=== PATIENT | male | born 1955 | race Caucasian/White ===

== ENCOUNTER → 2024-08-05 | Outpatient (CLI) | payer BC, SELFPAY ==
[2024-08-05 12:47] LABS: Absolute Lymphocyte Count 1.67 X10^3/uL (0.83-4.51); Absolute Neutrophil Count 3.7 X10^3/uL (2.0-7.7); Basophil# 0.04 X10^3/uL; Basophil% 0.7 % (0-1); Eosinophil# 0.14 X10^3/uL; Eosinophils% 2.3 % (0-5); Hematocrit 46.2 % (40-54); Hemoglobin 15.8 g/dL (13.0-16.5); Lymphocyte # 1.67 X10^3/ul (0.83-4.51); Lymphocyte % 27.3 % (19-41); Mean Corp Hgb Conc 34.2 g/dL (32-36); Mean Corpuscular Hgb 33.3 pg (27.0-32.0); Mean Corpuscular Volume 97.5 fL (80-94); Monocyte# 0.57 X10^3/uL; Monocyte% 9.3 % (0-10); NRBC Flagged by Analyzer 0 % (0-5); Neutrophil # 3.67 X10^3/uL (2.7-7.7); Neutrophil % 60.1 % (47-70); Platelet Count 231 K/mm3 (150-450); RBC Distribution Width CV 11.8 % (11.6-14.6); RBC Distribution Width SD 42.2 fl (35.1-43.9); Red Blood Count 4.74 M/mm3 (4.6-6.2); White Blood Count 6.1 K/mm3 (4.4-11.0)
[2024-08-05 23:31] LABS: Cholesterol 273 mg/dL (<=200); High Density Lipoprotein 78 mg/dL; Low Density Lipoprotein Calc. 174 mg/dL; Triglycerides 107 mg/dL; Very Low Density Lipoprotein 21 mg/dL (5-40); cholesterol:hdl ratio screen 3.51
[2024-08-05 23:41] LABS: ALB/GLOB Ratio 1.5 RATIO (0.9-2.4); AST(SGOT) 20 U/L (<=37); Alanine Aminotransfer ALT/SGPT 23 U/L (<=46); Alkaline Phosphatase 58 U/L (40-129); Anion Gap 10 (5-15); BUN 15 mg/dL (4-19); BUN/Creat Ratio 16.8 RATIO (10-20); Calcium,Total 9.1 mg/dL (7.6-11.0); Carbon Dioxide 24.3 mmol/L (21.0-32.0); Chloride 102 mmol/L (98-108); Creatinine, Serum 0.92 mg/dL (0.70-1.20); EST Glomerular Filtration Rate 90 (>60); Globulin 2.8 g/dL (2.2-4.2); Glucose 166 mg/dL (70-99); Potassium 4.4 mmol/L (3.3-5.1); Protein, Total 6.8 g/dL (5.9-8.4); Sodium Level 136 mmol/L (133-145); Total Bilirubin 0.48 mg/dL (0.00-1.30)
== END | disposition home or self-care (01) ==
LOC: BIMLAB 08:04
PROVIDERS: PCP Internal Medicine; Referring Provider Internal Medicine; Visit Provider Internal Medicine
DX: E11.9 Type 2 diabetes mellitus without complications (principal)
CPT/HCPCS: 36415; 80053; 80061; 85025

== ENCOUNTER → 2024-09-27 | Outpatient (CLI) | payer BC, SELFPAY ==
--- NOTE | 2024-09-27 08:26 | ECHOD_ITS ---
Reason For Study Reason For Study: A. fib Procedure This was a 2D Doppler, Color Flow transthoracic echocardiogram. Exam performed in department. Left Ventricle Normal LV size. Left ventricular systolic function is normal. The left ventricular ejection fraction is 65 %. Stage 1 diastolic dysfunction. Right Ventricle Normal RV size. Normal systolic function. Atria Normal left atrium. Normal right atrium. Mitral Valve Normal mitral valve. Mild (1+) eccentric mitral valve insufficiency. Tricuspid Valve Normal tricuspid valve. Mild tricuspid valve insufficiency. Pulmonary artery systolic pressure is 40 mmHg. Aortic Valve Trisinus/trileaflet aortic valve. Pulmonic Valve Normal pulmonic valve. Great Vessels Normal aortic root. The pulmonary artery is normal size. Inferior vena cava collapse with respiration. Pericardium/Pleural No pericardial effusion. MMode/2D Measurements & Calculations LVIDd: 5.0 cm IVSd: 1.0 cm Ao root diam: 3.2 cm LVIDs: 2.9 cm LVPWd: 1.0 cm RVDd: 3.6 cm FS: 42.4 % LAV(MOD-bp): 50.5 ml LVAd ap4: 30.1 cm2 LVAd ap2: 31.9 cm2 LAV(MOD-bp) Indexed: 20.7 ml/m2 LVLd ap4: 8.3 cm LVLd ap2: 8.8 cm LAV(MOD-sp2): 46.2 ml EDV(MOD-sp4): 90.4 ml EDV(MOD-sp2): 97.7 ml LAV(MOD-sp4): 49.9 ml EDV(sp4-el): 92.0 ml EDV(sp2-el): 98.2 ml LVAs ap4: 15.1 cm2 LVAs ap2: 15.6 cm2 LVLs ap4: 6.9 cm LVLs ap2: 6.8 cm ESV(MOD-sp4): 28.7 ml ESV(MOD-sp2): 30.9 ml ESV(sp4-el): 28.1 ml ESV(sp2-el): 30.2 ml EF(MOD-sp4): 68.2 % EF(MOD-sp2): 68.3 % EF(sp4-el): 69.4 % SV(MOD-sp4): 61.7 ml SV(MOD-sp2): 66.7 ml SV(sp4-el): 63.9 ml SI(MOD-sp4): 25.3 ml/m2 SI(MOD-sp2): 27.3 ml/m2 LA A4 area: 17.8 cm2 LA dimension(2D): 3.9 cm RA A4 area: 16.0 cm2 TAPSE: 2.5 cm Time Measurements MV dec time: 0.19 sec Doppler Measurements & Calculations MV E max ezequiel: 91.7 cm/sec Lat Peak E' Ezequiel: 12.1 cm/sec Med Peak E' Ezequiel: 8.1 cm/sec MV A max ezequiel: 93.7 cm/sec E/E' lat: 7.5 E/E' med: 11.3 MV E/A: 0.98 Ao V2 max: 152.6 cm/sec LV V1 max: 120.8 cm/sec MV dec slope: 492.9 cm/sec2 Ao max P.3 mmHg LV V1 max P.8 mmHg Ao V2 mean: 103.1 cm/sec LV V1 mean P.5 mmHg Ao mean P.8 mmHg LV V1 mean: 87.4 cm/sec Ao V2 VTI: 30.6 cm LV V1 VTI: 26.4 cm AV (velocity ratio): 0.86 PA V2 max: 102.4 cm/sec TR max ezequiel: 299.1 cm/sec TR max P.8 mmHg ECHO/Echo Complete Interpretation Summary Normal LV size. Left ventricular systolic function is normal. The left ventricular ejection fraction is 65 %. Stage 1 diastolic dysfunction. Pulmonary artery systolic pressure is 40 mmHg. Ordering Physician: Barry Cui Referring Physician: Amy Sutton Performed By: Soraida Puga RDCS
== END | disposition home or self-care (01) ==
PROVIDERS: PCP Internal Medicine; Referring Provider Internal Medicine Cardiovascular Disease; Visit Provider Internal Medicine Cardiovascular Disease
DX: I48.91 Unspecified atrial fibrillation (principal)
CPT/HCPCS: 93306

== ENCOUNTER 2024-11-25 06:43 | Day surgery (SDC) | payer BC, SELFPAY ==
--- NOTE | 2024-11-20 10:10 | RAD_ITS ---
EXAM: XR Chest, 2 Views CLINICAL INDICATION: PRE-PROCEDURAL, ABNORMAL CALCIUM SCORE, HEART CATH TECHNIQUE: Frontal and lateral views of the chest. COMPARISON: No relevant prior studies available. FINDINGS: LUNGS AND PLEURAL SPACES: Unremarkable. No consolidation. No pneumothorax. HEART: Unremarkable. No cardiomegaly. MEDIASTINUM: Unremarkable. Normal mediastinal contour. BONES/JOINTS: Unremarkable. No acute fracture. RAD/Chest PA and Lateral IMPRESSION: No acute cardiopulmonary process. Reading Location: [facility]
[2024-11-20 10:46] LABS: Hematocrit 48.2 % (40-54); Hemoglobin 16.3 g/dL (13.0-16.5); Immature Granulocytes Count 0.050 X10^3/uL (0.0-0.0); Mean Corp Hgb Conc 33.8 g/dL (32-36); Mean Corpuscular Volume 96.2 fL (80-94); Mean Platelet Vol. 10.7 fl (6.2-12.0); NRBC Flagged by Analyzer 0 % (0-5); Platelet Count 224 K/mm3 (150-450); RBC Distribution Width CV 12.8 % (11.6-14.6); RBC Distribution Width SD 44.7 fl (35.1-43.9); Red Blood Count 5.01 M/mm3 (4.6-6.2); White Blood Count 8.9 K/mm3 (4.4-11.0)
[2024-11-20 11:20] LABS: Prothrombin Time (Protime)PT. 13.5 SECONDS (11.7-14.9)
[2024-11-20 11:21] LABS: Partial Thromboplast Time 29.2 Seconds (24.1-36.2)
[2024-11-20 11:42] LABS: Anion Gap 12 (5-15); BUN 32 mg/dL (4-19); BUN/Creat Ratio 24.8 RATIO (10-20); Calcium,Total 9.4 mg/dL (7.6-11.0); Carbon Dioxide 26.2 mmol/L (21.0-32.0); Chloride 103 mmol/L (98-108); Glucose 82 mg/dL (70-99); Potassium 4.6 mmol/L (3.3-5.1)
[2024-11-22 09:54] VITALS: BMI 31.2
--- OUTSIDE RECORDS SUMMARY | 2024-11-25 06:50 | XMS RPT_ITS | CCD ---
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 Role Phone Unavailable Primary Care Provider Unavailabl e MARGARET, YARITZA Referring Unavailable LAVERN GARZON Attending Unavailable Pavel WEN, Gracie Unavailable Ofe WEN, Tennille Davies Primary Care Prov ider Gracie Zhao MD Unavailable Ofe WEN, Tennille Davies Primary Care Prov ider OFE, TENNILLE STEPHEN Referring Unav ailable OFE, TENNILLE STEPHEN Primary Care Unav ailable CHARMAINE HARTLEY Referring Unavailable OFE, TENNILLE STEPHEN Primary Care Unav ailable OFE, TENNILLE STEPHEN Primary Care Unav ailable LACI RICHARDSON Referring Unavailabl e OFE, TENNILLE STEPHEN Primary Care Unav ailable ANGEL BURNETTE Attending Unavailable VASILEANGEL Attending Unavailable OFE, TENNILLE STEPHEN Primary Care Unav ailable GRACIE ZHAO Attending Unavailable OFE, TENNILLE STEPHEN Primary Care Unav ailable MELVIN HOOPER Attending Unavailable OFE, TENNILLE STEPHEN Primary Care Unav ailable OFE, TENNILLE STEPHEN Primary Care Unav ailable YARITZA ROBLES Referring Unavailable YARITZA JOYCE Attending Unavailable OFE, TENNILLE STEPHEN Primary Care Unav ailable SELF Referring Unavailable OFE, TENNILLE STEPHEN Primary Care Unav ailable GRACIE ZHAO Attending Unavailable OFE, TENNILLE STEPHEN Primary Care Unav ailable YARITZA ROBLES Attending Unavailable Herman WEN, Dr. Reyes Attending Provider Kimper MD, Dr. Amy Primary Care Provider [phone] Herman WEN, Dr. Reyes Referring Provider Herman WEN, Dr. Reyes Attending Provider Basilia WEN, Dr. Reddy Attending Provider [phone] Basilia WEN, Dr. Reddy Referring Provider [phone] Conner WASHER MACHINE-C, Suzan Attending Provider [phone] Srikanth Hernandez Attending Provider [phone] Basilia, Barry Referring Unavailable Kimper, Amy Primary Care Unavailable Basilia, [place] Attending Unavailable Basilia, [place] Referring Unavailable Basilia, Barry Attending Unavailable Kimper, Amy Primary Care Unavailable Basilia, Barry Attending Unavailable Ehrman, Amy Primary Care Unavailable Basilia, Barry Referring Unavailable Herman, Amy Primary Care Unavailable Conner WASHER MACHINE, Suzan Attending Unavailable Hermna, Amy Attending Unavailable Kimper, Amy Referring Unavailable Basilia, Barry Attending Unavailable Herman, Amy Primary Care Unavailable Kimper, Amy Referring Unavailable Herman, Amy Primary Care Unavailable Herman, Amy Attending Unavailable Basilia, [place] Attending Unavailable Herman, Amy Primary Care Unavailable Basilia, [place] Referring Unavailable Herman, Amy Primary Care Unavailable Basilia, [place] Attending Unavailable Herman, Amy Referring Unavailable Kimper, Amy Primary Care Unavailable Srikanth Chappell Attending Unavailable Allergies Allergy Classification Reported Allergen(s) Allergy Type Date of Onset Reaction(s) Facility (20 sources) atorvastatin; Translations: [ATORVASTATIN] Drug Allergy 3 Myalgia [facility] Work Phone: (20 sources) Seasonal allergy; Translations: [SEASONAL ALLERGIES] Allergy to substance 3 Itching [facility] Work Phone: (20 sources) Losartan; Translations: [LOSARTAN] Drug Allergy 4 Myalgia [facility] (20 sources) metFORMIN; Translations: [METFORMIN] Drug Allergy 4 Diarrhea [facility] (3 sources) cat dander; Translations: [cat dander] Allergy to substance 5 Itching [facility] (2 sources) Iidxtzf-Cvu-Ujl Reductase Inhibitor Allergy to substance 5 Myalgias [facility] (3 sources) Environmental Allergies: Uncoded; Translations: [Environmental Allergies: Uncoded] Allergy to substance 5 Itching [facility] (1 source) Losartan Drug Allergy 5 [facility] Repository (1 source) metFORMIN Drug Allergy 5 [facility] (1 source) Clbksdz-Vxy-Ugq Reductase Inhibitor Drug allergy (disorder) 5 [facility] Repository Medications Current Medications Medication Drug Class(es) Dates Sig (Normalized) Sig (Original) Blood-Glucose Sensor (Freestyle Bertin 3 Plus Sensor) device (6 sources) Start: 07-18-2024 Blood-Glucose Sensor (Freestyle Bertin 3 Plus Sensor) device Active 0 .Route 6 July 18, 2024 5:10pm As directed Start: 07-18-2024 Blood-Glucose Sensor (Freestyle Bertin 3 Plus Sensor) device Active 0 .Route 6 July 18, 2024 5:10pm As directed Start: 07-10-2024 End: 07-18-2024 Blood-Glucose Sensor (Freest yle Bertin 3 Plus Sensor) device Discontinued 0 .Route 1 0 July 10, 2024 12:19pm July 18, 2024 5:11pm As directed Start: 07-10-2024 End: 07-18-2024 Blood-Glucose Sensor (Freest yle Bertin 3 Plus Sensor) device Discontinued 0 .Route 1 July 10, 2024 12:19pm July 18, 2024 5:11pm As directed Start: 07-10-2024 End: 07-10-2024 Blood-Glucose Sensor (Freest yle Bertin 3 Plus Sensor) device Discontinued 0 .Route July 10, 2024 1:00am July 10, 2024 12:51pm As directed Blood-Glucose Sensor (FREESTYLE BERTIN 3 SENSOR PLUS) jose g (18 sources) Start: 01-19-2024 Blood-Glucose Sensor (FREESTYLE BERTIN 3 SENSOR PLUS) jose g Indications: Diabetes mellitus type 1, controlled, without complications (HCC) 1 Each once daily. 2 Each 5 01/19/2024 Active Blood-Glucose Sensor (FREESTYLE BERTIN 3 SENSOR) jose g (8 sources) Start: 07-19-2023 Blood-Glucose Sensor (FREESTYLE BERTIN 3 SENSOR) jose g Indications: Diabetes mellitus type 1, controlled, without complications (HCC) Use to check sugars 3-4 times per day 2 Each 11 07/19/2023 Active Comment on above: Use to check sugars 3-4 times per day dapagliflozin 10 mg oral tablet (20 sources) Sodium-Glucose Cotransporter 2 Inhibitor Start: 12-01-2023 End: 11-05-2024 take 1 tablet by mouth once daily in the morning Dapagliflozin Propanediol (Farxiga) 10 mg tablet Active 10 mg PO EVERY MORNING 90 November 05, 2024 12:40pm Start: 07-08-2023 End: 11-21-2023 take 1 tablet by mouth once daily in the morning FARXIGA 10 mg tablet Indications: Diabetes mellitus type 1, controlled, without complications (HCC) take 1 tablet by mouth every morning 30 tablet 0 11/21/2023 Active Start: 01-07-2023 End: 06-20-2023 take 1 tablet by mouth once daily in the morning FARXIGA 10 mg tablet Take 10 mg by mouth every morning. 0 01/07/2023 06/20/2023 Discontinued Comment on above: Take 10 mg by mouth every morning. Take 1 tablet by joelle th every morning. ezetimibe 10 mg oral tablet (3 sources) Dietary Cholesterol Absorption Inhibitor Start: 08-08-19 End: 10-01-19 take 1 tablet by mouth once daily Ezetimibe (Zetia) 10 mg tablet Active 10 mg PO daily 30 September 30, 2024 1:17pm hydroCHLOROthiazide 12.5 mg / lisinopril 20 mg oral tablet (20 sources) Thiazide Diuretic, Angiotensin Converting Enzyme Inhibitor Start: 07-10-19 End: 09-24-19 Lisinopril-Hydroc hlorothiazide 20-12.5 mg tablet Active 1 {tbl} PO daily 90 September 23, 2024 8:50am Start: 01-09-2023 End: 04-09-2024 take 1 tablet by mouth once lisinopril-hydroCHLOROthiazide (ZESTORET IC) 20-12.5 mg per tablet Indications: Hypertension, essential Take 1 tablet by mouth every afternoon. 30 tablet 5 04/09/2024 Active Comment on above: Take 1 tablet by joelle th every afternoon. 3 ml insulin glargine 300 unt/ml pen injector (20 sources) Insulin Analog Start: 11-11-2024 Insulin Glargine U-300 Conc (Toujeo Max U-300 Solostar) 300 unit/mL (3 mL) insulin pen Active 50 U SC AT BEDTIME 6 November 11, 2024 10:12am Start: 08-24-2024 End: 09-30-2024 Insulin Glargine U-300 Conc (Toujeo Max U-300 Solostar) 300 unit/mL (3 mL) insulin pen Discontinued 50 U SC AT BEDTIME 6 August 24, 2024 11:05pm September 30, 2024 1:17pm Start: 05-03-2024 TOUJEO SOLOSTA R U-300 INSULIN 300 unit/mL (1.5 mL) Indications: Diabetes mellitus type 1, controlled, without complications (HCC) Inject 60 Units subcutaneously daily at bedtime. 15 mL 1 05/03/2024 Active Start: 02-15-2024 End: 05-03-2024 TOUJEO SOLOSTAR U-300 INSULI N 300 unit/mL (1.5 mL) Indications: Diabetes mellitus type 1, controlled, without complications (HCC) Inject 56 Units subcutaneously daily at bedtime. 15 mL 1 02/15/2024 05/03/2024 Discontinued (Adjust Sig - Block E-Cancel) Start: 07-19-2023 End: 02-15-2024 TOUJEO SOLOSTAR U-300 INSULI N 300 unit/mL (1.5 mL) Indications: Diabetes mellitus type 1, controlled, without complications (HCC) Inject 60 Units subcutaneously daily at bedtime. 15 mL 1 01/24/2024 02/15/2024 Discontinued (Adjust Sig - Block E-Cancel) Start: 01-23-2023 End: 07-19-2023 TOUJEO SOLOSTAR U-300 INSULI N 300 unit/mL (1.5 mL) Comment on above: Inject 60 Units subc utaneously daily at bedtime. 3 ml insulin lispro 100 unt/ml pen injector (20 sources) Insulin Analog Start: 07-10-2024 End: 10-22-2024 Insulin Lispro 100 unit/mL insulin pen Active 20 U SC THREE TIMES A DAY 15 October 22, 2024 2:16pm Start: 02-14-2024 End: 05-09-2024 insulin lispro (HUMALOG KWIK PEN) 100 unit/mL Indications: Diabetes mellitus type 1, controlled, without complications (HCC) Inject 20 Units subcutaneously three times a day before meals. 15 mL 2 05/09/2024 Active Start: 07-21-2023 End: 02-14-2024 inject 20 [IU] by subcutaneous injection three times daily before mealtime insulin lispro (HUMALOG KWIKPEN INSULIN) 100 unit/mL Indications: Diabetes mellitus type 1, controlled, without complications (HCC) Inject 20 Units subcutaneously three times a day before meals. Plus an additional 2 units for each 50 mg/dL >200; maximum amount per injection: 30 units; maximum per day: 90 units 12 mL 4 07/21/2023 02/14/2024 Discontinued Start: 06-20-2023 End: 07-21-2023 insulin lispro (HUMALOG KWIK PEN INSULIN) 100 unit/mL Indications: Diabetes mellitus type 1, controlled, without complications (HCC) Inject 20 Units subcutaneously three times a day before meals. 12 mL 4 07/19/2023 07/21/2023 Discontinued Comment on above: Inject 20 Units subc utaneously three times a day before meals. Inject 20 Units subc utaneously three times a day before meals. Plus an additional 2 units for each 50 mg/dL >200; maximum amount per injection: 30 units; maximum per day: 90 units lidocaine 0.05 mg/mg medicated patch (5 sources) Antiarrhythmic, Amide Local Anesthetic Start: 05-03-20 apply 1 dose transdermal route once daily lidocaine (LIDODERM) 5 % Indications: Acute midline low back pain without sciatica Apply 1 Patch as directed once daily. REMOVE AFTER 12 HOURS. 30 Patch 2 05/03/2024 Active Completed/Discontinued Medications Medication Drug Class(es) Dates Sig (Normalized) Sig (Original) apixaban 5 mg oral tablet (20 sources) Factor Xa Inhibitor Start: 07-19-2023 End: 07-10-2024 take 1 tablet by mouth twice daily Apixaban (Eliquis) 5 mg tablet Discontinued 5 mg PO TWICE A DAY July 10, 2024 1:00am July 10, 2024 12:51pm Start: 01-09-2023 End: 07-19-2023 take 1 tablet by mouth every twelve hours ELIQUIS 5 mg tab(s) Take 1 tablet by mouth every 12 (twelve) hours. 0 01/09/2023 07/19/2023 Discontinued Comment on above: Take 1 tablet by joelle th every 12 (twelve) hours. Take 1 tablet by joelle th two times a day. colchicine 0.6 mg oral tablet (2 sources) Start: 07-18-2024 End: 08-28-2024 take 1 tablet by mouth twice daily Colchicine 0.6 mg tablet Discontinued 0.6 mg PO TWICE A DAY July 18, 2024 1:00am August 28, 2024 10:43am FREESTYLE BERTIN 2 SENSOR kit (20 sources) Start: 06-20-2023 End: 02-16-2024 FREESTYLE BERTIN 2 SENSOR kit Indications: Diabetes mellitus type 1, controlled, without complications (HCC) apply 1 SENSOR to back OF UPPER ARM REMOVE AND REPLACE every 14 days 4 Each 2 06/20/2023 02/16/2024 Discontinued Start: 06-20-2023 FREESTYLE LIBR E 2 SENSOR kit Indications: Diabetes mellitus type 1, controlled, without complications (HCC) apply 1 SENSOR to back OF UPPER ARM REMOVE AND REPLACE every 14 days 4 Each 2 06/20/2023 Active Start: 12-26-2022 End: 06-20-2023 FREESTYLE BERTIN 2 SENSOR kit apply 1 SENSOR to back OF UPPER ARM REMOVE AND REPLACE every 14 days 0 12/26/2022 06/20/2023 Discontinued Start: 12-26-2022 FREESTYLE LIBR E 2 SENSOR kit apply 1 SENSOR to back OF UPPER ARM REMOVE AND REPLACE every 14 days 0 12/26/2022 Active Comment on above: apply 1 SENSOR to ba ck OF UPPER ARM REMOVE AND REPLACE every 14 days 3 ml insulin aspart, human 100 unt/ml pen injector (6 sources) Insulin Analog Start: 01-23-2023 End: 06-20-2023 NOVOLOG FLEXPEN U-100 INSULIN 100 unit/mL (3 mL) Start: 12-16-2021 End: 06-20-2023 insulin aspart, niacinamide, (FIASP FLEXTOUCH U-100 INSULIN) 100 unit/mL (3 mL) pen Inject subcutaneously. 0 12/16/2021 06/20/2023 Discontinued (Duplicate Entry) Comment on above: Inject subcutaneousl y. Insulin Glargine U-300 Conc (Toujeo Max U-300 Solostar) 300 unit/mL (3 mL) insulin pen (7 sources) Start: 09-30-2024 End: 11-11-2024 Insulin Glargine U-300 Conc (Toujeo Max U-300 Solostar) 300 unit/mL (3 mL) insulin pen Discontinued 50 U SC AT BEDTIME 6 0 September 30, 2024 1:17pm November 11, 2024 10:12am Start: 07-10-2024 End: 08-24-2024 Insulin Glargine U-300 Conc (Toujeo Max U-300 Solostar) 300 unit/mL (3 mL) insulin pen Discontinued 50 U SC AT BEDTIME 6 0 July 10, 2024 12:18pm August 24, 2024 11:05pm Start: 07-10-2024 Insulin Glargi ne U-300 Conc (Toujeo Max U-300 Solostar) 300 unit/mL (3 mL) insulin pen Active 50 U SC AT BEDTIME 6 July 10, 2024 12:18pm Start: 07-10-2024 End: 07-10-2024 Insulin Glargine U-300 Conc (Toujeo Max U-300 Solostar) 300 unit/mL (3 mL) insulin pen Discontinued 50 U SC AT BEDTIME July 10, 2024 12:15pm July 10, 2024 12:51pm Start: 07-10-2024 End: 07-10-2024 Insulin Glargine U-300 Conc (Toujeo Max U-300 Solostar) 300 unit/mL (3 mL) insulin pen Discontinued 60 U SC AT BEDTIME July 10, 2024 1:00am July 10, 2024 12:17pm 24 hr metoprolol succinate 25 mg extended release oral tablet (20 sources) beta-Adrenergic Lolly Start: 07-10-2024 End: 08-05-2024 take 1 tablet by mouth twice daily Metoprolol Succinate 25 mg tablet extended release 24 hr Discontinued 25 mg PO TWICE A DAY 180 0 July 10, 2024 12:19pm August 05, 2024 12:24pm Start: 07-19-2023 End: 09-02-2024 take 1 tablet by mouth twice daily Metoprolol Tartrate 25 mg tablet Active 25 mg PO TWICE A DAY 180 1 August 05, 2024 12:00am Start: 01-09-2023 End: 07-19-2023 take 1 tablet by mouth every twelve hours metoprolol tartrate, short acting, (LOPRESSOR) 25 mg tablet Take 1 tablet by mouth every 12 (twelve) hours. 0 01/09/2023 07/19/2023 Discontinued Comment on above: Take 1 tablet by joelle th every 12 (twelve) hours. Take 1 tablet by joelle th two times a day. ofloxacin 3 mg/ml ophthalmic solution (1 source) Quinolone Antimicrobial Start: 10-08-19 End: 01-27-20 take 1 drop(s) into the eye(s) four times daily ofloxacin (OCUFLOX) 0.3 % ophthalmic solution instill 1 drop INTO SURGICAL EYE four times a day 0 10/07/2022 01/26/2023 Discontinued (Course of therapy completed) Comment on above: instill 1 drop INTO SURGICAL EYE four times a day polyethylene glycol 3350 [id number] mg / potassium chloride 2970 mg / sodium bicarbonate 6740 mg / sodium chloride 5860 mg / sodium sulfate 31881 mg powder for oral solution (5 sources) Osmotic Laxative Start: 02-07-20 End: 07-19-19 peg 3350-Electrolytes (GOLYTELY) 236-22.74-6.74 -5.86 gram suspension Refer to printed patient instructions that will be mailed to you. 4000 mL 0 02/06/2023 07/19/2023 Discontinued Comment on above: Refer to printed pat ient instructions that will be mailed to you. prednisoLONE acetate 10 mg/ml ophthalmic suspension (1 source) Corticosteroid Start: 11-18-19 End: 01-27-20 prednisoLONE acetate (PRED FORTE) 1 % ophthalmic suspension instill 1 drop INTO SURGICAL EYE four times a day 0 11/17/2022 01/26/2023 Discontinued (Course of therapy completed) Comment on above: instill 1 drop INTO SURGICAL EYE four times a day Problems Active Problems Problem Classification Problem Date Documented Date Episodic/Chronic Abdominal pain (1 source) Flank pain; Translations: [Unspecified abdominal pain] 04-25-2024 Episodic Cardiac dysrhythmias (20 sources) Chronic atrial fibrillation; Translations: [Chronic atrial fibrillation, unspecified] Onset: 05-22-2020 01-26-2023 Chronic Chronic kidney disease (20 sources) Chronic kidney disease stage 2; Translations: [Chronic kidney disease, stage 2 (mild)] Onset: 02-06-2019 07-19-2023 Chronic Diabetes mellitus with complications (20 sources) Retinopathy due to diabetes mellitus; Translations: [Type 2 diabetes mellitus with unspecified diabetic retinopathy without macular edema] Onset: 08-22-2016 07-19-2023 Chronic Diabetes mellitus without complication (20 sources) Type 1 diabetes mellitus without complication; Translations: [Type 1 diabetes mellitus without complications] Onset: 05-23-2023 01-26-2023 Chronic Disorders of lipid metabolism (20 sources) Pure hypercholesterolemia ; Translations: [Pure hypercholesterolemia , unspecified] Onset: 10-26-2012 06-21-2023 Chronic Essential hypertension (20 sources) Essential hypertension; Translations: [Essential (primary) hypertension] Onset: 05-22-2020 06-21-2023 Chronic Hemorrhoids (2 sources) Hemorrhoids; Translations: [Unspecified hemorrhoids] Onset: 05-29-2023 02-06-2023 Episodic Other circulatory disease (2 sources) H/O: atrial fibrillation; Translations: [Personal history of other diseases of the circulatory system] Episodic Other connective tissue disease (1 source) Foot pain; Translations: [Pain in right foot] 07-10-2024 Episodic Other screening for suspected conditions (not mental disorders or infectious disease) (1 source) Abnormal findings on diagnostic imaging of other specified body structures; Translations: [Abnormal findings on diagnostic imaging of other specified body structures] Onset: 11-22-2024 Chronic Other screening for suspected conditions (not mental disorders or infectious disease) (10 sources) Patient encounter status; Translations: [Encounter for screening for malignant neoplasm of colon] Onset: 05-29-2023 01-26-2023 Episodic Other skin disorders (1 source) Skin tag; Translations: [Other hypertrophic disorders of the skin] 01-26-2023 Episodic Residual codes; unclassified (20 sources) Obstructive sleep apnea of adult; Translations: [Obstructive sleep apnea (adult) (pediatric)] Onset: 08-13-2021 07-19-2023 Chronic Residual codes; unclassified (2 sources) Sleep apnea; Translations: [Sleep apnea, unspecified] 07-10-2024 Chronic Residual codes; unclassified (1 source) Obstructive sleep apnea syndrome; Translations: [Obstructive sleep apnea (adult) (pediatric)] 07-10-2024 Chronic Residual codes; unclassified (1 source) Obstructive sleep apnea (adult) (pediatric); Translations: [Obstructive sleep apnea (adult) (pediatric)] Onset: 07-29-2024 Chronic Residual codes; unclassified (1 source) FH: Autoimmune disease; Translations: [Family history of malignant neoplasm of digestive organs] 07-21-2023 Episodic Spondylosis; intervertebral disc disorders; other back problems (1 source) Acute low back pain; Translations: [Acute midline low back pain without sciatica] 05-03-2024 Episodic Unclassified (1 source) Acute midline low back pain without sciatica; Translations: [Acute midline low back pain without sciatica] Onset: 05-03-2024 Unclassified (1 source) Chronic atrial fibrillation, unspecified; Translations: [Chronic atrial fibrillation (HCC)] Onset: 07-19-2023 Unclassified (1 source) Z86.79 - Personal history of other diseases of the circulatory system Unclassified (1 source) E11.9 - Type 2 diabetes mellitus without complications Past or Other Problems Problem Classification Problem Date Documented Da te Episodic/Chronic Administrative/social admission (3 sources) Other specified counseling; Translations: [First encounter by subject] Onset: 07-19-2023 07-10-2024 Episodic Immunizations and screening for infectious disease (5 sources) Needs influenza immunization; Translations: [Encounter for immunization] Onset: 05-23-2023 02-15-2024 Episodic Other circulatory disease (1 source) Personal history of other diseases of the circulatory system; Translations: [Personal history of other diseases of the circulatory system] Onset: 07-29-2024 Episodic Other connective tissue disease (1 source) Pain in right foot; Translations: [Pain in right foot] Onset: 07-29-2024 Episodic Residual codes; unclassified (20 sources) Family history of cancer of colon; Translations: [Family history of malignant neoplasm of digestive organs] Onset: 05-29-2023 02-06-2023 Episodic Residual codes; unclassified (4 sources) Family history of malignant neoplasm of digestive organs; Translations: [Family hx of colon cancer] Onset: 05-29-2023 Episodic Residual codes; unclassified (2 sources) Other specified health status; Translations: [Other drug allergy] Onset: 07-19-2023 07-19-2023 Episodic Results Test Name Value Interpretation Reference Range Facility Basic Metabolic Profile (BMP )on 11-20-2024 BUN/CRE 24.8 RATIO High 10-20 [facility] Comment on above: Performed By: #### L 300.3900, L100.0100, L300.4310, L500.2500 ####[facility] [address] [place], [address] Calcium [Mass/Vol] 9.4 mg/dL Normal 7.6-11.0 [facility] Comment on above: Performed By: #### L 300.3900, L100.0100, L300.4310, L500.2500 ####[facility] [address] [place], [address] Chloride [Moles/Vol] 103 mmol/L Normal 98-108 [facility] Comment on above: Performed By: #### L 300.3900, L100.0100, L300.4310, L500.2500 ####[facility] [address] [place], [address] CO2 [Moles/Vol] 26.2 mmol/L Normal 21.0-32.0 [facility] Comment on above: Performed By: #### L 300.3900, L100.0100, L300.4310, L500.2500 ####[facility] [address] [place], [address] Creatinine [Mass/Vol] 1.27 mg/dL High 0.70-1.20 [facility] Comment on above: Performed By: #### L 300.3900, L100.0100, L300.4310, L500.2500 ####[facility] [address] [place], [address] GAP 12 Normal 5-15 [facility] Comment on above: Performed By: #### L 300.3900, L100.0100, L300.4310, L500.2500 ####[facility] [address] [place], [address] GFR/1.73 sq M.predicted among non-blacks MDRD (S/P/Bld) [Vol rate/Area] 61 mL/min/{1.73_m2} Normal >60 [facility] Comment on above: Result Comment: mL/m in/1.73m2 CKD-EPI Creatinine Equation (2020) Performed By: #### L 300.3900, L100.0100, L300.4310, L500.2500 ####[facility] [address] [place], [address] Glucose [Mass/Vol] 82 mg/dL Normal 70-99 [facility] Comment on above: Performed By: #### L 300.3900, L100.0100, L300.4310, L500.2500 ####[facility] [address] [place], [address] Potassium [Moles/Vol] 4.6 mmol/L Normal 3.3-5.1 [facility] Comment on above: Performed By: #### L 300.3900, L100.0100, L300.4310, L500.2500 ####[facility] [address] [place], [address] Sodium [Moles/Vol] 141 mmol/L Normal 133-145 [facility] Comment on above: Performed By: #### L 300.3900, L100.0100, L300.4310, L500.2500 ####[facility] [address] [place], [address] Urea nitrogen [Mass/Vol] 32 mg/dL High 4-19 [facility] Comment on above: Performed By: #### L 300.3900, L100.0100, L300.4310, L500.2500 ####[facility] [address] [place], [address] CBC W/Diff, Automatedon 07-0 9-202 Absolute Lymph 2.10 X10 3/uL Normal 0.83-4.51 [facility] Comment on above: Performed By: #### L 300.3900, L100.0100, L300.4310, L500.2500 #### [facility] [address] [place], [address] Absolute Neut 5.7 X10 3/uL Normal 2.0-7.7 [facility] Comment on above: Performed By: #### L 300.3900, L100.0100, L300.4310, L500.2500 #### [facility] [address] [place], [address] Basophils/100 WBC (Bld) 0.6 % Normal 0-1 [facility] Comment on above: Performed By: #### L 300.3900, L100.0100, L300.4310, L500.2500 #### [facility] [address] [place], [address] Eosinophils/100 WBC (Bld) 2.7 % Normal 0-5 [facility] Comment on above: Performed By: #### L 300.3900, L100.0100, L300.4310, L500.2500 #### [facility] [address] [place], [address] Erythrocyte distribution width (RBC) [Ratio] 12.8 % Normal 11.6-14.6 [facility] Comment on above: Performed By: #### L 300.3900, L100.0100, L300.4310, L500.2500 #### [facility] [address] [place], [address] Hematocrit (Bld) [Volume fraction] 48.2 % Normal 40-54 [facility] Comment on above: Performed By: #### L 300.3900, L100.0100, L300.4310, L500.2500 #### [facility] [address] [place], [address] Hemoglobin (Bld) [Mass/Vol] 16.3 g/dL Normal 13.0-16.5 [facility] Comment on above: Performed By: #### L 300.3900, L100.0100, L300.4310, L500.2500 #### [facility] [address] [place], [address] IG% 0.600 Normal 0.0-0.9 [facility] Comment on above: Result Comment: IG% - Immature Granulocytes (promyelocytes, myelocytes and metamyelocytes) > 1% indicates that a LEFT SHIFT is Present. Performed By: #### L 300.3900, L100.0100, L300.4310, L500.2500 #### [facility] [address] [place], [address] Lymphocytes/100 WBC (Bld) 23.6 % Normal 19-41 [facility] Comment on above: Performed By: #### L 300.3900, L100.0100, L300.4310, L500.2500 #### [facility] [address] [place], [address] MCH (RBC) [Entitic mass] 32.5 pg High 27.0-32.0 [facility] Comment on above: Performed By: #### L 300.3900, L100.0100, L300.4310, L500.2500 #### [facility] [address] [place], [address] MCHC (RBC) [Mass/Vol] 33.8 g/dL Normal 32-36 [facility] Comment on above: Performed By: #### L 300.3900, L100.0100, L300.4310, L500.2500 #### [facility] [address] [place], [address] MCV (RBC) [Entitic vol] 96.2 fL High 80-94 [facility] Comment on above: Performed By: #### L 300.3900, L100.0100, L300.4310, L500.2500 #### [facility] [address] [place], [address] Monocytes/100 WBC (Bld) 8.5 % Normal 0-10 [facility] Comment on above: Performed By: #### L 300.3900, L100.0100, L300.4310, L500.2500 #### [facility] [address] [place], [address] Neutrophils/100 WBC (Bld) 64.0 % Normal 47-70 [facility] Comment on above: Performed By: #### L 300.3900, L100.0100, L300.4310, L500.2500 #### [facility] [address] [place], [address] Nucleated RBC (Bld) [#/Vol] 0 10*3/uL Normal 0-5 [facility] Comment on above: Performed By: #### L 300.3900, L100.0100, L300.4310, L500.2500 #### [facility] [address] [place], [address] Platelet mean volume (Bld) [Entitic vol] 10.7 fL Normal 6.2-12.0 [facility] Comment on above: Performed By: #### L 300.3900, L100.0100, L300.4310, L500.2500 #### [facility] [address] [place], [address] Platelets (Bld) [#/Vol] 224 10*3/uL Normal 150-450 [facility] Comment on above: Performed By: #### L 300.3900, L100.0100, L300.4310, L500.2500 #### [facility] [address] [place], [address] RBC (Bld) [#/Vol] 5.01 10*6/uL Normal 4.6-6.2 [facility] Comment on above: Performed By: #### L 300.3900, L100.0100, L300.4310, L500.2500 #### [facility] [address] [place], [address] RDW SD 44.7 fl High 35.1-43.9 [facility] Comment on above: Performed By: #### L 300.3900, L100.0100, L300.4310, L500.2500 #### [facility] [address] [place], [address] WBC (Bld) [#/Vol] 8.9 10*3/uL Normal 4.4-11.0 [facility] Comment on above: Performed By: #### L 300.3900, L100.0100, L300.4310, L500.2500 #### [facility] [address] [place], [address] Cardiology Visit Reporton Cardiology Visit Report [facility] [address] [place] [address] OFFICE VISIT Date of Service: 11/20/24 MR#: [id number] Acct: [id number] Name: BABATUNDE STEWART Rep #: [id number] : 1955 Provider: ERIC Cramer Age/Sex: 69/M [place] [facility] [place] Status: Signed HPI HPI History of Present Illness Details: Babatunde Stewart is a 69-year-old male who presents to office today for preprocedural evaluation. Patient established with our office 08/28/2024. He has a history of hypertension, hyperlipidemia, diabetes mellitus, history of atrial fibrillation in which he underwent cardioversion as well as A-fib ablation in December 2021 in [place]. At that time, an echocardiogram was ordered along with cardiac calcium scoring. He has been intolerant to statin therapy in the past and was noted to have elevated cholesterol levels. His echocardiogram was completed 09/27/2024 and this demonstrated left ventricular systolic function normal with an ejection fraction of 65%, stage I diastolic dysfunction, pulmonary artery systolic pressure at 40 mmHg and mild mitral valve and tricuspid valve insufficiency. His calcium scoring completed 10/04/2024 resulted in a total score of 1450, more specifically 577 in the LAD, 200 in the left circumflex, SIC 73 in the RCA. It has been decided to pursue cardiac catheterization given these results and his comorbidities. Upon presentation today, patient reports occasional bilateral lower extremity edema. This is worse when sitting for a long time. This resolves with elevation. He denies any additional concerns. Further ROS below. He is scheduled for his heart catheterization 11/25/2024 at 8 AM. Instructions were reviewed with patient. Preprocedural imaging and lab work will were ordered today. Intake Vital Signs 08/28/24 10:31 11/20/24 08:38 Height 6 ft 3 in 6 ft 3 in Weight: 250 lb BMI 31.2 BP 109/65 Blood Pressure Location Lt brachial Position Sitting Respiration 18 Pulse 70 Pulse Source Monitor Intake Visit Reasons: H P PER WL NOTE(SD) Steam Table Attendant Required: No Accompanied by: Self Is patient in pain?: No Allergies cat dander Allergy (Intermediate, Verified 11/20/24 08:39) Itching losartan Allergy (Intermediate, Verified 11/20/24 08:39) PT UNSURE OF REACTION metformin Allergy (Intermediate, Verified 11/20/24 08:39) PT UNSURE OF REACTION Larjhju-TUT-AvQ Reductase Inhibitor Allergy (Intermediate, Verified 11/20/24 08:39) Myalgias Environmental Allergies: Uncoded (hay fever) Allergy (Mild, Verified 11/20/24 08:39) Itching Medications ???Medication ???Instructions ???Recorded ???Confirmed ???Type apixaban 5 mg tablet (Eliquis) 5 mg PO BID #180 tabs 07/10/2402/06 Rx pen needle, diabetic 31 gauge x 07/10/24 11/20/24 History 5/16 (Droplet Pen Needle) blood-glucose sensor (FreeStyle #6 ea 07/18/24 11/20/24 Rx Bertin 3 Plus Sensor device) metoprolol tartrate 25 mg tablet 25 mg PO BID #180 tabs 08/05/24 Rx lisinopril 20 1 tab PO QDAY #90 tabs 09/23/24 Rx mg-hydrochlorothiazid e 12.5 mg tablet ezetimibe 10 mg tablet (Zetia) 10 mg PO QDAY #30 tabs 09/30/24 Rx insulin lispro 100 unit/mL 20 unit (0.2 mL) subcut TID #15 mL 10/22/24 11/20/24 Rx subcutaneous pen dapagliflozin propanediol 10 mg 10 mg PO QAM #90 tabs 11/05/2402/06 Rx tablet (Farxiga) insulin glargine U-300 conc 300 50 unit (0.1667 mL) subcut QHS #6 11/11/24 11/20/24 Rx unit/mL (3 mL) subcutaneous pen mL (Toujeo Max U-300 SoloStar) Have you fallen in the past year?: No PFSH Medical History Sleep apnea Hyperlipidemia A-fib Diabetes mellitus Hypertension Surgical History H/O wrist surgery History of surgery on lower extremity S/P ablation of atrial fibrillation (12/17/21) Family History Mother Arthritis Breast cancer Diabetes Hypertension Hyperlipidemia Osteoporosis Grandmother Arthritis Sister Colon cancer, Onset Age: 49 Father Diabetes Myocardial infarction Heart disease Hypertension Hyperlipidemia Grandfather Diabetes type 1 Myocardial infarction Heart disease Grandfather Myocardial infarction Heart disease CVA (cerebral vascular accident) Social History household members: spouse housing: house current occupational status: employed 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 Normal [facility] Chest PA and Lateralon 11-20 Chest PA and Lateral [facility] Imaging Services [address] [place], [place] [address] Chest PA and Lateral MR#: [id number] Acct: [id number] Name: BABATUNDE STEWART Rep #: [id number] : 1955 M 69 From: Mateo Canseco MD PCP: Dr. Amy Sutton MD Status: PRE SDC Study: Chest PA and Lateral Date of Exam: 11/20/24 Exam# [id number] Ordering Dr: Srikanth Chappell EXAM: XR Chest, 2 Views CLINICAL INDICATION: PRE-PROCEDURAL, ABNORMAL CALCIUM SCORE, HEART CATH TECHNIQUE: Frontal and lateral views of the chest. COMPARISON: No relevant prior studies available. FINDINGS: LUNGS AND PLEURAL SPACES: Unremarkable. No consolidation. No pneumothorax. HEART: Unremarkable. No cardiomegaly. MEDIASTINUM: Unremarkable. Normal mediastinal contour. BONES/JOINTS: Unremarkable. No acute fracture. RAD/Chest PA and Lateral IMPRESSION: No acute cardiopulmonary process. Reading [facility] CC: Dr. Amy Sutton MD; ERIC Cramer Hitch Technician: Signed Normal [facility] Partial Thromboplast Timeon 11-20-2024 aPTT Coag (Bld) [Time] 29.2 s Normal 24.1-36.2 [facility] Comment on above: Performed By: #### L 300.3900, L100.0100, L300.4310, L500.2500 ####[facility] [id number] [place], [address] Prothrombin Time w/INRon INR Coag (PPP) [Relative time] 1.0 {INR} Normal [facility] Comment on above: Performed By: #### L 300.3900, L100.0100, L300.4310, L500.2500 #### [facility] [address] [place], [address] PT Coag (PPP) [Time] 13.5 s Normal 11.7-14.9 [facility] Comment on above: Performed By: #### L 300.3900, L100.0100, L300.4310, L500.2500 #### [facility] [address] [place], [address] Coronary Angiography CTon Coronary Angiography CT [facility] Imaging Services [address] [place] [address] 10/05/24 1108 MR#: [id number] Acct: [id number] Name: BABATUNDE STEWART Rep #: [id number] : 1955 69 From: Barry Cui MD PCP: Dr. Amy Sutton MD Status:REG REF Y Location: CT Calcium Scoring Date of Study:: 10/04/24 Indications Indications: Hyperlidemia Coronary Calcium Scoring: High-resolution Computed Tomographic imaging of the chest was performed on [10/04/24 ], with particular attention paid to the coronary arteries. Images from the examination were analyzed for the presence and extent of coronary artery calcification , using coronary calcium quantification software. The patient tolerated the procedure well and there were no complications. The results of the coronary calcification analysis are provided below. Findings Coronary Artery Left Main (LM): 0 Left Anterior Descending (LAD): 577 Left Circumflex (LCX): 200 Right Coronary Artery (RCA): 673 Total Agatston Score: 1,450 Percentile Ranking: Greater than 90th percentile Calcium Scoring Interpretation: Different methods to categorize the overall amount of coronary plaque. Overall amount CAC SIS Visual of coronary plaque P1 Mild -100 <2 1-2 vessels with mild amount of plaque P2 Moderate 101-300 3-4 1-2 vessels with moderate amount, 3 vessels with mild amount of plaque P3 Severe 301-999 5-7 3 vessels with moderate amount, 1 vessel with severe amount of plaque P4 Extensive >1000 >8 2-3 vessels with severe amount of plaque Conclusion: Extensive three-vessel atherosclerotic plaquing. 10/05/24 1109 Date Barry Cui MD Cosigner Signature (if applicable): Date CC: Dr. Amy Sutton MD; Dr. Barry Cui MD Signed Normal [facility] Limited Chest CT Cardiac Onl yon 10-04-[address] Cardiac Only [facility] Imaging Services [address] [place] [id number] Cardiac Only MR#: [id number] Acct: [id number] Name: BABATUNDE STEWART Rep #: [id number] : 1955 M 69 From: Raffy henry MD PCP: Dr. Amy Sutton MD Status: REG REF Study: Limited Chest CT Cardiac Only Date of Exam: Exam# [id number] Ordering Dr: Barry Cui MD PROCEDURE: LIMITED CHEST CT CARDIAC ONLY REASON FOR EXAM: HYPERLIPIDEMIA TECHNIQUE: Supine chest CT without contrast, high resolution CT (HRCT) protocol. Coronal and Sagittal reconstruction series were provided. One or more dose reduction techniques were used (e.g., Automated exposure control, adjustment of the mA and/or kV according to patient size, use of iterative reconstruction technique). Dose report: CTDI L volume: 12.19 mGy. DLP: 219.42 COMPARISON: None FINDINGS: Hardware: None Lymph nodes: Small benign-appearing mediastinal lymph nodes. Heart and Vasculature: Normal heart size. No pericardial effusion. Coronary Artery Calcifications: Present Lungs and Airways: The lungs are normally expanded and clear. No septal thickening nodules or abnormal pulmonary opacities. Pleura: Unremarkable Upper Abdomen: Unremarkable Bones: Degenerative changes of the thoracic spine. CT/Limited Chest CT Cardiac Only IMPRESSION: Coronary artery calcification (CAC) is is present Reading Location: [place] [address] CC: Dr. Amy Sutton MD; Dr. Barry Cui MD Hitch Technician: Signed Normal [facility] Echo Completeon 09-27-2024 Echo Complete [facility] [address] [place] [address] Echo Complete 09/27/24 0834 MR#: [id number] Acct: [id number] Name: BABATUNDE STEWART Rep #: [id number] : 1955 69 From: Barry Cui MD Attending Dr: Dr. Barry Cui MD Status: REG [facility] Ordering Dr: Barry Cui MD Date: 09/27/24 Location: [facility] Sex: M C Admitted: Reason For Study Reason For Study: A. fib Procedure This was a 2D Doppler, Color Flow transthoracic echocardiogram. Exam performed in department. Left Ventricle Normal LV size. Left ventricular systolic function is normal. The left ventricular ejection fraction is 65 %. Stage 1 diastolic dysfunction. Right Ventricle Normal RV size. Normal systolic function. Atria Normal left atrium. Normal right atrium. Mitral Valve Normal mitral valve. Mild (1+) eccentric mitral valve insufficiency. Tricuspid Valve Normal tricuspid valve. Mild tricuspid valve insufficiency. Pulmonary artery systolic pressure is 40 mmHg. Aortic Valve Trisinus/trileaflet aortic valve. Pulmonic Valve Normal pulmonic valve. Great Vessels Normal aortic root. The pulmonary artery is normal size. Inferior vena cava collapse with respiration. Pericardium/Pleural No pericardial effusion. MMode/2D Measurements Calculations LVIDd: 5.0 cm IVSd: 1.0 cm Ao root diam: 3.2 cm LVIDs: 2.9 cm LVPWd: 1.0 cm RVDd: 3.6 cm FS: 42.4 % LAV(MOD-bp): 50.5 ml LVAd ap4: 30.1 cm2 LVAd ap2: 31.9 cm2 LAV(MOD-bp) Indexed: 20.7 ml/m2 LVLd ap4: 8.3 cm LVLd ap2: 8.8 cm LAV(MOD-sp2): 46.2 ml EDV(MOD-sp4): 90.4 ml EDV(MOD-sp2): 97.7 ml LAV(MOD-sp4): 49.9 ml EDV(sp4-el): 92.0 ml EDV(sp2-el): 98.2 ml LVAs ap4: 15.1 cm2 LVAs ap2: 15.6 cm2 LVLs ap4: 6.9 cm LVLs ap2: 6.8 cm ESV(MOD-sp4): 28.7 ml ESV(MOD-sp2): 30.9 ml ESV(sp4-el): 28.1 ml ESV(sp2-el): 30.2 ml EF(MOD-sp4): 68.2 % EF(MOD-sp2): 68.3 % EF(sp4-el): 69.4 % SV(MOD-sp4): 61.7 ml SV(MOD-sp2): 66.7 ml SV(sp4-el): 63.9 ml SI(MOD-sp4): 25.3 ml/m2 SI(MOD-sp2): 27.3 ml/m2 LA A4 area: 17.8 cm2 LA dimension(2D): 3.9 cm RA A4 area: 16.0 cm2 TAPSE: 2.5 cm Time Measurements MV dec time: 0.19 sec Doppler Measurements Calculations MV E max hayley: 91.7 cm/sec Lat Peak E' Hayley: 12.1 cm/sec Med Peak E' Hayley: 8.1 cm/sec MV A max hayley: 93.7 cm/sec E/E' lat: 7.5 E/E' med: 11.3 MV E/A: 0.98 Ao V2 max: 152.6 cm/sec LV V1 max: 120.8 cm/sec MV dec slope: 492.9 cm/sec2 Ao max P.3 mmHg LV V1 max P.8 mmHg Ao V2 mean: 103.1 cm/sec LV V1 mean P.5 mmHg Ao mean P.8 mmHg LV V1 mean: 87.4 cm/sec Ao V2 VTI: 30.6 cm LV V1 VTI: 26.4 cm AV (velocity ratio): 0.86 PA V2 max: 102.4 cm/sec TR max hayley: 299.1 cm/sec TR max P.8 mmHg ECHO/Echo Complete Interpretation Summary Normal LV size. Left ventricular systolic function is normal. The left ventricular ejection fraction is 65 %. Stage 1 diastolic dysfunction. Pulmonary artery systolic pressure is 40 mmHg. Ordering Physician: Barry Cui Referring Physician: Amy Sutton Performed By: Soraida Puga RDCS 09/27/24 1305 Date Barry Cui MD CC: Dr. Amy Sutton MD; Dr. Barry Cui MD Date Dictated: 09/27/24 0834 Date Transcribed: 09/27/24 1305 Hitch Technician: Signed Normal [facility] 12 Lead [place] [facility] [place] 12 Lead EKG performed by [facility] [address] [place] [address] 12 Lead EKG performed by [facility] [place] 08/28/24 1031 MR#: [id number] Acct: [id number] Name: BABATUNDE STEWART Rep #: [id number] : 1955 69 From: Barry Cui MD Attending Dr: Dr. Barry Cui MD Status: DEP A MB Ordering Dr: Barry Cui MD Date: 08/28/24 Location: [facility] [place] Sex: M C Admitted: BMS/12 Lead EKG performed [place] [facility] [place] ECG Report Interpretation -----Sinus Rhythm -Old anterior infarct. -Anterolateral ST-elevation -repolarization variant. ABNORMAL Electronically signed on 08/29/2024 at 07:36 by Barry Cui [employer] Version [id number] 08/29/24 0742 Date Barry Cui MD CC: Dr. Amy Sutton MD Date Dictated: 08/28/24 1031 Date Transcribed: 08/28/24 1031 Hitch Technician: CO Signed Normal [facility] Cardiology Visit Reporton Cardiology Visit Report [facility] [place] [address] OFFICE VISIT Date of Service: 08/28/24 MR#: [id number] Acct: [id number] Name: BABATUNDE STEWART Rep #: [id number] : 1955 Provider: Dr. Barry Cui MD Age/Sex: 69/M Location: [facility] [place] Status: Signed HPI HPI History of Present Illness Details: Pleasant 69-year-old gentleman with a history of hypertension, hyperlipidemia, diabetes mellitus, history of atrial fibrillation for which he underwent cardioversion as well as A-fib ablation in December 2021 in [facility] in [facility] system. Since then he tells me that he has done well has been maintaining sinus rhythm and not had any dizziness or diaphoresis near syncope or syncope. He has been compliant with all his medications he denied any chest pain paroxysmal nocturnal dyspnea pedal edema palpitations he does have a Fitbit and is able to monitor his pulse quite regularly. His last echocardiogram was 3 years ago. He has not tolerated statins very well and his last lipid profile demonstrated total cholesterol 288 HDL of 102 and LDL of 159. His physical exam today is unremarkable his electrocardiogram does confirm that he is in sinus rhythm with a rate of 63 bpm and poor R wave progression. Intake Vital Signs 07/10/24 10:47 08/28/24 10:31 Height 6 ft 3 in 6 ft 3 in Weight: 255 lb 6 oz 257 lb BMI 31.9 32.1 BP 122/60 H 128/67 H Blood Pressure Location Lt brachial Lt brachial Position Sitting Sitting Respiration 12 16 Pulse 66 66 Pulse Source Monitor Monitor Pulse Oximetry (%) 95 Oxygen Delivery Method room air Intake Visit Reasons: [facility] ([place] Steam Table Attendant Required: No Accompanied by: Self Is patient in pain?: No Allergies cat dander Allergy (Intermediate, Verified 08/28/24 10:43) Itching losartan Allergy (Intermediate, Verified 08/28/24 10:43) PT UNSURE OF REACTION metformin Allergy (Intermediate, Verified 08/28/24 10:43) PT UNSURE OF REACTION Ohbexpq-SRK-CrU Reductase Inhibitor Allergy (Intermediate, Verified 08/28/24 10:43) Myalgias Environmental Allergies: Uncoded (hay fever) Allergy (Mild, Verified 08/28/24 10:43) Itching Medications ???Medication ???Instructions ???Recorded ???Confirmed ???Type apixaban 5 mg tablet (Eliquis) 5 mg PO BID #180 tabs 07/10/24 Rx dapagliflozin propanediol 10 mg 10 mg PO QAM #90 tabs 07/10/24 Rx tablet (Farxiga) insulin lispro 100 unit/mL 20 unit (0.2 mL) subcut TID #15 mL 07/10/24 08/28/24 Rx subcutaneous pen lisinopril 20 1 tab PO QDAY #90 tabs 07/10/24 Rx mg-hydrochlorothiazid e 12.5 mg tablet pen needle, diabetic 31 gauge x 07/10/24 07/10/24 History 09/27 (Droplet Pen Needle) blood-glucose sensor (FreeStyle #6 ea 07/18/24 Rx Bertin 3 Plus Sensor device) metoprolol tartrate 25 mg tablet 25 mg PO BID #180 tabs 08/05/24 Rx ezetimibe 10 mg tablet (Zetia) 10 mg PO QDAY #30 tabs 08/07/24 Rx insulin glargine U-300 conc 300 50 unit (0.1667 mL) subcut QHS #6 08/24/24 08/28/24 Rx unit/mL (3 mL) subcutaneous pen mL (Toujeo Max U-300 SoloStar) Have you fallen in the past year?: No PFSH Medical History Sleep apnea Hyperlipidemia A-fib Diabetes mellitus Hypertension Surgical History H/O wrist surgery History of surgery on lower extremity S/P ablation of atrial fibrillation (12/17/21) Family History Mother Arthritis Breast cancer Diabetes Hypertension Hyperlipidemia Osteoporosis Grandmother Arthritis Sister Colon cancer, Onset Age: 49 Father Diabetes Myocardial infarction Heart disease Hypertension Hyperlipidemia Grandfather Diabetes type 1 Myocardial infarction Heart disease Grandfather Myocardial infarction Heart disease CVA (cerebral vascular accident) Social History household members: spouse housing: house current occupational status: employed 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 current occupational exposures/hazards: No pets and animals: No history of recent travel: No Smoking Status: Former smoker quit date: 05/15/94 pack-years: 15 how long ago did patient quit smokin years second hand exposure: No alcohol intake: current alcohol intake frequency: a few times a week details: was drinking 4-6 beer per day, cut back substance use type: does not use caffeine: Yes eating out: 4 or more times/week during the past year weight has: remained stable what type of physical activity do you participate in: walking, running, bicycling and additional frequency: daily seatbelt use: (more content not included)... Normal [facility] Absolute lymphocyte countOrd ered By: Amy Sutton on 08-05-2024 Lymphocytes Auto (Unsp spec) [#/Vol] 1.67 10*3/uL 0.83-4.51 [facility] Absolute neutrophil countOrd ered By: Amy Sutton on 08-05-2024 Neutrophils (Bld) [#/Vol] 3.7 10*3/uL 2.0-7.7 [facility] Anion gap in Serum or Plasma Ordered By: Amy Sutton on 08-05-2024 Anion gap [Moles/Vol] 10 mmol/L 5-15 [facility] Automated lymphocyte count a s percentage of total leukocytesOrdered By: Amy Sutton on 08-05-2024 Lymphocytes/100 WBC Auto (Unsp spec) 27.3 % 19- [facility] BUN/creatinine ratioOrdered By: Amy Sutton on 08-05-2024 Urea nitrogen/Creatinine [Mass ratio] 16.8 mg/mg 10-20 [facility] Basophil percentageOrdered B y: Amy Sutton on 08-05-2024 Basophils/100 WBC (Bld) 0.7 % 0-1 [facility] Bilirubin, totalOrdered By: Amy Sutton on 08-05-2024 Bilirubin [Mass/Vol] 0.48 mg/dL 0.00-1.30 [facility] CBC W/Diff, Automatedon 07-14 Absolute Lymph 1.67 X10 3/uL Normal 0.83-4.51 [facility] Comment on above: Performed By: #### L 500.4050, L500.4100, L100.0100 #### [facility] [address] [place], [address] Absolute Neut 3.7 X10 3/uL Normal 2.0-7.7 [facility] Comment on above: Performed By: #### L 500.4050, L500.4100, L100.0100 #### [facility] [address] [place], [address] Basophils/100 WBC (Bld) 0.7 % Normal 0-1 [facility] Comment on above: Performed By: #### L 500.4050, L500.4100, L100.0100 #### [facility] [address] [place], [address] Eosinophils/100 WBC (Bld) 2.3 % Normal 0-5 [facility] Comment on above: Performed By: #### L 500.4050, L500.4100, L100.0100 #### [facility] [address] [place], [address] Erythrocyte distribution width (RBC) [Ratio] 11.8 % Normal 11.6-14.6 [facility] Comment on above: Performed By: #### L 500.4050, L500.4100, L100.0100 #### [facility] [address] [place], [address] Hematocrit (Bld) [Volume fraction] 46.2 % Normal 40-54 [facility] Comment on above: Performed By: #### L 500.4050, L500.4100, L100.0100 #### [facility] [address] [place], [address] Hemoglobin (Bld) [Mass/Vol] 15.8 g/dL Normal 13.0-16.5 [facility] Comment on above: Performed By: #### L 500.4050, L500.4100, L100.0100 #### [facility] [address] [place], [address] IG% 0.300 Normal 0.0-0.9 [facility] Comment on above: Result Comment: IG% - Immature Granulocytes (promyelocytes, myelocytes and metamyelocytes) > 1% indicates that a LEFT SHIFT is Present. Performed By: #### L 500.4050, L500.4100, L100.0100 #### [facility] [address] [place], [address] Lymphocytes/100 WBC (Bld) 27.3 % Normal 19-41 [facility] Comment on above: Performed By: #### L 500.4050, L500.4100, L100.0100 #### [facility] [address] [place], [address] MCH (RBC) [Entitic mass] 33.3 pg High 27.0-32.0 [facility] Comment on above: Performed By: #### L 500.4050, L500.4100, L100.0100 #### [facility] [address] [place], [address] MCHC (RBC) [Mass/Vol] 34.2 g/dL Normal 32-36 [facility] Comment on above: Performed By: #### L 500.4050, L500.4100, L100.0100 #### [facility] [address] [place], [address] MCV (RBC) [Entitic vol] 97.5 fL High 80-94 [facility] Comment on above: Performed By: #### L 500.4050, L500.4100, L100.0100 #### [facility] [address] [place], [address] Monocytes/100 WBC (Bld) 9.3 % Normal 0-10 [facility] Comment on above: Performed By: #### L 500.4050, L500.4100, L100.0100 #### [facility] [address] [place], [address] Neutrophils/100 WBC (Bld) 60.1 % Normal 47-70 [facility] Comment on above: Performed By: #### L 500.4050, L500.4100, L100.0100 #### [facility] [address] [place], [address] Nucleated RBC (Bld) [#/Vol] 0 10*3/uL Normal 0-5 [facility] Comment on above: Performed By: #### L 500.4050, L500.4100, L100.0100 #### [facility] [address] [place], [address] Platelet mean volume (Bld) [Entitic vol] 11.0 fL Normal 6.2-12.0 [facility] Comment on above: Performed By: #### L 500.4050, L500.4100, L100.0100 #### [facility] [address] [place], [address] Platelets (Bld) [#/Vol] 231 10*3/uL Normal 150-450 [facility] Comment on above: Performed By: #### L 500.4050, L500.4100, L100.0100 #### [facility] [address] [place], [address] RBC (Bld) [#/Vol] 4.74 10*6/uL Normal 4.6-6.2 [facility] Comment on above: Performed By: #### L 500.4050, L500.4100, L100.0100 #### [facility] [address] [place], [address] RDW SD 42.2 fl Normal 35.1-43.9 [facility] Comment on above: Performed By: #### L 500.4050, L500.4100, L100.0100 #### [facility] [address] [place], [address] WBC (Bld) [#/Vol] 6.1 10*3/uL Normal 4.4-11.0 [facility] Comment on above: Performed By: #### L 500.4050, L500.4100, L100.0100 #### [facility] [address] [place], [address] Calculated very low density lipoprotein (VLDL) cholesterol measurementOrdered By: Amy Sutton on 08-05-2024 Calculated very low density lipoprotein (VLDL) cholesterol measurement 21 mg/dL 5-40 [facility] VLDL Cholesterol 21 mg/dL 5-40 [facility] Carbon dioxide, total [Moles /volume] in Central venous bloodOrdered By: Amy Sutton on 08-05-2024 CO2 [Moles/Vol] 24.3 mmol/L 21.0-32.0 [facility] Chloride assayOrdered By: Bhupendra Sutton on 08-05-2024 Chloride [Moles/Vol] 102 mmol/L 98-108 [facility] Comprehensive Metabolic Prof ilon 08-05-2024 Albumin [Mass/Vol] 4.0 g/dL Normal 3.4-4.8 [facility] Comment on above: Performed By: #### L 500.4050, L500.4100, L100.0100 #### [facility] [address] [place], [address] Albumin/Globulin [Mass ratio] 1.5 {ratio} Normal 0.9-2.4 [facility] Comment on above: Performed By: #### L 500.4050, L500.4100, L100.0100 #### [facility] [address] [place], [address] ALK PHOS 58 U/L Normal 40-129 [facility] Comment on above: Performed By: #### L 500.4050, L500.4100, L100.0100 #### [facility] [address] [place], [address] ALT [Catalytic activity/Vol] 23 U/L Normal <=46 [facility] Comment on above: Performed By: #### L 500.4050, L500.4100, L100.0100 #### [facility] [address] [place], [address] AST [Catalytic activity/Vol] 20 U/L Normal <=37 [facility] Comment on above: Performed By: #### L 500.4050, L500.4100, L100.0100 #### [facility] [address] [place], [address] Bilirubin [Mass/Vol] 0.48 mg/dL Normal 0.00-1.30 [facility] Comment on above: Performed By: #### L 500.4050, L500.4100, L100.0100 #### [facility] [address] [place], [address] BUN/CRE 16.8 RATIO Normal 10-20 [facility] Comment on above: Performed By: #### L 500.4050, L500.4100, L100.0100 #### [facility] [address] [place], [address] Calcium [Mass/Vol] 9.1 mg/dL Normal 7.6-11.0 [facility] Comment on above: Performed By: #### L 500.4050, L500.4100, L100.0100 #### [facility] [address] [place], [address] Chloride [Moles/Vol] 102 mmol/L Normal 98-108 [facility] Comment on above: Performed By: #### L 500.4050, L500.4100, L100.0100 #### [facility] [address] [place], [address] CO2 [Moles/Vol] 24.3 mmol/L Normal 21.0-32.0 [facility] Comment on above: Performed By: #### L 500.4050, L500.4100, L100.0100 #### [facility] [address] [place], [address] Creatinine [Mass/Vol] 0.92 mg/dL Normal 0.70-1.20 [facility] Comment on above: Performed By: #### L 500.4050, L500.4100, L100.0100 #### [facility] [address] [place], [address] GAP 10 Normal 5-15 [facility] Comment on above: Performed By: #### L 500.4050, L500.4100, L100.0100 #### [facility] [address] [place], [address] GFR/1.73 sq M.predicted among non-blacks MDRD (S/P/Bld) [Vol rate/Area] 90 mL/min/{1.73_m2} Normal >60 [facility] Comment on above: Result Comment: mL/m in/1.73m2 CKD-EPI Creatinine Equation (2020) Performed By: #### L 500.4050, L500.4100, L100.0100 #### [facility] [address] [place], [address] Globulin (S) [Mass/Vol] 2.8 g/dL Normal 2.2-4.2 [facility] Comment on above: Performed By: #### L 500.4050, L500.4100, L100.0100 #### [facility] [address] [place], [address] Glucose [Mass/Vol] 166 mg/dL High 70-99 [facility] Comment on above: Performed By: #### L 500.4050, L500.4100, L100.0100 #### [facility] [address] [place], [address] Potassium [Moles/Vol] 4.4 mmol/L Normal 3.3-5.1 [facility] Comment on above: Performed By: #### L 500.4050, L500.4100, L100.0100 #### [facility] [address] [place], [address] Sodium [Moles/Vol] 136 mmol/L Normal 133-145 [facility] Comment on above: Performed By: #### L 500.4050, L500.4100, L100.0100 #### [facility] [address] [place], [address] T PROT 6.8 g/dL Normal 5.9-8.4 [facility] Comment on above: Performed By: #### L 500.4050, L500.4100, L100.0100 #### [facility] [address] [place], [address] Urea nitrogen [Mass/Vol] 15 mg/dL Normal 4-19 [facility] Comment on above: Performed By: #### L 500.4050, L500.4100, L100.0100 #### [facility] [address] [place], [address] Eosinophil percentageOrdered By: Amy Sutton on 08-05-2024 Eosinophils/100 WBC (Bld) 2.3 % 0-5 [facility] Erythrocyte distribution wid th ratioOrdered By: Amy Sutton on 08-05-2024 Erythrocyte distribution width (RBC) [Ratio] 11.8 % 11.6-14.6 [facility] Erythrocyte distribution wid th standard deviationOrdered By: Amy Sutton on 08-05-2024 Erythrocyte distribution width (RBC) [Entitic vol] 42.2 fL 35.1-43.9 [facility] Erythrocyte distribution width (RBC) [Ratio] 42.2 fl 35.1-43.9 [facility] GFR/1.73 sq M.predicted jc g non-blacks MDRD (S/P/Bld) [Vol rate/Area]Ordered By: Amy Sutton on 08-05-2024 Estimated GFR (MDRD) Non-Af Amer 90 >60 [facility] Comment on above: mL/min/1.73m2 CKD-EP I Creatinine Equation (2020) Glomerular filtration rate ( GFR) estimation/1.73 sq m using serum, plasma, or whole bOrdered By: Amy Sutton on 08-05-2024 GFR/1.73 sq M.predicted among non-blacks MDRD (S/P/Bld) [Vol rate/Area] 90 mL/min/{1.73_m2} >60 [facility] Comment on above: mL/min/1.73m2 CKD-EP I Creatinine Equation (2020) Hematocrit Auto (Bld) [Volum e fraction]Ordered By: Amy Sutton on 08-05-2024 Hematocrit (Bld) [Volume fraction] 46.2 % 40-54 [facility] Hemoglobin measurementOrdere d By: Amy Sutton on 08-05-2024 Hemoglobin (Bld) [Mass/Vol] 15.8 g/dL 13.0-16.5 [facility] Immature granulocytes/100 WB C Auto (Bld)Ordered By: Amy Sutton on 08-05-2024 Immature granulocytes/100 WBC (Bld) 0.300 % 0.0-0.9 [facility] Comment on above: IG% - Immature Granu locytes (promyelocytes, myelocytes and metamyelocytes) > 1% indicates that a LEFT SHIFT is Present. LDL calc ser/plasOrdered By: Amy Sutton on 08-05-2024 Cholesterol in LDL [Mass/Vol] 174 mg/dL [facility] Comment on above: Prrbgknfaj=988-002 m g/dL & Higher Ubqk=620 mg/dL or greater LDL Cholesterol, Calculated 174 mg/dL [facility] Comment on above: Fpmyxxbenp=323-876 m g/dL & Higher Xgvj=042 mg/dL or greater Laboratory - Chemistry and C hemistry - challengeOrdered By: Amy Sutton on 08-05-2024 AST [Catalytic activity/Vol] 20 U/L <38 [facility] Lipid Profileon 08-05-2024 CHOL:HDL 3.51 Normal [facility] Comment on above: Performed By: #### L 500.4050, L500.4100, L100.0100 #### [facility] [address] [place], [address] Cholesterol [Mass/Vol] 273 mg/dL High <=200 [facility] Comment on above: Result Comment: Chol esterol level, Desirable <200 mg/dL Borderline high cholesterol 200-239 mg/dL High cholesterol >=240 mg/dL Recommendations of the NCEP Adult Treatment Panel for the following risk-cutoff thresholds for the [place] population. Performed By: #### L 500.4050, L500.4100, L100.0100 #### [facility] [address] [place], [address] Cholesterol in HDL [Mass/Vol] 78 mg/dL Normal [facility] Comment on above: Result Comment: Molly onal Cholesterol Education Program (NCEP) guidelines: <40 mg/dL: Low HDL-cholesterol (major risk factor for CHD) >= 60 mg/dL: High HDL-cholesterol (negative risk factor for CHD) HDL-cholesterol is affected by a number of factors, e.g. smoking, exercise, hormones, sex and age. Performed By: #### L 500.4050, L500.4100, L100.0100 #### [facility] [address] [place], [address] Cholesterol in LDL [Mass/Vol] 174 mg/dL Normal [facility] Comment on above: Result Comment: Bord xnkzbb=461-313 mg/dL Higher Zlzh=143 mg/dL or greater Performed By: #### L 500.4050, L500.4100, L100.0100 #### [facility] [address] [place], [address] Cholesterol in VLDL [Mass/Vol] 21 mg/dL Normal 5-40 [facility] Comment on above: Performed By: #### L 500.4050, L500.4100, L100.0100 #### [facility] [address] [place], [address] Triglyceride [Mass/Vol] 107 mg/dL Normal [facility] Comment on above: Result Comment: The drugs N-Acetylcysteine and Metamizole may falsely depress this assay. Normal range: <150 mg/dL Borderline High: 150-199 mg/dL High: 200-499 mg/dL Very High: >500 mg/dL Performed By: #### L 500.4050, L500.4100, L100.0100 #### [facility] [address] [place], [address] Lymphocytes Auto (Unsp spec) [#/Vol]Ordered By: Amy Sutton on 08-05-2024 Lymphocytes (Bld) [#/Vol] 1.67 10*3/uL 0.83-4.51 [facility] Lymphocytes/100 WBC Auto (Un sp spec)Ordered By: Amyrigo Sutton on 08-05-2024 Lymphocytes/100 WBC (Bld) 27.3 % 19-41 [facility] MCV (mean corpuscular volume ) determinationOrdered By: Amyrigo Sutton on 08-05-2024 MCV (RBC) [Entitic vol] 97.5 fL High 80-94 [facility] Mean corpuscular hemoglobin (MCH) determinationOrdered By: Amy Sutton on 08-05-2024 MCH (RBC) [Entitic mass] 33.3 pg High 27.0-32.0 [facility] Mean corpuscular hemoglobin concentration (MCHC) determinationOrdered By: Amyrigo Sutton on 08-05-2024 MCHC (RBC) [Mass/Vol] 34.2 g/dL 32-36 [facility] Mean platelet volume determi nationOrdered By: Amyrigo Sutton on 08-05-2024 Platelet mean volume (Bld) [Entitic vol] 11.0 fL 6.2-12.0 [facility] Monocyte percentageOrdered B y: Amy Sutton on 08-05-2024 Monocytes/100 WBC (Bld) 9.3 % 0-10 [facility] Neutrophil percentageOrdered By: Amy Herman on 08-05-2024 Neutrophils/100 WBC (Bld) 60.1 % 47-70 [facility] Nucleated red blood cell per centageOrdered By: Amy Kimper on 08-05-2024 Nucleated RBC/100 WBC (Bld) [Ratio] 0 % 0-5 [facility] Platelet countOrdered By: Al ycsergio Sutton on 08-05-2024 Platelets (Bld) [#/Vol] 231 10*3/uL 150-450 [facility] Potassium (Unsp spec) [Mass/ Vol]Ordered By: Amy Sutton on 08-05-2024 Potassium [Moles/Vol] 4.4 mmol/L 3.3-5.1 [facility] Potassium measurement (mass/ volume)Ordered By: Amy Sutton on 08-05-2024 Potassium (Unsp spec) [Mass/Vol] 4.4 mmol/L 3.3-5.1 [facility] RBC Auto (Bld) [#/Vol]Ordere d By: Amy Sutton on 08-05-2024 RBC (Bld) [#/Vol] 4.74 10*6/uL 4.6-6.2 [facility] Screening total cholesterol/ high density lipoprotein (HDL) cholesterol ratioOrdered By: Amy Sutton on 08-05-2024 Cholesterol.total/Choles terol in HDL [Mass ratio] 3.51 {ratio} [facility] Serum creatinine measurement (mass/volume)Ordered By: Amy Sutton on 08-05-2024 Creatinine [Mass/Vol] 0.92 mg/dL 0.70-1.20 [facility] Serum globulin measurementOr dered By: Amy Sutton on 08-05-2024 Globulin (S) [Mass/Vol] 2.8 g/dL 2.2-4.2 [facility] Serum glucose measurement (m ass/volume)Ordered By: Amy Sutton on 08-05-2024 Glucose [Mass/Vol] 166 mg/dL High 70-99 [facility] Serum or plasma alanine rausch otransferase (ALT) measurementOrdered By: Amy Sutton on 08-05-2024 ALT [Catalytic activity/Vol] 23 U/L <47 [facility] Serum or plasma albumin chicho urement (mass/volume)Ordered By: Amy Sutton on 08-05-2024 Albumin [Mass/Vol] 4.0 g/dL 3.4-4.8 [facility] Serum or plasma albumin/glob ulin mass ratioOrdered By: Amy Sutton on 08-05-2024 Albumin/Globulin [Mass ratio] 1.5 {ratio} 0.9-2.4 [facility] Serum or plasma alkaline martin sphatase measurementOrdered By: Amy Sutton on 08-05-2024 ALP [Catalytic activity/Vol] 58 U/L 40-129 [facility] Serum or plasma calcium chicho urement (mass/volume)Ordered By: Amy Sutton on 08-05-2024 Calcium [Mass/Vol] 9.1 mg/dL 7.6-11.0 [facility] Serum or plasma cholesterol in HDL measurement (mass/volume)Ordered By: Amy Sutton on 08-05-2024 Cholesterol in HDL [Mass/Vol] 78 mg/dL >40 [facility] Comment on above: National Cholesterol Education Program (NCEP) guidelines:<40 mg/dL: Low HDL-cholesterol (major risk factor for CHD)>= 60 mg/dL: High HDL-cholesterol (negative risk factor for CHD)HDL-cholesterol is affected by a number of factors, e.g. smoking, exercise, hormones, sex and age. Serum or plasma cholesterol measurement (mass/volume)Ordered By: Amy Sutton on 08-05-2024 Cholesterol [Mass/Vol] 273 mg/dL High <201 [facility] Comment on above: Cholesterol level, D esirable <200 mg/dLBorderline high cholesterol 200-239 mg/dLHigh cholesterol >=240 mg/dLRecommendations of the NCEP Adult Treatment Panel for the following risk-cutoff thresholds for the [place] population. Serum or plasma urea nitroge n measurement (mass/volume)Ordered By: Amy Sutton on 08-05-2024 Urea nitrogen [Mass/Vol] 15 mg/dL 4-19 [facility] Sodium levelOrdered By: Vannesa Sutton on 08-05-2024 Sodium [Moles/Vol] 136 mmol/L 133-145 [facility] Total proteinOrdered By: Jose Sutton on 08-05-2024 Protein [Mass/Vol] 6.8 g/dL 5.9-8.4 [facility] Triglycerides measurementOrd ered By: Amy Sutton on 08-05-2024 Triglyceride [Mass/Vol] 107 mg/dL <199 [facility] Comment on above: The drugs N-Acetylcy steine and Metamizole may falsely depress this assay. Normal range: <150 mg/dLBorderline High: 150-199 mg/dLHigh: 200-499 mg/dLVery High: >500 mg/dL White blood cell (WBC) count Ordered By: Amy Sutton on 08-05-2024 WBC (Bld) [#/Vol] 6.1 10*3/uL 4.4-11.0 [facility] Internal Medicine Office Vis iton 07-10-2024 Internal Medicine Office Visit [facility] [address] [place] [address] [place] [address] OFFICE VISIT Date of Service: 07/10/24 MR#: [id number] Acct: [id number] Name: BABATUNDE STEWART Rep #: [id number] : 1955 Provider: Dr. 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 Table Attendant Required: No Accompanied by: Self Is patient in pain?: No Allergies cat dander Allergy (Intermediate, Verified 07/10/24 10:44) Itching Environmental Allergies: Uncoded (hay fever) Allergy (Mild, Verified 07/10/24 10:44) Itching Medications ???Medication ???Instructions ???Recorded ???Confirmed ???Type apixaban 5 mg tablet (Eliquis) 5 mg PO BID #180 tabs 07/10/24 Rx blood-glucose sensor (FreeStyle #1 ea 07/10/24 07/10/24 Rx Bertin 3 Plus Sensor device) dapagliflozin propanediol 10 mg 10 mg PO QAM #90 tabs 07/10/24 Rx tablet (Farxiga) insulin glargine U-300 conc 300 50 unit (0.1667 mL) subcut QHS #6 07/10/24 07/10/24 Rx unit/mL (3 mL) subcutaneous pen mL (Toujeo Max U-300 SoloStar) insulin lispro 100 unit/mL 20 unit (0.2 mL) subcut TID #15 mL 07/10/24 07/10/24 Rx subcutaneous pen lisinopril 20 1 tab PO QDAY #90 tabs 07/10/24 Rx mg-hydrochlorothiazid e 12.5 mg tablet metoprolol succinate 25 mg 25 mg PO BID #180 tabs 07/10/24 Rx tablet,extended release 24 hr pen needle, diabetic 31 gauge x 07/10/24 07/10/24 History 09/27 (Droplet Pen Needle) Have you fallen in the past year?: No [facility] Medical History Sleep apnea Hyperlipidemia A-fib Diabetes mellitus Hypertension Surgical History (Updated 07/10/24 @ 11:[address] Amy Sutton MD) H/O wrist surgery History of surgery on lower extremity S/P ablation of atrial fibrillation Family History (Updated 07/10/24 @ 11:[address] Amy Sutton MD) Mother Arthritis Breast cancer Diabetes Hypertension Hyperlipidemia Osteoporosis Grandmother Arthritis Sister Colon cancer, Onset Age: 49 Father Diabetes Myocardial infarction Heart disease Hypertension Hyperlipidemia Grandfather Diabetes type 1 Myocardial infarction Heart disease Grandfather Myocardial infarction Heart disease CVA (cerebral vascular accident) Social History (Updated 07/10/24 @ 11:[address] 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 current occupational exposures/hazards: No pets and animals: No history of recent travel: No Smoking Status: Former smoker quit date: 05/15/94 pack-years: 15 how long ago did patient quit smokin years second hand exposure: No alcohol intake: current alcohol intake frequency: a few times a week details: was drinking 4-6 beer per day, cut back substance use type: does not use caffeine: Yes eating out: 4 or more times/week during the past year weight has: remained stable what type of physical activity do you participate in: walking, running, bicycling and additional frequency: daily seatbelt use: always do you feel safe at home: Yes HPI HPI Chief Complaint: ESTABLISHING Details: BABATUNDE STEWART, is a 68 M who presents to the office today to establish care. He was seeing the [facility] residency program and last saw them about 3 months ago. He is due for some routine blood work and is up to date on his screening. He is due for a tetanus and COVID booster, which he will get at the pharmacy. He doesn't smoke and doesn't need any refills. He reports he is eating healthy and staying active. The patient was diagnosed with diabetes almost 30 years ago. He does check his sugars at home and reports they are pretty well controlled. He uses a bertin. Today it is 81. His 7 day average is 153. He is taking his medication as prescribed without problems. He was having some low readings for which his toujeo was cut back. He states when he was getting lows, he would get sweaty. He would take glucose tablets or have peanut butter/jelly which helped. He does try to monitor his carbohydrate and sugar intake. She is not up to date on her diabetic eye exam and doesn't see podiatry, but reports his foot exam was completed recently. The patient was diagnosed with sleep apnea about 3 years ago. He wears his CPAP every night and benefits from its use. He does need new supplies. His supplier is located in [place] and he needs a new s (more content not included)... Normal [facility] - Hematology and Cell countsOrdered By: Amy Sutton on 07-10-2024 HbA1c (Bld) [Mass fraction] 7.1 % High 4.2-6.3 [facility] CNOVon 05-03-2024 CNOV Office Visit ([facility]) BABATUNDE STEWART ([id number]) 1955 M Date Time Provider Department 05/03/24 1:40 PM ANGEL BURNETTE [facility] During your visit today, we recorded the following information about you: Temperature Pulse Respiration Blood pressure 98.1 degrees 81/minute 18/minute 128/53 Weight Height 116.6 kg 1.905 m Angel Burnette, 05/03/2024 3:51 PM Signed [facility] Family [facility] 1 [facility] / [address] [place], [place] [address] Visit Date: May 02, 2024 Name: Babatunde Stewart Date of : 1955 MRN/E #: [id number] Chief Complaint: Patient presents with: Diabetes Right Flank Pain: UA negative at [facility] Subjective Babatunde Stewart is a 68 year old male here with the following complaint(s): Flank pain -06/24 today -was exercising and felt a cringe on his right side -started about the april -UA at Urgent Care was negative -Monday morning also woke up with right sided neck pain -Tylenol helps with the neck pain and flank pain Type I DM -recent travel has made diet and exercise worse -wears CGM -denies any symptoms of highs and lows -does have some lows in the 50s, mostly during the day, unpredictable -140s to 150s prior to meals but 170s-low 200s after breakfast and dinner -more carbs and fried foods while traveling -traveling for work -has one more trip in May -coffee, water, occasionally beer -A1c is 7.6 slightly up from 7.2 Review of Systems Constitutional: Negative for chills and fever. Gastrointestinal: Negative for constipation. Genitourinary: Positive for flank pain. Negative for difficulty urinating, dysuria and hematuria. ALLERGIES Allergen Reactions Atorvastatin Myalgia Hay Fever [Seasonal* Itching Losartan Myalgia Metformin Diarrhea Current Outpatient Medications Medication Sig lisinopril-hydroCHLOR Othiazide (ZESTORETIC) 20-12.5 mg per tablet Take 1 tablet by mouth every afternoon. insulin lispro (HUMALOG KWIKPEN) 100 unit/mL Inject 20 Units subcutaneously three times a day before meals. dapagliflozin propanediol (FARXIGA) 10 mg tablet take 1 tablet by mouth once daily in the morning ELIQUIS 5 mg tab(s) take 1 tablet by mouth two times a day. metoprolol tartrate, short acting, (LOPRESSOR) 25 mg tablet take 1 tablet by mouth two times a day. Blood-Glucose Sensor (FREESTYLE BERTIN 3 SENSOR PLUS) jose g 1 Each once daily. DROPLET PEN NEEDLE 31 gauge x 5/16 Use to inject insulin up to 5 times per day lidocaine (LIDODERM) 5 % Apply 1 Patch as directed once daily. REMOVE AFTER 12 HOURS. TOUGARETHOrlando SOLOSTAR U-300 INSULIN 300 unit/mL (1.5 mL) Inject 60 Units subcutaneously daily at bedtime. No current facility-administered medications for this visit. I have confirmed and edited as necessary the chief complaint, medications, past medical, family and social histories. Objective 05/03/24 1339 BP: 128/53 Pulse: 81 Resp: 18 Temp: 36.7 ?C (98.1 ?F) TempSrc: Temporal SpO2: 95% Weight: 257 lb (116.6 kg) Height: 6' 3 (1.905 m) Body mass index is 32.12 kg/m?. Physical Exam Constitutional: General: He is not in acute distress. Appearance: Normal appearance. He is not ill-appearing, toxic-appearing or diaphoretic. HENT: Nose: Nose normal. No congestion or rhinorrhea. Eyes: General: No scleral icterus. Right eye: No discharge. Left eye: No discharge. Conjunctiva/sclera: Conjunctivae normal. Cardiovascular: Rate and Rhythm: Normal rate and regular rhythm. Heart sounds: Normal heart sounds. No murmur heard. No friction rub. No gallop. Pulmonary: Effort: Pulmonary effort is normal. No respiratory distress. Breath sounds: Normal breath sounds. No stridor. No wheezing or rales. Abdominal: General: Abdomen is flat. There is no distension. Palpations: Abdomen is soft. There is no mass. Tenderness: There is no abdominal tenderness. There is no right CVA tenderness, left CVA tenderness or guarding. Musculoskeletal: General: Tenderness (tenderness to palpation over the right side of the latissimus dorsi and the right trap, also has hypertonicity of both of these areas) present. Skin: Coloration: Skin is not jaundiced. Findings: No erythema. Neurological: Mental Status: He is alert and oriented to person, place, and time. Results for orders placed or performed in visit on 05/03/24 HEMOGLOBIN A1C (POC) Result Value Ref Range Hemoglobin A1C (POCT) 7.6 (A) 4.3 - 5.6 % The ASCVD Risk score (Breezy WILKINSON, et al., 2019) failed to calculate for the following reasons: The valid HDL cholesterol range is 20 to 100 mg/dL PHQ-9 01/26/2023 07/19/2023 PHQ-9 Scores Little interest or pleasure in doing things: Not at all Not at all Feeling down, depressed, or hopeless: Not at all Not at all Trouble f (more content not included)... Normal [facility] HEMOGLOBIN A1C (POC)on 05-03 HbA1c (Bld) [Mass fraction] 7.6 % Abnormal 4.3 - 5.6 % [facility] Comment on above: Location:[facility], [address] [place] [address], [facility] Point of care (POC) Hemoglobin A1c (HGBA1C) testing is intended to assess glucose control and provide a management tool for patients known to have diabetes and their healthcare providers. Target HGBA1C levels may depend on specific clinical circumstances. POC HGBA1C is not intended for use as a diagnostic or screening test; laboratory-based testing should be used for diagnostic purposes. The following information is supplemental and may not be applicable to specific diabetes management situations: The POC device sand caster apprentice provides a normal range of 4.2% to 6.5% for the HGBA1C POC test. However, the [place] [employer] guidelines indicate that patients with HGBA1C in the range of 5.7% to 6.4% are at increased risk for development of diabetes and that intervention by lifestyle modification may be beneficial. A HGBA1C level greater than or equal to 6.5% is considered diagnostic of diabetes, pending confirmatory testing. Use of HGBA1C testing to evaluate glucose control may not be appropriate for patients with hemoglobin variants or other conditions (e.g. anemia) that alter red blood cell lifespan. Interpretation and review of laboratory results Abnormal [facility] CNOVon 04-25-2024 CNOV Office Visit ([facility] ) BABATUNDE STEWART ([id number]) 1955 M Date Time Provider Department 04/25/24 8:30 AM MARGARTIA CALDERON [facility] During your visit today, we recorded the following information about you: Temperature Pulse Respiration Blood pressure 97.4 degrees 71/minute 22/minute 136/76 Weight 116 kg Margarita Calderon APRN.MACHINE LEARNING INTERN 04/25/2024 9:21 AM Signed This note was created using Playfire. Subjective Babatunde Stewart is a 68 year old male. HPI Pt complains of right flank and hip pain for the last week. Pain is now radiating into his right leg. Review of Systems Constitutional: Negative for fever. Gastrointestinal: Negative for blood in stool, nausea and vomiting. Genitourinary: Positive for flank pain. Negative for hematuria. Objective BP 136/76 Pulse 71 Temp 36.3 ?C (97.4 ?F) Resp 22 Wt 116 kg (255 lb 11.7 oz) SpO2 96% BMI 31.96 kg/m? Physical Exam Vitals and nursing note reviewed. Constitutional: General: He is not in acute distress. Appearance: Normal appearance. He is not ill-appearing. HENT: Head: Normocephalic. Mouth/Throat: Mouth: Mucous membranes are moist. Eyes: Conjunctiva/sclera: Conjunctivae normal. Cardiovascular: Rate and Rhythm: Normal rate and regular rhythm. Pulmonary: Effort: Pulmonary effort is normal. Breath sounds: Normal breath sounds. Abdominal: Palpations: Abdomen is soft. Tenderness: There is no abdominal tenderness. Musculoskeletal: General: Normal range of motion. Cervical back: Normal range of motion. Comments: Mild mid right lower back tenderness with no central back tenderness or lumbar vertebral tenderness. Skin: General: Skin is warm and dry. Neurological: General: No focal deficit present. Mental Status: He is alert. Psychiatric: Mood and Affect: Mood normal. Behavior: Behavior normal. Assessment and Plan ASSESSMENT/PLAN: 1. Flank pain - ICD9: 789.09, ICD10: R10.9 -Urinalysis showed greater than 1000 but otherwise was negative for blood, nitrates, leukocytes. Discussed with him that a kidney stone was less likely with no trace of blood in the urine. Patient is a known diabetic and uses Farxiga and insulin. He noted that his blood sugar this morning was actually 54 for which he took 2 glucose tablets. -Symptoms seem most consistent with some sort of back strain and resultant right sided sciatica. Discussed steroids and muscle relaxers however due to his diabetes and other issues patient is unable to take either of these medications. Discussed possible ER follow-up if symptoms are not improving as there still is a small possibility of renal calculi causing the patient's issues. At this point, patient prefers to continue to monitor symptoms and follow-up with PCP. He will do home stretching exercises for symptomatic relief. - UA DIP, URINE (POC) Margarita Calderon APRN.MACHINE LEARNING INTERN Allergies As of Date: 04/25/2024 Noted Allergy Reaction ATORVASTATIN 01/26/2023 17 - Myalgia HAY FEVER (SEASONAL ALLERGIES) 01/26/2023 9 - Itching LOSARTAN 06/20/2023 17 - Myalgia METFORMIN 06/20/2023 6 - Diarrhea Date Reviewed: 04/25/2024 Reviewed by: Steffanie Huston LPN - Fully Assessed Reason for Visit: Pain [78] Cmt: R side flank pain some hip discomfort x 2 weeks Primary Visit Diagnosis:Flank pain [R10.9] Order(s):UA DIP, URINE (POC) [5725537] Order #: [id number]. #:[id number] Prescriptions as of 04/25/2024 - lisinopril-hydroCHLOR Othiazide (ZESTORETIC) 20-12.5 mg per tablet Take 1 tablet by mouth every afternoon. - insulin lispro (HUMALOG KWIKPEN) 100 unit/mL Inject 20 Units subcutaneously three times a day before meals. - dapagliflozin propanediol (FARXIGA) 10 mg tablet take 1 tablet by mouth once daily in the morning - TOUVANDANA SOLOSTAR U-300 INSULIN 300 unit/mL (1.5 mL) Inject 56 Units subcutaneously daily at bedtime. - ELIQUIS 5 mg tab(s) take 1 tablet by mouth two times a day. - metoprolol tartrate, short acting, (LOPRESSOR) 25 mg tablet take 1 tablet by mouth two times a day. - Blood-Glucose Sensor (FREESTYLE BERTIN 3 SENSOR PLUS) jose g 1 Each once daily. - DROPLET PEN NEEDLE 31 gauge x /16 Use to inject insulin up to 5 times per day Problem List As Of Date 04/25/2024 Noted Resolved Family hx of colon cancer [Z80.0] 05/29/2023 Hypercholesterolemia [E78.00] 10/26/2012 Diagnosed: 07/19/2023 Obstructive sleep apnea of adult [G47.33] 08/13/2021 Diagnosed: 07/19/2023 Atrial fibrillation (HCC) [I48.91] 05/22/2020 Diagnosed: 07/19/2023 Benign hypertension [I10] 05/22/2020 Diagnosed: 07/19/2023 Diabetic retinopathy (HCC) [E11.319] 08/22/2016 Diagnosed: 07/19/2023 Stage 2 chronic kidney disease [N18.2] 02/06/2019 Diagnosed: 07/19/2023 Encounter Status:Closed by MARGARIAT CALDERON on 04/25/24 [facility] BABATUNDE STEWART ([id number]) 1955 M Date Time Provider Department 04/25/24 GRACIE ZHAO [facility] During your visit today, we recorded the following information about you: Chantell Nolan 04/25/2024 8:41 AM Signed Patient is scheduled on 05/03/[address] Burnette. Chantell Nolan Allergies As of Date: 04/25/2024 Noted Allergy Reaction ATORVASTATIN 01/26/2023 17 - Myalgia HAY FEVER (SEASONAL ALLERGIES) 01/26/2023 9 - Itching LOSARTAN 06/20/2023 17 - Myalgia METFORMIN 06/20/2023 6 - Diarrhea Date Reviewed: 04/25/2024 Reviewed by: Steffanie Huston LPN - Fully Assessed Prescriptions as of 04/25/2024 - lisinopril-hydroCHLOR Othiazide (ZESTORETIC) 20-12.5 mg per tablet Take 1 tablet by mouth every afternoon. - insulin lispro (HUMALOG KWIKPEN) 100 unit/mL Inject 20 Units subcutaneously three times a day before meals. - dapagliflozin propanediol (FARXIGA) 10 mg tablet take 1 tablet by mouth once daily in the morning - TOUJEO SOLOSTAR U-300 INSULIN 300 unit/mL (1.5 mL) Inject 56 Units subcutaneously daily at bedtime. - ELIQUIS 5 mg tab(s) take 1 tablet by mouth two times a day. - metoprolol tartrate, short acting, (LOPRESSOR) 25 mg tablet take 1 tablet by mouth two times a day. - Blood-Glucose Sensor (FREESTYLE BERTIN 3 SENSOR PLUS) jose g 1 Each once daily. - DROPLET PEN NEEDLE 31 gauge x 5/16 Use to inject insulin up to 5 times per day Problem List As Of Date 04/25/2024 Noted Resolved Family hx of colon cancer [Z80.0] 05/29/2023 Hypercholesterolemia [E78.00] 10/26/2012 Diagnosed: 07/19/2023 Obstructive sleep apnea of adult [G47.33] 08/13/2021 Diagnosed: 07/19/2023 Atrial fibrillation (HCC) [I48.91] 05/22/2020 Diagnosed: 07/19/2023 Benign hypertension [I10] 05/22/2020 Diagnosed: 07/19/2023 Diabetic retinopathy (HCC) [E11.319] 08/22/2016 Diagnosed: 07/19/2023 Stage 2 chronic kidney disease [N18.2] 02/06/2019 Diagnosed: 07/19/2023 Encounter Status:Closed by CHANTELL NOLAN on 04/25/24 Normal [facility] UA DIP, URINE (POC)on 2023 BILIRUBIN UA (POCT) Negative Negative [facility] CLARITY UA (POCT) Cloudy [facility] COLOR UA (POCT) Dark yellow [facility] GLUCOSE UA (POCT) >=1000 Abnormal Negative mg/dL [facility] Hemoglobin Ql (U) Negative Negative [facility] Interpretation and review of laboratory results Abnormal [facility] KETONE UA (POCT) Negative Negative mg/dL [facility] LEUKOCYTES UA (POCT) Negative [facility] ([facility]) Negative Negative [facility] PH UA (POCT) 5.0 4.5 - 8.0 [facility] Protein Ql (U) Trace Abnormal Negative mg/dL [facility] SPECIFIC GRAVITY UA (POCT) 1.025 1.005 - 1.030 [facility] UROBILINOGEN UA (POCT) 0.2 Tiffanie l E.U./dL [facility] Location:[facility], [address] [place] [address], [place], [place], [id number] [place] [address] POINT OF CARE [facility] 04-24-2024 CNPN Telephone ([facility]) BABATUNDE STEWART ([id number]) 1955 M Date Time Provider Department 04/24/24 ANGEL BURNETTE [facility] During your visit today, we recorded the following information about you: Chantell Nolan 04/24/2024 2:25 PM Signed Patient re-scheduled with Dr. Burnette on 05/03/24. Chantell Nolan Allergies As of Date: 04/24/2024 Noted Allergy Reaction ATORVASTATIN 01/26/2023 17 - Myalgia HAY FEVER (SEASONAL ALLERGIES) 01/26/2023 9 - Itching LOSARTAN 06/20/2023 17 - Myalgia METFORMIN 06/20/2023 6 - Diarrhea Date Reviewed: 02/15/2024 Reviewed by: Sarah Amaya LPN - Fully Assessed Prescriptions as of 04/24/2024 - lisinopril-hydroCHLOR Othiazide (ZESTORETIC) 20-12.5 mg per tablet Take 1 tablet by mouth every afternoon. - insulin lispro (HUMALOG KWIKPEN) 100 unit/mL Inject 20 Units subcutaneously three times a day before meals. - dapagliflozin propanediol (FARXIGA) 10 mg tablet take 1 tablet by mouth once daily in the morning - TOUJEO SOLOSTAR U-300 INSULIN 300 unit/mL (1.5 mL) Inject 56 Units subcutaneously daily at bedtime. - ELIQUIS 5 mg tab(s) take 1 tablet by mouth two times a day. - metoprolol tartrate, short acting, (LOPRESSOR) 25 mg tablet take 1 tablet by mouth two times a day. - Blood-Glucose Sensor (FREESTYLE BERTIN 3 SENSOR PLUS) jose g 1 Each once daily. - DROPLET PEN NEEDLE 31 gauge x 5/16 Use to inject insulin up to 5 times per day Problem List As Of Date 04/24/2024 Noted Resolved Family hx of colon cancer [Z80.0] 05/29/2023 Hypercholesterolemia [E78.00] 10/26/2012 Diagnosed: 07/19/2023 Obstructive sleep apnea of adult [G47.33] 08/13/2021 Diagnosed: 07/19/2023 Atrial fibrillation (HCC) [I48.91] 05/22/2020 Diagnosed: 07/19/2023 Benign hypertension [I10] 05/22/2020 Diagnosed: 07/19/2023 Diabetic retinopathy (HCC) [E11.319] 08/22/2016 Diagnosed: 07/19/2023 Stage 2 chronic kidney disease [N18.2] 02/06/2019 Diagnosed: 07/19/2023 Encounter Status:Closed by CHANTELL NOLAN on 04/24/24 [facility] CNPN Telephone ([facility]) BABATUNDE STEWART ([id number]) 1955 M Date Time Provider Department 04/24/24 GRACIE ZHAO [facility] During your visit today, we recorded the following information about you: Chantell Nolan 04/24/2024 2:32 PM Signed Patient has an appt scheduled with Dr. Burnette on 05/03/24. Chantell Nolan Allergies As of Date: 04/24/2024 Noted Allergy Reaction ATORVASTATIN 01/26/2023 17 - Myalgia HAY FEVER (SEASONAL ALLERGIES) 01/26/2023 9 - Itching LOSARTAN 06/20/2023 17 - Myalgia METFORMIN 06/20/2023 6 - Diarrhea Date Reviewed: 02/15/2024 Reviewed by: Sarah Amaya LPN - Fully Assessed Prescriptions as of 04/24/2024 - lisinopril-hydroCHLOR Othiazide (ZESTORETIC) 20-12.5 mg per tablet Take 1 tablet by mouth every afternoon. - insulin lispro (HUMALOG KWIKPEN) 100 unit/mL Inject 20 Units subcutaneously three times a day before meals. - dapagliflozin propanediol (FARXIGA) 10 mg tablet take 1 tablet by mouth once daily in the morning - TOUJEO SOLOSTAR U-300 INSULIN 300 unit/mL (1.5 mL) Inject 56 Units subcutaneously daily at bedtime. - ELIQUIS 5 mg tab(s) take 1 tablet by mouth two times a day. - metoprolol tartrate, short acting, (LOPRESSOR) 25 mg tablet take 1 tablet by mouth two times a day. - Blood-Glucose Sensor (FREESTYLE BERTIN 3 SENSOR PLUS) jose g 1 Each once daily. - DROPLET PEN NEEDLE 31 gauge x 5/16 Use to inject insulin up to 5 times per day Problem List As Of Date 04/24/2024 Noted Resolved Family hx of colon cancer [Z80.0] 05/29/2023 Hypercholesterolemia [E78.00] 10/26/2012 Diagnosed: 07/19/2023 Obstructive sleep apnea of adult [G47.33] 08/13/2021 Diagnosed: 07/19/2023 Atrial fibrillation (HCC) [I48.91] 05/22/2020 Diagnosed: 07/19/2023 Benign hypertension [I10] 05/22/2020 Diagnosed: 07/19/2023 Diabetic retinopathy (HCC) [E11.319] 08/22/2016 Diagnosed: 07/19/2023 Stage 2 chronic kidney disease [N18.2] 02/06/2019 Diagnosed: 07/19/2023 Encounter Status:Closed by CHANTELL NOLAN on 04/24/24 [facility] Robyn 02-19-2024 ANNIEN Telephone ([facility]) BABATUNDE STEWART ([id number]) 1955 M Date Time Provider Department 02/19/24 GRACIE ZHAO [facility] During your visit today, we recorded the following information about you: Allergies As of Date: 02/19/2024 Noted Allergy Reaction ATORVASTATIN 01/26/2023 17 - Myalgia HAY FEVER (SEASONAL ALLERGIES) 01/26/2023 9 - Itching LOSARTAN 06/20/2023 17 - Myalgia METFORMIN 06/20/2023 6 - Diarrhea Date Reviewed: 02/15/2024 Reviewed by: Sarah Amaya LPN - Fully Assessed Prescriptions as of 03/11/2024 - dapagliflozin propanediol (FARXIGA) 10 mg tablet take 1 tablet by mouth once daily in the morning - TOUJEO SOLOSTAR U-300 INSULIN 300 unit/mL (1.5 mL) Inject 56 Units subcutaneously daily at bedtime. - insulin lispro (HUMALOG KWIKPEN) 100 unit/mL Inject 20 Units subcutaneously three times a day before meals. - ELIQUIS 5 mg tab(s) take 1 tablet by mouth two times a day. - metoprolol tartrate, short acting, (LOPRESSOR) 25 mg tablet take 1 tablet by mouth two times a day. - Blood-Glucose Sensor (FREESTYLE BERTIN 3 SENSOR PLUS) jose g 1 Each once daily. - lisinopril-hydroCHLOR Othiazide (ZESTORETIC) 20-12.5 mg per tablet TAKE 1 TABLET BY MOUTH EVERY AFTERNOON - DROPLET PEN NEEDLE 31 gauge x 5/16 Use to inject insulin up to 5 times per day Problem List As Of Date 02/19/2024 Noted Resolved Family hx of colon cancer [Z80.0] 05/29/2023 Hypercholesterolemia [E78.00] 10/26/2012 Diagnosed: 07/19/2023 Obstructive sleep apnea of adult [G47.33] 08/13/2021 Diagnosed: 07/19/2023 Atrial fibrillation (HCC) [I48.91] 05/22/2020 Diagnosed: 07/19/2023 Benign hypertension [I10] 05/22/2020 Diagnosed: 07/19/2023 Diabetic retinopathy (HCC) [E11.319] 08/22/2016 Diagnosed: 07/19/2023 Stage 2 chronic kidney disease [N18.2] 02/06/2019 Diagnosed: 07/19/2023 Encounter Status:Closed by AMBER BOWMAN on 03/11/24 Normal [facility] CNOVon 02-15-2024 CNOV Office Visit ([facility]) BABATUNDE STEWART ([id number]) 1955 M Date Time Provider Department 02/15/24 8:40 AM GRACIE ZHAO [facility] During your visit today, we recorded the following information about you: Temperature Pulse Respiration Blood pressure 97 degrees 66/minute 16/minute 126/55 Weight Height 113.8 kg 1.905 m Sarah Amaya LPN 02/15/2024 8:17 AM Signed Influenza Vaccine given as ordered. 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 ISABELLE Zendejas Jacob, MD 02/16/2024 10:50 AM Signed [facility] 1 [facility] / [address] [place] [address] Visit Date: February 15, 2024 Name: Babatunde Stewart Date of : 1955 MRN/E #: [id number] Chief Complaint: No chief complaint on file. 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 Not interested in insulin pump Does not want to appliance and having to have it attached all the time Evenings have had higher sugar - walk every day - walking 6 miles, walking less now - [place] 30-45 minutes, 3x per week - work is going to be more intense going Diet - no fast food - no sweets - lean proteins, vegetables, cooks for him - 4 beers per day, no change - interest in cutting - would like to cut down to 2 - would be able to cut down to 2 beers per day - no withdrawal previously DIABETES FOLLOW UP Type of Diabetes: Type I Medical Issues / Complications: hypertension and hyperlipidemia Patient is testing home BG 3-4 times per day: Yes Home readings in the 30 day average 180-200 range. High in evenings Patient's last HgbA1C: Hemoglobin A1C (%) Date Value 05/23/2023 8.0 Hemoglobin A1C (POCT) (%) Date Value 12/04/2023 7.2 ) Symptoms of Hyperglycemia : None Symptoms of Hypoglycemia: Sweating, edgy Inadequate control of diabetes despite documented complaint with multiple medication adjustments: No Insulin Therapy: Yes Diabetes Medications: Orals AND Insulin How often is the patient administering insulin: 4 times per year Patient is able to adjust Insulin with a sliding scale: Yes using sliding scale? Yes Medications - Farxiga 10mg - Toujeo 60U at bedtime - humalog 20U TID - Sliding scale: Humalog >150 will do additional 2U, >200 4U HM - interested in AAA screening ALLERGIES Allergen Reactions Atorvastatin Myalgia Hay Fever [Seasonal* Itching Losartan Myalgia Metformin Diarrhea Current Outpatient Medications Medication Sig insulin lispro (HUMALOG KWIKPEN) 100 unit/mL Inject 20 Units subcutaneously three times a day before meals. ELIQUIS 5 mg tab(s) take 1 tablet by mouth two times a day. metoprolol tartrate, short acting, (LOPRESSOR) 25 mg tablet take 1 tablet by mouth two times a day. FARXIGA 10 mg tablet take 1 tablet by mouth once daily in the morning TOUVANDANA SOLOSTAR U-300 INSULIN 300 unit/mL (1.5 mL) Inject 60 Units subcutaneously daily at bedtime. Blood-Glucose Sensor (FREESTYLE BERTIN 3 SENSOR PLUS) jose g 1 Each once daily. lisinopril-hydroCHLOR Othiazide (ZESTORETIC) 20-12.5 mg per tablet TAKE 1 TABLET BY MOUTH EVERY AFTERNOON DROPLET PEN NEEDLE 31 gauge x 5/16 Use to inject insulin up to 5 times per day No current facility-administered medications for this visit. I have confirmed and edited as necessary the chief complaint, medications, past medical, family and social histories. Objective 02/15/24 0811 BP: 126/55 Pulse: 66 Resp: 16 Temp: 36.1 ?C (97 ?F) TempSrc: Temporal SpO2: 97% Weight: 250 lb 12.8 oz (113.8 kg) Height: 6' 3 (1.905 m) Body mass index is 31.35 kg/m?. Physical Exam Vitals and nursing note reviewed. Constitutional: Appearance: Normal appearance. HENT: Nose: Nose normal. Eyes: Conjunctiva/sclera: Conjunctivae normal. Cardiovascular: Rate and Rhythm: Normal rate and regular rhythm. Pulses: Normal pulses. Heart sounds: Normal heart sounds. Pulmonary: Effort: Pulmonary effort is normal. Breath sounds: Normal breath sounds. Skin: General: Skin is warm and dry. Neurological: Mental Status: He is alert. Mental status is at baseline. Psychiatric: Mood and Affect: Mood normal. Behavior: Behavior normal. Results for orders placed or performed in visit on 12/04/23 HEMOGLOBIN A1C (POC) (more content not included)... Normal [facility] 01-17-2024 [facility] Telephone ([facility]) BABATUNDE STEWART ([id number]) 1955 M Date Time Provider Department 01/17/24 GRACIE ZHAO [facility] During your visit today, we recorded the following information about you: Wanda Resendiz LPN 01/17/2024 10:26 AM Signed Patient called stated Free Style 3 is unavailable at pharmacy. Pharmacy told patient to have provider order Free Style Bertin 3 Plus. Please advise. ISABELLE Evans Jacob, MD 01/19/2024 1:42 PM Signed Addended by: GRACIE ZHAO on: 01/19/2024 01:42 PM Modules accepted: Orders Gracie Zhao MD 01/19/2024 1:48 PM Signed Addended by: GRACIE ZHAO on: 01/19/2024 01:48 PM Modules accepted: Orders Allergies As of Date: 01/17/2024 Noted Allergy Reaction ATORVASTATIN 01/26/2023 17 - Myalgia HAY FEVER (SEASONAL ALLERGIES) 01/26/2023 9 - Itching LOSARTAN 06/20/2023 17 - Myalgia METFORMIN 06/20/2023 6 - Diarrhea Date Reviewed: 07/19/2023 Reviewed by: Arianna Xiao LPN - Fully Assessed Reason for Visit: Orders [681] Primary Visit Diagnosis:Diabetes mellitus type 1, controlled, without complications (HCC) [E10.9] Order(s):Blood-Glucos e Sensor (FREESTYLE BERTIN 3 SENSOR PLUS) devi1 Each once daily.Disp: 2 EachRfl: 5 Prescriptions as of 01/19/2024 - Blood-Glucose Sensor (FREESTYLE BERTIN 3 SENSOR PLUS) jose g 1 Each once daily. - FARXIGA 10 mg tablet Take 1 tablet by mouth every morning. - lisinopril-hydroCHLOR Othiazide (ZESTORETIC) 20-12.5 mg per tablet TAKE 1 TABLET BY MOUTH EVERY AFTERNOON - insulin lispro (HUMALOG KWIKPEN INSULIN) 100 unit/mL Inject 20 Units subcutaneously three times a day before meals. Plus an additional 2 units for each 50 mg/dL >200; maximum amount per injection: 30 units; maximum per day: 90 units - DROPLET PEN NEEDLE 31 gauge x 16 Use to inject insulin up to 5 times per day - ELIQUIS 5 mg tab(s) Take 1 tablet by mouth two times a day. - metoprolol tartrate, short acting, (LOPRESSOR) 25 mg tablet Take 1 tablet by mouth two times a day. - TOJAKE SOLOSTAR U-300 INSULIN 300 unit/mL (1.5 mL) Inject 60 Units subcutaneously daily at bedtime. - FREESTYLE BERTIN 2 SENSOR kit apply 1 SENSOR to back OF UPPER ARM REMOVE AND REPLACE every 14 days Problem List As Of Date 01/17/2024 Noted Resolved Family hx of colon cancer [Z80.0] 05/29/2023 Hypercholesterolemia [E78.00] 10/26/2012 Diagnosed: 07/19/2023 Obstructive sleep apnea of adult [G47.33] 08/13/2021 Diagnosed: 07/19/2023 Atrial fibrillation (HCC) [I48.91] 05/22/2020 Diagnosed: 07/19/2023 Benign hypertension [I10] 05/22/2020 Diagnosed: 07/19/2023 Diabetic retinopathy (HCC) [E11.319] 08/22/2016 Diagnosed: 07/19/2023 Stage 2 chronic kidney disease [N18.2] 02/06/2019 Diagnosed: 07/19/2023 Prescriptions ordered this encounter Disp Refills Start End FREESTYLE BRETIN 3 SENSOR PLUS DEVICE 2 Ea* 5 01/19/2024 Route: Misc Si Each once daily. Medications Discontinued During This Encounter Prescriptions - Blood-Glucose Sensor (FREESTYLE BERTIN 3 SENSOR) jose g (Discontinued) Use to check sugars 3-4 times per day Encounter Status:Closed by WANDA [facility]END[facility] BABATUNDE STEWART ([id number]) 1955 M Date Time Provider Department 12/04/23 3:00 PM MELVIN HOOPER [facility] During your visit today, we recorded the following information about you: Temperature Blood pressure Weight Height 97.1 degrees 124/78 113.4 kg 1.905 m Melvin Hooper DO 12/04/2023 5:43 PM Signed Melvin Hooper DO [facility] [address] [place] [address] [facility] / [address] [place], [place] [address] Visit Date: December 04, 2023 Name: Babatunde Stewart Date of : 1955 MRN/E #: [id number] Chief Complaint: Diabetes Subjective Babatunde Stewart is a 68 year old male here with the following complaint(s): DIABETES - Type of Diabetes: Type I - Medical Issues / Complications: hypertension and hyperlipidemia - Ha1c goal: <7.0 - Patient's diabetes has been well-controlled on the following medication regiment: Oral agent(s) - Farxiga Injectables - Insulin lispro (Humalog) and Toujeo . - Patient is prescribed to check their glucose continuous with sugars in the fasting 191, 14 day average 193, and 30 day average 189 range. - Patient's last HgbA1C: Hemoglobin A1C (%) Date Value 05/23/2023 8.0 ) - Symptoms of Hyperglycemia : None - Symptoms of Hypoglycemia: Sweating and Shaking expreined this about 2-3 times with the past two wks, mid day - Insulin Therapy: Yes - Diabetes Medications: Orals AND Insulin - How often is the patient administering insulin: QID - Patient is able to adjust Insulin with a sliding scale: Yes - Patient is compliant with current regiment. - Doses of medications missed: - Nutrition Do you follow any diet? YES Has your weight changed in the last 3 months? YES Current plan: doing well, has been watching carbs as best he can - Exercise Current plan: has been working on his new house, when not working on this he walks or bikes The history is provided by the patient. ALLERGIES Allergen Reactions Atorvastatin Myalgia Hay Fever [Seasonal* Itching Losartan Myalgia Metformin Diarrhea Current Outpatient Medications Medication Sig FARXIGA 10 mg tablet Take 1 tablet by mouth every morning. lisinopril-hydroCHLOR Othiazide (ZESTORETIC) 20-12.5 mg per tablet TAKE 1 TABLET BY MOUTH EVERY AFTERNOON insulin lispro (HUMALOG KWIKPEN INSULIN) 100 unit/mL Inject 20 Units subcutaneously three times a day before meals. Plus an additional 2 units for each 50 mg/dL >200; maximum amount per injection: 30 units; maximum per day: 90 units Blood-Glucose Sensor (FREESTYLE BERTIN 3 SENSOR) jose g Use to check sugars 3-4 times per day DROPLET PEN NEEDLE 31 gauge x 5/16 Use to inject insulin up to 5 times per day ELIQUIS 5 mg tab(s) Take 1 tablet by mouth two times a day. metoprolol tartrate, short acting, (LOPRESSOR) 25 mg tablet Take 1 tablet by mouth two times a day. TOUJEO SOLOSTAR U-300 INSULIN 300 unit/mL (1.5 mL) Inject 60 Units subcutaneously daily at bedtime. FREESTYLE BERTIN 2 SENSOR kit apply 1 SENSOR to back OF UPPER ARM REMOVE AND REPLACE every 14 days (Patient not taking: Reported on 12/04/2023) No current facility-administered medications for this visit. I have confirmed and edited as necessary the chief complaint, medications, past medical, family and social histories. Objective 12/04/23 1434 BP: 142/70 BP Site: Left Arm Temp: 36.2 ?C (97.1 ?F) Weight: 250 lb (113.4 kg) Height: 6' 3 (1.905 m) Body mass index is 31.25 kg/m?. Physical Exam Vitals and nursing note reviewed. Constitutional: General: He is not in acute distress. Appearance: Normal appearance. He is not ill-appearing or toxic-appearing. HENT: Head: Normocephalic. Nose: Nose normal. Mouth/Throat: Mouth: Mucous membranes are moist. Eyes: Extraocular Movements: Extraocular movements intact. Pupils: Pupils are equal, round, and reactive to light. Cardiovascular: Rate and Rhythm: Normal rate and regular rhythm. Pulses: Normal pulses. Heart sounds: Normal heart sounds. No murmur heard. Pulmonary: Effort: Pulmonary effort is normal. No respiratory distress. Breath sounds: Normal breath sounds. No wheezing, rhonchi or rales. Abdominal: General: Abdomen is flat. There is no distension. Palpations: Abdomen is soft. There is no mass. Tenderness: There is no abdominal tenderness. Musculoskeletal: General: No swelling. Right lower leg: No edema. Left lower leg: No edema. Skin: General: Skin is warm. Capillary Refill: Capillary refill takes less than 2 seconds. Neurological: General: No focal deficit present. Mental Status: He is alert and oriented to person, place, and time. Psychiatric: Mood and Affect: Mood normal. Behavior: Behavior normal. Results for orders placed or performed in visit on 12/04/23 HEMOGLOBIN A1C (POC) Result Valu (more content not included)... Normal [facility] HEMOGLOBIN A1C (POC)on 12-03 HbA1c (Bld) [Mass fraction] 7.2 % Abnormal 4.3 - 5.6 % [facility] Comment on above: Location:[facility], [address] [place] [address], [address] Point of care (POC) Hemoglobin A1c (HGBA1C) testing is intended to assess glucose control and provide a management tool for patients known to have diabetes and their healthcare providers. Target HGBA1C levels may depend on specific clinical circumstances. POC HGBA1C is not intended for use as a diagnostic or screening test; laboratory-based testing should be used for diagnostic purposes. The following information is supplemental and may not be applicable to specific diabetes management situations: The POC device sand caster apprentice provides a normal range of 4.2% to 6.5% for the HGBA1C POC test. However, the [place] [employer] guidelines indicate that patients with HGBA1C in the range of 5.7% to 6.4% are at increased risk for development of diabetes and that intervention by lifestyle modification may be beneficial. A HGBA1C level greater than or equal to 6.5% is considered diagnostic of diabetes, pending confirmatory testing. Use of HGBA1C testing to evaluate glucose control may not be appropriate for patients with hemoglobin variants or other conditions (e.g. anemia) that alter red blood cell lifespan. Interpretation and review of laboratory results Abnormal [facility] CNPNon 11-30-2023 CNPN Refill ([facility]) BABATUNDE STEWART ([id number]) 1955 Date Time Provider Department 11/30/23 GRACIE ZHAO [facility] During your visit today, we recorded the following information about you: Zoraida Escamilla 11/30/2023 12:40 PM Signed The patient/caregiver contacted the office, requesting refills of FARXIGA 10 mg tablet . Patient prefers prescriptions to be e prescribed to e- [id number] - [place] [address] [address] [facility] - [phone] Last Office Visit Date: 07/19/2023 Last Distance Health Visit: Visit date not found Future Appointment: 12/04/2023 Angel Beltran LPN 11/30/2023 1:23 PM Signed Patient called requesting the following refill Refill(s) Requested: Requested Prescriptions Pending Prescriptions Disp Refills FARXIGA 10 mg tablet 30 tablet 0 Sig: Take 1 tablet by mouth every morning. ALLERGIES Allergen Reactions Atorvastatin Myalgia Hay Fever [Seasonal* Itching Losartan Myalgia Metformin Diarrhea (home) [phone] (cell) Last Office Visit Date: 07/19/2023 Last Distance Health Visit: Visit date not found Future Appointment: 12/04/2023 The patients preferred pharmacy has been captured for this encounter? yes Request is for script(s) to be escript to pharmacy. ISABELLE Dawkins Emily, LPN 11/30/2023 1:24 PM Signed Addended by: ANGEL SNOW on: 11/30/2023 01:24 PM Modules accepted: Orders Allergies As of Date: 11/30/2023 Noted Allergy Reaction ATORVASTATIN 01/26/2023 17 - Myalgia HAY FEVER (SEASONAL ALLERGIES) 01/26/2023 9 - Itching LOSARTAN 06/20/2023 17 - Myalgia METFORMIN 06/20/2023 6 - Diarrhea Date Reviewed: 07/19/2023 Reviewed by: Arianna Xiao LPN - Fully Assessed Reason for Visit: Refill Request [94] Cmt: Farxiga Visit Diagnosis:Diabetes mellitus type 1, controlled, without complications (HCC) [E10.9] Prescriptions as of 11/30/2023 - FARXIGA 10 mg tablet take 1 tablet by mouth every morning - lisinopril-hydroCHLOR Othiazide (ZESTORETIC) 20-12.5 mg per tablet TAKE 1 TABLET BY MOUTH EVERY AFTERNOON - insulin lispro (HUMALOG KWIKPEN INSULIN) 100 unit/mL Inject 20 Units subcutaneously three times a day before meals. Plus an additional 2 units for each 50 mg/dL >200; maximum amount per injection: 30 units; maximum per day: 90 units - Blood-Glucose Sensor (FREESTYLE BERTIN 3 SENSOR) jose g Use to check sugars 3-4 times per day - DROPLET PEN NEEDLE 31 gauge x 5/16 Use to inject insulin up to 5 times per day - ELIQUIS 5 mg tab(s) Take 1 tablet by mouth two times a day. - metoprolol tartrate, short acting, (LOPRESSOR) 25 mg tablet Take 1 tablet by mouth two times a day. - TOUJEO SOLOSTAR U-300 INSULIN 300 unit/mL (1.5 mL) Inject 60 Units subcutaneously daily at bedtime. - FREESTYLE BERTIN 2 SENSOR kit apply 1 SENSOR to back OF UPPER ARM REMOVE AND REPLACE every 14 days Problem List As Of Date 11/30/2023 Noted Resolved Family hx of colon cancer [Z80.0] 05/29/2023 Hypercholesterolemia [E78.00] 10/26/2012 Obstructive sleep apnea of adult [G47.33] 08/13/2021 Atrial fibrillation (HCC) [I48.91] 05/22/2020 Benign hypertension [I10] 05/22/2020 Diabetic retinopathy (HCC) [E11.319] 08/22/2016 Stage 2 chronic kidney disease [N18.2] 02/06/2019 Encounter Status:Closed by ZORAIDA ESCAMILLA on 11/30/23 [facility] Robyn 08-02-2023 [facility] Telephone ([facility]) BABATUNDE STEWART ([id number]) 1955 M Date Time Provider Department 08/02/23 YARITZA JOYCE During your visit today, we recorded the following information about you: Yaritza Joyce LGC 08/02/2023 8:48 AM Signed Results left on patient voicemail. Babatunde Stewart's Multi-Cancer panel through [employer] was negative for a pathogenic variant. Please see [employer] message for further discussion. BEVERLY Pena Licensed, Certified Genetic Counselor Allergies As of Date: 08/02/2023 Noted Allergy Reaction ATORVASTATIN 01/26/2023 17 - Myalgia HAY FEVER (SEASONAL ALLERGIES) 01/26/2023 9 - Itching LOSARTAN 06/20/2023 17 - Myalgia METFORMIN 06/20/2023 6 - Diarrhea Date Reviewed: 07/19/2023 Reviewed by: Arianna Xiao LPN - Fully Assessed Reason for Visit: Results [95] Cmt: Genetic testing negative Prescriptions as of 08/02/2023 - insulin lispro (HUMALOG KWIKPEN INSULIN) 100 unit/mL Inject 20 Units subcutaneously three times a day before meals. Plus an additional 2 units for each 50 mg/dL >200; maximum amount per injection: 30 units; maximum per day: 90 units - Blood-Glucose Sensor (FREESTYLE BERTIN 3 SENSOR) jose g Use to check sugars 3-4 times per day - DROPLET PEN NEEDLE 31 gauge x 5/16 Use to inject insulin up to 5 times per day - ELIQUIS 5 mg tab(s) Take 1 tablet by mouth two times a day. - FARXIGA 10 mg tablet Take 1 tablet by mouth every morning. - lisinopril-hydroCHLOR Othiazide (ZESTORETIC) 20-12.5 mg per tablet Take 1 tablet by mouth every afternoon. - metoprolol tartrate, short acting, (LOPRESSOR) 25 mg tablet Take 1 tablet by mouth two times a day. - TOUJEO SOLOSTAR U-300 INSULIN 300 unit/mL (1.5 mL) Inject 60 Units subcutaneously daily at bedtime. - FREESTYLE BERTIN 2 SENSOR kit apply 1 SENSOR to back OF UPPER ARM REMOVE AND REPLACE every 14 days Problem List As Of Date 08/02/2023 Noted Resolved Family hx of colon cancer [Z80.0] 05/29/2023 Hypercholesterolemia [E78.00] 10/26/2012 Obstructive sleep apnea of adult [G47.33] 08/13/2021 Atrial fibrillation (HCC) [I48.91] 05/22/2020 Benign hypertension [I10] 05/22/2020 Diabetic retinopathy (HCC) [E11.319] 08/22/2016 Stage 2 chronic kidney disease [N18.2] 02/06/2019 Encounter Status:Closed by YARITZA JOYCE on 08/02/23 [facility] MISC SEND OUT TST 1on 2023 REFERRAL LAB 1 [facility] Normal [facility] Comment on above: Order Comment: Speci men Type: BLOOD SPECIMEN Ordering Facility: [facility] Address: [address] [place] [address] Performed By: #### M ISC1 #### NON-INTERFACED REF LABS CLIA SEE SCANNED RESULTS TEST 1 Multi-Cancer Panel Normal [facility] Comment on above: Order Comment: Speci men Type: BLOOD SPECIMEN Ordering Facility: [facility] Address: [address] [place] [address] Performed By: #### M ISC1 #### NON-INTERFACED REF LABS CLIA SEE SCANNED RESULTS TEST RESULTS 1 View results in Scanned Documents link when available. Normal [facility] Comment on above: Order Comment: Speci men Type: BLOOD SPECIMEN Ordering Facility: [facility] Address: [address] [place] [address] Performed By: #### M ISC1 #### NON-INTERFACED REF LABS CLIA SEE SCANNED RESULTS ALBUMIN/CREAT RATIO RND URon 2023 Albumin DL <= 20 mg/L (U) [Mass/Vol] 27.3 mg/L Normal [facility] Comment on above: Order Comment: Speci men Type: URINE SPECIMEN Ordering Facility: [facility] Address: [address] [place] [address] Performed By: #### U ACR #### [facility] CLIA [id number] [address] [place] [address] [place] [address] [place] Albumin/Creatinine (U) [Mass ratio] 33 mg/g High <30 [facility] Comment on above: Order Comment: Speci men Type: URINE SPECIMEN Ordering Facility: [facility] Address: [address] [place] [address] Result Comment: Adul t Male and Female Nephrotic Criteria: <30 mg/g is considered normal to mildly increased 30-300 mg/g is considered moderately increased >300 mg/g is considered severely increased KDIGO. (2013). KDIGO 2012 Clinical Practice Guideline for the Evaluation and Management of Chronic Kidney Disease. Official Journal of the International Society of Nephrology, 3(1), 1-150. Performed By: #### U ACR #### [facility] CLIA [id number] [address] [place] [address] [place] Creatinine (U) [Mass/Vol] 83.0 mg/dL Normal 20.0-300.0 [facility] Comment on above: Order Comment: Speci men Type: URINE SPECIMEN Ordering Facility: [facility] Address: [address] [place] [address] Performed By: #### U ACR #### [facility] CLIA [id number] [address] [place] [address] [place] CNOVon 07-19-2023 CNOV Office Visit ([facility]) MINDY STEWARTY ([id number]) 1955 M Date Time Provider Department 07/19/23 9:00 AM [facility] During your visit today, we recorded the following information about you: Temperature Blood pressure Weight Height 97 degrees 161/72 114.3 kg 1.905 m Beka Banda RPh 2023 10:09 AM Signed REASON FOR CONSULT: diabetes Referring Provider: Dr. Zhao Date of Consult: 06/20/2023 Babatunde Stewart is a 67 year old male who is presenting for initial visit: This initial consult was conducted in person with the patient where the consult agreement was explained. The patient may decline or cancel the agreement at any time. After consideration, the patient consented to the pharmacy consult agreement and agreed to allow medications be collaboratively managed by a pharmacist.. HPI: Diabetes Uses CGM - phone as reader, findings below 30 days - Time in range, 69% 181-240 18% >240 11% < 70% 2% Denies s/s of hyperglycemia Lowest - 45, this AM Was symptomatic Normally if goes low, catches earlier - 60 to 70s due to CGM alarm Unclear why alarm did not go off earlier this morning States likely cause was excessive exercise and small dinner last night Treatment of low - glucose tablets; PBJ sandwich Keeps glucose tablets by bed Regimen confirmed as below Humalog 20 units per meal If >160, will take 22 units daily Also uses a sliding scale at times with fiasp; different to determine frequency of use If getting running high, will take 7-9 units Will not always eat 2-3 times per week Denies cost concerns Denies missed doses While discussed with provider at last appt, did initially stop farxiga but felt worse/SMBG worsened Self-restarted Aware of risks, such as DKA; still wants to continue Current Diabetes Medications Toujeo - 60 units Humalog - as above Farxiga - 10 mg daily On ASHELY/ARB: Yes On Statin: No - prior intolerance On aspirin: No Metformin - prior intolerance Eye exam ~6 months External location Endorses multiple trials of statin therapies All caused myopathy Will consider ezetimibe - does not want to start now Has peloton; exercises almost daily when on traveling ~Jan received COVID booster through [employer] ~5 years ago, does not remember location Feet:Shoes and socks removed, normal distal pulses, and vibratory perception normal Monitors BP at home Tracks on magi, reviewed SBP fluctuate; Home BP readings - 106-145 Multiple episodes in 110s More frequently 110-low 130s; minimal 140s Highest 145 DBP 60-80s Denies s/s of hypretension Past medical, family and social history reviewed and updated. REVIEW OF SYSTEMS Review of Systems Constitutional: Negative for chills, fever and weight loss. ALLERGIES Allergen Reactions Atorvastatin Myalgia Hay Fever [Seasonal* Itching Losartan Myalgia Metformin Diarrhea VITALS: BP 154/74 Temp 36.1 ?C (97 ?F) Ht 6' 3 (1.905 m) Wt 252 lb (114.3 kg) BMI 31.50 kg/m? EXAM: Last 3 Encounter BP Readings: Date: BP: 07/19/2023 154/74 06/20/2023 118/66 05/29/2023 92/54 Wt: 246 lb (111.6 kg) BMI: 30.75 kg/(m2) LABS: Reviewed Lab Results Component Value Date HBA1C 8.0 05/23/2023 CMP: Glucose 152 05/23/2023 BUN 21 05/23/2023 Creatinine 0.84 05/23/2023 Sodium 138 05/23/2023 Potassium 4.4 05/23/2023 Albumin 4.2 05/23/2023 Calcium, Total 9.3 05/23/2023 AST 31 05/23/2023 ALT 35 05/23/2023 Lab Results Component Value Date CHOL 288 05/23/2023 LDL 159 05/23/2023 HDL 102 05/23/2023 TG 134 05/23/2023 No results found for: UALBCR Serum creatinine: 0.84 mg/dL 05/23/23 0719 Estimated creatinine clearance: 116.4 mL/min ASSESSMENT/PLAN 1. Diabetes mellitus type 1, controlled, without complications (HCC) - ICD9: 250.01, ICD10: E10.9 (primary diagnosis) - Uncontrolled - though A1c inconsistent with TIR. TIR near goal >70% - Continue current medications - encouraged ongoing activity, small carb portions - [employer] Imaging HoldingsSTYLE BERTIN 3 SENSOR DEVICE - DROPLET PEN NEEDLE 31 GAUGE X 5/16 - FARXIGA 10 MG TABLET - INSULIN LISPRO (U-100) 100 UNIT/ML SUBCUTANEOUS PEN - DAV SOLOSTAR U-300 INSULIN 300 UNIT/ML (1.5 ML) SUBCUTANEOUS PEN - ALBUMIN/CREAT RATIO RND UR - PNEUMOCOCCAL VACCINE, 20 VALENT (PREVNAR 20) - encouraged fast acting insulin only with meals/food - reviewed treatment of hypoglycemia 2. Hypertension, essential - ICD9: 401.9, ICD10: I10 - Uncontrolled - inconsistent with home readings, just had coffee - Continue current medications - Recommend home blood pressure monitoring, to bring results to next visit - Recommend regular aerobic exercise - LISINOPRIL 20 MG-HYDROCHLOROTHIAZID E 12.5 MG TABLET 3. Encounter for medication counseling - ICD9: V65.49, ICD10: Z71.89 Extensive conversation for concerns with SGLT2i use and potential DKA - not indicat (more content not included)... Normal [facility] Robyn 06-27-2023 [facility] Telephone ([facility]) BABATUNDE STEWART ([id number]) 1955 M Date Time Provider Department 06/27/23 GRACIE ZHAO [facility] During your visit today, we recorded the following information about you: Amber Bowman LPN 06/27/2023 3:15 PM Signed Fax from [employer] received that the Bertin needs a PA. Phone call to the patient to see if this is a pharmacy benefit or a DME benefit. Where has he been getting this in the past? Arianna Xiao LPN 07/21/2023 4:07 PM Signed CGM approved. Arianna Xiao LPN Allergies As of Date: 06/27/2023 Noted Allergy Reaction ATORVASTATIN 01/26/2023 17 - Myalgia HAY FEVER (SEASONAL ALLERGIES) 01/26/2023 9 - Itching LOSARTAN 06/20/2023 17 - Myalgia METFORMIN 06/20/2023 6 - Diarrhea Date Reviewed: 06/20/2023 Reviewed by: Girish Murcia LPN - Fully Assessed Reason for Visit: Medication Problem [65] Prescriptions as of 07/21/2023 - insulin lispro (HUMALOG KWIKPEN INSULIN) 100 unit/mL Inject 20 Units subcutaneously three times a day before meals. Plus an additional 2 units for each 50 mg/dL >200; maximum amount per injection: 30 units; maximum per day: 90 units - Blood-Glucose Sensor (FREESTYLE BERTIN 3 SENSOR) jose g Use to check sugars 3-4 times per day - DROPLET PEN NEEDLE 31 gauge x 5/16 Use to inject insulin up to 5 times per day - ELIQUIS 5 mg tab(s) Take 1 tablet by mouth two times a day. - FARXIGA 10 mg tablet Take 1 tablet by mouth every morning. - lisinopril-hydroCHLOR Othiazide (ZESTORETIC) 20-12.5 mg per tablet Take 1 tablet by mouth every afternoon. - metoprolol tartrate, short acting, (LOPRESSOR) 25 mg tablet Take 1 tablet by mouth two times a day. - TOUJEO SOLOSTAR U-300 INSULIN 300 unit/mL (1.5 mL) Inject 60 Units subcutaneously daily at bedtime. - FREESTYLE BERTIN 2 SENSOR kit apply 1 SENSOR to back OF UPPER ARM REMOVE AND REPLACE every 14 days Problem List As Of Date 06/27/2023 Noted Resolved Family hx of colon cancer [Z80.0] 05/29/2023 Encounter Status:Closed by ARIANNA XIAO on 07/21/23 [facility] CNOVon 06-20-2023 CN Office Visit (AGCFM) BABATUNDE STEWART ([id number]) 1955 M Date Time Provider Department 06/20/23 9:00 AM GRACIE ZHAO [facility] During your visit today, we recorded the following information about you: Temperature Pulse Respiration Blood pressure 97 degrees 66/minute 18/minute 118/66 Weight Height 111.6 kg 1.905 m Gracie Zhao MD 06/21/2023 9:06 AM Signed [facility] 1 [facility] / [address] [place] [address] Visit Date: June 19, 2023 Name: Babatunde Stewart Date of : 1955 MRN/E #: [id number] Chief Complaint: No chief complaint on file. 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 work - diagnosed in 1991 - did not get on insulin until 5 years ago - was previously on metformin for years, diagnosed as type 2 - found antibodies at study at [facility] - A1C 8 on 05/23/23 - has been traveling frequently over last 3 months - on Toujeo units - 50 units / day - on novolog units --> insurance changes to humolog - 60 units / day - needs refill - was seeing Endocrine but switching to us - Happy with us, regimine was initially from endo - too long booking times - does have very fast acting insulin when BS above 200 more or less - average 150-160s - on freestyle bertin 2 wants to see about freestyle bertin 3 - travel work related - should not be on Farxiga, higher rates of DKA - still taking - doing 10k steps and 30 minutes on bike and weights - has made some diet changes - has been drinking beer for football games and now over - will have 2-4 per day Hyperlipidemia - LDL 159 - myalgias with Atorvastatin - has tried 3-4 previously all with myalgias HTN - Home cuff BP measuring low 130s/low 70s - lightheadedness with bending over - issues with pressures w/o HCTZ Payor: YOHANNES / Plan: BLUE CARD PPO OOS / Product Type: PPO / Review of Systems ALLERGIES Allergen Reactions Atorvastatin Myalgia Hay Fever [Seasonal* Itching Losartan Myalgia Metformin Diarrhea Current Outpatient Medications Medication Sig peg 3350-Electrolytes (GOLYTELY) 236-22.74-6.74 -5.86 gram suspension Refer to printed patient instructions that will be mailed to you. ELIQUIS 5 mg tab(s) Take 1 tablet by mouth every 12 (twelve) hours. TOUJEO SOLOSTAR U-300 INSULIN 300 unit/mL (1.5 mL) lisinopril-hydroCHLOR Othiazide (ZESTORETIC) 20-12.5 mg per tablet Take 1 tablet by mouth every afternoon. metoprolol tartrate, short acting, (LOPRESSOR) 25 mg tablet Take 1 tablet by mouth every 12 (twelve) hours. DROPLET PEN NEEDLE 31 gauge x 5/16 USE DIRECTED with INSULIN PENS 5 TIMES A DAY insulin lispro (HUMALOG KWIKPEN INSULIN) 100 unit/mL Inject 20 Units subcutaneously three times a day before meals. FREESTYLE BERTIN 2 SENSOR kit apply 1 SENSOR to back OF UPPER ARM REMOVE AND REPLACE every 14 days No current facility-administered medications for this visit. I have confirmed and edited as necessary the chief complaint, medications, past medical, family and social histories. Objective 06/20/23 0904 BP: 118/66 Pulse: 66 Resp: 18 Temp: 36.1 ?C (97 ?F) TempSrc: Temporal SpO2: 96% Weight: 246 lb (111.6 kg) Height: 6' 3 (1.905 m) Body mass index is 30.75 kg/m?. Physical Exam Vitals and nursing note reviewed. Constitutional: Appearance: Normal appearance. HENT: Nose: Nose normal. Eyes: Conjunctiva/sclera: Conjunctivae normal. Cardiovascular: Rate and Rhythm: Normal rate and regular rhythm. Pulses: Normal pulses. Heart sounds: Normal heart sounds. Pulmonary: Effort: Pulmonary effort is normal. Breath sounds: Normal breath sounds. Musculoskeletal: Right lower leg: No edema. Left lower leg: No edema. Skin: General: Skin is warm and dry. Neurological: Mental Status: He is alert. Mental status is at baseline. Psychiatric: Mood and Affect: Mood normal. Behavior: Behavior normal. Results for orders placed or performed during the hospital encounter of 05/29/23 GLUCOSE, BLOOD (POC) Result Value Ref Range Glucose, Point of Care 133 (A) 74 - 99 mg/dL SURGICAL PATHOLOGY Result Value Ref Range Case Report Surgical Pathology Report Case: [id number] Authorizing Provider: Ana Villalpando MD Collected: 05/29/2023 10:30 AM Ordering Location: [facility] Received: 05/29/2023 11:19 AM Pathologist: Gracie Obregon MD Specimen: RECTAL POLYP FINAL DIAGNOSIS A. Rectum, polyp, polypectomy: -Fragments of tubular adenoma. Gross Description A. RECTAL POLYP Received in formalin are two pieces of garvey, soft tissue aggregating to 0.4 x 0.2 x 0.1 cm. Totally submitted in one cassette. JTS May 29, 2023 3:21 PM Gross examinat (more content not included)... Normal [facility] Robyn 06-15-2023 [facility] Telephone (AGGASTACC ) SAVANNAHBABATUNDE ([id number]) 1955 M Date Time Provider Department 06/15/23 YARITZA ROBLES During your visit today, we recorded the following information about you: Sarah Bennett 06/15/2023 2:33 PM Signed [facility] Your form has been successfully submitted and your request is being processed. Confirmation number: [id number] Allergies As of Date: 06/15/2023 Noted Allergy Reaction ATORVASTATIN 01/26/2023 17 - Myalgia HAY FEVER (SEASONAL ALLERGIES) 01/26/2023 9 - Itching Date Reviewed: 05/29/2023 Reviewed by: Yaritza Diaz, RN - Fully Assessed Reason for Visit: Appointment [186] Prescriptions as of 06/15/2023 - peg 3350-Electrolytes (GOLYTELY) 236-22.74-6.74 -5.86 gram suspension Refer to printed patient instructions that will be mailed to you. - ELIQUIS 5 mg tab(s) Take 1 tablet by mouth every 12 (twelve) hours. - FARXIGA 10 mg tablet Take 10 mg by mouth every morning. - FREESTYLE BERTIN 2 SENSOR kit apply 1 SENSOR to back OF UPPER ARM REMOVE AND REPLACE every 14 days - NOVOLOG FLEXPEN U-100 INSULIN 100 unit/mL (3 mL) - TOUJEO SOLOSTAR U-300 INSULIN 300 unit/mL (1.5 mL) - lisinopril-hydroCHLOR Othiazide (ZESTORETIC) 20-12.5 mg per tablet Take 1 tablet by mouth every afternoon. - metoprolol tartrate, short acting, (LOPRESSOR) 25 mg tablet Take 1 tablet by mouth every 12 (twelve) hours. - DROPLET PEN NEEDLE 31 gauge x 5/16 USE DIRECTED with INSULIN PENS 5 TIMES A DAY Problem List As Of Date 06/15/2023 Noted Resolved Family hx of colon cancer [Z80.0] 05/29/2023 Encounter Status:Closed by SARAH BENNETT on 06/15/23 [facility] ANES POSTPROC EVALon 024 ANES POSTPROC EVAL HNO ID: [id number] Author: JESUS AQUINO MD Service: Anesthesiology Author Type: Anesthesiologist Type: Anesthesia Postprocedure Evaluation Filed: 05/29/2023 12:10 Note Text: POST ANESTHESIA EVALUATION NOTE : 1955 Procedure Summary Date: 05/29/23 Room / Location: [facility] Endoscopy Anesthesia Start: 1009 Anesthesia Stop: 1041 Procedure: COLONOSCOPY SCREENING Diagnosis: Encounter for screening colonoscopy Family hx of colon cancer Hemorrhoids, unspecified hemorrhoid type (High risk colon cancer surveillance: Personal history of colonic polyps) Scheduled Providers: Ana Villalpando MD; Jesus Aquino MD; Lavern Garzon APRN.AIRCRAFT AVIONICS TECHNICIAN Responsible Provider: Jesus Aquino MD Anesthesia Type: MAC ASA Status: 2 Anesthesia Type: MAC Last Vitals Vitals Value Taken Time BP 120/61 05/29/23 1100 Temp 36.7 ?C (98.1 ?F) 05/29/23 1039 HR SpO2 63 05/29/23 1039 Resp 11 05/29/23 1107 SpO2 95 % 05/29/23 1107 Vitals shown include unfiled device data. Post Anesthesia Patient Status Patient Evaluation: PACU. PACU/ICU Patient Condition: stable. Anticipated Disposition: phase 2 then home. Neurological Status: aware and responsive. Pulmonary Status: breathing comfortably on room air Airway Control: returned to baseline unsupported. Cardiovascular Status: stable. Pain Management: clinically adequate - multimodal analgesia pain management approach Postoperative Hydration: acceptable. Intraoperative Events: no significant anesthesia events Recommendation: continue current plan of care. Anesthesia Observations No Documentation SIGNATURE: Jesus Aquino MD PATIENT NAME: Babatunde Stewart DATE: May 29, 2023 TIME: 12:10 PM CSN: [id number] Normal [facility] ANES PRE-OPon 05-29-2023 ANES PRE-OP HNO ID: [id number] Author: JESUS AQUINO MD Service: Anesthesiology Author Type: Anesthesiologist Type: Anesthesia Preprocedure Evaluation Filed: 05/29/2023 08:04 Note Text: ANESTHESIOLOGY DAY OF SURGERY NOTE : 1955 Procedure Information Date/Time: 05/29/23 1100 Scheduled providers: Ana Villalpando MD; Jesus Aquino MD; Lavern Garzon APRN.AIRCRAFT AVIONICS TECHNICIAN Procedure: COLONOSCOPY SCREENING Location: [facility] Estimated body mass index is 31.12 kg/m? as calculated from the following: Height as of 01/26/23: 190.5 cm (6' 3). Weight as of 01/26/23: 112.9 kg (249 lb). Most recent hematocrit and potassium results: Hematocrit 48.4 05/23/2023 Potassium 4.4 05/23/2023 Relevant Problems No relevant active problems I - PHYSICAL EVALUATION AIRWAY Patient intubated: No. Tracheostomy tube not present Mallampati: II. TM distance: >3 FB. Neck ROM: full ROM without neurological symptoms. Mouth opening: adequate. DENTAL Dental findings: poor dentition. Additional exam findings: no II - ANESTHESIA PLAN ASA Score: 2 Anesthetic Plan: MAC NPO Status: adequate Beta Lolly Monitoring Plan Monitoring plan: standard ASA. Post Procedure Analgesic Plan Postoperative analgesic plan: parenteral or oral opioids and multimodal analgesia. Patient / Surrogate agrees to blood products: blood products not planned Significant changes in the patient condition since the History and Physical, not otherwise documented in primary service progress note: no. No vitals data found for the desired time range. Outpatient Medications as of 05/29/2023 Medication Sig - peg 3350-Electrolytes (GOLYTELY) 236-22.74-6.74 -5.86 gram suspension Refer to printed patient instructions that will be mailed to you. - ELIQUIS 5 mg tab(s) Take 1 tablet by mouth every 12 (twelve) hours. - FARXIGA 10 mg tablet Take 10 mg by mouth every morning. - FREESTYLE BERTIN 2 SENSOR kit apply 1 SENSOR to back OF UPPER ARM REMOVE AND REPLACE every 14 days - NOVOLOG FLEXPEN U-100 INSULIN 100 unit/mL (3 mL) - TOUJEO SOLOSTAR U-300 INSULIN 300 unit/mL (1.5 mL) - lisinopril-hydroCHLOR Othiazide (ZESTORETIC) 20-12.5 mg per tablet Take 1 tablet by mouth every afternoon. - metoprolol tartrate, short acting, (LOPRESSOR) 25 mg tablet Take 1 tablet by mouth every 12 (twelve) hours. - DROPLET PEN NEEDLE 31 gauge x 5/16 USE DIRECTED with INSULIN PENS 5 TIMES A DAY No current facility-administered medications on file as of 05/29/2023. I have interviewed and examined the patient. I have reviewed the medical record and/or the pre-anesthesia evaluation, pertinent labs, and test results. This contains updated information obtained within 48 hours of Surgery/Procedure. SIGNATURE: Jesus Aquino MD PATIENT NAME: Babatunde Stewart DATE: May 29, 2023 TIME: 8:04 AM CSN: [id number] [facility] 05-29-2023 [facility] Telephone (AGGASTACC ) BABATUNDE STEWART ([id number]) 1955 M Date Time Provider Department 05/29/23 YARITZA ROBLES AGGASTACC During your visit today, we recorded the following information about you: Yaritza Robles PA-C 05/29/2023 11:56 AM Signed Needs appointment to review colonoscopy results. Allergies As of Date: 05/29/2023 Noted Allergy Reaction ATORVASTATIN 01/26/2023 17 - Myalgia HAY FEVER (SEASONAL ALLERGIES) 01/26/2023 9 - Itching Date Reviewed: 05/29/2023 Reviewed by: Yaritza Diaz, MICKY - Fully Assessed Reason for Visit: Results [95] Appointment [186] Prescriptions as of 05/29/2023 - peg 3350-Electrolytes (GOLYTELY) 236-22.74-6.74 -5.86 gram suspension Refer to printed patient instructions that will be mailed to you. - ELIQUIS 5 mg tab(s) Take 1 tablet by mouth every 12 (twelve) hours. - FARXIGA 10 mg tablet Take 10 mg by mouth every morning. - FREESTYLE BERTIN 2 SENSOR kit apply 1 SENSOR to back OF UPPER ARM REMOVE AND REPLACE every 14 days - NOVOLOG FLEXPEN U-100 INSULIN 100 unit/mL (3 mL) - TOUJEO SOLOSTAR U-300 INSULIN 300 unit/mL (1.5 mL) - lisinopril-hydroCHLOR Othiazide (ZESTORETIC) 20-12.5 mg per tablet Take 1 tablet by mouth every afternoon. - metoprolol tartrate, short acting, (LOPRESSOR) 25 mg tablet Take 1 tablet by mouth every 12 (twelve) hours. - DROPLET PEN NEEDLE 31 gauge x 5/16 USE DIRECTED with INSULIN PENS 5 TIMES A DAY Problem List As Of Date 05/29/2023 Noted Resolved Family hx of colon cancer [Z80.0] 05/29/2023 Encounter Status:Closed by YARITZA ROBLES on 05/29/23 Normal [facility] Colonoscopyon 05-29-2023 Colonoscopy [facility] G[facility] Endoscopy Patient Name: Babatunde Stewart Procedure Date: 05/29/2023 10:01 AM Date of : 1955 Admit Type: Outpatient Age: 67 Room: [facility] Gender: Male Note Status: Finalized Attending MD: Ana Villalpando MD, [id number] Procedure: Colonoscopy Indications: High risk colon cancer surveillance: Personal history of colonic polyps, Family history of colon cancer in a first-degree relative before age 60 years Providers: Ana Villalpando MD Patient Profile: Refer to note in patient chart for documentation of history and physical. Last Colonoscopy: 5 years ago. Referring Physician: Yaritza Robles (Referring MD) Medicines: See the Anesthesia note for documentation of the administered medications Complications: No immediate complications. Requesting Provider: Procedure: Pre-Anesthesia Assessment: - Monitored anesthesia care under the supervision of a AIRCRAFT AVIONICS TECHNICIAN was determined to be medically necessary for this procedure based on review of the patient's medical history, medications, and prior anesthesia history. After I obtained informed consent, the scope was passed under direct vision. Throughout the procedure, the patient's blood pressure, pulse, and oxygen saturations were monitored continuously. The Colonoscope was introduced through the anus and advanced to the cecum, identified by the appendiceal orifice, IC valve and transillumination. The colonoscopy was performed without difficulty. The patient tolerated the procedure well. The quality of the bowel preparation was adequate to identify polyps greater than 5 mm in size. The appendiceal orifice and the rectum were photographed. Scope Withdrawal Time: 0 hours 10 minutes 27 seconds Moderate Sedation: MAC anesthesia was administered by the anesthesia team. Total Procedure Duration: 0 hours 14 minutes 51 seconds Findings: The perianal and digital rectal examinations were normal. Non-bleeding internal hemorrhoids were found. A 2 to 3 mm polyp was found in the rectum. The polyp was sessile. The polyp was removed with a cold biopsy forceps. Resection and retrieval were complete. Verification of patient identification for the specimen was done by the nurse. Estimated blood loss was minimal. Impression: - Non-bleeding internal hemorrhoids. - One 2 to 3 mm polyp in the rectum, removed with a cold biopsy forceps. Resected and retrieved. Recommendation: - Repeat colonoscopy in 5 years for surveillance. - Return to primary care physician PRN. - Patient has a contact number available for emergencies. The signs and symptoms of potential delayed complications were discussed with the patient. Return to normal activities tomorrow. Written discharge instructions were provided to the patient. - Continue present medications. - Resume previous diet. Procedure Code(s): --- Professional --- 47323, Colonoscopy, flexible; with biopsy, single or multiple Diagnosis Code(s): --- Professional --- Z80.0, Family history of malignant neoplasm of digestive organs D12.8, Benign neoplasm of rectum K64.8, Other hemorrhoids Z86.010, Personal history of colonic polyps Z12.11, Encounter for screening for malignant neoplasm of colon CPT copyright 2020 [employer]. All rights reserved. The codes documented in this report are preliminary and upon grey roll man review may be revised to meet current compliance requirements. Attending Participation: I personally performed the entire procedure. Scope In: 10:16:37 AM Scope Out: 10:31:28 AM MD Ana Cain MD 05/29/2023 10:35:31 AM This report has been signed electronically by Ana Villalpando MD Number of Addenda: 0 Note Initiated On: 05/29/2023 10:01 AM Estimated Blood Loss: Estimated blood loss was minimal. Normal [facility] HISTORY PHYSICALon HISTORY PHYSICAL HNO ID: [id number] Author: ANA VILLALPANDO MD Service: General Surgery Author Type: Physician Type: H&P Filed: 05/29/2023 10:13 Note Text: HISTORY AND PHYSICAL Babatunde Stewart 1955 REFERRING PHYSICIAN: Yaritza Robles PA-C CHIEF COMPLAINT: No chief complaint on file. HPI: The patient is a 67 year old male presents for screening for colon cancer via colonoscopy The patient denies blood in stools, denies abdominal pain, and denies changes in bowel habits. The patient states that her sister had colon cancer in her 40s. The patient has had previous colonoscopy about 5 years ago. He had colonscopy several years ago which showed polyps PAST MEDICAL HISTORY Diagnosis Date A-fib (HCC) HTN (hypertension) Sleep apnea Type 1 diabetes mellitus (HCC) PAST SURGICAL HISTORY Procedure Laterality Date ANKLE SURGERY HX Right PT ED HEART [facility] VASCULAR REMV CATARACT EXTRACAP,INSERT LENS WRIST SURGERY HX Current Outpatient Medications Medication Sig peg 3350-Electrolytes (GOLYTELY) 236-22.74-6.74 -5.86 gram suspension Refer to printed patient instructions that will be mailed to you. ELIQUIS 5 mg tab(s) Take 1 tablet by mouth every 12 (twelve) hours. FARXIGA 10 mg tablet Take 10 mg by mouth every morning. [employer] BERTIN 2 SENSOR kit apply 1 SENSOR to back OF UPPER ARM REMOVE AND REPLACE every 14 days NOVOLOG FLEXPEN U-100 INSULIN 100 unit/mL (3 mL) TOUJEO SOLOSTAR U-300 INSULIN 300 unit/mL (1.5 mL) lisinopril-hydroCHLOR Othiazide (ZESTORETIC) 20-12.5 mg per tablet Take 1 tablet by mouth every afternoon. metoprolol tartrate, short acting, (LOPRESSOR) 25 mg tablet Take 1 tablet by mouth every 12 (twelve) hours. DROPLET PEN NEEDLE 31 gauge x 5/16 USE DIRECTED with INSULIN PENS 5 TIMES A DAY No current facility-administered medications for this encounter. ALLERGIES: Atorvastatin and Hay Fever [Seasonal Allergies] PERSONAL HISTORY: Social History Tobacco Use Smoking status: Former Packs/day: 1.00 Years: 15.00 Additional pack years: 0.00 Total pack years: 15.00 Types: Cigarettes Smokeless tobacco: Never Tobacco comments: Quit 27 years ago Vaping Use Vaping Use: Never used Substance Use Topics Alcohol use: Yes Alcohol/week: 28.0 standard drinks of alcohol Types: 28 Cans of beer per week Drug use: Never FAMILY HISTORY: No family history on file. REVIEW OF SYSTEMS: Denies fevers Denies chest pain Denies shortness of breath Physical examination: Vital signs in chart, reviewed and noted by me General - WD/WN in no apparent distress, alert and oriented Head - Normocephalic. EOM intact with sclera clear. Mouth with mucus membranes moist. Neck - supple with no jugular venous distention noted. Trachea is midline. Lungs - normal breath sounds, normal respiratory motion, no adventitial sounds noted. Heart - normal heart sounds. Regular rate. Abdomen - soft and benign. Extremities - no pitting edema noted. Skin - Normal skin integrity. Neurological - non focal Psych - calm and appropriate Impression: surveillance colonoscopy for history of colon polyps, family history of colon cancer in sister Discussion/Plan/Recom mendations: I have discussed the above with the patient. I have offered colonoscopy , possible biopsies I have explained the procedure to the patient. I have counseled the patient as to the risks of the procedure, including but not limited to: infection, bleeding, injury to any intrabdominal organs such as liver/spleen, perforation of the GI tract, inability to complete the procedure, complications of anesthesia, etc. - the patient understands. The patient wishes to proceed. I have answered all questions to the patient?s satisfaction and the patient has no further questions. . Ana Villalpando MD Normal [facility] SURGICAL PATHOLOGYon CASE REPORT Normal [facility] Comment on above: Order Comment: Speci roman Type: TISSUE SPECIMEN Ordering Facility: [facility] Address: [address] [place] [address] Result Comment: Surg [facility] Pathology Report Case: [id number] Authorizing Provider: Ana Villalpando MD Collected: 05/29/2023 10:30 AM Ordering Location: [facility] Received: 05/29/2023 11:19 AM Pathologist: Gracie Obregon MD Specimen: RECTAL POLYP Performed By: #### S #### [facility] CLIA [id number] [address] [facility] [id number] [place] [address] [place] FINAL DIAGNOSIS Normal [facility] Comment on above: Order Comment: Speci men Type: TISSUE SPECIMEN Ordering Facility: [facility] Address: [address] [place] [address] Result Comment: A. R ectum, polyp, polypectomy: -Fragments of tubular adenoma. Performed By: #### S #### [facility] CLIA [id number] [address] [place] [address] [place] FINAL PERFORMING LAB Normal [facility] Comment on above: Order Comment: Speci men Type: TISSUE SPECIMEN Ordering Facility: [facility] Address: [address] [place] [address] Result Comment: Diag nostic interpretation performed at [facility], [address] [place] [address] CLIA# [id number] [employer] Screen Printer: Dante Trevino M.D. Performed By: #### S #### [facility] CLIA [id number] [address] [place] [address] [place] GROSS DESCRIPTION A. RECTAL POLYP Normal [facility] Comment on above: Order Comment: Speci men Type: TISSUE SPECIMEN Ordering Facility: [facility] Address: [address] [place] [address] Result Comment: Rece ived in formalin are two pieces of garvey, soft tissue aggregating to 0.4 x 0.2 x 0.1 cm. Totally submitted in one cassette. JTS May 29, 2023 3:21 PM Gross examination performed at [facility], [address] [place] [address] Performed By: #### S #### [facility] CLIA [id number] [address] [place] [address] [place] CBC panel Auto (Bld)on 05-23 Erythrocyte distribution width (RBC) [Ratio] 12.2 % Normal 11.5-15.0 [facility] Comment on above: Order Comment: Speci men Type: BLOOD SPECIMEN Ordering Facility: [facility] Address: [address] [place] [address] Performed By: #### 5 8410-2 #### [facility] CLIA [id number] [address] [place] [address] [place] Hematocrit (Bld) [Volume fraction] 48.4 % Normal 39.0-51.0 [facility] Comment on above: Order Comment: Speci men Type: BLOOD SPECIMEN Ordering Facility: [facility] Address: [address] [place] [address] Performed By: #### 5 8410-2 #### [facility] CLIA [id number] [facility] [place] [address] [place] Hemoglobin (Bld) [Mass/Vol] 16.3 g/dL Normal 13.0-17.0 [facility] Comment on above: Order Comment: Speci men Type: BLOOD SPECIMEN Ordering Facility: [facility] Address: [address] [place] [address] Performed By: #### 5 8410-2 #### [facility] CLIA [id number] [address] [place] [address] [place] MCH (RBC) [Entitic mass] 34.8 pg High 26.0-34.0 [facility] Comment on above: Order Comment: Speci men Type: BLOOD SPECIMEN Ordering Facility: [facility] Address: [address] [place] [address] Performed By: #### 5 8410-2 #### [facility] CLIA [id number] [address] [place] [address] [place] MCHC (RBC) [Mass/Vol] 33.7 g/dL Normal 30.5-36.0 [facility] Comment on above: Order Comment: Speci men Type: BLOOD SPECIMEN Ordering Facility: [facility] Address: [address] [place] [address] Performed By: #### 5 8410-2 #### [facility] CLIA [id number] [address] [place] [address] [place] MCV (RBC) [Entitic vol] 103.2 fL High 80.0-100.0 [facility] Comment on above: Order Comment: Speci men Type: BLOOD SPECIMEN Ordering Facility: [facility] Address: [address] [place] [address] Performed By: #### 5 8410-2 #### [facility] CLIA [id number] [address] [place] [address] [place] Nucleated RBC (Bld) [#/Vol] 10*3/uL Normal <0.01 [facility] Comment on above: Order Comment: Speci men Type: BLOOD SPECIMEN Ordering Facility: [facility] Address: [address] [place] [address] Performed By: #### 5 8410-2 #### [facility] CLIA [id number] [address] [place] [address] [place] Platelet mean volume (Bld) [Entitic vol] 10.9 fL Normal 9.0-12.7 [facility] Comment on above: Order Comment: Speci men Type: BLOOD SPECIMEN Ordering Facility: [facility] Address: [address] [place] [address] Performed By: #### 5 8410-2 #### [facility] CLIA [id number] [address] [place] [address] [place] Platelets (Bld) [#/Vol] 227 10*3/uL Normal 150-400 [facility] Comment on above: Order Comment: Speci men Type: BLOOD SPECIMEN Ordering Facility: [facility] Address: [address] [place] [address] Performed By: #### 5 8410-2 #### [facility] CLIA [id number] [address] [place] [address] [place] RBC (Bld) [#/Vol] 4.69 10*6/uL Normal 4.20-6.00 [facility] Comment on above: Order Comment: Speci men Type: BLOOD SPECIMEN Ordering Facility: [facility] Address: [address] [place] [address] Performed By: #### 5 8410-2 #### [facility] CLIA [id number] [address] [place] [address] [place] WBC (Bld) [#/Vol] 6.11 10*3/uL Normal 3.70-11.00 [facility] Comment on above: Order Comment: Speci men Type: BLOOD SPECIMEN Ordering Facility: [facility] Address: [address] [place] [address] Performed By: #### 5 8410-2 #### [facility] CLIA [id number] [address] [place] [address] [place] Comprehensive metabolic 2000 panelon 05-23-2023 Albumin [Mass/Vol] 4.2 g/dL Normal 3.9-4.9 [facility] Comment on above: Order Comment: Speci men Type: BLOOD SPECIMEN Ordering Facility: [facility] Address: [address] [place] [address] Performed By: #### 2 4331-1, #### [facility] CLIA [id number] [address] [place] [address] [place] ALP [Catalytic activity/Vol] 68 U/L Normal 38-113 [facility] Comment on above: Order Comment: Speci men Type: BLOOD SPECIMEN Ordering Facility: [facility] Address: [address] [place] [address] Performed By: #### 2 4331-1, #### [facility] CLIA [id number] [address] [place] [address] [place] ALT [Catalytic activity/Vol] 35 U/L Normal 10-54 [facility] Comment on above: Order Comment: Speci men Type: BLOOD SPECIMEN Ordering Facility: [facility] Address: [address] [place] [address] Performed By: #### 2 4331-1, 79744-0 #### [facility] CLIA [id number] [address] [place] [address] [place] Anion gap [Moles/Vol] 12 mmol/L Normal 9-18 [facility] Comment on above: Order Comment: Speci men Type: BLOOD SPECIMEN Ordering Facility: [facility] Address: [address] [place] [address] Performed By: #### 2 4331-1, 54919-8 #### [facility] CLIA [id number] [address] [place] [address] [place] AST [Catalytic activity/Vol] 31 U/L Normal 14-40 [facility] Comment on above: Order Comment: Speci men Type: BLOOD SPECIMEN Ordering Facility: [facility] Address: [address] [place] [address] Performed By: #### 2 4331-1, #### [facility] CLIA [id number] [address] [place] [address] [place] Bilirubin [Mass/Vol] 0.5 mg/dL Normal 0.2-1.3 [facility] Comment on above: Order Comment: Speci men Type: BLOOD SPECIMEN Ordering Facility: [facility] Address: [address] [place] [address] Performed By: #### 2 4331-1, #### [facility] CLIA [id number] [address] [place] [address] [place] Calcium [Mass/Vol] 9.3 mg/dL Normal 8.5-10.2 [facility] Comment on above: Order Comment: Speci men Type: BLOOD SPECIMEN Ordering Facility: [facility] Address: [address] [place] [address] Performed By: #### 2 4331-1, 64520-2 #### [facility] CLIA [id number] [address] [place] [id number] [place] Chloride [Moles/Vol] 98 mmol/L Normal 97-105 [facility] Comment on above: Order Comment: Speci men Type: BLOOD SPECIMEN Ordering Facility: [facility] Address: [address] [place] [address] Performed By: #### 2 4331-1, 41902-5 #### [facility] CLIA [id number] [address] [place] [address] [place] CO2 [Moles/Vol] 28 mmol/L Normal 22-30 [facility] Comment on above: Order Comment: Speci men Type: BLOOD SPECIMEN Ordering Facility: [facility] Address: [address] [place] [address] Performed By: #### 2 4331-1, 36311-6 #### [facility] CLIA [id number] [address] [place] [address] [place] Creatinine [Mass/Vol] 0.84 mg/dL Normal 0.73-1.22 [facility] Comment on above: Order Comment: Speci men Type: BLOOD SPECIMEN Ordering Facility: [facility] Address: [address] [place] [address] Performed By: #### 2 4331-1, 27031-7 #### [facility] CLIA [id number] [address] [place] [address] [place] Creatinine and Glomerular filtration rate.predicted panel (S/P/Bld) 96 mL/min/1.73m??? Normal >=60 [facility] Comment on above: Order Comment: Speci men Type: BLOOD SPECIMEN Ordering Facility: [facility] Address: [address] [place] [address] Result Comment: Lea mated Glomerular Filtration Rate (eGFR) is calculated using the 2020 CKD-EPI creatinine equation. This equation utilizes serum creatinine, sex, and age as parameters. The creatinine assay has traceable calibration to isotope dilution-mass spectrometry. Refer to KDIGO guidelines for clinical interpretation. In patients with unstable renal function, e.g. those with acute kidney injury, the eGFR may not accurately reflect actual GFR. Performed By: #### 2 4331-1, 24807-9 #### [facility] CLIA [id number] [address] [place] [address] [place] Glucose [Mass/Vol] 152 mg/dL High 74-99 [facility] Comment on above: Order Comment: Speci men Type: BLOOD SPECIMEN Ordering Facility: [facility] Address: [address] [place] [address] Result Comment: The [place] Diabetes Association (ADA) provides guidance for cutoff values for fasting glucose and random glucose. The ADA defines fasting as no caloric intake for at least 8 hours. Fasting plasma glucose results between 100 to 125 mg/dL indicate increased risk for diabetes (prediabetes). Fasting plasma glucose results greater than or equal to 126 mg/dL meet the criteria for diagnosis of diabetes. In the absence of unequivocal hyperglycemia, results should be confirmed by repeat testing. In a patient with classic symptoms of hyperglycemia or hyperglycemic crisis, random plasma glucose results greater than or equal to 200 mg/dL meet the criteria for diagnosis of diabetes. Reference: Standards of Medical Care in Diabetes 2016, [place] Diabetes Association. Diabetes Care. 2016.39(Suppl 1). Performed By: #### 2 4331-1, 01926-6 #### [facility] CLIA [id number] [address] [place] [address] [place] Potassium [Moles/Vol] 4.4 mmol/L Normal 3.7-5.1 [facility] Comment on above: Order Comment: Speci men Type: BLOOD SPECIMEN Ordering Facility: [facility] Address: [address] [place] [address] Performed By: #### 2 4331-1, 90872-7 #### [facility] CLIA [id number] [address] [place] [address] [place] Protein [Mass/Vol] 6.7 g/dL Normal 6.3-8.0 [facility] Comment on above: Order Comment: Speci men Type: BLOOD SPECIMEN Ordering Facility: [facility] Address: [address] [place] [address] Performed By: #### 2 4331-1, #### [facility] CLIA [id number] [facility] [place] [address] [place] Sodium [Moles/Vol] 138 mmol/L Normal 136-144 [facility] Comment on above: Order Comment: Speci men Type: BLOOD SPECIMEN Ordering Facility: [facility] Address: [address] [place] [address] Performed By: #### 2 4331-1, 89485-0 #### [facility] CLIA [id number] [address] [place] [address] [place] Urea nitrogen [Mass/Vol] 21 mg/dL Normal 9-24 [facility] Comment on above: Order Comment: Edgar men Type: BLOOD SPECIMEN Ordering Facility: [facility] Address: [address] [place] [address] Performed By: #### 2 4331-1, 14849-5 #### [facility] CLIA [id number] [address] [place] [address] [place] HCV Ab Ser Qlon 05-23-2023 HCV Ab Ql (S) Negative Normal Negative [facility] Comment on above: Order Comment: Edgar men Type: BLOOD SPECIMEN Ordering Facility: [facility] Address: [address] [place] [address] Result Comment: The result suggests no evidence of active infection with Hepatitis C virus. Should recent infection be suspected, repeat testing may be considered 4-6 weeks after this draw. Performed By: #### 1 6128-1 #### [facility] CLIA [id number] [address] [place] [address] [place] HbA1c (Bld)on 05-23-2023 Average glucose Estimated from glycated hemoglobin (Bld) [Mass/Vol] 183 mg/dL Normal [facility] Comment on above: Order Comment: Edgar men Type: BLOOD SPECIMEN Ordering Facility: [facility] Address: [address] [place] [address] Result Comment: eAG: (Estimated average glucose) is a calculated value from HgbA1c and is access services representative of the average blood glucose level in the last 2-3 month period. Performed By: #### 5 5454-3 #### [facility] CLIA [id number] [facility] [place] [address] [place] HbA1c (Bld) [Mass fraction] 8.0 % High 4.3-5.6 [facility] Comment on above: Order Comment: Edgar owens Type: BLOOD SPECIMEN Ordering Facility: [facility] Address: [address] [place] [address] Result Comment: [place] Diabetes Association guidelines indicate that patients with HgbA1c in the range 5.7-6.4% are at increased risk for development of diabetes, and intervention by lifestyle modification may be beneficial. HgbA1c greater or equal to 6.5% is considered diagnostic of diabetes. Performed By: #### 5 5454-3 #### [facility] CLIA [id number] [address] [place] [address] [place] Lipid 1996 panelon 4 Cholesterol [Mass/Vol] 288 mg/dL High <200 [facility] Comment on above: Order Comment: Edgar owens Type: BLOOD SPECIMEN Ordering Facility: [facility] Address: [address] [place] [address] Result Comment: <200 mg/dL, Desirable 200-239 mg/dL, Borderline high >239 mg/dL, High Performed By: #### 2 4331-1, 42280-6 #### [facility] CLIA [id number] [address] [place] [address] [place] Cholesterol in HDL [Mass/Vol] 102 mg/dL Normal >39 [facility] Comment on above: Order Comment: Edgar owens Type: BLOOD SPECIMEN Ordering Facility: [facility] Address: [address] [place] [address] Result Comment: 40-5 9 mg/dL, Acceptable >59 mg/dL, High: Negative risk factor for coronary heart disease <40 mg/dL, Low: Positive risk factor for coronary heart disease Performed By: #### 2 4331-1, 40938-0 #### [facility] CLIA [id number] [address] [place] [address] [place] Cholesterol in LDL [Mass/Vol] 159 mg/dL High <100 [facility] Comment on above: Order Comment: Speci men Type: BLOOD SPECIMEN Ordering Facility: [facility] Address: [address] [place] [address] Result Comment: <100 mg/dL, Optimal 100-129 mg/dL, Near optimal/above optimal 130-159 mg/dL, Borderline high 160-189 mg/dL, High >189 mg/dL, Very high Secondary prevention optimal LDL Cholesterol levels are recommended to be < 70 mg/dL Performed By: #### 2 4331-1, 90013-0 #### [facility] CLIA [id number] [address] [place] [address] [place] Cholesterol in LDL/Cholesterol in HDL [Mass ratio] 1.56 {ratio} Normal <2.54 [facility] Comment on above: Order Comment: Speci men Type: BLOOD SPECIMEN Ordering Facility: [facility] Address: [address] [place] [address] Result Comment: Saleem lomas: 1. National Cholesterol Education Program ATP III Guideline At-A-Glance Quick Desk Reference: National Heart, Lung, and Blood [place]. National Institutes of Health. 2001: NIH Publication No. 01-3305. 2. An International Atherosclerosis Society position paper: global recommendations for the management of dyslipidemia: executive summary, Atherosclerosis. 2014: 232(2):410-413. Performed By: #### 2 4331-1, 84291-0 #### [facility] CLIA [id number] [address] [place] [address] [place] Cholesterol in VLDL [Mass/Vol] 27 mg/dL Normal <30 [facility] Comment on above: Order Comment: Laviniai men Type: BLOOD SPECIMEN Ordering Facility: [facility] Address: [address] [place] [address] Performed By: #### 2 4331-1, 09063-9 #### [facility] CLIA [id number] [address] [place] [address] [place] Cholesterol non HDL [Mass/Vol] 186 mg/dL High <130 [facility] Comment on above: Order Comment: Laviniai men Type: BLOOD SPECIMEN Ordering Facility: [facility] Address: [address] [place] [address] Result Comment: <130 mg/dL, Optimal 130-159 mg/dL, Near optimal/above optimal 160-189 mg/dL, Borderline high 190-219 mg/dL, High >219 mg/dL, Very high Secondary prevention optimal non HDL Cholesterol levels are recommended to be <100 mg/dL Performed By: #### 2 4331-1, 15981-1 #### [facility] CLIA [id number] [address] [place] [address] [place] Cholesterol.total/Choles terol in HDL [Mass ratio] 2.82 {ratio} Normal <5.10 [facility] Comment on above: Order Comment: Laviniai men Type: BLOOD SPECIMEN Ordering Facility: [facility] Address: [address] [place] [address] Performed By: #### 2 4331-1, 90739-9 #### [facility] CLIA [id number] [address] [place] [address] [place] FASTING TIME 12 hrs Normal [facility] Comment on above: Order Comment: Speci men Type: BLOOD SPECIMEN Ordering Facility: [facility] Address: [address] [place] [address] Performed By: #### 2 4331-1, 47280-4 #### [facility] CLIA [id number] [address] [place] [address] [place] Triglyceride [Mass/Vol] 134 mg/dL Normal <150 [facility] Comment on above: Order Comment: Speci men Type: BLOOD SPECIMEN Ordering Facility: [facility] Address: [address] [place] [address] Result Comment: <150 mg/dL, Normal 150-199 mg/dL, Borderline high 200-499 mg/dL, High >499 mg/dL, Very high Performed By: #### 2 4331-1, 39513-8 #### [facility] CLIA [id number] [address] [place] [address] [place] Vital Signs Date Time Vital Sign Value Performing Clinician Facility 11-20-2024 08:38-0400 Body height 190.[address] Amy Sutton MD Work Phone: [facility] 11-20-2024 08:38-0400 Body mass index (BMI) [Ratio] 31.2 kg/m2 Dr. Amy Sutton MD Work Phone: [facility] 11-20-2024 08:38-0400 Body weight 113.[address] Amy Sutton MD Work Phone: [facility] 11-20-2024 08:38-0400 Diastolic blood pressure 65 mm[Hg] Dr. Amy Sutton MD Work Phone: [facility] 11-20-2024 08:38-0400 Heart rate 70 /min Dr. Amy Sutton MD Work Phone: [facility] 11-20-2024 08:38-0400 Respiratory rate 18 /min Dr. Amy Sutton MD Work Phone: [facility] 11-20-2024 08:38-0400 Systolic blood pressure 109 mm[Hg] Dr. Amy Sutton MD Work Phone: [facility] 08-28-2024 10:31-0400 Body mass index (BMI) [Ratio] 32.1 kg/m2 Dr. Amy Sutton MD Work Phone: [facility] 08-28-2024 10:31-0400 Body weight 116.[address] Amy Sutton MD Work Phone: [facility] 08-28-2024 10:31-0400 Diastolic blood pressure 67 mm[Hg] Dr. Amy Sutton MD Work Phone: [facility] 08-28-2024 10:31-0400 Heart rate 66 /min Dr. Amy Sutton MD Work Phone: [facility] 08-28-2024 10:31-0400 Respiratory rate 16 /min Dr. Amy Sutton MD Work Phone: [facility] 08-28-2024 10:31-0400 Systolic blood pressure 128 mm[Hg] Dr. Amy Sutton MD Work Phone: [facility] 07-10-2024 10:47-0500 Body height 190.[address] Amy Sutton MD Work Phone: [facility] 07-10-2024 10:47-0500 Body mass index (BMI) [Ratio] 31.9 kg/m2 Dr. Amy Sutton MD Work Phone: [facility] 07-10-2024 10:47-0500 Body weight 115.[address] Amy Sutton MD Work Phone: [facility] 07-10-2024 10:47-0500 Diastolic blood pressure 60 mm[Hg] Dr. Amy Sutton MD Work Phone: [facility] 07-10-2024 10:47-0500 Heart rate 66 /min Dr. Amy Sutton MD Work Phone: [facility] 07-10-2024 10:47-0500 Respiratory rate 12 /min Dr. Amy Sutton MD Work Phone: [facility] 07-10-2024 10:47-0500 SaO2% (BldA) [Mass fraction] 95 % Dr. Amy Sutton MD Work Phone: [facility] 07-10-2024 10:47-0500 Systolic blood pressure 122 mm[Hg] Dr. Amy Sutton MD Work Phone: [facility] 05-03-2024 13:39-0500 Body height 190.5 cm Angel Vasile DO Work Phone: [facility] 05-03-2024 13:39-0500 Body mass index (BMI) [Ratio] 32.12 kg/m2 Angel Vasile DO Work Phone: [facility] 05-03-2024 13:39-0500 Body temperature 98.1 [degF] Angel Vasile DO Work Phone: [facility] 05-03-2024 13:39-0500 Body weight 116.57 kg Angel Vasile DO Work Phone: [facility] 05-03-2024 13:39-0500 Diastolic blood pressure 53 mm[Hg] Angel Vasile DO Work Phone: [facility] 05-03-2024 13:39-0500 Heart rate 81 /min Angel Vasile DO Work Phone: [facility] 05-03-2024 13:39-0500 Respiratory rate 18 /min Angel Vasile DO Work Phone: [facility] 05-03-2024 13:39-0500 SaO2% (BldA) [Mass fraction] 95 % Angel Vasile DO Work Phone: [facility] 05-03-2024 13:39-0500 Systolic blood pressure 128 mm[Hg] Angel Vasile DO Work Phone: [facility] 04-25-2024 08:37-0500 Body mass index (BMI) [Ratio] 31.96 kg/m2 Margarita Moomaw COMMISSARY MANAGER.MACHINE LEARNING INTERN Work Phone: [facility] 04-25-2024 08:37-0500 Body temperature 97.39 [degF] Margarita Moomaw COMMISSARY MANAGER.MACHINE LEARNING INTERN Work Phone: [facility] 04-25-2024 08:37-0500 Body weight 116 kg Margarita Moomaw COMMISSARY MANAGER.MACHINE LEARNING INTERN Work Phone: [facility] 04-25-2024 08:37-0500 Diastolic blood pressure 76 mm[Hg] Margarita Moomaw COMMISSARY MANAGER.MACHINE LEARNING INTERN Work Phone: [facility] 04-25-2024 08:37-0500 Heart rate 71 /min Margarita Moomaw COMMISSARY MANAGER.MACHINE LEARNING INTERN Work Phone: [facility] 04-25-2024 08:37-0500 Respiratory rate 22 /min Margarita Moomaw COMMISSARY MANAGER.MACHINE LEARNING INTERN Work Phone: [facility] 04-25-2024 08:37-0500 SaO2% (BldA) [Mass fraction] 96 % Margarita Moomaw COMMISSARY MANAGER.MACHINE LEARNING INTERN Work Phone: [facility] 04-25-2024 08:37-0500 Systolic blood pressure 136 mm[Hg] Margarita Moomaw COMMISSARY MANAGER.MACHINE LEARNING INTERN Work Phone: [facility] 02-15-2024 08:11-0400 Body height 190.5 cm Gracie Zhao MD Work Phone: [facility] 02-15-2024 08:11-0400 Body mass index (BMI) [Ratio] 31.35 kg/m2 Gracie Zhao MD Work Phone: [facility] 02-15-2024 08:11-0400 Body temperature 97 [degF] Gracie Zhao MD Work Phone: [facility] 02-15-2024 08:11-0400 Body weight 113.76 kg Gracie Zhao MD Work Phone: [facility] 02-15-2024 08:11-0400 Diastolic blood pressure 55 mm[Hg] Gracie Zhao MD Work Phone: [facility] 02-15-2024 08:11-0400 Heart rate 66 /min Gracie Zhao MD Work Phone: [facility] 02-15-2024 08:11-0400 Respiratory rate 16 /min Gracie Zhao MD Work Phone: [facility] 02-15-2024 08:11-0400 SaO2% (BldA) [Mass fraction] 97 % Gracie Zhao MD Work Phone: [facility] 02-15-2024 08:11-0400 Systolic blood pressure 126 mm[Hg] Gracie Zhao MD Work Phone: [facility] 12-04-2023 15:33-0400 Diastolic blood pressure 78 mm[Hg] Salam Sandie DO Work Phone: [facility] 12-04-2023 15:33-0400 Systolic blood pressure 124 mm[Hg] Salam Sandie DO Work Phone: [facility] 12-04-2023 14:34-0400 Body height 190.5 cm Salam Sandie DO Work Phone: [facility] 12-04-2023 14:34-0400 Body mass index (BMI) [Ratio] 31.25 kg/m2 Salam Sandie DO Work Phone: [facility] 12-04-2023 14:34-0400 Body temperature 97.11 [degF] Salam Sandie DO Work Phone: [facility] 12-04-2023 14:34-0400 Body weight 113.4 kg Salam Sandie DO Work Phone: [facility] 07-19-2023 09:42-0500 Diastolic blood pressure 72 mm[Hg] [facility] 07-19-2023 09:42-0500 Systolic blood pressure 161 mm[Hg] [facility] 07-19-2023 08:47-0500 Body height 190.5 cm [facility] 07-19-2023 08:47-0500 Body temperature 97 [degF] [facility] 07-19-2023 08:47-0500 Body weight 114.31 kg [facility] 06-20-2023 09:04-0500 Body height 190.5 cm Gracie Zhao MD Work Phone: [facility] 06-20-2023 09:04-0500 Body temperature 97 [degF] Gracie Zhao MD Work Phone: [facility] 06-20-2023 09:04-0500 Body weight 111.58 kg Gracie Zhao MD Work Phone: [facility] 06-20-2023 09:04-0500 Diastolic blood pressure 66 mm[Hg] Gracie Zhao MD Work Phone: [facility] 06-20-2023 09:04-0500 Heart rate 66 /min Gracie Zhao MD Work Phone: [facility] 06-20-2023 09:04-0500 Respiratory rate 18 /min Gracie Zhao MD Work Phone: [facility] 06-20-2023 09:04-0500 SaO2% (BldA) [Mass fraction] 96 % Gracie Zhao MD Work Phone: [facility] 06-20-2023 09:04-0500 Systolic blood pressure 118 mm[Hg] Gracie Zhao MD Work Phone: [facility] 01-26-2023 10:24-0400 Body height 190.5 cm Angel Vasile DO Work Phone: [facility] 01-26-2023 10:24-0400 Body temperature 96.01 [degF] Angel Vasile DO Work Phone: [facility] 01-26-2023 10:24-0400 Body weight 112.95 kg Angel Vasile DO Work Phone: [facility] 01-26-2023 10:24-0400 Diastolic blood pressure 68 mm[Hg] Angel Vasile DO Work Phone: [facility] 01-26-2023 10:24-0400 Heart rate 84 /min Angel Vasile DO Work Phone: [facility] 01-26-2023 10:24-0400 Respiratory rate 12 /min Angel Vasile DO Work Phone: [facility] 01-26-2023 10:24-0400 SaO2% (BldA) [Mass fraction] 96 % Angel Vasile DO Work Phone: [facility] 01-26-2023 10:24-0400 Systolic blood pressure 133 mm[Hg] Angel Vasile DO Work Phone: [facility] Encounters Encounter Date Encounter Type Care Provider Facility Start: 11-25-2024 ambulatory Barry Basilia Facility:[facility] Start: 11-20-2024 End: 11-20-2024 Patient encounter procedure Srikanth REYES -[facility] Work Phone: Start: 11-20-2024 End: 11-20-[address] Amy Sutton MD Work Phone: -[facility] Start: 10-04-2024 Non-patient / Non-visit Dr. Tomas WEN -[facility] Work Phone: Start: 10-04-[address] Barry Cui MD -[facility] Work Phone: Start: 10-04-2024 ambulatory Barry Cui Facility:[facility] Start: 09-27-2024 Non-patient / Non-visit Suzan vargas NP-C -[facility] Work Phone: Start: 09-27-2024 ambulatory Amy Sutton Facility :[facility] Start: 09-27-2024 ambulatory Amyrigo Willardlay Facility :[facility] Start: 09-27-2024 Non-patient / Non-visit Dr. Tomas WEN -[facility] Start: 09-27-2024 End: 09-27-[address] Barry Cui MD [facility] Work Phone: Start: 09-27-2024 End: 09-27-2024 ambulatory Barry Cui Facility:[facility] Start: 08-31-2024 End: 09-02-2024 Refill Gracie Zhao MD Work Phone: [facility] Comment on above: Refill Request Start: 08-28-2024 End: 08-28-[address] Barry Cui MD -[facility] Work Phone: Start: 08-28-2024 End: 08-28-2024 ambulatory Amy Kimper Facility:[facility] Start: 08-05-2024 End: 08-05-[address] Amy Sutton MD Work Phone: [facility] Work Phone: Start: 08-05-2024 End: 08-05-[address] Amy Sutton MD -Laboratory, [place] Start: 08-05-2024 End: 08-05-2024 ambulatory Amy Sutton Facility:[facility] Start: 08-02-2024 End: 08-06-2024 Refill Gracie Zhao MD Work Phone: [facility] Comment on above: Refill Request Start: 07-26-2024 End: 07-28-2024 Refill Laci Richardson DO Work Phone: [facility] Comment on above: Refill Request Start: 07-10-2024 End: 07-10-[address] Amy Sutton MD -[facility] Work Phone: Start: 07-10-2024 End: 07-10-2024 ambulatory Amy Sutton [place] Start: 05-08-2024 End: 05-09-2024 Refill Gracie Zhao MD Work Phone: [facility] Comment on above: Refill Request Start: 05-03-2024 End: 05-03-2024 Patient encounter procedure Angel Vasile DO Work Phone: [facility] Comment on above: Acute midline low ba ck pain without sciatica (Primary Dx); Diabetes mellitus type 1, controlled, without complications (HCC) Start: 05-03-2024 End: 05-03-2024 ambulatory TENNILLE THAKUR Facility:[facility] Start: 04-25-2024 End: 04-25-2024 Telephone encounter Gracie Zhao MD Work Phone: [facility] Start: 04-25-2024 End: 04-25-2024 ambulatory TENNILLE RODRIGUEZIDAN Facility:[facility] Start: 04-25-2024 End: 04-25-2024 Patient encounter procedure Margarita Calderon APRN.MACHINE LEARNING INTERN Work Phone: [facility] Comment on above: Flank pain (Primary Dx) Start: 04-24-2024 End: 04-24-2024 Telephone encounter Angel Burnette DO Work Phone: [facility] Start: 04-09-2024 End: 04-09-2024 Refill Laci Richardson DO Work Phone: [facility] Comment on above: Refill Request Start: 03-15-2024 ambulatory ANGEL BURNETTE Facility:[facility] Start: 03-09-2024 End: 03-11-2024 Refill Gracie Zhao MD Work Phone: [facility] Comment on above: Refill Request Start: 02-19-2024 End: 03-11-2024 Telephone encounter Gracie Zhao MD Work Phone: [facility] Start: 02-16-2024 End: 02-16-2024 Refill Gracie Zhao MD Work Phone: [facility] Comment on above: Refill Request Start: 02-15-2024 End: 02-15-2024 Patient encounter procedure Gracie Zhao MD Work Phone: [facility] Comment on above: Diabetes mellitus ty pe 1, controlled, without complications (HCC) (Primary Dx); Need for influenza vaccination; Screening for abdominal aortic aneurysm Start: 02-15-2024 End: 02-15-2024 ambulatory GRACIE ZHAO Facility:[facility] Start: 02-14-2024 End: 02-14-2024 Refill Laci Richardson DO Work Phone: [facility] Comment on above: Refill Request Start: 02-05-2024 End: 02-05-2024 Refill Laci Richardson DO Work Phone: [facility] Comment on above: Refill Request Start: 01-25-2024 End: 01-26-2024 Refill Gracie Zhao MD Work Phone: [facility] Comment on above: Refill Request Start: 01-24-2024 End: 01-24-2024 Refill Laci Richardson DO Work Phone: [facility] Comment on above: Refill Request Start: 01-17-2024 End: 01-17-2024 Telephone encounter Gracie Zhao MD Work Phone: [facility] Comment on above: Orders Start: 12-04-2023 End: 12-04-2023 Patient encounter procedure Salam Sandie DO Work Phone: [facility] Comment on above: Diabetic retinopathy associated with type 1 diabetes mellitus, macular edema presence unspecified, unspecified laterality, unspecified retinopathy severity (HCC) (Primary Dx); Benign hypertension; Stage 2 chronic kidney disease; Chronic atrial fibrillation (HCC) Start: 12-04-2023 End: 12-04-[address] Start: 11-30-2023 Refill Gracie Zhao MD Work Phone: [facility] Comment on above: Refill Request (Farx iga ) Start: 11-18-2023 Refill Gracie Zhao MD Work Phone: [facility] Comment on above: Refill Request Start: 10-19-2023 Refill Laci Richardson DO Work Phone: [facility] Comment on above: Refill Request Start: 08-02-2023 Telephone encounter Yaritza og [facility] Work Phone: [facility] Comment on above: Results (Genetic juju ting negative ) Start: 07-22-2023 End: 07-22-2023 ambulatory CHARMAINE HARTLEY Facility:[facility] Start: 07-21-2023 End: 07-21-2023 Telemedicine consultation with patient Yaritza Joyce [facility] Work Phone: [facility] Start: 07-21-2023 End: 07-21-2023 ambulatory Yaritza Joyce [facility] Work Phone: [facility] Comment on above: Family history of Ly nch syndrome (Primary Dx); Family history of colon cancer Start: 2023 End: 2023 ambulatory TENNILLE THAKUR Facility:[facility] Start: 07-19-2023 End: 07-19-2023 Patient encounter procedure [facility] Comment on above: Diabetes mellitus ty pe 1, controlled, without complications (HCC) (Primary Dx); Hypertension, essential; Encounter for medication counseling; Preventative health care; Statin intolerance; Atrial fibrillation, unspecified type (HCC); Pure hypercholesterolemia Start: 07-19-2023 End: 07-19-2023 Patient encounter status [facility] Work Phone: Start: 07-19-2023 End: 07-19-2023 ambulatory TENNILLE THAKUR Facility:[facility] Start: 07-19-2023 Encounter for genera l adult medical examination without abnormal findings TENNILLE THAKUR [facility] Start: 07-07-2023 Get Medical Advice Nargis Thakur MD Work Phone: [facility] Comment on above: Refill prescriptions Start: 06-27-2023 Telephone encounter Gracie thomas MD Work Phone: [facility] Comment on above: Medication Problem Start: 06-20-2023 End: 06-20-2023 Patient encounter procedure Gracie Zhao MD Work Phone: [facility] Comment on above: Diabetes mellitus ty pe 1, controlled, without complications (HCC) (Primary Dx); Pure hypercholesterolemia; Hypertension, essential Start: 06-20-2023 End: 06-20-2023 ambulatory TENNILLE THAKUR Facility:[facility] Start: 06-15-2023 Telephone encounter Yaritza Kassy roe PA-C Work Phone: [facility] Comment on above: Appointment Start: 06-14-2023 End: 06-14-2023 ambulatory TENNILLE STEPHEN THAKUR Facility:[facility] Start: 05-29-2023 ambulatory YARITZA MARGARET Bhat ty:[facility] Start: 05-23-2023 End: 05-23-2023 ambulatory TENNILLE STEPHEN THAKUR Facility:[facility] Start: 02-06-2023 End: 02-06-2023 ambulatory Yaritza Margaret GOSS Work Phone: [facility] Comment on above: Encounter for screen ing colonoscopy (Primary Dx); Family hx of colon cancer; Hemorrhoids, unspecified hemorrhoid type Start: 02-06-2023 End: 02-06-2023 Telemedicine consultation with patient Yaritza Margaret GOSS Work Phone: [facility] Start: 01-31-2023 Telephone encounter [facility] Provider [facility] Comment on above: Patient Update Start: 01-26-2023 End: 01-26-2023 Patient encounter procedure Angel Burnette DO Work Phone: [facility] Comment on above: Skin tag (Primary Dx ); Diabetes mellitus type 1, controlled, without complications (HCC); Chronic atrial fibrillation (HCC); Screening for colon cancer Procedures Date Procedure Procedure Detail Performing Clinician Start: 10-04-2024 CT angiography of co ronary arteries Dr. Amy Sutton MD Work Phone: Start: 08-28-2024 Evaluation of diagno stic study results Dr. Amy Sutton MD Work Phone: Start: 05-03-2024 Hemoglobin A1c/Hemoglobin.total in Blood Angel Burnette DO Work Phone: Start: 04-25-2024 Urnls dip stick/tabl et rgnt auto w/o microscopy William Orr COMMISSARY MANAGER.MACHINE LEARNING INTERN Work Phone: Start: 12-04-2023 Hemoglobin A1c/Hemoglobin.total in Blood Melvin Hooper DO Work Phone: Start: 05-29-2023 Colonoscopy Yaritza roe PA-C Work Phone: Start: 05-23-2023 Lipid 1996 panel - S ian or Plasma Yaritza Robles PA-C Work Phone: Plan of Treatment Date Care Activity Detail Author Start: 05-29-2028 Screening for malign ant neoplasm of colon [facility] Start: 05-23-2028 Lipid panel Lipid Screening [facility] Start: 05-23-2026 Diabetes Screening Diabetes Screenin g [facility] Start: 05-03-2025 Annual PCP Team O And M Supervisor deshawn Disease Visit Annual PCP Team Chronic Disease Visit [facility] Start: 05-03-2025 BP Controlled (<130/80) BP Controlle d (<130/80) [facility] Start: 02-14-2025 Annual PCP Team O And M Supervisor deshawn Disease Visit Annual PCP Team Chronic Disease Visit [facility] Start: 02-14-2025 BP Controlled (<130/80) BP Controlle d (<130/80) [facility] Start: 12-03-2024 Annual PCP Team O And M Supervisor deshawn Disease Visit Annual PCP Team Chronic Disease Visit [facility] Start: 12-03-2024 BP Controlled (<130/80) BP Controlle d (<130/80) [facility] Start: 11-20-2024 Evaluation of diagno stic study results [facility] Start: 11-01-2024 Hemoglobin A1c measurement HbA1C [facility] Start: 07-29-2024 End: 07-29-2024 Patient encounter procedure 07/29/2024 1:40 PM EDT Office Visit [address] [address] Tete Lopez MD [address] [place] [address] Return in about 2 months (around 07/04/2024) for follow up diabetes [facility] Comment on above: Return in about 2 mo nths (around 07/04/2024) for follow up diabetes Start: 07-19-2024 Hepatitis B screening Urine Albumin:Creatinine Ratio [facility] Start: 07-18-2024 Diabetic foot examination Diabetic Foot Exam [facility] Start: 07-10-2024 Patient referral [facility] Work Phone: Start: 06-20-2024 Annual PCP Team O And M Supervisor deshawn Disease Visit Annual PCP Team Chronic Disease Visit [facility] Start: 06-05-2024 Hemoglobin A1c measurement HbA1C [facility] Start: 05-23-2024 Creatinine measurement Serum Creatin ine [facility] Start: 05-23-2024 Hepatitis B surface antibody level LDL Cholesterol [facility] Start: 05-15-2024 Advance Directive Discussion Advance Directive Discussion [facility] Start: 05-15-2024 Glaucoma screening Dilated Retinal E xam [facility] Start: 05-03-2024 End: 05-03-2024 Patient encounter procedure 05/03/2024 1:40 PM EST Office Visit [facility] [address] [place], [place] [id number] Angel Burnette DO [address] [place], [place] [id number] Diabetes followup [facility] Comment on above: Diabetes followup Start: 03-15-2024 End: 03-15-2024 Follow-up encounter 03/15/2024 1:20 PM EDT [facility] [address] [place], [place] [id number] Angel Burnette DO [address] [place], [place] [id number] 4 week follow up for DM2 [facility] Comment on above: 4 week follow up for DM2 Start: 02-15-2024 End: 02-15-2024 Patient encounter procedure 02/15/2024 8:40 AM EDT Office Visit [facility] 1 [place], [place] [id number] Gracie Zhao MD [address] [id number] Follow up [facility] Comment on above: Follow up Start: 01-29-2024 End: 01-29-2024 Patient encounter procedure 01/29/2024 3:00 PM EDT Office Visit [address] [id number] Gracie Zhao MD [address] [id number] follow up [facility] Comment on above: follow up Start: 01-14-2024 Covid-19 Vaccine ( season) Covid-19 Vaccine ( season) [facility] Start: 01-14-2024 Covid-19 Vaccine () Covid-19 Vaccine () [facility] Start: 01-14-2024 Influenza vaccination Influenza Vacc ine (#1) [facility] Start: 12-04-2023 End: 12-04-2023 Patient encounter procedure 12/04/2023 3:00 PM EDT Office Visit [address] [phone] Melvin Hooper DO 1 [place], [place] [id number] Follow up - medication refill [facility] Comment on above: Follow up - medicati on refill Start: 10-14-2023 Glaucoma screening Dilated Retinal E xam [facility] Comment on above: Postponed from 07/19 (Postponed To Appropriate Date) Start: 08-22-2023 Hemoglobin A1c measurement HbA1C [facility] Start: 07-21-2023 End: 10-20-2023 MISC SEND OUT TST 1 MISC SEND OUT TST 1 Lab Routine Family history of Smith syndrome Family history of colon cancer Expected: 07/21/2023, Expires: 10/20/2023 [facility] Work Phone: Comment on above: Expected: 07/21/2023 , Expires: 10/20/2023 Start: 07-19-2023 End: 10-18-2023 ALBUMIN/CREAT RATIO RND UR ALBUMIN/CREAT RATIO RND UR Lab Routine Diabetes mellitus type 1, controlled, without complications (HCC) Expected: 07/19/2023, Expires: 10/18/2023 [facility] Work Phone: Comment on above: Expected: 07/19/2023 , Expires: 10/18/2023 Start: 07-12-2023 Covid-19 Vaccine () Covid-19 Vaccine () [facility] Start: 05-15-2023 Advance Directive Discussion Advance Directive Discussion [facility] Start: 05-15-2023 Behavioral Health Screening Behavioral Health Screening [facility] Start: 05-15-2023 Depression Assessment Depression Ass essment [facility] Start: 03-10-2023 Covid-19 Vaccine () Covid-19 Vaccine () [facility] Start: 02-25-2023 End: 04-27-2023 Hemoglobin A1c in Blood HGB A1C Lab Routine Diabetes mellitus type 1, controlled, without complications (HCC) Expected: 02/25/2023, Expires: 04/27/2023 [facility] Work Phone: Comment on above: Expected: 02/25/2023 , Expires: 04/27/2023 Start: 02-25-2023 End: 04-27-2023 Lipid 1996 panel - Serum or Plasma LIPID PANEL BASIC Lab Routine Diabetes mellitus type 1, controlled, without complications (HCC) Expected: 02/25/2023, Expires: 04/27/2023 [facility] Work Phone: Comment on above: Expected: 02/25/2023 , Expires: 04/27/2023 Start: 01-13-2023 Covid-19 Vaccine () Covid-19 Vaccine () [facility] Start: 01-13-2023 Influenza vaccination Influenza Vacc ine (#1) [facility] Start: 05-15-2022 Advance Directive Discussion Advance Directive Discussion [facility] Start: 05-15-2022 Depression Assessment Depression Ass essment [facility] Start: 07-19-2020 Pneumococcal Vaccine : 65+ (1 - PCV) Pneumococcal Vaccine: 65+ (1 - PCV) [facility] Start: 07-19-2020 Pneumococcal Vaccine : 65+ (1 of 1 - PCV) Pneumococcal Vaccine: 65+ (1 of 1 - PCV) [facility] Start: 07-19-2010 Prostate Cancer Screening Discussion Prostate Cancer Screening Discussion [facility] Start: 07-19-2010 Prostate specific antigen measurement Prostate Cancer Screening Discussion [facility] Start: 07-19-2005 Shingrix Vaccine (1 of 2) Shingrix Vaccine (1 of 2) [facility] Start: 07-19-2000 Cologuard (FIT-DNA) Cologuard (FIT-D NA) [facility] Start: 07-19-2000 Colonoscopy Colonoscopy [facility] Start: 07-19-2000 Colorectal Cancer Screening Colorectal Cancer Screening [facility] Start: 07-19-[address] COLONOGRAPHY [facility] Start: 07-19-2000 Diabetes Screening Diabetes Screenin g [facility] Start: 07-19-2000 Fecal Occult Blood Fecal Occult Bloo d [facility] Start: 07-19-2000 Screening for malign ant neoplasm of colon [facility] Start: 07-19-2000 SIGMO[facility]OSCOPY [facility] Start: 07-19-1990 Lipid 1996 panel - S ian or Plasma Lipid Screening [facility] Start: 07-19-1974 Urine microalbumin profile DTaP,Tdap,Td Vaccine (1 - Tdap) [facility] Start: 07-19-1973 Anxiety Screening Anxiety Screening [facility] Start: 07-19-1973 BP Controlled (<130/80) BP Controlle d (<130/80) [facility] Start: 07-19-1973 Depression Screening Depression Scre ening [facility] Start: 07-19-1973 Hepatitis C Screening Hepatitis C Sc zaria [facility] Start: 07-19-1965 Diabetic foot examination Diabetic Foot Exam [facility] Start: 07-19-1965 Glaucoma screening Dilated Retinal E xam [facility] Start: 07-19-1965 Hepatitis B screening Urine Albumin:Creatinine Ratio [facility] Start: 07-19-1961 Pneumococcal Vaccine : 65+ (1 of 2 - PCV) Pneumococcal Vaccine: 65+ (1 of 2 - PCV) [facility] Start: 01-20-1956 Covid-19 Vaccine (#1) Covid-19 Vacci ne (#1) [facility] Start: 1955 Abdominal Aortic Aneurysm Screening Abdominal Aortic Aneurysm Screening [facility] Start: 1955 Abdominal aortic aneurysm screening Abdominal Aortic Aneurysm Screening [facility] ALBUMIN/CREAT RATIO RND UR ALBUMIN/CREAT RATIO RND UR Lab Routine Diabetes mellitus type 1, controlled, without complications (HCC) 2023 9:39 AM EST [facility] Work Phone: Basic metabolic 2008 panel with ionized calcium - Serum or Plasma [facility] CBC W Auto Different ial panel - Blood [facility] Partial thromboplast in time, activated [facility] Patient referral [facility] Work Phone: Prothrombin time [facility] End: 01-27-2024 Screening colonoscopy COLONOSCOPY SCREENING Endoscopy Routine Screening for colon cancer 1 Occurrences starting 01/26/2023 until 01/27/2024 [facility] Work Phone: Comment on above: 1 Occurrences starti ng 01/26/2023 until 01/27/2024 End: 02-07-2024 Screening colonoscopy COLONOSCOPY SCREENING Endoscopy Routine Encounter for screening colonoscopy Family hx of colon cancer Hemorrhoids, unspecified hemorrhoid type 1 Occurrences starting 02/06/2023 until 02/07/2024 [facility] Work Phone: Comment on above: 1 Occurrences starti ng 02/06/2023 until 02/07/2024 End: 03-16-2025 US Abdominal Aorta for screening US SCREENING FOR AAA Radiology Routine Screening for abdominal aortic aneurysm 1 Occurrences starting 02/15/2024 until 03/16/2025 [facility] Work Phone: Comment on above: 1 Occurrences starti ng 02/15/2024 until 03/16/2025 XR Chest PA and Lateral [facility] Immunizations Immunization Date Immunization Notes Care Provider Fa cility 08-20-2024 Covid (Spikevax) Dr. Amy Sutton MD Work Phone: [facility] 08-19-2024 Covid (Spikevax) Dr. Amy Sutton MD Work Phone: [facility] 02-15-2024 influenza, high dose seasonal, preservative-free Gracie Zhao MD Work Phone: [facility] 07-19-2023 pneumococcal conjuga te (PCV20) vaccine, 20 valent (PREVNAR 20) [facility] 07-19-2023 pneumococcal Conjuga te, unspecified formulation Pharm [facility] Work Phone: 05-30-2023 respiratory syncytia l virus (RSV) vaccine, adjuvanted (AREXVY) [facility] Work Phone: 03-11-2023 Pfizer Covid-19 (Comirnaty) Dr. Amy Sutton MD Work Phone: [facility] 02-18-2023 influenza (aIIV4) vaccine, age 65+ yr, quadrivalent, PF (FLUAD QUAD) [facility] Work Phone: 02-18-2023 influenza, injectabl e, quadrivalent, preservative free Dr. Amy Sutton MD Work Phone: [facility] 02-18-2023 influenza virus vaccine, unspecified formulation Gracie Zhao MD Work Phone: [facility] 01-13-2023 COVID-19 original vaccine, age 12+ yr, monovalent (PFIZER-BIONTECH - PURPLE TOP) [facility] Work Phone: 02-15-2022 Covid Pfizer Bivalen t Booster Dr. Amy Sutton MD Work Phone: [facility] 01-28-2020 influenza, injectabl e, quadrivalent, preservative free [facility] Work Phone: Payers Date Payer Category Payer Unknown [id number] 2024 Unknown [id number] 2024 Self-pay 2022 [employer] BLUE CARD PPO OOS [id number] 2022 Unknown [employer] BLUE CARD PPO OOS [id number] 2022-Present [phone] [place] [address]9 PPO [id number] 2022 Unknown [id number] Unknown [id number] Unknown [id number] Unknown [id number] Unknown [id number] Unknown [id number] Unknown [id number] Unknown [id number] Unknown [id number] Unknown [id number] Unknown [id number] Social History Date Type Detail Facility Start: 01-26-2023 End: 07-10-2024 Tobacco smoking status NHIS Ex-smoker [facility] Work Phone: History of tobacco use Current smoker [facility] Work Phone: History of tobacco use Cigarette Smoker [facility] Work Phone: Start: 01-26-2023 End: 03-15-2024 Cigarettes smoked current (pack per day) - Reported 1 [facility] Start: 01-26-2023 End: 02-15-2024 Tobacco use and exposure Smokeless tobacco non-user [facility] Work Phone: Start: 01-26-2023 End: 05-03-2024 Alcohol intake Current drinker of alcohol (finding) [facility] Start: 01-26-2023 End: 03-15-2024 Tobacco use panel [facility] Adult Depression Screening Assessment 0 [facility] Start: 01-26-2023 Tobacco Comment Quit 27 years ago [facility] Start: 1955 Sex Assigned At Not on file [facility] Start: 1955 Sex Assigned At Male [facility] Start: 02-04-2023 Gender identity Identifies as male gender (finding) [facility] Start: 02-04-2023 Sexual orientation Heterosexual (fin ding) [facility] Start: 08-10-2024 Sex Male (finding) [facility] Equipment Procedure Code Equipment Code Equipment Origin al Text Equipment Identifier Dates [id number], [id number] Start: 01-09-2023 End: 07-28-2024 Comment on above: USE DIRECTED with INSULIN PENS 5 TIMES A DAY Use to inject insuli n up to 5 times per day Pen Needle, Diabetic (Droplet Pen Needle) 31 gauge x 5/16 needle Start: 07-10-2024 Pen Needle, Diabetic (Droplet Pen Needle) 31 gauge x 5/16 needle Start: 07-10-2024 Clinical Notes 01-26-2023 to 08-28-2024 Note Date & Type Note Facility 08-28-2024 Evaluation note Diagnosis Onset Date Resolution A-fib acute August 28 10:16am Hyperlipidemia acute August 10:16am Hypertension chronic August 28, 2024 10:16am [facility] Work Phone: 1(737) 942-728802-26-2025 Evaluation note* Diagnosis Onset Date Resolution Status Admit Date Diabetes mellitus acute Februar y 2024 10:33am Establishing care with new doctor, encounter for noneactive June 162024 10:33am ALLI (obstructive sleep apnea) noneac tive July 10, 2024 10:33am Immunization due noneactive July 10, 2024 10:33am Mixed hyperlipidemia noneactive Febr uary 2024 10:33am Essential hypertension noneactive Fe bruary 2024 10:33am Foot pain, right noneactive July 10, 2024 10:33am History of atrial fibrillation noneactive July 10 10:33am [facility] Work Phone: 1(568) 242-706212-20-2024 NoteHNO ID: [id number] Author: TENNILLE THAKUR MD Service: ? Author Type: Physician Type: Progress Notes Filed: 05/06/2024 16:16 Note Text: LATE ENTRY 05/06/24 4:16 PM Attending Note I discussed patient's history, exam, assessment, and plan with the resident on 05/03/24 but did not examine the patient myself. I reviewed the resident's note. I agree with the resident's assessment and plan unless otherwise noted. Tennille Thakur, [facility]12-20-2024 History of Present illness Narrative* Angel Burnette, - 05/03/2024 1:40 PM EST Images from the original note were not included. [facility] [address] [facility] / [address] [place], [place] [address] Visit Date: May 02, 2024 Name: Babatunde Stewart Date of : 1955 MRN/E #: [id number] Chief Complaint: Patient presents with: Diabetes Right Flank Pain: UA negative at [facility] Subjective Babatunde Stewart is a 68 year old male here with the following complaint(s): Flank pain -06/24 today -was exercising and felt a cringe on his right side -started about the first april -UA at Urgent Care was negative -Monday morning also woke up with right sided neck pain -Tylenol helps with the neck pain and flank pain Type I DM -recent travel has made diet and exercise worse -wears CGM -denies any symptoms of highs and lows -does have some lows in the 50s, mostly during the day, unpredictable -140s to 150s prior to meals but 170s-low 200s after breakfast and dinner -more carbs and fried foods while traveling -traveling for work -has one more trip in May -coffee, water, occasionally beer -A1c is 7.6 slightly up from 7.2 Review of Systems Constitutional: Negative for chills and fever. Gastrointestinal: Negative for constipation. Genitourinary: Positive for flank pain. Negative for difficulty urinating, dysuria and hematuria. ALLERGIES Allergen Reactions Atorvastatin Myalgia Hay Fever [Seasonal* Itching Losartan Myalgia Metformin Diarrhea Current Outpatient Medications Medication Sig lisinopril-hydroCHLOROthiazide (ZESTORETIC) 20-12.5 mg per tablet Take 1 tablet by mouth every afternoon. insulin lispro (HUMALOG KWIKPEN) 100 unit/mL Inject 20 Units subcutaneously three times a day before meals. dapagliflozin propanediol (FARXIGA) 10 mg tablet take 1 tablet by mouth once daily in the morning ELIQUIS 5 mg tab(s) take 1 tablet by mouth two times a day. metoprolol tartrate, short acting, (LOPRESSOR) 25 mg tablet take 1 tablet by mouth two times a day. Blood-Glucose Sensor (FREESTYLE BERTIN 3 SENSOR PLUS) jose g 1 Each once daily. DROPLET PEN NEEDLE 31 gauge x 5/16 Use to inject insulin up to 5 times per day lidocaine (LIDODERM) 5 % Apply 1 Patch as directed once daily. REMOVE AFTER 12 HOURS. TOUVANDANA SOLOSTAR U-300 INSULIN 300 unit/mL (1.5 mL) Inject 60 Units subcutaneously daily at bedtime. No current facility-administered medications for this visit. I have confirmed and edited as necessary the chief complaint, medications, past medical, family andsocial histories. Objective 05/03/24 1339 BP: 128/53 Pulse: 81 Resp: 18 Temp: 36.7 C (98.1 F) TempSrc: Temporal SpO2: 95% Weight: 257 lb (116.6 kg) Height: 6' 3 (1.905 m) Body mass index is 32.12 kg/m . Physical Exam Constitutional: General: He is not in acute distress. Appearance: Normal appearance. He is not ill-appearing, toxic-appearing or diaphoretic. HENT: Nose: Nose normal. No congestion or rhinorrhea. Eyes: General: No scleral icterus. Right eye: No discharge. Left eye: No discharge. Conjunctiva/sclera: Conjunctivae normal. Cardiovascular: Rate and Rhythm: Normal rate and regular rhythm. Heart sounds: Normal heart sounds. No murmur heard. No friction rub. No gallop. Pulmonary: Effort: Pulmonary effort is normal. No respiratory distress. Breath sounds: Normal breath sounds. No stridor. No wheezing or rales. Abdominal: General: Abdomen is flat. There is no distension. Palpations: Abdomen is soft. There is no mass. Tenderness: There is no abdominal tenderness. There is no right CVA tenderness, left CVA tendernessor guarding. Musculoskeletal: General: Tenderness (tenderness to palpation over the right side of the latissimus dorsi and the right trap, also has hypertonicity of both of these areas) present. Skin: Coloration: Skin is not jaundiced. Findings: No erythema. Neurological: Mental Status: He is alert and oriented to person, place, and time. Results for orders placed or performed in visit on 05/03/24 HEMOGLOBIN A1C (POC) Result Value Ref Range Hemoglobin A1C (POCT) 7.6 (A) 4.3 - 5.6 % The ASCVD Risk score (Fulda DK, et al., 2019) failed to calculate for the following reasons: The valid HDL cholesterol range is 20 to 100 mg/dL PHQ-9 01/26/2023 07/19/2023 PHQ-9 Scores Little interest or pleasure in doing things: Not at all Not at all Feeling down, depressed, or hopeless: Not at all Not at all Trouble falling or staying asleep, or sleeping too much Not at all - Feeling tired or having little energy Not at all - Poor appetite or overeating Not at all - Feeling bad about yourself - or that you are a failure or have let yourself or your family down Notat all - Trouble concentrating on things, such as reading the newspaper or watching television Not at all - Moving or speaking so slowly that other people could have noticed. Or the opposite - being so fidgety or restless that you have been moving around a lot more than usual Not at all - Thoughts that you would be better off , or of hurting yourself in some way Not at all - PHQ-9 Score 0 0 - Details Multiple values from one day are sorted in reverse-chronological order Assessment / Plan ASSESSMENT/PLAN: 1. Acute midline low back pain without sciatica - ICD9: 724.2, ICD10: M54.50 (primary diagnosis) - Likely MSK pain - LIDOCAINE 5 % TOPICAL PATCH - Can consider OMT or naproxen course in the future, patient declined at this time - Reviewed symptoms and signs to watch for that would warrant reevaluation or evaluation in the ED 2. Diabetes mellitus type 1, controlled, without complications (HCC) - ICD9: 250.01, ICD10: E10.9 - Worsening control, likely due to recent habits while traveling - Continue current medications, will reassess in 2 months once travelling stops - Counseled on healthy diet and regular exercise - Continue to monitor BG with CGM - HEMOGLOBIN A1C (POC) - TOUVANDANA SOLOSTAR U-300 INSULIN 300 UNIT/ML (1.5 ML) SUBCUTANEOUS PEN, patient increased this to 60U Discussed the above with the patient using shared decision-making. The patient is in agreement with the diagnostic and treatment plans. Return in about 2 months (around 07/04/2024) for follow up diabetes. Provider: Angel Burnette DO Date: May 02, 2024 Time: 12:35 PM [facility]12[facility]24 NoteHNO ID: [id number] Author: ANGEL BURNETTE DO Service: ? Author Type: Resident Type: Progress Notes Filed: 05/03/2024 15:51 Note Text: [facility] [address] [place] [address] [facility] / [address] [place] [address] Visit Date: May 02, 2024 Name: Babatunde Stewart Date of : 1955 MRN/E #: [id number] Chief Complaint: Patient presents with: Diabetes Right Flank Pain: UA negative at [facility] Subjective Babatunde Stewart is a 68 year old male here with the following complaint(s): Flank pain -06/24 today -was exercising and felt a cringe on his right side -started about the april -UA at Urgent Care was negative -Monday morning also woke up with right sided neck pain -Tylenol helps with the neck pain and flank pain Type I DM -recent travel has made diet and exercise worse -wears CGM -denies any symptoms of highs and lows -does have some lows in the 50s, mostly during the day, unpredictable -140s to 150s prior to meals but 170s-low 200s after breakfast and dinner -more carbs and fried foods while traveling -traveling for work -has one more trip in May -coffee, water, occasionally beer -A1c is 7.6 slightly up from 7.2 Review of Systems Constitutional: Negative for chills and fever. Gastrointestinal: Negative for constipation. Genitourinary: Positive for flank pain. Negative for difficulty urinating, dysuria and hematuria. ALLERGIES Allergen Reactions Atorvastatin Myalgia Hay Fever [Seasonal* Itching Losartan Myalgia Metformin Diarrhea Current Outpatient Medications Medication Sig lisinopril-hydroCHLOROthiazide (ZESTORETIC) 20-12.5 mg per tablet Take 1 tablet by mouth every afternoon. insulin lispro (HUMALOG KWIKPEN) 100 unit/mL Inject 20 Units subcutaneously three times a day before meals. dapagliflozin propanediol (FARXIGA) 10 mg tablet take 1 tablet by mouth once daily in the morning ELIQUIS 5 mg tab(s) take 1 tablet by mouth two times a day. metoprolol tartrate, short acting, (LOPRESSOR) 25 mg tablet take 1 tablet by mouth two times a day. Blood-Glucose Sensor (FREESTYLE BERTIN 3 SENSOR PLUS) jose g 1 Each once daily. DROPLET PEN NEEDLE 31 gauge x 5/16 Use to inject insulin up to 5 times per day lidocaine (LIDODERM) 5 % Apply 1 Patch as directed once daily. REMOVE AFTER 12 HOURS. DAV HOUGH U-300 INSULIN 300 unit/mL (1.5 mL) Inject 60 Units subcutaneously daily at bedtime. No current facility-administered medications for this visit. I have confirmed and edited as necessary the chief complaint, medications, past medical, family and social histories. Objective 05/03/24 1339 BP: 128/53 Pulse: 81 Resp: 18 Temp: 36.7 ?C (98.1 ?F) TempSrc: Temporal SpO2: 95% Weight: 257 lb (116.6 kg) Height: 6' 3 (1.905 m) Body mass index is 32.12 kg/m?. Physical Exam Constitutional: General: He is not in acute distress. Appearance: Normal appearance. He is not ill-appearing, toxic-appearing or diaphoretic. HENT: Nose: Nose normal. No congestion or rhinorrhea. Eyes: General: No scleral icterus. Right eye: No discharge. Left eye: No discharge. Conjunctiva/sclera: Conjunctivae normal. Cardiovascular: Rate and Rhythm: Normal rate and regular rhythm. Heart sounds: Normal heart sounds. No murmur heard. No friction rub. No gallop. Pulmonary: Effort: Pulmonary effort is normal. No respiratory distress. Breath sounds: Normal breath sounds. No stridor. No wheezing or rales. Abdominal: General: Abdomen is flat. There is no distension. Palpations: Abdomen is soft. There is no mass. Tenderness: There is no abdominal tenderness. There is no right CVA tenderness, left CVA tenderness or guarding. Musculoskeletal: General: Tenderness (tenderness to palpation over the right side of the latissimus dorsi and the right trap, also has hypertonicity of both of these areas) present. Skin: Coloration: Skin is not jaundiced. Findings: No erythema. Neurological: Mental Status: He is alert and oriented to person, place, and time. Results for orders placed or performed in visit on 05/03/24 HEMOGLOBIN A1C (POC) Result Value Ref Range Hemoglobin A1C (POCT) 7.6 (A) 4.3 - 5.6 % The ASCVD Risk score (Breezy WILKINSON, et al., 2019) failed to calculate for the following reasons: The valid HDL cholesterol range is 20 to 100 mg/dL PHQ-9 01/26/2023 07/19/2023 PHQ-9 Scores Little interest or pleasure in doing things: Not at all Not at all Feeling down, depressed, or hopeless: Not at all Not at all Trouble falling or staying asleep, or sleeping too much Not at all - Feeling tired or having little energy Not at all - Poor appetite or overeating Not at all - Feeling bad about yourself - or that you are a failure or have let yourself or your family down Not at all - Trouble concentrating on things, such as read (more content not included)... [facility]12-12-2024 Telephone encounter Note* Telephone Encounter - Chantell Nolan - 04/25/2024 8:40 AM EST Patient is scheduled on 05/03/[address] Burnette. Chantell Nolan [facility]12-12-2024 NoteHNO ID: [id number] Author: MARGARITA CALDERON APRN.MACHINE LEARNING INTERN Service: ? Author Type: Nurse Practitioner Type: Progress Notes Filed: 04/25/2024 09:21 Note Text: This note was created using Playfire. Subjective Babatunde Stewart is a 68 year old male. HPI Pt complains of right flank and hip pain for the last week. Pain is now radiating into his right leg. Review of Systems Constitutional: Negative for fever. Gastrointestinal: Negative for blood in stool, nausea and vomiting. Genitourinary: Positive for flank pain. Negative for hematuria. Objective BP 136/76 Pulse 71 Temp 36.3 ?C (97.4 ?F) Resp 22 Wt 116 kg (255 lb 11.7 oz) SpO2 96% BMI 31.96 kg/m? Physical Exam Vitals and nursing note reviewed. Constitutional: General: He is not in acute distress. Appearance: Normal appearance. He is not ill-appearing. HENT: Head: Normocephalic. Mouth/Throat: Mouth: Mucous membranes are moist. Eyes: Conjunctiva/sclera: Conjunctivae normal. Cardiovascular: Rate and Rhythm: Normal rate and regular rhythm. Pulmonary: Effort: Pulmonary effort is normal. Breath sounds: Normal breath sounds. Abdominal: Palpations: Abdomen is soft. Tenderness: There is no abdominal tenderness. Musculoskeletal: General: Normal range of motion. Cervical back: Normal range of motion. Comments: Mild mid right lower back tenderness with no central back tenderness or lumbar vertebral tenderness. Skin: General: Skin is warm and dry. Neurological: General: No focal deficit present. Mental Status: He is alert. Psychiatric: Mood and Affect: Mood normal. Behavior: Behavior normal. Assessment and Plan ASSESSMENT/PLAN: 1. Flank pain - ICD9: 789.09, ICD10: R10.9 -Urinalysis showed greater than 1000 but otherwise was negative for blood, nitrates, leukocytes. Discussed with him that a kidney stone was less likely with no trace of blood in the urine. Patient is a known diabetic and uses Farxiga and insulin. He noted that his blood sugar this morning was actually 54 for which he took 2 glucose tablets. -Symptoms seem most consistent with some sort of back strain and resultant right sided sciatica. Discussed steroids and muscle relaxers however due to his diabetes and other issues patient is unable to take either of these medications. Discussed possible ER follow-up if symptoms are not improving as there still is a small possibility of renal calculi causing the patient's issues. At this point, patient prefers to continue to monitor symptoms and follow-up with PCP. He will do home stretching exercises for symptomatic relief. - UA DIP, URINE (POC) Margarita Calderon APRN.[facility]IE[facility]12-12-2024 History of Present illness Narrative* Margarita Calderon APRN.MACHINE LEARNING INTERN - 04/25/2024 8:40 AM EST This note was created using DigitalPost Interactiveriter. Subjective Babatunde Stewart is a 68 year old male. HPI Pt complains of right flank and hip pain for the last week. Pain is now radiating into his right leg. Review of Systems Constitutional: Negative for fever. Gastrointestinal: Negative for blood in stool, nausea and vomiting. Genitourinary: Positive for flank pain. Negative for hematuria. Objective BP 136/76 Pulse 71 Temp 36.3 C (97.4 F) Resp 22 Wt 116 kg (255 lb 11.7 oz) SpO2 96% BMI31.96 kg/m Physical Exam Vitals and nursing note reviewed. Constitutional: General: He is not in acute distress. Appearance: Normal appearance. He is not ill-appearing. HENT: Head: Normocephalic. Mouth/Throat: Mouth: Mucous membranes are moist. Eyes: Conjunctiva/sclera: Conjunctivae normal. Cardiovascular: Rate and Rhythm: Normal rate and regular rhythm. Pulmonary: Effort: Pulmonary effort is normal. Breath sounds: Normal breath sounds. Abdominal: Palpations: Abdomen is soft. Tenderness: There is no abdominal tenderness. Musculoskeletal: General: Normal range of motion. Cervical back: Normal range of motion. Comments: Mild mid right lower back tenderness with no central back tenderness or lumbar vertebral tenderness. Skin: General: Skin is warm and dry. Neurological: General: No focal deficit present. Mental Status: He is alert. Psychiatric: Mood and Affect: Mood normal. Behavior: Behavior normal. Assessment and Plan ASSESSMENT/PLAN: 1. Flank pain - ICD9: 789.09, ICD10: R10.9 -Urinalysis showed greater than 1000 but otherwise was negative for blood, nitrates, leukocytes. Discussed with him that a kidney stone was less likely with no trace of blood in the urine. Patient hemant known diabetic and uses Farxiga and insulin. He noted that his blood sugar this morning was actually 54 for which he took 2 glucose tablets. -Symptoms seem most consistent with some sort of back strain and resultant right sided sciatica. Discussed steroids and muscle relaxers however due to his diabetes and other issues patient is unable to take either of these medications. Discussed possible ER follow-up if symptoms are not improving as there still is a small possibility of renal calculi causing the patient's issues. At this point, patient prefers to continue to monitor symptoms and follow-up with PCP. He will do home stretching exercises for symptomatic relief. - UA DIP, URINE (POC) Margarita Calderon APRN.CNP documented in this encounterGenesis Hospital12-12-2024 Miscellaneous Notes* Telephone Encounter - Chantell Nolan - 04/25/2024 8:40 AM EST Patient is scheduled on 05/03/[address] Burnette. Chantell Nolan documented in this encounterGen[facility]12-11-2024 Telephone encounter Note * Telephone Encounter - Chantell Nolan - 04/24/2024 2:25 PM EST Patient re-scheduled with Dr. Burnette on 05/03/24. Chantell Nolan [facility]12-11-2024 Miscellaneous Notes* Telephone Encounter - Chantell Nolan - 04/24/2024 2:25 PM EST Patient re-scheduled with Dr. Burnette on 05/03/24. Chantell Noaln documented in this encounterGenesis Hospital12-11-2024 Telephone encounter Note * Telephone Encounter - Chantell Nolan - 04/24/2024 2:19 PM EST Patient has an appt scheduled with Dr. Burnette on 05/03/24. Chantell Nolan [facility]12-11-20[facility] Miscellaneous Notes* Telephone Encounter - Chantell Nolan - 04/24/2024 2:19 PM EST Patient has an appt scheduled with Dr. Burnette on 05/03/24. Chantell Nolan documented in this encounterGenesis Hospital10-15-2024 NoteHNO ID: [id number] Author: SEAN JEONG MD Service: ? Author Type: Physician Type: Progress Notes Filed: 02/27/2024 15:06 Note Text: Attending Note This service has been performed by a resident without the presence of a teaching physician. I have reviewed and discussed thompson elements with the resident at the time of the visit. I confirm the thompson elements of the history. I confirm the thompson elements of the physical exam. I reviewed the findings with the resident I confirm the diagnosis of Diabetes mellitus type 1, controlled, without complications (hcc) (primary encounter diagnosis) Need for influenza vaccination Screening for abdominal aortic aneurysm and agree with the resident's plan of care See resident's note for further details. Sean Jeong [facility]10-04-2024 NoteHNO ID: [id number] Author: ?, ?, ? Service: ? Author Type: ? Type: Progress Notes Filed: 02/16/2024 12:05 Note Text: Re-scheduled patient for 03/15/[address] Burnette. [facility] History of Present illness Narrative* Chantell Nolan - 02/16/2024 12:04 PM EDT Re-scheduled patient for 03/15/[address] Burnette. Chantell Nolan * Gracie Zhao MD - 02/15/2024 8:40 AM EDT Images from the original note were not included. [facility] [address] [place] [address] [employer] / [address] [place], [place] [address] Visit Date: February 15, 2024 Name: Babatunde Stewart Date of : 1955 MRN/E #: [id number] Chief Complaint: No chief complaint on file. 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 Not interested in insulin pump Does not want to appliance and having to have it attached all the time Evenings have had higher sugar - walk every day - walking 6 miles, walking less now - [place] 30-45 minutes, 3x per week - work is going to be more intense going Diet - no fast food - no sweets - lean proteins, vegetables, cooks for him - 4 beers per day, no change - interest in cutting - would like to cut down to 2 - would be able to cut down to 2 beers per day - no withdrawal previously DIABETES FOLLOW UP Type of Diabetes: Type I Medical Issues / Complications: hypertension and hyperlipidemia Patient is testing home BG 3-4 times per day: Yes Home readings in the 30 day average 180-200 range. High in evenings Patient's last HgbA1C: Hemoglobin A1C (%) Date Value 05/23/2023 8.0 Hemoglobin A1C (POCT) (%) Date Value 12/04/2023 7.2 ) Symptoms of Hyperglycemia : None Symptoms of Hypoglycemia: Sweating, edgy Inadequate control of diabetes despite documented complaint with multiple medication adjustments: No Insulin Therapy: Yes Diabetes Medications: Orals & Insulin How often is the patient administering insulin: 4 times per year Patient is able to adjust Insulin with a sliding scale: Yes using sliding scale? Yes Medications - Farxiga 10mg - Toujeo 60U at bedtime - humalog 20U TID - Sliding scale: Humalog >150 will do additional 2U, >200 4U HM - interested in AAA screening ALLERGIES Allergen Reactions Atorvastatin Myalgia Hay Fever [Seasonal* Itching Losartan Myalgia Metformin Diarrhea Current Outpatient Medications Medication Sig insulin lispro (HUMALOG KWIKPEN) 100 unit/mL Inject 20 Units subcutaneously three times a day before meals. ELIQUIS 5 mg tab(s) take 1 tablet by mouth two times a day. metoprolol tartrate, short acting, (LOPRESSOR) 25 mg tablet take 1 tablet by mouth two times a day. FARXIGA 10 mg tablet take 1 tablet by mouth once daily in the morning TOUJEO SOLOSTAR U-300 INSULIN 300 unit/mL (1.5 mL) Inject 60 Units subcutaneously daily at bedtime. Blood-Glucose Sensor (FREESTYLE BERTIN 3 SENSOR PLUS) jose g 1 Each once daily. lisinopril-hydroCHLOROthiazide (ZESTORETIC) 20-12.5 mg per tablet TAKE 1 TABLET BY MOUTH EVERY AFTERNOON DROPLET PEN NEEDLE 31 gauge x 5/16 Use to inject insulin up to 5 times per day No current facility-administered medications for this visit. I have confirmed and edited as necessary the chief complaint, medications, past medical, family andsocial histories. Objective 02/15/24 0811 BP: 126/55 Pulse: 66 Resp: 16 Temp: 36.1 C (97 F) TempSrc: Temporal SpO2: 97% Weight: 250 lb 12.8 oz (113.8 kg) Height: 6' 3 (1.905 m) Body mass index is 31.35 kg/m . Physical Exam Vitals and nursing note reviewed. Constitutional: Appearance: Normal appearance. HENT: Nose: Nose normal. Eyes: Conjunctiva/sclera: Conjunctivae normal. Cardiovascular: Rate and Rhythm: Normal rate and regular rhythm. Pulses: Normal pulses. Heart sounds: Normal heart sounds. Pulmonary: Effort: Pulmonary effort is normal. Breath sounds: Normal breath sounds. Skin: General: Skin is warm and dry. Neurological: Mental Status: He is alert. Mental status is at baseline. Psychiatric: Mood and Affect: Mood normal. Behavior: Behavior normal. Results for orders placed or performed in visit on 12/04/23 HEMOGLOBIN A1C (POC) Result Value Ref Range Hemoglobin A1C (POCT) 7.2 (A) 4.3 - 5.6 % Assessment / Plan babatunde was seen today for diabetes and immunizations. Diagnoses and all orders for this visit: T1DM controlled without complications - A1C 7.2 two months ago - recommended insulin pump but not interested - has had elevated sugars and hypoglycemic episodes recently - concern for recurrent hypoglycemic episodes, discussed case with Dr. Banda - DECREASE Toujeo to 56U daily due to hypoglycemic episodes - continue mealtime and SSI Humalog - continue Farxiga - previously recommended d/c but patient prefers it - recommended continued exercise - patient drinking average 4 beers per night, agreeable to decrease to 2 beers per night - f/u in 1 month Need for influenza vaccination - INFLUENZA VACCINE, PRSV FREE, AGE 65+ YR, HIGH DOSE, TRIVALENT (FLUZONE HIGH-DOSE) Screening for abdominal aortic aneurysm - US SCREENING FOR AAA; Future Discussed the above with the patient using shared decision-making. The patient is in agreement with the diagnostic and treatment plans. Return in about 4 weeks (around 03/14/2024) for 1. Provider: Gracie Zhao MD Date: February 15, 2024 Time: 6:12 AM documented in [facility]Gen[facility]10-[facility]24 NoteHNO ID: [id number] Author: GRACIE ZHAO MD Service: ? Author Type: Resident Type: Progress Notes Filed: 02/16/2024 10:50 Note Text: [facility] Family Medicine [address] [facility] / [address] [place], [place] [address] Visit Date: February 15, 2024 Name: Babatunde Stewart Date of : 1955 MRN/E #: [id number] Chief Complaint: No chief complaint on file. 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 Not interested in insulin pump Does not want to appliance and having to have it attached all the time Evenings have had higher sugar - walk every day - walking 6 miles, walking less now - [place] 30-45 minutes, 3x per week - work is going to be more intense going Diet - no fast food - no sweets - lean proteins, vegetables, cooks for him - 4 beers per day, no change - interest in cutting - would like to cut down to 2 - would be able to cut down to 2 beers per day - no withdrawal previously DIABETES FOLLOW UP Type of Diabetes: Type I Medical Issues / Complications: hypertension and hyperlipidemia Patient is testing home BG 3-4 times per day: Yes Home readings in the 30 day average 180-200 range. High in evenings Patient's last HgbA1C: Hemoglobin A1C (%) Date Value 05/23/2023 8.0 Hemoglobin A1C (POCT) (%) Date Value 12/04/2023 7.2 ) Symptoms of Hyperglycemia : None Symptoms of Hypoglycemia: Sweating, edgy Inadequate control of diabetes despite documented complaint with multiple medication adjustments: No Insulin Therapy: Yes Diabetes Medications: Orals AND Insulin How often is the patient administering insulin: 4 times per year Patient is able to adjust Insulin with a sliding scale: Yes using sliding scale? Yes Medications - Farxiga 10mg - Toujeo 60U at bedtime - humalog 20U TID - Sliding scale: Humalog >150 will do additional 2U, >200 4U HM - interested in AAA screening ALLERGIES Allergen Reactions Atorvastatin Myalgia Hay Fever [Seasonal* Itching Losartan Myalgia Metformin Diarrhea Current Outpatient Medications Medication Sig insulin lispro (HUMALOG KWIKPEN) 100 unit/mL Inject 20 Units subcutaneously three times a day before meals. ELIQUIS 5 mg tab(s) take 1 tablet by mouth two times a day. metoprolol tartrate, short acting, (LOPRESSOR) 25 mg tablet take 1 tablet by mouth two times a day. FARXIGA 10 mg tablet take 1 tablet by mouth once daily in the morning TOUJEOrlando SOLOSTAR U-300 INSULIN 300 unit/mL (1.5 mL) Inject 60 Units subcutaneously daily at bedtime. Blood-Glucose Sensor (FREESTYLE BERTIN 3 SENSOR PLUS) jose g 1 Each once daily. lisinopril-hydroCHLOROthiazide (ZESTORETIC) 20-12.5 mg per tablet TAKE 1 TABLET BY MOUTH EVERY AFTERNOON DROPLET PEN NEEDLE 31 gauge x 5/16 Use to inject insulin up to 5 times per day No current facility-administered medications for this visit. I have confirmed and edited as necessary the chief complaint, medications, past medical, family and social histories. Objective 02/15/24 0811 BP: 126/55 Pulse: 66 Resp: 16 Temp: 36.1 ?C (97 ?F) TempSrc: Temporal SpO2: 97% Weight: 250 lb 12.8 oz (113.8 kg) Height: 6' 3 (1.905 m) Body mass index is 31.35 kg/m?. Physical Exam Vitals and nursing note reviewed. Constitutional: Appearance: Normal appearance. HENT: Nose: Nose normal. Eyes: Conjunctiva/sclera: Conjunctivae normal. Cardiovascular: Rate and Rhythm: Normal rate and regular rhythm. Pulses: Normal pulses. Heart sounds: Normal heart sounds. Pulmonary: Effort: Pulmonary effort is normal. Breath sounds: Normal breath sounds. Skin: General: Skin is warm and dry. Neurological: Mental Status: He is alert. Mental status is at baseline. Psychiatric: Mood and Affect: Mood normal. Behavior: Behavior normal. Results for orders placed or performed in visit on 12/04/23 HEMOGLOBIN A1C (POC) Result Value Ref Range Hemoglobin A1C (POCT) 7.2 (A) 4.3 - 5.6 % Assessment / Plan babatunde was seen today for diabetes and immunizations. Diagnoses and all orders for this visit: T1DM controlled without complications - A1C 7.2 two months ago - recommended insulin pump but not interested - has had elevated sugars and hypoglycemic episodes recently - concern for recurrent hypoglycemic episodes, discussed case with Dr. Banda - DECREASE Toujeo to 56U daily due to hypoglycemic episodes - continue mealtime and SSI Humalog - continue Farxiga - previously recommended d/c but patient prefers it - recommended continued exercise - patient drinking average 4 beers per night, agreeable to decrease to 2 be (more content not included)...[facility]10-03-2024 Nurse Note * Sarah Amaya LPN - 02/15/2024 8:16 AM EDT Influenza Vaccine given as ordered. Immunization History - influenza (HD-IIV3) vaccine, age 65+ yr, high dose, trivalent, PF (FLUZONE HIGH-DOSE) (Given) - Date: 02/15/2024 - Lot #: [id number] - Dose: 0.5 mL - Site: Left deltoid - Airplane Pilot Photogrammetry: San[employer]i Pasteur - Given By: SARAH AMAYA - Expiration Date: 11/11/2024 Pt tolerated well. Sarah Amaya LPN [facility] Nurse Note* Sarah Amaya LPN - 02/15/2024 8:16 AM EDT Influenza Vaccine given as ordered. Immunization History - influenza (HD-IIV3) vaccine, age 65+ yr, high dose, trivalent, PF (FLUZONE HIGH-DOSE) (Given) - Date: 02/15/2024 - Lot #: [id number] - Dose: 0.5 mL - Site: Left deltoid - Airplane Pilot Photogrammetry: Sanofi Pasteur - Given By: SARAH AMAYA - Expiration Date: 11/11/2024 Pt tolerated well. Sarah Amaya LPN documented in this encounterGenesis Hospital09-04-2024 Telephone encounter Note * Telephone Encounter - Wanda Resendiz LPN - 01/17/2024 10:20 AM EDT Patient called stated Free Style 3 is unavailable at pharmacy. Pharmacy told patient to have provider order Free Style Bertin 3 Plus. Please advise. Wanda Resendiz LPN [facility] Miscellaneous Notes* Telephone Encounter - Wanda Resendiz LPN - 01/17/2024 10:20 AM EDT Patient called stated Free Style 3 is unavailable at pharmacy. Pharmacy told patient to have provider order Free Style Bertin 3 Plus. Please advise. Wanda Resendiz LPN documented in this encounterGenesis Hospital07-30-2024 NoteHNO ID: [id number] Author: JD BYNUM DO Service: ? Author Type: Physician Type: Progress Notes Filed: 12/12/2023 09:38 Note Text: Attending Note I reviewed the documentation after conclusion of the encounter between the patient and resident physician. I was immediately available in office for real-time consult. I reviewed the thompson elements of the history. I reviewed the thompson elements of the chart as needed. I reviewed the findings with the resident I confirm the diagnosis of Diabetic retinopathy associated with type 1 diabetes mellitus, macular edema presence unspecified, unspecified laterality, unspecified retinopathy severity (hcc) (primary encounter diagnosis) Benign hypertension Stage 2 chronic kidney disease Chronic atrial fibrillation (hcc) and agree with the resident's plan of care. See resident's note for further details. Signature: Jd Bynum DO Faculty Physician, [facility] Family Medicine Residency Date: December 12, 2023 Time: 9:38 [facility]07-22-2024 NoteHNO ID: [id number] Author: MELVIN HOOPER DO Service: ? Author Type: Resident Type: Progress Notes Filed: 12/04/2023 17:43 Note Text: Melvin Hooper DO [facility] Family Medicine [address] [place] [address] / [facility] [address] [place] [phone] Visit Date: December 04, 2023 Name: Babatunde Stewart Date of : 1955 MRN/E #: [id number] Chief Complaint: Diabetes Subjective Babatunde Stewart is a 68 year old male here with the following complaint(s): DIABETES - Type of Diabetes: Type I - Medical Issues / Complications: hypertension and hyperlipidemia - Ha1c goal: <7.0 - Patient's diabetes has been well-controlled on the following medication regiment: Oral agent(s) - Farxiga Injectables - Insulin lispro (Humalog) and Toujeo . - Patient is prescribed to check their glucose continuous with sugars in the fasting 191, 14 day average 193, and 30 day average 189 range. - Patient's last HgbA1C: Hemoglobin A1C (%) Date Value 05/23/2023 8.0 ) - Symptoms of Hyperglycemia : None - Symptoms of Hypoglycemia: Sweating and Shaking expreined this about 2-3 times with the past two wks, mid day - Insulin Therapy: Yes - Diabetes Medications: Orals AND Insulin - How often is the patient administering insulin: QID - Patient is able to adjust Insulin with a sliding scale: Yes - Patient is compliant with current regiment. - Doses of medications missed: - Nutrition Do you follow any diet? YES Has your weight changed in the last 3 months? YES Current plan: doing well, has been watching carbs as best he can - Exercise Current plan: has been working on his new house, when not working on this he walks or bikes The history is provided by the patient. ALLERGIES Allergen Reactions Atorvastatin Myalgia Hay Fever [Seasonal* Itching Losartan Myalgia Metformin Diarrhea Current Outpatient Medications Medication Sig FARXIGA 10 mg tablet Take 1 tablet by mouth every morning. lisinopril-hydroCHLOROthiazide (ZESTORETIC) 20-12.5 mg per tablet TAKE 1 TABLET BY MOUTH EVERY AFTERNOON insulin lispro (HUMALOG KWIKPEN INSULIN) 100 unit/mL Inject 20 Units subcutaneously three times a day before meals. Plus an additional 2 units for each 50 mg/dL >200; maximum amount per injection: 30 units; maximum per day: 90 units Blood-Glucose Sensor (Mon[employer] Imaging HoldingsSTYLE BERTIN 3 SENSOR) jose g Use to check sugars 3-4 times per day DROPLET PEN NEEDLE 31 gauge x 5/16 Use to inject insulin up to 5 times per day ELIQUIS 5 mg tab(s) Take 1 tablet by mouth two times a day. metoprolol tartrate, short acting, (LOPRESSOR) 25 mg tablet Take 1 tablet by mouth two times a day. RUMAUVANDANA SOLOSTAR U-300 INSULIN 300 unit/mL (1.5 mL) Inject 60 Units subcutaneously daily at bedtime. FREESTYLE BERTIN 2 SENSOR kit apply 1 SENSOR to back OF UPPER ARM REMOVE AND REPLACE every 14 days (Patient not taking: Reported on 12/04/2023) No current facility-administered medications for this visit. I have confirmed and edited as necessary the chief complaint, medications, past medical, family and social histories. Objective 12/04/23 1434 BP: 142/70 BP Site: Left Arm Temp: 36.2 ?C (97.1 ?F) Weight: 250 lb (113.4 kg) Height: 6' 3 (1.905 m) Body mass index is 31.25 kg/m?. Physical Exam Vitals and nursing note reviewed. Constitutional: General: He is not in acute distress. Appearance: Normal appearance. He is not ill-appearing or toxic-appearing. HENT: Head: Normocephalic. Nose: Nose normal. Mouth/Throat: Mouth: Mucous membranes are moist. Eyes: Extraocular Movements: Extraocular movements intact. Pupils: Pupils are equal, round, and reactive to light. Cardiovascular: Rate and Rhythm: Normal rate and regular rhythm. Pulses: Normal pulses. Heart sounds: Normal heart sounds. No murmur heard. Pulmonary: Effort: Pulmonary effort is normal. No respiratory distress. Breath sounds: Normal breath sounds. No wheezing, rhonchi or rales. Abdominal: General: Abdomen is flat. There is no distension. Palpations: Abdomen is soft. There is no mass. Tenderness: There is no abdominal tenderness. Musculoskeletal: General: No swelling. Right lower leg: No edema. Left lower leg: No edema. Skin: General: Skin is warm. Capillary Refill: Capillary refill takes less than 2 seconds. Neurological: General: No focal deficit present. Mental Status: He is alert and oriented to person, place, and time. Psychiatric: Mood and Affect: Mood normal. Behavior: Behavior normal. Results for orders placed or performed in visit on 12/04/23 HEMOGLOBIN A1C (POC) Result Value Ref Range Hemoglobin A1C (POCT) 7.2 (A) 4.3 - 5.6 % Assessment / Plan ASSESSMENT/PLAN: 1. Diabetic retinopathy associated with type 1 diabetes mellitus, macular edema presence unspecified, unspecified laterality, unspecified retinopathy severity (HCC) - ICD9 (more content not included)...[facility] 12-04-2023 History of Present illness Narrative* Melvin Hooper DO - 12/04/2023 3:15 PM EDT Images from the original note were not included. Melvin Hooper DO [facility] Family Medicine [address] [facility] / [address] [place], [place] [address] Visit Date: December 04, 2023 Name: Babatunde Stewart Date of : 1955 MRN/E #: [id number] Chief Complaint: Diabetes Subjective Babatunde Stewart is a 68 year old male here with the following complaint(s): DIABETES - Type of Diabetes: Type I - Medical Issues / Complications: hypertension and hyperlipidemia - Ha1c goal: <7.0 - Patient's diabetes has been well-controlled on the following medication regiment: Oral agent(s) -Farxiga Injectables - Insulin lispro (Humalog) and Toujeo . - Patient is prescribed to check their glucose continuous with sugars in the fasting 191, 14 day average 193, and 30 day average 189 range. - Patient's last HgbA1C: Hemoglobin A1C (%) Date Value 05/23/2023 8.0 ) - Symptoms of Hyperglycemia : None - Symptoms of Hypoglycemia: Sweating and Shaking expreined this about 2-3 times with the past two wks, mid day - Insulin Therapy: Yes - Diabetes Medications: Orals & Insulin - How often is the patient administering insulin: QID - Patient is able to adjust Insulin with a sliding scale: Yes - Patient is compliant with current regiment. - Doses of medications missed: - Nutrition Do you follow any diet? YES Has your weight changed in the last 3 months? YES Current plan: doing well, has been watching carbs as best he can - Exercise Current plan: has been working on his new house, when not working on this he walks or bikes The history is provided by the patient. ALLERGIES Allergen Reactions Atorvastatin Myalgia Hay Fever [Seasonal* Itching Losartan Myalgia Metformin Diarrhea Current Outpatient Medications Medication Sig FARXIGA 10 mg tablet Take 1 tablet by mouth every morning. lisinopril-hydroCHLOROthiazide (ZESTORETIC) 20-12.5 mg per tablet TAKE 1 TABLET BY MOUTH EVERY AFTERNOON insulin lispro (HUMALOG KWIKPEN INSULIN) 100 unit/mL Inject 20 Units subcutaneously three times a day before meals. Plus an additional 2 units for each 50 mg/dL >200; maximum amount per injection:30 units; maximum per day: 90 units Blood-Glucose Sensor (FREESTYLE BERTIN 3 SENSOR) jose g Use to check sugars 3-4 times per day DROPLET PEN NEEDLE 31 gauge x 5/16 Use to inject insulin up to 5 times per day ELIQUIS 5 mg tab(s) Take 1 tablet by mouth two times a day. metoprolol tartrate, short acting, (LOPRESSOR) 25 mg tablet Take 1 tablet by mouth two times a day. TOUJEO SOLOSTAR U-300 INSULIN 300 unit/mL (1.5 mL) Inject 60 Units subcutaneously daily at bedtime. FREESTYLE BERTIN 2 SENSOR kit apply 1 SENSOR to back OF UPPER ARM REMOVE AND REPLACE every 14 days (Patient not taking: Reported on 12/04/2023) No current facility-administered medications for this visit. I have confirmed and edited as necessary the chief complaint, medications, past medical, family andsocial histories. Objective 12/04/23 1434 BP: 142/70 BP Site: Left Arm Temp: 36.2 C (97.1 F) Weight: 250 lb (113.4 kg) Height: 6' 3 (1.905 m) Body mass index is 31.25 kg/m . Physical Exam Vitals and nursing note reviewed. Constitutional: General: He is not in acute distress. Appearance: Normal appearance. He is not ill-appearing or toxic-appearing. HENT: Head: Normocephalic. Nose: Nose normal. Mouth/Throat: Mouth: Mucous membranes are moist. Eyes: Extraocular Movements: Extraocular movements intact. Pupils: Pupils are equal, round, and reactive to light. Cardiovascular: Rate and Rhythm: Normal rate and regular rhythm. Pulses: Normal pulses. Heart sounds: Normal heart sounds. No murmur heard. Pulmonary: Effort: Pulmonary effort is normal. No respiratory distress. Breath sounds: Normal breath sounds. No wheezing, rhonchi or rales. Abdominal: General: Abdomen is flat. There is no distension. Palpations: Abdomen is soft. There is no mass. Tenderness: There is no abdominal tenderness. Musculoskeletal: General: No swelling. Right lower leg: No edema. Left lower leg: No edema. Skin: General: Skin is warm. Capillary Refill: Capillary refill takes less than 2 seconds. Neurological: General: No focal deficit present. Mental Status: He is alert and oriented to person, place, and time. Psychiatric: Mood and Affect: Mood normal. Behavior: Behavior normal. Results for orders placed or performed in visit on 12/04/23 HEMOGLOBIN A1C (POC) Result Value Ref Range Hemoglobin A1C (POCT) 7.2 (A) 4.3 - 5.6 % Assessment / Plan ASSESSMENT/PLAN: 1. Diabetic retinopathy associated with type 1 diabetes mellitus, macular edema presence unspecified, unspecified laterality, unspecified retinopathy severity (HCC) - ICD9: 250.51, 362.01, ICD10: E10.319 (primary diagnosis) - Improving control - Continue current medications - Statin prescribed - Yes - Blood glucose monitoring on a continuous glucose monitoring schedule - Counseled on healthy diet and regular exercise - Discussed need for and benefit of weight loss. BMI 31.25 kg/(m^2) - Patient to monitor his low blood sugars, if they are consistently low around the lunch time dosing, can consider decreasing these and possibly increasing his dinner time to have better coverage in the evening 2. Benign hypertension - ICD9: 401.1, ICD10: I10 - Controlled - Continue current medications - Recommend home blood pressure monitoring, to bring results to next visit - Encouraged sodium restriction, DASH or Mediterranean diet - Recommend regular aerobic exercise - Discussed need for and benefit of weight loss. BMI 31.25 kg/(m^2) - Patient states that his Bps are continuously high at home readings, recheck today is WNL, discussed about bringing log with him in next time for review 3. Stage 2 chronic kidney disease - ICD9: 585.2, ICD10: N18.2 - eGFR: 96 Stable - Counseled on low sodium diet - SGLT2i prescribed: FREDY Tab 4. Chronic atrial fibrillation (HCC) - ICD9: 427.31, ICD10: I48.20 -Stable chronic condition on eliquis and metoprolol - not in afib on exam -continue to monitor Melvin Hooper DO Discussed the above with the patient using shared decision-making. The patient is in agreement with the diagnostic and treatment plans. Return in about 3 months (around 03/05/2024). Provider: Melvin Hooper DO Date: December 04, 2023 Time: 3:30 PM Portions of this note was created using D [employer] dictation software. Every attempt was made to proofread, however you may find errors regardless of how insignificant they may be. They are purely unintentional and if there are any concerns regarding this dictation, please do not hesitate to call the dictating provider for clarification. documented in this encounterGenesis Hospital07-18-2024 Note* Addendum Note - Angel Snow LPN - 11/30/2023 1:24 PM EDTAddended by: ANGEL SNOW on: 11/30/2023 01:24 PM Modules accepted: Orders [facility]07-18-2024 Miscellaneous Notes* Addendum Note - Angel Snow LPN - 11/30/2023 1:24 PM EDTAddended by: ANGEL SNOW on: 11/30/2023 01:24 PM Modules accepted: Orders * Telephone Encounter - Angel Snow LPN - 11/30/2023 1:23 PM EDT Patient called requesting the following refill Refill(s) Requested: Requested Prescriptions Pending Prescriptions Disp Refills FARXIGA 10 mg tablet 30 tablet 0 Sig: Take 1 tablet by mouth every morning. ALLERGIES Allergen Reactions Atorvastatin Myalgia Hay Fever [Seasonal* Itching Losartan Myalgia Metformin Diarrhea (home) [phone] (cell) Last Office Visit Date: 07/19/2023 Last Distance Health Visit: Visit date not found Future Appointment: 12/04/2023 The patients preferred pharmacy has been captured for this encounter? yes Request is for script(s) to be escript to pharmacy. Angel Snow LPN * Telephone Encounter - Zoraida Escamilla - 11/30/2023 12:39 PM EDT The patient/caregiver contacted the office, requesting refills of FARXIGA 10 mg tablet . Patient prefers prescriptions to be e prescribed to [facility] [address] [place] [address] - [address] [facility] - [phone] Last Office Visit Date: 07/19/2023 Last Distance Health Visit: Visit date not found Future Appointment: 12/04/2023 Zoraida Escamilla documented in this encounterGenesis Hospital07-18-2024 Telephone encounter Note * Telephone Encounter - Angel Snow LPN - 11/30/2023 1:23 PM EDT Patient called requesting the following refill Refill(s) Requested: Requested Prescriptions Pending Prescriptions Disp Refills FARXIGA 10 mg tablet 30 tablet 0 Sig: Take 1 tablet by mouth every morning. ALLERGIES Allergen Reactions Atorvastatin Myalgia Hay Fever [Seasonal* Itching Losartan Myalgia Metformin Diarrhea (home) [phone] (cell) Last Office Visit Date: 07/19/2023 Last Distance Health Visit: Visit date not found Future Appointment: 12/04/2023 The patients preferred pharmacy has been captured for this encounter? yes Request is for script(s) to be escript to pharmacy. Angel Snow LPN [facility]-18-[facility] Telephone encounter Note* Telephone Encounter - Zoraida Escamilla - 11/30/2023 12:39 PM EDT The patient/caregiver contacted the office, requesting refills of FARXIGA 10 mg tablet . Patient prefers prescriptions to be e prescribed to e- [facility] [address] [place] [address] - [address] - [phone] Last Office Visit Date: 07/19/2023 Last [facility] Visit: Visit date not found Future Appointment: 12/04/2023 Zoraida Escamilla [facility]07-09-2024 Telephone encounter Note* Telephone Encounter - Zoraida Escamilla - 11/21/2023 1:17 PM EDT Called LVM for patient to call back and get scheduled for diabetes follow up Zoraida Escamilla [facility]07-09-2024 Miscellaneous Notes* Telephone Encounter - Zoraida Escamilla - 11/21/2023 1:17 PM EDT Called LVM for patient to call back and get scheduled for diabetes follow up Zoraida Escamilla * Telephone Encounter - Gracie Zhao MD - 11/21/2023 9:49 AM EDT Medications refilled. Patient needs appt in office for diabetes follow up. Will forward to front line supervisor to call for appt in next month. documented in this encounterGenesis Hospital07-09-2024 Telephone encounter Note * Telephone Encounter - Gracie Zhao MD - 11/21/2023 9:49 AM EDT Medications refilled. Patient needs appt in office for diabetes follow up. Will forward to front line supervisor to call for appt in next month. [facility]10[facility] Telephone encounter Note* Telephone Encounter - Zoraida Escamilla - 10/23/2023 10:48 AM EDT Called patient and LVM to call back and get scheduled for follow up for hypertension and diabetes Zoraida Escamilla [facility]06-10-2024 Miscellaneous Notes* Telephone Encounter - Zoraida Escamilla - 10/23/2023 10:48 AM EDT Called patient and LVM to call back and get scheduled for follow up for hypertension and diabetes Zoraida Escamilla * Telephone Encounter - Gracie Zhao MD - 10/21/2023 8:27 PM EDT Medication refilled. Patient should be seen in office within the next couple months regarding diabetes and hypertension. Will forward to front line supervisor to call regarding scheduling appointment. [facility] Telephone encounter Note * Telephone Encounter - Gracie Zhao MD - 10/21/2023 8:27 PM EDT Medication refilled. Patient should be seen in office within the next couple months regarding diabetes and hypertension. Will forward to front line supervisor to call regarding scheduling appointment. [facility]03-20-2024 Miscellaneous Notes* Telephone Encounter - Yaritza Joyce LGC - 08/02/2023 8:46 AM EDT Results left on patient voicemail. Babatunde Stewart's Multi-Cancer panel through [facility] was negative for a pathogenic variant. Please see [employer] message for further discussion. [facility] Licensed, Certified Genetic Counselor [facility] Miscellaneous Notes* Telephone Encounter - Arianna Xiao LPN - 07/21/2023 4:07 PM EST [facility] approved. Arianna Xiao LPN * Telephone Encounter - Amber Bowman LPN - 06/27/2023 3:11 PM EST Fax from [employer] received that the [facility] needs a PA. Phone call to the patient to see if this is a pharmacy benefit or a DME benefit. Where has he been getting this in the past? documented in [facility] encounterGen[facility]24 NoteHNO ID: [id number] Author: YARITZA JOYCE Jennifer Service: ? Author Type: Genetic Counselor Type: Progress Notes Filed: 07/21/2023 11:00 Note Text: [facility] Consultation Note Genetic Counselor: Yaritza Joyce, MS, [facility] Patient: Babatunde Stewart Patient Name and confirmed at initiation of visit. This visit was conducted via [email or web address]. I have communicated my name and active licensure. The patient's identity and physical location were verified at the time of this visit. Either the patient or their legal access services representative has been informed of the risks and benefits of -- and alternatives to -- treatment through a remote evaluation and consents to proceed with the evaluation remotely. HIGH LEVEL SUMMARY: The patient's family history is potentially suggestive of Smith Syndrome or another hereditary cancer syndrome. The patient provided informed consent for Multi-Cancer panel through [facility]. Results are expected in 2-3 weeks. IDENTIFICATION AND CHIEF COMPLAINT: Dr. Yaritza Robles requested a consultation for genetic counseling and risk assessment for Babatunde Stewart, a 68 year old male, for discussion of his family history of colorectal cancer. He presents to clinic today to discuss the possibility of a genetic predisposition to cancer, and to further clarify his risks, as well as his family members' risks for cancer. HISTORY OF PRESENT ILLNESS: Babatunde Stewart is a 68 year old male with no personal history of cancer. The patient's sister was diagnosed with colon cancer at age 40, roughly 30 years ago, and reportedly tested positive for Smith Syndrome. A copy of her genetic test results was unavailable at the time of today's visit. PAST MEDICAL HISTORY Diagnosis Date A-fib (HCC) HTN (hypertension) Sleep apnea Type 1 diabetes mellitus (HCC) PAST SURGICAL HISTORY Procedure Laterality Date ANKLE SURGERY HX Right PT ED HEART AND VASCULAR REMV CATARACT EXTRACAP,INSERT LENS WRIST SURGERY HX CANCER SURVEILLANCE HISTORY: Colonoscopy: Yes / last was May 2023 EGD: No GI Polyps: Yes / adenomas Prostate Cancer surveillance: Yes Dermatology: Yes SOCIAL HISTORY: Social History Tobacco Use Smoking status: Former Packs/day: 1.00 Years: 15.00 Additional pack years: 0.00 Total pack years: 15.00 Types: Cigarettes Smokeless tobacco: Never Tobacco comments: Quit 27 years ago Vaping Use Vaping Use: Never used Substance Use Topics Alcohol use: Yes Alcohol/week: 28.0 standard drinks of alcohol Types: 28 Cans of beer per week Drug use: Never FAMILY HISTORY: We obtained a detailed, 4-generation family history. Significant diagnoses are listed below: No family history on file. A copy of the patient's pedigree will be available under the scanned documents tab following today's visit. GENETIC COUNSELING RISK ASSESSMENT, DISCUSSION, AND SUGGESTED FOLLOW UP: We reviewed the natural history and genetic etiology of sporadic, familial and hereditary cancer syndromes. The patient's family history is potentially suggestive of: Smith Syndrome or another hereditary cancer syndrome The patient meets NCCN Smith Syndrome testing criteria since his sister had a personal history of colon cancer diagnosed <50 years of age. The patient's sister reportedly has Smith Syndrome and was tested 30 years ago. The patient was not able to obtain a copy of his sister's results. He does not believe any other family members had genetic testing. We discussed that identification of a hereditary cancer syndrome may help his care providers tailor his medical management. If a mutation is detected, the National Comprehensive Cancer Network and/or expert opinion recommendations could include increased cancer surveillance options. If a mutation is detected, the patient will be referred back to the referring provider and to any additional appropriate care providers to discuss the relevant options. Inheritance of hereditary cancer syndromes was discussed with the patient. If a mutation is not found in the patient, this will decrease the likelihood of a hereditary cancer syndrome for the patient, however it cannot rule it out as the explanation for the family history of cancer. Cancer surveillance options would be discussed for the patient according to the appropriate standard National Comprehensive Cancer Network and [place] Cancer [employer] guidelines, with consideration of their personal and family history risk factors. In this case, the patient will be referred back to their care providers for discussions of management. Based on this assessment of the patient's family and personal history, genetic testing is recommended. The patient was offered Smith Syndrome panel or Multi-Cancer panel through [facility]. After considering the risks, benefits, and limitations, the patient chose to (more content not included)...[facility]03-08-2024 History of Present illness Narrative* Yaritza Joyce [facility] - 07/21/2023 9:24 AM EST Images from the original note were not included. [facility] Consultation Note Genetic Counselor: Yaritza Joyce MS, [facility] Patient: Babatunde Stewart Patient Name and confirmed at initiation of visit. This visit was conducted via [employer]. Ihave communicated my name and active licensure. The patient's identity and physical location were verified at the time of this visit. Either the patient or their legal access services representative has been informed of the risks and benefits of -- and alternatives to -- treatment through a remote evaluation and consents to proceed with the evaluation remotely. HIGH LEVEL SUMMARY: The patient's family history is potentially suggestive of Smith Syndrome or another hereditary cancer syndrome. The patient provided informed consent for Multi-Cancer panel through [facility]. Results are expected in 2-3 weeks. IDENTIFICATION AND CHIEF COMPLAINT: Dr. Yaritza Robles requested a consultation for genetic counseling and risk assessment for Babatunde Stewart, a 68 year old male, for discussion of his family history of colorectal cancer. He presents to clinic today to discuss the possibility of a genetic predisposition to cancer, and to further clarify his risks, as well as his family members' risks for cancer. HISTORY OF PRESENT ILLNESS: Babatunde Stewart is a 68 year old male with no personal history of cancer. The patient's sister was diagnosed with colon cancer at age 40, roughly 30 years ago, and reportedly tested positive for Smith Syndrome. A copy of her genetic test results was unavailable at the timeof today's visit. PAST MEDICAL HISTORY Diagnosis Date A-fib (HCC) HTN (hypertension) Sleep apnea Type 1 diabetes mellitus (HCC) PAST SURGICAL HISTORY Procedure Laterality Date ANKLE SURGERY HX Right PT ED HEART AND VASCULAR REMV CATARACT EXTRACAP,INSERT LENS WRIST SURGERY HX CANCER SURVEILLANCE HISTORY: Colonoscopy: Yes / last was May 2023 EGD: No GI Polyps: Yes / adenomas Prostate Cancer surveillance: Yes Dermatology: Yes SOCIAL HISTORY: Social History Tobacco Use Smoking status: Former Packs/day: 1.00 Years: 15.00 Additional pack years: 0.00 Total pack years: 15.00 Types: Cigarettes Smokeless tobacco: Never Tobacco comments: Quit 27 years ago Vaping Use Vaping Use: Never used Substance Use Topics Alcohol use: Yes Alcohol/week: 28.0 standard drinks of alcohol Types: 28 Cans of beer per week Drug use: Never FAMILY HISTORY: We obtained a detailed, 4-generation family history. Significant diagnoses are listed below: No family history on file. A copy of the patient's pedigree will be available under the scanned documents tab following today's visit. GENETIC COUNSELING RISK ASSESSMENT, DISCUSSION, AND SUGGESTED FOLLOW UP: We reviewed the natural history and genetic etiology of sporadic, familial and hereditary cancer syndromes. The patient's family history is potentially suggestive of: Smith Syndrome or another hereditary cancer syndrome The patient meets NCCN Smith Syndrome testing criteria since his sister had a personal history of colon cancer diagnosed <50 years of age. The patient's sister reportedly has Smith Syndrome and was tested 30 years ago. The patient was not able to obtain a copy of his sister's results. He does not believe any other family members had genetic testing. We discussed that identification of a hereditary cancer syndrome may help his care providers tailorhis medical management. If a mutation is detected, the National Comprehensive Cancer Network and/orexpert opinion recommendations could include increased cancer surveillance options. If a mutation is detected, the patient will be referred back to the referring provider and to any additional appropriate care providers to discuss the relevant options. Inheritance of hereditary cancer syndromes was discussed with the patient. If a mutation is not found in the patient, this will decrease the likelihood of a hereditary cancersyndrome for the patient, however it cannot rule it out as the explanation for the family history of cancer. Cancer surveillance options would be discussed for the patient according to the appropriate standard National Comprehensive Cancer Network and [place] Cancer [employer] guidelines, with consideration of their personal and family history risk factors. In this case, the patient will be referred back to their care providers for discussions of management. Based on this assessment of the patient's family and personal history, genetic testing is recommended. The patient was offered Smith Syndrome panel or Multi-Cancer panel through [facility]. After considering the risks, benefits, and limitations, the patient chose to pursue and provided informed consent for the following testing: Multi-Cancer panel through [facility]. The Multi-Cancer Panel includes AIP, ALK, APC, PHILOMENA, AXIN2, BAP1, BARD1, BLM, BMPR1A, BRCA1, BRCA2, BRIP1, CDC73, CDH1, CDK4, CDKN1B, CDKN2A, CHEK2, CTNNA1, DICER1, EGFR, EPCAM, FH, FLCN, GREM1, HOXB13, KIT, LZTR1, MAX, MBD4, MEN1, MET, MITF, MLH1, MSH2, MSH3, MSH6, MUTYH, NF1, NF2, NTHL1, PALB2, PDGFRA, PMS2, POLD1, POLE, POT1, TMIBE3G, PTCH1, PTEN, RAD51C, RAD51D, RB1, RET, SDHA, SDHAF2, SDHB, SDHC, SDHD, SMAD4, SMARCA4, SMARCB1, SMARCE1, STK11, SUFU, VAKI556, TP53, TSC1, TSC2, and VHL The Multi-Cancer panel looks at genes associated with cancers of the breast, gynecologic tract (ovarian, uterine/endometrial), gastrointestinal system (colorectal, gastric, pancreatic), endocrine glands (thyroid, parathyroid, pituitary, adrenal glands), genitourinary tract (renal/urinary tract, prostate), skin (melanoma, basal cell carcinoma), and brain/nervous system. We discussed that an NGS panel can rarely result in an unexpected finding which may or may not be related to the presenting phenotype. We discussed that [employer] may contact the patient by text or email regarding billing. The patient should watch for this communication and respond promptly. The patient should contact [employer] directlywith any billing questions (ph. [phone]). Per the patient's request, we will contact him by telephone to discuss these results. A follow up genetic counseling visit will be scheduled if requested. The patient was seen for a total of 20 minutes, greater than 50% of which was spent [id number] counseling. This plan is being carried out under the oversight of Dr. Charmaine Hartley. This note will also be sent to the referring provider via the electronic medical record. Yaritza Joyce, MS, [facility], Licensed, Certified Genetic Counselor EPIC CC: Dr. Yaritza Negron documented in this encounterGenesis [facility]24 NoteHNO ID: [id number] Author: LACI RICHARDSON DO Service: ? Author Type: Physician Type: Progress Notes Filed: 2023 14:59 Note Text: PharmD AND Physician Collaboration Note PharmD working in collaboration with provider staff for patient care I have reviewed the care plan and agree I confirm the diagnosis of: Diabetes mellitus type 1, controlled, without complications (hcc) (primary encounter diagnosis) Hypertension, essential Encounter for medication counseling Preventative health care Statin intolerance Atrial fibrillation, unspecified type (hcc) Pure hypercholesterolemia See Pharmacist's note for furthur details. Laci Richardson [facility]03-07-2024 History of Present illness Narrative* Laci Richardson DO - 2023 2:59 PM EST PharmD & Physician Collaboration Note PharmD working in collaboration with provider staff for patient care I have reviewed the care plan and agree I confirm the diagnosis of: Diabetes mellitus type 1, controlled, without complications (hcc) (primary encounter diagnosis) Hypertension, essential Encounter for medication counseling Preventative health care Statin intolerance Atrial fibrillation, unspecified type (hcc) Pure hypercholesterolemia See Pharmacist's note for furthur details. Laci Richardson DO * Beka Banda [facility] - 07/19/2023 9:14 AM EST REASON FOR CONSULT: diabetes Referring Provider: Dr. Zhao Date of Consult: 06/20/2023 Babatunde Stewart is a 67 year old male who is presenting for initial visit: This initial consult was conducted in person with the patient where the consult agreement was explained. The patient may decline or cancel the agreement at any time. After consideration, the patient consented to the pharmacy consult agreement and agreed to allow medications be collaboratively managed by a pharmacist.. HPI: Diabetes Uses CGM - phone as reader, findings below 30 days - Time in range, 69% 181-240 18% >240 11% < 70% 2% Denies s/s of hyperglycemia Lowest - 45, this AM Was symptomatic Normally if goes low, catches earlier - 60 to 70s due to CGM alarm Unclear why alarm did not go off earlier this morning States likely cause was excessive exercise and small dinner last night Treatment of low - glucose tablets; PBJ sandwich Keeps glucose tablets by bed Regimen confirmed as below Humalog 20 units per meal If >160, will take 22 units daily Also uses a sliding scale at times with fiasp; different to determine frequency of use If getting running high, will take 7-9 units Will not always eat 2-3 times per week Denies cost concerns Denies missed doses While discussed with provider at last appt, did initially stop farxiga but felt worse/SMBG worsened Self-restarted Aware of risks, such as DKA; still wants to continue Current Diabetes Medications Toujeo - 60 units Humalog - as above Farxiga - 10 mg daily On ASHELY/ARB: Yes On Statin: No - prior intolerance On aspirin: No Metformin - prior intolerance Eye exam ~6 months External location Endorses multiple trials of statin therapies All caused myopathy Will consider ezetimibe - does not want to start now Has peloton; exercises almost daily when on traveling ~Jan received COVID booster through [employer] ~5 years ago, does not remember location Feet:Shoes and socks removed, normal distal pulses, and vibratory perception normal Monitors BP at home Tracks on magi, reviewed SBP fluctuate; Home BP readings - 106-145 Multiple episodes in 110s More frequently 110-low 130s; minimal 140s Highest 145 DBP 60-80s Denies s/s of hypretension Past medical, family and social history reviewed and updated. REVIEW OF SYSTEMS Review of Systems Constitutional: Negative for chills, fever and weight loss. ALLERGIES Allergen Reactions Atorvastatin Myalgia Hay Fever [Seasonal* Itching Losartan Myalgia Metformin Diarrhea VITALS: BP 154/74 Temp 36.1 C (97 F) Ht 6' 3 (1.905 m) Wt 252 lb (114.3 kg) BMI 31.50 kg/m EXAM: Last 3 Encounter BP Readings: Date: BP: 07/19/2023 154/74 06/20/2023 118/66 05/29/2023 92/54 Wt: 246 lb (111.6 kg) BMI: 30.75 kg/(m^2) LABS: Reviewed Lab Results Component Value Date HBA1C 8.0 05/23/2023 CMP: Glucose 152 05/23/2023 BUN 21 05/23/2023 Creatinine 0.84 05/23/2023 Sodium 138 05/23/2023 Potassium 4.4 05/23/2023 Albumin 4.2 05/23/2023 Calcium, Total 9.3 05/23/2023 AST 31 05/23/2023 ALT 35 05/23/2023 Lab Results Component Value Date CHOL 288 05/23/2023 LDL 159 05/23/2023 HDL 102 05/23/2023 TG 134 05/23/2023 No results found for: UALBCR Serum creatinine: 0.84 mg/dL 05/23/23 0719 Estimated creatinine clearance: 116.4 mL/min ASSESSMENT/PLAN 1. Diabetes mellitus type 1, controlled, without complications (HCC) - ICD9: 250.01, ICD10: E10.9 (primary diagnosis) - Uncontrolled - though A1c inconsistent with TIR. TIR near goal >70% - Continue current medications - encouraged ongoing activity, small carb portions - CephasonicsYLE BERTIN 3 SENSOR DEVICE - DROPLET PEN NEEDLE 31 GAUGE X 5/16 - FARXIGA 10 MG TABLET - INSULIN LISPRO (U-100) 100 UNIT/ML SUBCUTANEOUS PEN - DAV SOLOSTAR U-300 INSULIN 300 UNIT/ML (1.5 ML) SUBCUTANEOUS PEN - ALBUMIN/CREAT RATIO RND UR - PNEUMOCOCCAL VACCINE, 20 VALENT (PREVNAR 20) - encouraged fast acting insulin only with meals/food - reviewed treatment of hypoglycemia 2. Hypertension, essential - ICD9: 401.9, ICD10: I10 - Uncontrolled - inconsistent with home readings, just had coffee - Continue current medications - Recommend home blood pressure monitoring, to bring results to next visit - Recommend regular aerobic exercise - LISINOPRIL 20 MG-HYDROCHLOROTHIAZIDE 12.5 MG TABLET 3. Encounter for medication counseling - ICD9: V65.49, ICD10: Z71.89 Extensive conversation for concerns with SGLT2i use and potential DKA - not indicated in T1DM. Discussed risk - patient aware but wants to continue as feels improves his control. 4. Preventative health care - ICD9: V70.0, ICD10: Z00.00 - Counseled on healthy diet and regular exercise - Depression screening tool completed and reviewed with patient. Based on score and interview, patient is not at risk for depression and recommended no further intervention at this time. - vaccination administrations reviewed; confirmed COVID booster from 2022 - updated, Shingrix received historically but could not remember from where/when; confirmed 2 shot series - eye exam in 10/2023 recommended - DEPRESSION SCREENING/ASSESSMENT 5. Statin intolerance - ICD9: 995.27, ICD10: Z78.9 Discussed ezetimibe - not interested at this time 6. Atrial fibrillation, unspecified type (HCC) - ICD9: 427.31, ICD10: I48.91 Pended refills for provider - ELIQUIS 5 MG TABLET - METOPROLOL TARTRATE 25 MG TABLET 7. Pure hypercholesterolemia - ICD9: 272.0, ICD10: E78.00 Ezetimibe as above Patient verbalized understanding of instructions. Thank you for allowing pharmacy to participate in this patient's care Beka Banda RPh The majority of the pharmacy visit (> 50%) was spent counseling and/or coordinating care for thepatient. Nced-sx-qlly time was 40 minutes. documented in this encounterGenesis Hospital03-06-2024 Instructions* Patient Instructions* Beka Banda RPh - 07/19/2023 9:30 AM EST Thank you for letting us care for you today! Below is a brief summary of our appointment. Medication changes: - consider ezetimibe (zetia) for cholesterol Other recommendations: - If issues with sensors staying on, consider purchasing SKIN TAC at any local pharmacy or getting tegaderm patches. Both can also be found on [employer]. This can help with keeping sensors on. - urine from any [facility] lab documented in this encounterGenesis Hospital03-06-2024 NoteHNO ID: [id number] Author: BEKA BANDA RPh Service: ? Author Type: Pharmacist Type: Progress Notes Filed: 2023 10:09 Note Text: REASON FOR CONSULT: diabetes Referring Provider: Dr. Zhao Date of Consult: 06/20/2023 Babatunde Stewart is a 67 year old male who is presenting for initial visit: This initial consult was conducted in person with the patient where the consult agreement was explained. The patient may decline or cancel the agreement at any time. After consideration, the patient consented to the pharmacy consult agreement and agreed to allow medications be collaboratively managed by a pharmacist.. HPI: Diabetes Uses CGM - phone as reader, findings below 30 days - Time in range, 69% 181-240 18% >240 11% < 70% 2% Denies s/s of hyperglycemia Lowest - 45, this AM Was symptomatic Normally if goes low, catches earlier - 60 to 70s due to CGM alarm Unclear why alarm did not go off earlier this morning States likely cause was excessive exercise and small dinner last night Treatment of low - glucose tablets; PBJ sandwich Keeps glucose tablets by bed Regimen confirmed as below Humalog 20 units per meal If >160, will take 22 units daily Also uses a sliding scale at times with fiasp; different to determine frequency of use If getting running high, will take 7-9 units Will not always eat 2-3 times per week Denies cost concerns Denies missed doses While discussed with provider at last appt, did initially stop farxiga but felt worse/SMBG worsened Self-restarted Aware of risks, such as DKA; still wants to continue Current Diabetes Medications Toujeo - 60 units Humalog - as above Farxiga - 10 mg daily On ASHELY/ARB: Yes On Statin: No - prior intolerance On aspirin: No Metformin - prior intolerance Eye exam ~6 months External location Endorses multiple trials of statin therapies All caused myopathy Will consider ezetimibe - does not want to start now Has peloton; exercises almost daily when on traveling ~Jan received COVID booster through [employer] ~5 years ago, does not remember location Feet:Shoes and socks removed, normal distal pulses, and vibratory perception normal Monitors BP at home Tracks on magi, reviewed SBP fluctuate; Home BP readings - 106-145 Multiple episodes in 110s More frequently 110-low 130s; minimal 140s Highest 145 DBP 60-80s Denies s/s of hypretension Past medical, family and social history reviewed and updated. REVIEW OF SYSTEMS Review of Systems Constitutional: Negative for chills, fever and weight loss. ALLERGIES Allergen Reactions Atorvastatin Myalgia Hay Fever [Seasonal* Itching Losartan Myalgia Metformin Diarrhea VITALS: BP 154/74 Temp 36.1 ?C (97 ?F) Ht 6' 3 (1.905 m) Wt 252 lb (114.3 kg) BMI 31.50 kg/m? EXAM: Last 3 Encounter BP Readings: Date: BP: 07/19/2023 154/74 06/20/2023 118/66 05/29/2023 92/54 Wt: 246 lb (111.6 kg) BMI: 30.75 kg/(m2) LABS: Reviewed Lab Results Component Value Date HBA1C 8.0 05/23/2023 CMP: Glucose 152 05/23/2023 BUN 21 05/23/2023 Creatinine 0.84 05/23/2023 Sodium 138 05/23/2023 Potassium 4.4 05/23/2023 Albumin 4.2 05/23/2023 Calcium, Total 9.3 05/23/2023 AST 31 05/23/2023 ALT 35 05/23/2023 Lab Results Component Value Date CHOL 288 05/23/2023 LDL 159 05/23/2023 HDL 102 05/23/2023 TG 134 05/23/2023 No results found for: UALBCR Serum creatinine: 0.84 mg/dL 05/23/23 0719 Estimated creatinine clearance: 116.4 mL/min ASSESSMENT/PLAN 1. Diabetes mellitus type 1, controlled, without complications (HCC) - ICD9: 250.01, ICD10: E10.9 (primary diagnosis) - Uncontrolled - though A1c inconsistent with TIR. TIR near goal >70% - Continue current medications - encouraged ongoing activity, small carb portions - [employer] BERTIN 3 SENSOR DEVICE - DROPLET PEN NEEDLE 31 GAUGE X 5/16 - FARXIGA 10 MG TABLET - INSULIN LISPRO (U-100) 100 UNIT/ML SUBCUTANEOUS PEN - TOUGARETHO SOLOSTAR U-300 INSULIN 300 UNIT/ML (1.5 ML) SUBCUTANEOUS PEN - ALBUMIN/CREAT RATIO RND UR - PNEUMOCOCCAL VACCINE, 20 VALENT (PREVNAR 20) - encouraged fast acting insulin only with meals/food - reviewed treatment of hypoglycemia 2. Hypertension, essential - ICD9: 401.9, ICD10: I10 - Uncontrolled - inconsistent with home readings, just had coffee - Continue current medications - Recommend home blood pressure monitoring, to bring results to next visit - Recommend regular aerobic exercise - LISINOPRIL 20 MG-HYDROCHLOROTHIAZIDE 12.5 MG TABLET 3. Encounter for medication counseling - ICD9: V65.49, ICD10: Z71.89 Extensive conversation for concerns with SGLT2i use and potential DKA - not indicated in T1DM. Discussed risk - patient aware but wants to continue as feels improves his control. 4. Preventative health care - ICD9: V70.0, ICD10: Z00.00 - Counseled on healthy diet and regular exercise - Depression screening tool completed and reviewed with patient (more content not included)...[facility]02-12-2024 NoteHNO ID: [id number] Author: LJ ISAAC MD Service: ? Author Type: Physician Type: Progress Notes Filed: 06/26/2023 13:39 Note Text: Attending Note I confirm the thompson elements of the history. I confirm the thompson elements of the physical exam. I reviewed the findings with the resident. I confirm the diagnosis of Diabetes mellitus type 1, controlled, without complications (hcc) (primary encounter diagnosis) Pure hypercholesterolemia Hypertension, essential and agree with the resident's plan of care. See resident's note for furthur details. Lj Isaac, [facility]02-06-2024 History of Present illness Narrative* Gracie Zhao MD - 06/20/2023 9:00 AM EST Images from the original note were not included. [facility] 1 [facility] / [address] [place], [place] [address] Visit Date: June 19, 2023 Name: Babatunde Stewart Date of : 1955 MRN/E #: [id number] Chief Complaint: No chief complaint on file. 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 work - diagnosed in 1991 - did not get on insulin until 5 years ago - was previously on metformin for years, diagnosed as type 2 - found antibodies at study at [facility] - A1C 8 on 05/23/23 - has been traveling frequently over last 3 months - on Toujeo units - 50 units / day - on novolog units --> insurance changes to humolog - 60 units / day - needs refill - was seeing Endocrine but switching to us - Happy with us, regimine was initially from endo - too long booking times - does have very fast acting insulin when BS above 200 more or less - average 150-160s - on freestyle bertin 2 wants to see about freestyle bertin 3 - travel work related - should not be on Farxiga, higher rates of DKA - still taking - doing 10k steps and 30 minutes on bike and weights - has made some diet changes - has been drinking beer for football games and now over - will have 2-4 per day Hyperlipidemia - LDL 159 - myalgias with Atorvastatin - has tried 3-4 previously all with myalgias HTN - Home cuff BP measuring low 130s/low 70s - lightheadedness with bending over - issues with pressures w/o HCTZ Payor: YOHANNES / Plan: BLUE CARD PPO OOS / Product Type: PPO / Review of Systems ALLERGIES Allergen Reactions Atorvastatin Myalgia Hay Fever [Seasonal* Itching Losartan Myalgia Metformin Diarrhea Current Outpatient Medications Medication Sig peg 3350-Electrolytes (GOLYTELY) 236-22.74-6.74 -5.86 gram suspension Refer to printed patient instructions that will be mailed to you. ELIQUIS 5 mg tab(s) Take 1 tablet by mouth every 12 (twelve) hours. TOUJEO SOLOSTAR U-300 INSULIN 300 unit/mL (1.5 mL) lisinopril-hydroCHLOROthiazide (ZESTORETIC) 20-12.5 mg per tablet Take 1 tablet by mouth every afternoon. metoprolol tartrate, short acting, (LOPRESSOR) 25 mg tablet Take 1 tablet by mouth every 12 (twelve) hours. DROPLET PEN NEEDLE 31 gauge x 5/16 USE DIRECTED with INSULIN PENS 5 TIMES A DAY insulin lispro (HUMALOG KWIKPEN INSULIN) 100 unit/mL Inject 20 Units subcutaneously three times a day before meals. FREESTYLE BERTIN 2 SENSOR kit apply 1 SENSOR to back OF UPPER ARM REMOVE AND REPLACE every 14 days No current facility-administered medications for this visit. I have confirmed and edited as necessary the chief complaint, medications, past medical, family andsocial histories. Objective 06/20/23 0904 BP: 118/66 Pulse: 66 Resp: 18 Temp: 36.1 C (97 F) TempSrc: Temporal SpO2: 96% Weight: 246 lb (111.6 kg) Height: 6' 3 (1.905 m) Body mass index is 30.75 kg/m . Physical Exam Vitals and nursing note reviewed. Constitutional: Appearance: Normal appearance. HENT: Nose: Nose normal. Eyes: Conjunctiva/sclera: Conjunctivae normal. Cardiovascular: Rate and Rhythm: Normal rate and regular rhythm. Pulses: Normal pulses. Heart sounds: Normal heart sounds. Pulmonary: Effort: Pulmonary effort is normal. Breath sounds: Normal breath sounds. Musculoskeletal: Right lower leg: No edema. Left lower leg: No edema. Skin: General: Skin is warm and dry. Neurological: Mental Status: He is alert. Mental status is at baseline. Psychiatric: Mood and Affect: Mood normal. Behavior: Behavior normal. Results for orders placed or performed during the hospital encounter of 05/29/23 GLUCOSE, BLOOD (POC) Result Value Ref Range Glucose, Point of Care 133 (A) 74 - 99 mg/dL SURGICAL PATHOLOGY Result Value Ref Range Case Report Surgical Pathology Report Case: [id number] Authorizing Provider: Ana Villalpando MD Collected: 05/29/2023 10:30 AM Ordering Location: [facility] Received: 05/29/2023 11:19 AM Pathologist: Gracie Obregon MD Specimen: RECTAL POLYP FINAL DIAGNOSIS A. Rectum, polyp, polypectomy: -Fragments of tubular adenoma. Gross Description A. RECTAL POLYP Received in formalin are two pieces of garvey, soft tissue aggregating to 0.4 x 0.2 x 0.1 cm. Totally submitted in one cassette. JTS May 29, 2023 3:21 PM Gross examination performed at [place] [id number] Performing Lab Diagnostic interpretation performed at [place] [address] [facility] [address] CLIA# [id number] Machine Silk Screen Printer: Dante Trevino M.D. GLUCOSE, BLOOD (POC) Result Value Ref Range Glucose, Point of Care 130 (A) 74 - 99 mg/dL Assessment / Plan babatunde was seen today for diabetes. Diagnoses and all orders for this visit: Diabetes mellitus type 1, controlled, without complications (HCC) - recent A1C 8.0 - patient usual A1C around 7.0 but recently been drinking more beer and eating poorly while traveling - no neuropathy or kidney disease - patient advised that may benefit from increase in long-acting insulin but he is optimistic of improved diet and exercise - STOP Farxiga due to not recommended for T1DM - insulin lispro (HUMALOG KWIKPEN INSULIN) 100 unit/mL; Inject 20 Units subcutaneously three times a day before meals. - CONSULT TO [facility] ([facility]G ONLY) - FREESTYLE BERTIN 2 SENSOR kit; apply 1 SENSOR to back OF UPPER ARM REMOVE AND REPLACE every 14 days Pure hypercholesterolemia - Elevated LDL on recent lipid panel - patient did not tolerate several statins previously - discussed diet and exercise - defer management to Dr. Banda with pharmacy Hypertension, essential - controlled - taking lisinopril-HCTZ and metoprolol - will monitor, may increase now that stopped Farxiga Discussed the above with the patient using shared decision-making. The patient is in agreement with the diagnostic and treatment plans. Return in about 2 months (around 08/19/2023) for follow up of chronic problem with PCP. Provider: Gracie Zhao MD Date: June 19, 2023 Time: 7:44 PM [facility] NoteHNO ID: [id number] Author: GRACIE ZHAO MD Service: ? Author Type: Resident Type: Progress Notes Filed: 06/21/2023 09:06 Note Text: [facility] 1 [facility]. [facility] / [address] [place] [id number] Visit Date: June 19, 2023 Name: Babatunde Stewart Date of : 1955 MRN/E #: [id number] Chief Complaint: No chief complaint on file. 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 work - diagnosed in 1991 - did not get on insulin until 5 years ago - was previously on metformin for years, diagnosed as type 2 - found antibodies at study at [facility] - A1C 8 on 05/23/23 - has been traveling frequently over last 3 months - on Toujeo units - 50 units / day - on novolog units --> insurance changes to humolog - 60 units / day - needs refill - was seeing Endocrine but switching to us - Happy with us, regimine was initially from endo - too long booking times - does have very fast acting insulin when BS above 200 more or less - average 150-160s - on freestyle bertin 2 wants to see about freestyle bertin 3 - travel work related - should not be on Farxiga, higher rates of DKA - still taking - doing 10k steps and 30 minutes on bike and weights - has made some diet changes - has been drinking beer for football games and now over - will have 2-4 per day Hyperlipidemia - LDL 159 - myalgias with Atorvastatin - has tried 3-4 previously all with myalgias HTN - Home cuff BP measuring low 130s/low 70s - lightheadedness with bending over - issues with pressures w/o HCTZ Payor: YOHANNES / Plan: BLUE CARD PPO OOS / Product Type: PPO / Review of Systems ALLERGIES Allergen Reactions Atorvastatin Myalgia Hay Fever [Seasonal* Itching Losartan Myalgia Metformin Diarrhea Current Outpatient Medications Medication Sig peg 3350-Electrolytes (GOLYTELY) 236-22.74-6.74 -5.86 gram suspension Refer to printed patient instructions that will be mailed to you. ELIQUIS 5 mg tab(s) Take 1 tablet by mouth every 12 (twelve) hours. TOUJEO SOLOSTAR U-300 INSULIN 300 unit/mL (1.5 mL) lisinopril-hydroCHLOROthiazide (ZESTORETIC) 20-12.5 mg per tablet Take 1 tablet by mouth every afternoon. metoprolol tartrate, short acting, (LOPRESSOR) 25 mg tablet Take 1 tablet by mouth every 12 (twelve) hours. DROPLET PEN NEEDLE 31 gauge x 5/16 USE DIRECTED with INSULIN PENS 5 TIMES A DAY insulin lispro (HUMALOG KWIKPEN INSULIN) 100 unit/mL Inject 20 Units subcutaneously three times a day before meals. FREESTYLE BERTIN 2 SENSOR kit apply 1 SENSOR to back OF UPPER ARM REMOVE AND REPLACE every 14 days No current facility-administered medications for this visit. I have confirmed and edited as necessary the chief complaint, medications, past medical, family and social histories. Objective 06/20/23 0904 BP: 118/66 Pulse: 66 Resp: 18 Temp: 36.1 ?C (97 ?F) TempSrc: Temporal SpO2: 96% Weight: 246 lb (111.6 kg) Height: 6' 3 (1.905 m) Body mass index is 30.75 kg/m?. Physical Exam Vitals and nursing note reviewed. Constitutional: Appearance: Normal appearance. HENT: Nose: Nose normal. Eyes: Conjunctiva/sclera: Conjunctivae normal. Cardiovascular: Rate and Rhythm: Normal rate and regular rhythm. Pulses: Normal pulses. Heart sounds: Normal heart sounds. Pulmonary: Effort: Pulmonary effort is normal. Breath sounds: Normal breath sounds. Musculoskeletal: Right lower leg: No edema. Left lower leg: No edema. Skin: General: Skin is warm and dry. Neurological: Mental Status: He is alert. Mental status is at baseline. Psychiatric: Mood and Affect: Mood normal. Behavior: Behavior normal. Results for orders placed or performed during the hospital encounter of 05/29/23 GLUCOSE, BLOOD (POC) Result Value Ref Range Glucose, Point of Care 133 (A) 74 - 99 mg/dL SURGICAL PATHOLOGY Result Value Ref Range Case Report Surgical Pathology Report Case: [id number] Authorizing Provider: Ana Villalpando MD Collected: 05/29/2023 10:30 AM Ordering Location: [facility] Received: 05/29/2023 11:19 AM Pathologist: Gracie Obregon MD Specimen: RECTAL POLYP FINAL DIAGNOSIS A. Rectum, polyp, polypectomy: -Fragments of tubular adenoma. Gross Description A. RECTAL POLYP Received in formalin are two pieces of garvey, soft tissue aggregating to 0.4 x 0.2 x 0.1 cm. Totally submitted in one cassette. J May 29, 2023 3:21 PM Gross examination performed at [facility], [address] [place], [place] [address] [address] Performing Lab Diagnostic interpretation performed at [facility], [address] [facility] [address] [place]# [id number] Machine Silk Screen Printer: Dante Trevino M.D. GLUCOSE, BLOOD (POC) Result Value Ref Range Gluco (more content not included)...[facility]02-01-2024 Miscellaneous Notes* Telephone Encounter - Sarah Bnenett - 06/15/2023 2:31 PM EST Placed Genetics consult Your form has been successfully submitted and your request is being processed. Confirmation number: [id number] documented in this encounterGenesis Hospital01-31-2024 NoteHNO ID: [id number] Author: YARITZA ROBLES PA-C Service: ? Author Type: Physician Fishing Game Warden Type: Progress Notes Filed: 06/14/2023 09:09 Note Text: GASTROENTEROLOGY PROGRESS NOTE VIRTUAL FOLLOW UP I have communicated my name and active licensure. The patient's identity and physical location were verified at the time of this visit. Either the patient or their legal access services representative has been informed of the risks and benefits of -- and alternatives to -- treatment through a remote evaluation and consents to proceed with the evaluation remotely. This is a virtual visit using [email or web address] Video Visit. It required patient-provider interaction for the medical decision making as documented below. HPI: I saw Babatunde Stewart today for a follow up on recent colonoscopy. Patient tolerated it well. PAST MEDICAL HISTORY Diagnosis Date A-fib (HCC) HTN (hypertension) Sleep apnea Type 1 diabetes mellitus (HCC) PAST SURGICAL HISTORY Procedure Laterality Date ANKLE SURGERY HX Right PT ED HEART AND VASCULAR REMV CATARACT EXTRACAP,INSERT LENS WRIST SURGERY HX Social History Tobacco Use Smoking status: Former Packs/day: 1.00 Years: 15.00 Additional pack years: 0.00 Total pack years: 15.00 Types: Cigarettes Smokeless tobacco: Never Tobacco comments: Quit 27 years ago Vaping Use Vaping Use: Never used Substance Use Topics Alcohol use: Yes Alcohol/week: 28.0 standard drinks of alcohol Types: 28 Cans of beer per week Drug use: Never No family history on file. Current Outpatient Medications Medication Sig peg 3350-Electrolytes (GOLYTELY) 236-22.74-6.74 -5.86 gram suspension Refer to printed patient instructions that will be mailed to you. ELIQUIS 5 mg tab(s) Take 1 tablet by mouth every 12 (twelve) hours. FARXIGA 10 mg tablet Take 10 mg by mouth every morning. FREESTYLE BERTIN 2 SENSOR kit apply 1 SENSOR to back OF UPPER ARM REMOVE AND REPLACE every 14 days NOVOLOG FLEXPEN U-100 INSULIN 100 unit/mL (3 mL) TOUJEO SOLOSTAR U-300 INSULIN 300 unit/mL (1.5 mL) lisinopril-hydroCHLOROthiazide (ZESTORETIC) 20-12.5 mg per tablet Take 1 tablet by mouth every afternoon. metoprolol tartrate, short acting, (LOPRESSOR) 25 mg tablet Take 1 tablet by mouth every 12 (twelve) hours. DROPLET PEN NEEDLE 31 gauge x 5/16 USE DIRECTED with INSULIN PENS 5 TIMES A DAY No current facility-administered medications for this visit. ALLERGIES Allergen Reactions Atorvastatin Myalgia Hay Fever [Seasonal* Itching PHYSICAL EXAMINATION: No physical exam was performed due to this visit being performed virtually to decrease exposure to Covid 19. Patient was awake, alert, oriented, was able to speak clearly and answer questions. Patient did not seem to be in any distress. LABS: Hemoglobin (g/dL) Date Value 05/23/2023 16.3 Hematocrit (%) Date Value 05/23/2023 48.4 WBC (k/uL) Date Value 05/23/2023 6.11 Lab Results Component Value Date TBILI 0.5 05/23/2023 CREAT 0.84 05/23/2023 ALB 4.2 05/23/2023 ALKPHOS 68 05/23/2023 AST 31 05/23/2023 ALT 35 05/23/2023 TPROT 6.7 05/23/2023 Colonoscopy 05-29-23 Impression: - Non-bleeding internal hemorrhoids. - One 2 to 3 mm polyp in the rectum, removed with a cold biopsy forceps. Resected and retrieved. Recommendation: - Repeat colonoscopy in 5 years for surveillance. - Return to primary care physician PRN. - Continue present medications. - Resume previous diet. FINAL DIAGNOSIS A. Rectum, polyp, polypectomy: -Fragments of tubular adenoma. Plan ASSESSMENT AND PLAN: Impression: This is a 67 year old male who presents via [facility] for follow up on recent colonoscopy. The patient was found to have 1 tubular adenoma which was removed. The patient is going to need another colonoscopy in 5 years. The patient agrees with this plan. The patient states that his sister recently was diagnosed with Smith syndrome and he would like to have testing as well. I will send him a exoro system message regarding next steps. The patient agrees with this plan and will follow-up as needed at this time. ASSESSMENT/PLAN: 1. Tubular adenoma of colon - ICD9: 211.3, ICD10: D12.6 Yaritza Robles PA-C I spent a total of 10 minutes on the date of the service which included preparing to see the patient, completing clinical documentation, counseling and educating the patient/family/caregiver, and communicating results to the patient/family/caregiver. This note was partially generated using [employer] voice recognition system, and there may be some incorrect words, spellings, and punctuation that were not noted in checking the note before saving.[facility]09-25-2023 History of Present illness Narrative* Yaritza Robles PA-C - 02/06/2023 8:50 AM EDT GASTROENTEROLOGY NEW PATIENT VIRTUAL VISIT Patient consented to this visit being virtual and understands there are limitations inherent in this type of visit. I have communicated my name and active licensure. The patient's identity and physical location wereverified at the time of this visit. Either the patient or their legal access services representative has been informed of the risks and benefits of -- and alternatives to -- treatment through a remote evaluation andconsents to proceed with the evaluation remotely. This is a virtual visit using exoro system Zoom Video Visit. It required patient- provider interaction for the medical decision making as documented below. CC: Screening colonoscopy HPI: Babatunde Stewart is a 67 year old male who presents for consult for a colonoscopy. The patient states he had a colonoscopy 5 years ago. The patient states hs sister had colon cancer and that is why he started early. The patient states 1st colonoscopy at 39 he had a few polyps. The patient states the next2-3 were normal without polyps. The patient states he is not currently having any GI concerns. The patient states he does have an internal hemorrhoid that was not causing any issues but has started to with eating nuts. The patient states that he gets bleeding and discomfort when he eats nuts. He has not tried any OTC treatments. The patient states the blood is usually bright red. NSAID use: none. Unexplained weight loss: none. Take Blood thinners: Eliquis- has been taking it for 6 months. The patient had a cardiac ablation for a fib. Bowel Habits: having 1-2 daily. Regular. Formed stools. Admits to blood with eating nuts. This increased since being put on eliquis. Fam Hx: Colon cancer - positive. Sister. Colonoscopy: 5 years ago. Normal. EGD: never. Current Outpatient Medications Medication Sig ELIQUIS 5 mg tab(s) Take 1 tablet by mouth every 12 (twelve) hours. FARXIGA 10 mg tablet Take 10 mg by mouth every morning. FREESTYLE BERTIN 2 SENSOR kit apply 1 SENSOR to back OF UPPER ARM REMOVE AND REPLACE every 14 days NOVOLOG FLEXPEN U-100 INSULIN 100 unit/mL (3 mL) TOUJEO SOLOSTAR U-300 INSULIN 300 unit/mL (1.5 mL) lisinopril-hydroCHLOROthiazide (ZESTORETIC) 20-12.5 mg per tablet Take 1 tablet by mouth every afternoon. metoprolol tartrate, short acting, (LOPRESSOR) 25 mg tablet Take 1 tablet by mouth every 12 (twelve) hours. DROPLET PEN NEEDLE 31 gauge x 5/16 USE DIRECTED with INSULIN PENS 5 TIMES A DAY No current facility-administered medications for this visit. PAST MEDICAL HISTORY Diagnosis Date A-fib (HCC) HTN (hypertension) Sleep apnea Type 1 diabetes mellitus (HCC) PAST SURGICAL HISTORY Procedure Laterality Date ANKLE SURGERY HX Right PT ED HEART AND VASCULAR REMV CATARACT EXTRACAP,INSERT LENS WRIST SURGERY HX No family history on file. Social History Tobacco Use Smoking status: Former Packs/day: 1.00 Years: 15.00 Additional pack years: 0.00 Total pack years: 15.00 Types: Cigarettes Smokeless tobacco: Never Tobacco comments: Quit 27 years ago Vaping Use Vaping Use: Never used Substance Use Topics Alcohol use: Yes Alcohol/week: 28.0 standard drinks of alcohol Types: 28 Cans of beer per week Drug use: Never ALLERGIES Allergen Reactions Atorvastatin Myalgia Hay Fever [Seasonal* Itching GI SPECIFIC ROS: Difficulty swallowing / foods sticking in throat: No Heartburn: No Hoarseness: No Chronic cough: No Regurgitation: No Chest pain: No Filling up quickly at meals: No Loss of appetite: No Nausea: No Vomiting: No Abdominal pain: No Recent change in bowel movements: No Bloody or black, bowel movements: Yes- hemorrhoids. Constipation: No Diarrhea: No Loss of control of bowel movements: No PHYSICAL EXAMINATION: No physical exam was performed due to this visit being performed virtually to decrease exposure to Covid 19. Patient was awake, alert, oriented, was able to speak clearly and answer questions. Patient did not seem to be in any distress. Patient appeared comfortable and was sitting and moving aroundcomfortably. ASSESSMENT AND PLAN: This is a 67 year old male who [facility] for [facility]. The patient has had a colonoscopy before as his sister had been diagnosed with colon cancer. Patient has had polyps inthe past. They were benign. The patient is currently taking Eliquis. He did have an ablation completed due to having A- fib. The patient is not currently having any GI concerns. The patient does have a hemorrhoid that has been bothering him. Today I recommended using OTC treatments. He may ultimately need to have a procedure to remove the hemorrhoid as it sometimes causes discomfort. We discussed the procedure, instructions, and patient agrees to proceed. The patient verbalized understanding andagreed with the plan. They stated that they had no further questions. ASSESSMENT/PLAN: 1. Encounter for screening colonoscopy - ICD9: V76.51, ICD10: Z12.11 (primary diagnosis) - COLONOSCOPY SCREENING 2. Family hx of colon cancer - ICD9: V16.0, ICD10: Z80.0 - COLONOSCOPY SCREENING 3. Hemorrhoids, unspecified hemorrhoid type - ICD9: 455.6, ICD10: K64.9 - COLONOSCOPY SCREENING Yaritza Robles PA-C I spent a total of 35 minutes on the date of the service which included preparing to see the patient, completing clinical documentation, counseling and educating the patient/family/caregiver, and ordering medications, tests, or procedures. documented in this encounterGenesis [facility] Miscellaneous Notes* Telephone Encounter - Ana Covarrubias - 01/31/2023 10:01 AM EDT Pt.update 9.19.23- gastro call left message Note: Z12.11 screening for colon cancer [facility]Gen[facility] Instructions* Patient Instructions* Angel Burnette DO - 01/26/2023 11:14 AM EDT Thank you for letting me take care of you today! Patient Instructions: -Get labs done when able -set up appointment to establish with cardiology -follow up in 3 months documented in [facility]Gen[facility] History of Present illness Narrative* Angel Burnette DO - 01/26/2023 10:14 AM EDT Images from the original note were not included. [facility] [address] [facility] / [address] [place], [place] [address] Visit Date: January 26, 2023 Name: Babatunde Stewart Date of : 1955 MRN/E #: [id number] Chief Complaint: No chief complaint on file. Subjective Babatunde Stewart is a 67 year old male here with the following complaint(s): Skin Tag -in arm pit -very painful and sensitive sensitive -first noticed it a couple a days, woke up and was bleeding due to skin tag irritation and being onEliquis -stopped bleeding that same day -no discoloration noticed Type 1 DM -patient states that the he just saw his PCP about 1-2 months ago -has been controlled with current insulin regimen -uses Bertin 2 CGM History of Afib s/p ablation last year -has not had any symptoms since the ablation -on Eliquis longterm -used to follow up with cardiology in [place] before moving here last month and needs to establishwith a new applied mathematician SKIN TAG PROCEDURE NOTE Date: January 26, 2023 Time: 11:25 AM HPI/Symptoms: Skin tag located on the right axilla. Has been very painful and sensitive. A few daysago it became so irritated that it cause bleeding. No hyperpigmentation noted. The procedure was discussed with the patient, including the risks, and all questions were answered.After obtaining informed consent, and the patient placed in a comfortable position the following site was identified:right axilla. This site was cleansed with alcohol and injected with 1 cc of 1% lidocaine with epinephrine. Using forcepts and scissors, the skin tag was removed. Bleeding was minimum and hemostasis was obtained by pressure. Sterile dressing was applied to the site. Complications of this procedure were none. Aftercare was explained. This procedure was performed under Dr. Sean Jeong's supervision. Review of Systems Respiratory: Negative for cough and shortness of breath. Cardiovascular: Negative for chest pain. Gastrointestinal: Negative for constipation and diarrhea. Genitourinary: Negative for difficulty urinating. Neurological: Negative for dizziness and headaches. ALLERGIES Allergen Reactions Atorvastatin Myalgia Hay Fever [Seasonal* Itching Current Outpatient Medications Medication Sig ELIQUIS 5 mg tab(s) Take 1 tablet by mouth every 12 (twelve) hours. FARXIGA 10 mg tablet Take 10 mg by mouth every morning. FREESTYLE BERTIN 2 SENSOR kit apply 1 SENSOR to back OF UPPER ARM REMOVE AND REPLACE every 14 days NOVOLOG FLEXPEN U-100 INSULIN 100 unit/mL (3 mL) TOUJEO SOLOSTAR U-300 INSULIN 300 unit/mL (1.5 mL) lisinopril-hydroCHLOROthiazide (ZESTORETIC) 20-12.5 mg per tablet Take 1 tablet by mouth every afternoon. metoprolol tartrate, short acting, (LOPRESSOR) 25 mg tablet Take 1 tablet by mouth every 12 (twelve) hours. DROPLET PEN NEEDLE 31 gauge x 5/16 USE DIRECTED with INSULIN PENS 5 TIMES A DAY No current facility-administered medications for this visit. I have confirmed and edited as necessary the chief complaint, medications, past medical, family andsocial histories. Objective 01/26/23 1024 BP: 133/68 BP Site: Left Arm BP Position: Sitting BP Cuff Size: Large Adult Pulse: 84 Resp: 12 Temp: (!) 35.6 C (96 F) TempSrc: Temporal SpO2: 96% Weight: 249 lb (112.9 kg) Height: 6' 3 (1.905 m) Body mass index is 31.12 kg/m . Physical Exam Constitutional: General: He is not in acute distress. Appearance: Normal appearance. He is not ill-appearing, toxic-appearing or diaphoretic. HENT: Nose: Nose normal. No congestion or rhinorrhea. Mouth/Throat: Pharynx: Oropharynx is clear. No oropharyngeal exudate or posterior oropharyngeal erythema. Eyes: General: No scleral icterus. Right eye: No discharge. Left eye: No discharge. Conjunctiva/sclera: Conjunctivae normal. Cardiovascular: Rate and Rhythm: Normal rate and regular rhythm. Heart sounds: Normal heart sounds. No murmur heard. No friction rub. No gallop. Pulmonary: Effort: Pulmonary effort is normal. No respiratory distress. Breath sounds: Normal breath sounds. No stridor. No wheezing, rhonchi or rales. Musculoskeletal: Right lower leg: No edema. Left lower leg: No edema. Skin: General: Skin is warm and dry. Coloration: Skin is not jaundiced or pale. Findings: No bruising, erythema or rash. Comments: 1 mm skin tag located in the right axilla Neurological: Mental Status: He is alert and oriented to person, place, and time. No results found for this or any previous visit. The ASCVD Risk score (Fulda DK, et al., 2019) failed to calculate for the following reasons: Cannot find a previous HDL lab Cannot find a previous total cholesterol lab Unable to determine if patient is Non- PHQ-9 PHQ-9 Scores 01/26/2023 PHQ-9 Score 0 Assessment / Plan 1. Skin tag - ICD9: 701.9, ICD10: L91.8 (primary diagnosis) - Skin tag on right axilla is very painful and sensitive - Skin tag became so irritated that it made the patient bleed for several minutes (patient also on Eliquis) - Skin tag removal procedure was preformed during this visit (please see HPI for detailed procedurenote) 2. Diabetes mellitus type 1, controlled, without complications (HCC) - ICD9: 250.01, ICD10: E10.9 - According to patient, controlled with current insulin and Toujeo regimen - Patient to sign a medical record release form before leaving today so that his last PCP records can be obtained - Continue current medication regimen - A1C before next appointment 3. Chronic atrial fibrillation (HCC) - ICD9: 427.31, ICD10: I48.20 - s/p ablation last year, on manager terminal Eliquis - asymptomatic at this time - used to follow up with a Gas Fitter in [place] before moving here and needs to establish with a new applied mathematician - CONSULT TO CARDIOLOGY 4. Screening for colon cancer - ICD9: V76.51, ICD10: Z12.11 - COLONOSCOPY SCREENING Discussed the above with the patient using shared decision-making. The patient is in agreement with the diagnostic and treatment plans. Return in about 3 months (around 04/27/2023) for follow-up of chronic problems w/PCP. Provider: Angel Burnette DO Date: January 26, 2023 Time: 10:15 AM [facility]* Diagnosis Skin tag- Primary Unspecified hypertrophic and atrophic condition of skin Diabetes mellitus type 1, controlled, without complications (HCC) Type I (juvenile type) diabetes mellitus without mention of complication, not stated as uncontrolled Chronic atrial fibrillation (HCC) Atrial fibrillation Screening for colon cancer Special screening for malignant neoplasms, colon [facility]* Diagnosis Encounter for screening colonoscopy- Primary Special screening for malignant neoplasms, colon Family hx of colon cancer Family history of malignant neoplasm of gastrointestinal tract Hemorrhoids, unspecified hemorrhoid type [facility] encounter [facility]* Diagnosis Diabetes mellitus type 1, controlled, without complications (HCC)- Primary Type I (juvenile type) diabetes mellitus without mention of complication, not stated as uncontrolled Pure hypercholesterolemia Hypertension, essential Unspecified essential hypertension [facility] encounter [facility]* Diagnosis Diabetes mellitus type 1, controlled, without complications (HCC)- Primary Type I (juvenile type) diabetes mellitus without mention of complication, not stated as uncontrolled Hypertension, essential Unspecified essential hypertension [facility]* Diagnosis Diabetes mellitus type 1, controlled, without complications (HCC)- Primary Type I (juvenile type) diabetes mellitus without mention of complication, not stated as uncontrolled Hypertension, essential Unspecified essential hypertension Encounter for medication counseling Other specified counseling Preventative health care Routine general medical examination at a health care facility Statin intolerance Other drug allergy Atrial fibrillation, unspecified type (HCC) Pure hypercholesterolemia documented in this encounter [facility] note* Diagnosis Family history of Smith syndrome- Primary Family history of malignant neoplasm of gastrointestinal tract Family history of colon cancer Family history of malignant neoplasm of gastrointestinal tract documented in this encounter [facility] note* Diagnosis Diabetes mellitus type 1, controlled, without complications (HCC) Type I (juvenile type) diabetes mellitus without mention of complication, not stated as uncontrolled Hypertension, essential Unspecified essential hypertension documented in this encounter [facility] note* Diagnosis Diabetes mellitus type 1, controlled, without complications (HCC) Type I (juvenile type) diabetes mellitus without mention of complication, not stated as uncontrolled documented in this encounter [facility] note* Diagnosis Diabetic retinopathy associated with type 1 diabetes mellitus, macular edema presence unspecified, unspecified laterality, unspecified retinopathy severity (HCC)- Primary Benign hypertension Essential hypertension, benign Stage 2 chronic kidney disease Chronic atrial fibrillation (HCC) Atrial fibrillation documented in this encounter [facility] note* Diagnosis Atrial fibrillation, unspecified type (HCC) documented in this encounter [facility] note* Diagnosis Diabetes mellitus type 1, controlled, without complications (HCC)- Primary Type I (juvenile type) diabetes mellitus without mention of complication, not stated as uncontrolled Need for influenza vaccination Need for prophylactic vaccination and inoculation against influenza Screening for abdominal aortic aneurysm Screening for other and unspecified cardiovascular conditions documented in this encounter [facility] note* Diagnosis Diabetes mellitus type 1, controlled, without complications (HCC) Type I (juvenile type) diabetes mellitus without mention of complication, not stated as uncontrolled documented in this encounter [facility] note* Diagnosis Hypertension, essential Unspecified essential hypertension [facility]* Diagnosis Flank pain- Primary Abdominal pain, unspecified site documented in this encounter [facility] note* Diagnosis Acute midline low back pain without sciatica- Primary Diabetes mellitus type 1, controlled, without complications (HCC) Type I (juvenile type) diabetes mellitus without mention of complication, not stated as uncontrolled documented in this encounter [facility] note* Diagnosis Diabetes mellitus type 1, controlled, without complications (HCC) Type I (juvenile type) diabetes mellitus without mention of complication, not stated as uncontrolled documented in this encounter [facility] note* Diagnosis Diabetes mellitus type 1, controlled, without complications (HCC) Type I (juvenile type) diabetes mellitus without mention of complication, not stated as uncontrolled [facility] encounter [facility]* Diagnosis Atrial fibrillation, unspecified type (HCC) documented in this encounter [facility] for referral (narrative)* Outpatient Procedure (Routine) - Pending Review Specialty Diagnoses / Procedures Referred By Contkaylene t Referred To Contact [facility] Diagnoses Screening for colon cancer Procedures COLONOSCOPY SCREENING COLONOSCOPY FLX DX W/COLLJ SPEC WHEN Sean Peterson MD [address] [place] [address] [facility] [place] [address] [place] [address] Referral ID Status Reason Start Date Expiration Date Visits Requested Visits Authorized [id number] Pending Review Auto-Generat ed Referral 01/26/2023 01/27/2024 1 1 * Consult, Test, Treat (Routine) - Authorized Specialty Diagnoses / Procedures [facility]erred To Contact Cardiology Diagnoses Chronic atrial fibrillation (HCC) Procedures CONSULT TO CARDIOLOGY OFFICE/OUTPATIENT [facility] MDM 60-74 MINUTES Sean Jeong MD [address] [place] [address] Referral ID Status Reason Start Date Expiration Date Visits Requested Visits Authorized [id number] Authorized PCP Requested Referral 01/26/2023 01/26/2024 1 1 [facility] for referral (narrative)* Outpatient Procedure (Routine) - Pending Review Specialty Diagnoses / Procedures Referred By Contac t Referred To Contact [facility] Diagnoses Encounter for screening colonoscopy Family hx of colon cancer Hemorrhoids, unspecified hemorrhoid type Procedures COLONOSCOPY SCREENING COLONOSCOPY FLX DX W/COLLJ SPEC WHEN Yaritza Colindres PA-C [address] [facility] [address] [place] [address] [facility] Disease [address] [address] Referral ID Status Reason Start Date Expiration Date Visits Requested Visits Authorized [id number] Pending Review Auto-Generat ed Referral 02/06/2023 02/07/2024 1 1 [facility] for referral (narrative)* Diagnostic Procedure Only (Routine) - New Request Specialty Diagnoses / Procedures Referred By Contac t Referred To Contact [facility] Diagnoses Screening for abdominal aortic aneurysm Procedures US SCREENING FOR AAA US ABDOMINAL AORTA REAL TIME SCREEN STUDY AAA Jean Paul Evans MD [address] [facility] [address] [place] [address] [facility] [place] [address] Referral ID Status Reason Start Date Expiration Date Visits Requested Visits Authorized [id number] New Request Auto-Generat ed Referral 02/15/2024 03/16/2025 1 1 [facility] for referral (narrative)No reason for referral information availablePateros Public Solution Work Phone: Summary Purpose Family History No Family History Records Found Relationship Condition Age at Onset Recorded Date/T holly mother Arthritis Unknown Malignant neoplasm of breast Unknown Diabetes mellitus Unknown Hypertension Unknown Hyperlipidemia Unknown Osteoporosis Unknown grandmother Arthritis Unknown sister Malignant neoplasm of colon 49 father Diabetes mellitus Unknown Myocardial infarction Unknown Cardiac disease Unknown grandfather Diabetes mellitus Unknown grandfather Myocardial infarction Unknown Cerebrovascular accident (CVA) Unknown Advance Directives No Advanced Directives Records FoundNo Advanced Directives Records FoundNo Advanced Directives Records FoundNo Advanced Directives Records Found Reason for Referral Specialty Diagnoses / Procedures Referred By [place] t Referred To Contact Diagnoses Acute midline low back pain without sciatica Famp Ag Acc Cfm [address] [place] [id number] Referral ID Status Reason Start Date Expiration Date V isits Requested Visits Authorized [id number] Pending Review 1 1 Chief Complaint and Reason for Visit Chief Complaint Admit Date EST CARE PPW SENT July 10, 2024 10:33am Reason for Visit Admit Date Diabetes mellitus July 10, 2024 10:33am Establishing care with new doctor, warren ho for July 10, 2024 10:33am ALLI (obstructive sleep apnea) June 162024 10:33am Immunization due July 10, 2024 10:33am Mixed hyperlipidemia July 10, 2024 10:33am Essential hypertension July 10 10:33am Foot pain, right July 10, 2024 10:33am History of atrial fibrillation July 10, 2024 10:33am Chief Complaint Admit Date EST CARE ([place]) August 28, 2024 10: 16am ATRIAL FIB FLUTTER September 27, 2024 8:18a m Amb Documentation September 27, 2024 2:52p m HYPERLIPIDEMIA October 04, 2024 2:30p m CALCIUM SCORING October 04, 2024 2:31p m H&P PER [facility] NOTE(SD) November 20, 2024 8:25a m Reason for Visit Admit Date A-fib August 28, 2024 10: 16am Hyperlipidemia August 28, 2024 10: 16am Hypertension August 28, 2024 10: 16am Additional Source Comments Source Comments (unrecognize d section and content) In the event this informatio n is protected by the Federal Confidentiality of Alcohol and Drug Abuse Patient Records regulations: The Federal rules restrict any use of the information to criminally investigate or prosecute any alcohol or drug abuse patient.[facility] HospitalIn the event this information is protected by the Federal Confidentiality of Alcohol and Drug Abuse Patient Records regulations: The Federal rules restrict any use of the information to criminally investigate or prosecute any alcohol or drug abuse patient.[facility] HospitalIn the event this information is protected by the Federal Confidentiality of Alcohol and Drug Abuse Patient Records regulations: The Federal rules restrict any use of the information to criminally investigate or prosecute any alcohol or drug abuse patient.[facility] HospitalIn the event this information is protected by the Federal Confidentiality of Alcohol and Drug Abuse Patient Records regulations: The Federal rules restrict any use of the information to criminally investigate or prosecute any alcohol or drug abuse patient.[facility] HospitalIn the event this information is protected by the Federal Confidentiality of Alcohol and Drug Abuse Patient Records regulations: The Federal rules restrict any use of the information to criminally investigate or prosecute any alcohol or drug abuse patient.[facility] HospitalIn the event this information is protected by the Federal Confidentiality of Alcohol and Drug Abuse Patient Records regulations: The Federal rules restrict any use of the information to criminally investigate or prosecute any alcohol or drug abuse patient.[facility] HospitalIn the event this information is protected by the Federal Confidentiality of Alcohol and Drug Abuse Patient Records regulations: The Federal rules restrict any use of the information to criminally investigate or prosecute any alcohol or drug abuse patient.[facility] the event this information is protected by the Federal Confidentiality of Alcohol and Drug Abuse Patient Records regulations: The Federal rules restrict any use of the information to criminally investigate or prosecute any alcohol or drug abuse patient.[facility] HospitalIn the event this information is protected by the Federal Confidentiality of Alcohol and Drug Abuse Patient Records regulations: The Federal rules restrict any use of the information to criminally investigate or prosecute any alcohol or drug abuse patient.[facility] HospitalIn the event this information is protected by the Federal Confidentiality of Alcohol and Drug Abuse Patient Records regulations: The Federal rules restrict any use of the information to criminally investigate or prosecute any alcohol or drug abuse patient.[facility]In the event this information is protected by the Federal Confidentiality of Alcohol and Drug Abuse Patient Records regulations: The Federal rules restrict any use of the information to criminally investigate or prosecute any alcohol or drug abuse patient.[facility] HospitalIn the event this information is protected by the Federal Confidentiality of Alcohol and Drug Abuse Patient Records regulations: The Federal rules restrict any use of the information to criminally investigate or prosecute any alcohol or drug abuse patient.[facility] HospitalIn the event this information is protected by the Federal Confidentiality of Alcohol and Drug Abuse Patient Records regulations: The Federal rules restrict any use of the information to criminally investigate or prosecute any alcohol or drug abuse patient.[facility] HospitalIn the event this information is protected by the Federal Confidentiality of Alcohol and Drug Abuse Patient Records regulations: The Federal rules restrict any use of the information to criminally investigate or prosecute any alcohol or drug abuse patient.[facility] HospitalIn the event this information is protected by the Federal Confidentiality of Alcohol and Drug Abuse Patient Records regulations: The Federal rules restrict any use of the information to criminally investigate or prosecute any alcohol or drug abuse patient.[facility] HospitalIn the event this information is protected by the Federal Confidentiality of Alcohol and Drug Abuse Patient Records regulations: The Federal rules restrict any use of the information to criminally investigate or prosecute any alcohol or drug abuse patient.[facility] HospitalIn the event this information is protected by the Federal Confidentiality of Alcohol and Drug Abuse Patient Records regulations: The Federal rules restrict any use of the information to criminally investigate or prosecute any alcohol or drug abuse patient.[facility] HospitalIn the event this information is protected by the Federal Confidentiality of Alcohol and Drug Abuse Patient Records regulations: The Federal rules restrict any use of the information to criminally investigate or prosecute any alcohol or drug abuse patient.[facility] HospitalIn the event this information is protected by the Federal Confidentiality of Alcohol and Drug Abuse Patient Records regulations: The Federal rules restrict any use of the information to criminally investigate or prosecute any alcohol or drug abuse patient.[facility] HospitalIn the event this information is protected by the Federal Confidentiality of Alcohol and Drug Abuse Patient Records regulations: The Federal rules restrict any use of the information to criminally investigate or prosecute any alcohol or drug abuse patient.[facility] HospitalIn the event this information is protected by the Federal Confidentiality of Alcohol and Drug Abuse Patient Records regulations: The Federal rules restrict any use of the information to criminally investigate or prosecute any alcohol or drug abuse patient.[facility] HospitalIn the event this information is protected by the Federal Confidentiality of Alcohol and Drug Abuse Patient Records regulations: The Federal rules restrict any use of the information to criminally investigate or prosecute any alcohol or drug abuse patient.[facility] HospitalIn the event this information is protected by the Federal Confidentiality of Alcohol and Drug Abuse Patient Records regulations: The Federal rules restrict any use of the information to criminally investigate or prosecute any alcohol or drug abuse patient.[facility] HospitalIn the event this information is protected by the Federal Confidentiality of Alcohol and Drug Abuse Patient Records regulations: The Federal rules restrict any use of the information to criminally investigate or prosecute any alcohol or drug abuse patient.[facility] HospitalIn the event this information is protected by the Federal Confidentiality of Alcohol and Drug Abuse Patient Records regulations: The Federal rules restrict any use of the information to criminally investigate or prosecute any alcohol or drug abuse patient.[facility] HospitalIn the event this information is protected by the Federal Confidentiality of Alcohol and Drug Abuse Patient Records regulations: The Federal rules restrict any use of the information to criminally investigate or prosecute any alcohol or drug abuse patient.[facility] HospitalIn the event this information is protected by the Federal Confidentiality of Alcohol and Drug Abuse Patient Records regulations: The Federal rules restrict any use of the information to criminally investigate or prosecute any alcohol or drug abuse patient.[facility] HospitalIn the event this information is protected by the Federal Confidentiality of Alcohol and Drug Abuse Patient Records regulations: The Federal rules restrict any use of the information to criminally investigate or prosecute any alcohol or drug abuse patient.[facility] Hospital[facility] the event this information is protected by the Federal Confidentiality of Alcohol and Drug Abuse Patient Records regulations: The Federal rules restrict any use of the information to criminally investigate or prosecute any alcohol or drug abuse patient.[facility] HospitalIn the event this information is protected by the Federal Confidentiality of Alcohol and Drug Abuse Patient Records regulations: The Federal rules restrict any use of the information to criminally investigate or prosecute any alcohol or drug abuse patient.[facility] HospitalIn the event this information is protected by the Federal Confidentiality of Alcohol and Drug Abuse Patient Records regulations: The Federal rules restrict any use of the information to criminally investigate or prosecute any alcohol or drug abuse patient.[facility] HospitalIn the event this information is protected by the Federal Confidentiality of Alcohol and Drug Abuse Patient Records regulations: The Federal rules restrict any use of the information to criminally investigate or prosecute any alcohol or drug abuse patient.[facility] HospitalIn the event this information is protected by the Federal Confidentiality of Alcohol and Drug Abuse Patient Records regulations: The Federal rules restrict any use of the information to criminally investigate or prosecute any alcohol or drug abuse patient.[facility] Reason for Visit (unrecogniz ed section and content) Reason Comments Establish Care Pt is a diabetic Reason Comments Patient Update Reason Comments Consult Reason Comments Appointment Reason Comments Diabetes Reason Comments Family History Of Cancer Specialty Diagnoses / Procedures Referred By Arleen fontana Referred To Contact Diagnoses Family history of Smith syndrome Procedures CONSULT TO MEDICAL GENETICS - GENERAL OFFICE/OUTPATIENT [facility] 60 MINUTES MEDICAL GENETICS COUNSELING EACH 30 MINUTES Yaritza Robles PA-C 1 [facility] [address] [place] [address] [facility] [address] [place] [address] Referral ID Status Reason Start Date Expiration Date Visits Requested Visits Authorized [id number] Pending Review PCP Requested Referral Auto-Generate d Referral 06/14/2023 06/13/2024 1 1 Reason Comments Medication Problem Reason Comments Results Genetic testing nega tive Reason Comments Refill Request Reason Comments Refill Request Farxiga Reason Comments Orders Reason Onset Date Comments Diabetes Immunizations 02/15/2024 Flu vaccination Reason Comments Pain R side flank pain so me hip discomfort x 2 weeks Reason Comments Diabetes Right Flank Pain [facility] (unrecognized sect ion and content) No Status Records FoundNo Status Records FoundNo Status Records FoundNo Status Records Found INFORMATION SOURCE (unrecogn ized section and content) DATE CREATED AUTHOR 05/31/2023 [facility] DATE CREATED AUTHOR AUTHOR'S ORGANIZ ATION 04/28/2024 [facility] DATE CREATED AUTHOR AUTHOR'S ORGANIZ ATION 05/06/2024 [facility] DATE CREATED AUTHOR AUTHOR'S ORGANIZ ATION 11/23/2024 [facility] Care Teams (unrecognized sec tion and content) 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 Relationship Specialty Start Date End Date Tennille Thakur MD [address] [place], [place] [id number] PCP - General Family Medicine 06/01/23 Gracie Zhao MD 1 [facility] [address] [place] [address] PCP Resident 05/15/23 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 Relationship Specialty Start Date End Date Tennille Thakur MD [address] [place], [place] [id number] PCP - General Family Medicine 06/01/23 Gracie Zhao MD [address] [place] [address] PCP Resident 05/15/23 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 Relationship 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 Start Date End Date Tennille Thakur MD [address] [place], [place] [id number] PCP - General Family Medicine 06/01/23 Gracie Zhao MD [address] [place], [place] [id number] PCP Resident 05/15/23 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 Relationship Specialty Start Date End Date Tennille Thakur MD [address] [place], [place] [id number] PCP - General Family Medicine 06/01/23 Gracie Zhao MD [address] [place] [address] PCP Resident 05/15/23 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 Relationship 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 Start Date End Date Tennille Thakur MD [address] [place], [place] [id number] PCP - General Family Medicine 06/01/23 Gracie Zhao MD [address] [place] [address] PCP Resident 05/15/23 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 Relationship Specialty Start Date End Date Tennille Thakur MD [address] [place] [address] PCP - General Family Medicine 06/01/23 Gracie Zhao MD [address] [place] [address] PCP Resident 05/15/23 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 Relationship 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 Start Date End Date Tennille Thakur MD [address] [address] [place], [place] [phone] PCP - General Family Medicine 06/01/23 Gracie Zhao MD [address] [place], [place] [id number] PCP Resident Family Medicine 05/15/23 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 Relationship Specialty Start Date End Date Tennille Thakur MD [address] [address] [place], [place] [phone] PCP - General Family Medicine 06/01/23 Gracie Zhao MD [address] [place] [address] PCP Resident Family Medicine 05/15/23 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 Relationship Specialty Start Date End Date Tennille Thakur MD [address] [place] [address] PCP - General Family Medicine 06/01/23 Gracie Zhao MD [address] [place] [address] PCP Resident Family Medicine 05/15/23 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 Relationship 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 Start Date End Date Tennille Thakur MD [address] [place] [address] PCP - General Family Medicine 06/01/23 Gracie Zhao MD [address] [place] [address] PCP Resident Family Medicine 05/15/23 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 Relationship 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 Start Date End Date Tennille Thakur MD [address] [place] [address] PCP - General Family Medicine 06/01/23 Gracie Zhao MD [address] [place] [address] PCP Resident Family Medicine 05/15/23 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 Relationship Specialty Start Date End Date Tennille Thakur MD [address] [address] [place], [place] [phone] PCP - General Family Medicine 06/01/23 Gracie Zhao MD [address] [place] [address] PCP Resident Family Medicine 05/15/23 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 Relationship 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 Start Date End Date Tennille Thakur MD [address] [place] [address] PCP - General Family Medicine 06/01/23 Gracie Zhao MD [address] [place] [address] PCP Resident Family Medicine 05/15/23 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 Relationship Specialty Start Date End Date Tennille Thakur MD [address] [address] [place], [place] [phone] PCP - General Family Medicine 06/01/23 Gracie Zhao MD [address] [place], [place] [phone] PCP Resident Family Medicine 05/15/23 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 Amy Sutton MD Primary Care Provider Active Team Status: Inactive Member Role Status Dates Dr. Amy Sutton MD Attending Provider Active Start: July 10, 2024 End: July 10, 2024 Team Status: Inactive Member Role Status Dates Dr. Amy Sutton MD Primary Care Provider Active Start: August 05, 2024 End: August 05, 2024 Dr. Amy Sutton MD Attending Provider Active Start: August 05, 2024 End: August 05, 2024 Dr. Amy Sutton MD Referring Provider Active Start: August 05, 2024 End: August 05, 2024 Team Status: Active Member Role/Relationship Status Dates Dr. Amy Sutton MD Primary Care Provider Active Team Status: Inactive Member Role/Relationship Status Dates Dr. Amy Sutton MD Primary Care Provider Active Start: August 05, 2024 End: August 05, 2024 Dr. Amy Sutton MD Attending Provider Active Start: August 05, 2024 End: August 05, 2024 Dr. Amy Sutton MD Referring Provider Active Start: August 05, 2024 End: August 05, 2024 Team Status: Inactive Member Role/Relationship Status Dates Dr. Barry Cui MD Attending Provider Active S tart: August 28, 2024 End: August 28, 2024 Dr. Amy Sutton MD Primary Care Provider Active Start: August 28, 2024 End: August 28, 2024 Dr. Amy Sutton MD Referring Provider Active Start: August 28, 2024 End: August 28, 2024 Team Status: Inactive Member Role/Relationship Status Dates Dr. Amy Sutton MD Primary Care Provider Active Start: September 27, 2024 End: September 27, 2024 Dr. Barry Cui MD Attending Provider Active S tart: September 27, 2024 End: September 27, 2024 Dr. Barry Cui MD Referring Provider Active S tart: September 27, 2024 End: September 27, 2024 Team Status: Active Member Role/Relationship Status Dates Dr. Amy Sutton MD Primary Care Provider Active Start: September 27, 2024 Dr. Barry Cui MD Attending Provider Active S tart: September 27, 2024 Team Status: Active Member Role/Relationship Status Dates Dr. Amy Sutton MD Primary Care Provider Active Start: September 27, 2024 Suzan Prieto WASHER MACHINE, WASHER MACHINE-C Attending Provider Active Start: September 27, 2024 Team Status: Active Member Role/Relationship Status Dates Dr. Amy Sutton MD Primary Care Provider Active Start: October 04, 2024 Dr. Barry Cui MD Attending Provider Active S tart: October 04, 2024 Dr. Barry Cui MD Referring Provider Active S tart: May 23rd, 2025 Team Status: Active Member Role/Relationship Status Dates Dr. Amy Sutton MD Primary Care Provider Active Start: October 04, 2024 Dr. Barry Cui MD Attending Provider Active S tart: October 04, 2024 Dr. Barry Cui MD Referring Provider Active S tart: October 04, 2024 Team Status: Inactive Member Role/Relationship Status Dates Dr. Amy Sutton MD Primary Care Provider Active Start: November 20, 2024 End: November 20, 2024 Dr. Amy Sutton MD Referring Provider Active Start: November 20, 2024 End: November 20, 2024 ERIC Cramer Attending Provider Active St art: November 20, 2024 End: November 20, 2024 Goals (unrecognized section and content) Goals may be documented in a n alternate sectionGoals may be documented in an alternate section FOR RECORDS PERTAINING TO PATIENTS WHO ARE OR HAVE BEEN ENROLLED IN A CHEMICAL DEPENDENCY/SUBSTANCEABUSE PROGRAM, SOME INFORMATION MAY BE OMITTED. This clinical summary was aggregated from multiple sources. Caution should be exercised in using it in the provision of clinical care. This summary normalizes information from multiple sources, and as a consequence, information in this document may materially change the coding, format and clinical context of patient data. In addition, data may be omitted in some cases. CLINICAL DECISIONS SHOULD BE BASED ON THE PRIMARY CLINICAL RECORDS. [facility] [employer] provides no warranty or guarantee of the accuracy or completeness of information in this document.
--- NOTE | 2024-12-23 09:46 | CL.D_ITS ---
Patient Name: REID NUÑEZ Study Date: 11/25/2024 Performing: Barry Cui MD Ht: 75 inches 190.5 cm : 1955 Wt: 250 lbs 113.4 kg Age: 69 Gender: male BSA: 2.41 PROCEDURE(S) PERFORMED [id number])LHC/COR/LV CLINICAL PROFILE AND INDICATIONS Indications: Suspected CAD Heart Failure: None Stress/Imaging Coronary Calcium Score: Yes Calcium Score: 1000Calcium Score: 1000 CAD Presentations: Stable angina. CONCLUSIONS Significant coronary calcification involving the LAD and circumflex artery with moderately severe disease noted in the proximal to mid LAD and moderate disease noted in the proximal circumflex artery. RECOMMENDATIONS Consider PCI with lithotripsy or rotablation to the LAD and possibly circumflex. DESCRIPTION OF PROCEDURE The patient arrived to the procedure lab. The risks and benefits of the procedure as well as a full description of our services here and current unavailability of surgical backup were fully explained to the patient and/or their significant other prior to the catheterization. The Timeout was completed, verifying the correct patient and procedure. The patient's procedural site was prepped and draped in the usual fashion. Local anesthetic was given subcutaneously to right radial region with Lidocaine 2%. Using a modified Seldinger technique, arterial access was obtained via the right radial artery, a 6Fr sheath was inserted. Left Coronary Artery selective angiography was performed in multiple views using a 5 Fr. 4.0 [place] catheter. Right Coronary Artery selective angiography was then performed in multiple views using a 5 Fr. 4.0 [place] catheter. Left Ventriculography was performed in [place] projection using a 5 Fr. Pigtail catheter. LV to AO pullback pressures were then recorded.The arterial sheath was pulled and a TR Band was applied for hemostasis CORONARY ANGIOGRAPHY DOMINANCE: Right Dominant LEFT HEART ASSESSMENT Left Ventricular Ejection Fraction: by LV Gram 60 % Normal LV wall motion Normal Left Ventricular systolic function LEFT MAIN: Mild calcification, Mild luminal irregularities LEFT ANTERIOR DESCENDING ARTERY: Moderate calcification, Eccentric 70% to 80% long lesion involving the proximal to mid left anterior descending artery. Distal focal 90% stenosis noted CIRCUMFLEX ARTERY: Moderate calcification, Moderate 50 to 70% long lesion noted with the rest of the vessel with mild disease RIGHT CORONARY ARTERY: Dominant vessel with moderate diffuse calcification with moderate diffuse disease with the highest areas of stenosis being approximately 50%. COMPLICATIONS No Complications PROCEDURE MEDICATIONS Fentanyl 50 mcg IV Versed 1 mg IV Versed 1 mg IV Oxygen: 2 L/min via nasal cannula Aspirin (325mg) 1 Tabs PO @ 11/25/2024 07:13:39 Heparin given IA 11/25/2024 07:56:03 Heparin given IA 11/25/2024 07:56:03 Verapamil 2.5mg, Ntg 100mcgs, 3000 units of Heparin given IA 11/25/2024 07:56:03 SUMMARY OF HEMODYNAMIC DATA Time AIR REST ECG 07:14:29 AO 134/55 (88) SA 08:17:32 LV 111/3, 10 08:28:18 LV 109/1, 10 08:28:23 LV 116/2, 11 08:29:08 LVp 113/0, 11 08:29:12 AOp 117/51 (78) 08:29:18 AIR REST 09:23:25 Signed By Barry Cui MD On 11/25/2024 09:23:52 Barry Cui MD
== END 2024-11-25 10:30 | disposition home or self-care (01) ==
PROVIDERS: Student in an Organized Health Care Education/Training Program; PCP Internal Medicine; Referring Provider Internal Medicine Cardiovascular Disease; Visit Provider Internal Medicine Cardiovascular Disease
DX: I25.118 Atherosclerotic heart disease of native coronary artery with other forms of angina pectoris (principal); I48.0 Paroxysmal atrial fibrillation; E11.9 Type 2 diabetes mellitus without complications; Z79.4 Long term (current) use of insulin; R93.1 Abnormal findings on diagnostic imaging of heart and coronary circulation; I10 Essential (primary) hypertension; E78.49 Other hyperlipidemia; E66.3 Overweight; Z68.31 Body mass index [BMI] 31.0-31.9, adult; Z79.01 Long term (current) use of anticoagulants; Z79.899 Other long term (current) drug therapy; Z87.891 Personal history of nicotine dependence
CPT/HCPCS: 36415; 71046; 80048; 85025; 85610; 85730; 93458; 99152; 99153; Q9967; C1769; C1894

== ENCOUNTER → 2024-12-13 | Outpatient (CLI) | payer BC, SELFPAY ==
--- OUTSIDE RECORDS SUMMARY | 2024-12-13 07:13 | XMS RPT_ITS | CCD ---
Author Organization [facility] Care Team Providers Care Food And Nutrition Services Assistant Name Role Phone Unavailable Primary Care Provider Unavailabl e YARITZA ROBLES Referring Unavailable LAVERN GARZON Attending Unavailable Gracie Zhao MD Unavailable Ofe WEN, Tennille Davies Primary Care Prov ider Gracie Zhao MD Unavailable Ofe WEN, Tennille Davies Primary Care Prov ider TENNILLE THAKUR Referring Unav ailable OFE, TENNILLE STEPHEN Primary Care Unav ailable CHARMAINE HARTLEY Referring Unavailable OFE, TENNILLE STEPHEN Primary Care Unav ailable OFE, TENNILLE STEPHEN Primary Care Unav ailable LACI RICHARDSON Referring Unavailabl e Dr. Amy Sutton MD Attending Provider Dr. Amy Sutton MD Primary Care Provider [phone] Dr. Amy Sutton MD Referring Provider Dr. Amy Sutton MD Attending Provider Dr. Barry Cui MD Attending Provider [phone] Dr. Barry Cui MD Referring Provider [phone] Suzan Israle Attending Provider [phone] Srikanth Hernandez Attending Provider [phone] Tennille Thakur MD Primary Care Prov ider Tete Lopez MD Unavailable ANGEL BURNETTE Attending Unavailable OFE, TENNILLE STEPHEN Primary Care Unav ailable GRACIE ZHAO Attending Unavailable OFE, TENNILLE STEPHEN Primary Care Unav ailable MELVIN HOOPER Attending Unavailable OFE, TENNILLE STEPHEN Primary Care Unav ailable VASILEANGEL Attending Unavailable OFE, TENNILLE STEPHEN Primary Care Unav ailable Penngrove, Amy Primary Care Unavailable Basilia, Barry Attending Unavailable Basilia, [place] Referring Unavailable Herman, Amy Primary Care Unavailable Basilia, Barry Attending Unavailable Basilia, [place] Referring Unavailable Herman, Amy Primary Care Unavailable Suzan Prieto NP Attending Unavailable [place], Amy Attending Unavailable Herman, Amy Referring Unavailable [place], Amy Primary Care Unavailable [place], Amy Attending Unavailable Herman, Amy Primary Care Unavailable Basilia, [place] Attending Unavailable [place], Amy Referring Unavailable Basilia, [place] Attending Unavailable Basilia, [place] Referring Unavailable [place]ng[place], Amy Primary Care Unavailable Herman, Amy Primary Care Unavailable Herman, Amy Attending Unavailable [place], Amy Referring Unavailable Basilia, Barry Attending Unavailable [place], Amy Primary Care Unavailable Srikanth Chappell Attending Unavailable [place], Amy Referring Unavailable Herman, Amy Primary Care Unavailable Herman, Amy Primary Care Unavailable Basilia, Barry Attending Unavailable Basilia, [place] Referring Unavailable Allergies Allergy Classification Reported Allergen(s) Allergy Type Date of Onset Reaction(s) Facility (20 sources) atorvastatin; Translations: [ATORVASTATIN] Drug Allergy 3 Myalgia [facility] Work Phone: (20 sources) Seasonal allergy; Translations: [SEASONAL ALLERGIES] Allergy to substance 3 Itching [facility] Work Phone: (20 sources) Losartan; Translations: [LOSARTAN] Drug Allergy 4 Myalgia [facility] (20 sources) metFORMIN; Translations: [METFORMIN] Drug Allergy 4 Diarrhea [facility] (5 sources) cat dander; Translations: [cat dander] Allergy to substance 5 Itching [facility] (4 sources) Yhzkhib-Qlc-Gpw Reductase Inhibitor Allergy to substance 5 Myalgias [facility] (5 sources) Environmental Allergies: Uncoded; Translations: [Environmental Allergies: Uncoded] Allergy to substance 5 Itching [facility] (1 source) Losartan Drug Allergy 5 [facility] (1 source) metFORMIN Drug Allergy 5 [facility] (1 source) Ycehjbr-Fkh-Dlf Reductase Inhibitor Drug allergy (disorder) 5 [facility] Medications Current Medications Medication Drug Class(es) Dates Sig (Normalized) Sig (Original) apixaban 5 mg oral tablet (20 sources) Factor Xa Inhibitor Start: 07-19-2023 End: 11-20-2024 take 1 tablet by mouth twice daily ELIQUIS 5 mg tab(s) Indications: Atrial fibrillation, unspecified type (HCC) take 1 tablet by mouth two times a day. 60 tablet 5 02/05/2024 Active Start: 01-09-2023 End: 07-19-2023 take 1 tablet by mouth every twelve hours ELIQUIS 5 mg tab(s) Take 1 tablet by mouth every 12 (twelve) hours. 0 01/09/2023 07/19/2023 Discontinued Comment on above: Take 1 tablet by joelle th every 12 (twelve) hours. Take 1 tablet by joelle th two times a day. Blood-Glucose Sensor (Freestyle Bertin 3 Plus Sensor) device (12 sources) Start: 07-18-2024 Blood-Glucose Sensor (Freestyle Bertin 3 Plus Sensor) device Active 0 .Route 6 July 18, 2024 5:10pm As directed Start: 07-18-2024 Blood-Glucose Sensor (Freestyle Bertin 3 Plus Sensor) device Active 0 .Route July 18, 2024 5:10pm As directed Start: 07-10-2024 End: 07-18-2024 Blood-Glucose Sensor (Freest yle Bertin 3 Plus Sensor) device Discontinued 0 .Route July 10, 2024 12:19pm July 18, 2024 [...] (FREESTYLE BERTIN 3 SENSOR PLUS) jose g (19 sources) Start: 01-19-2024 Blood-Glucose Sensor (FREESTYLE BERTIN 3 SENSOR PLUS) jose g Indications: Diabetes mellitus type 1, controlled, without complications (HCC) 1 Each once daily. 2 Each 01/19/2024 Active Blood-Glucose Sensor (FREESTYLE BERTIN 3 SENSOR) jose g (8 sources) Start: 07-19-2023 Blood-Glucose Sensor (FREESTYLE BERTIN 3 SENSOR) jose g Indications: Diabetes mellitus type 1, controlled, without complications (HCC) Use to check sugars 3-4 times per day 2 Each 07/19/2023 Active Comment on above: Use to check sugars 3-4 times per day dapagliflozin 10 mg oral tablet (20 sources) Sodium-Glucose Cotransporter 2 Inhibitor Start: 12-01-2023 End: 11-05-2024 take 1 tablet by mouth once daily in the morning dapagliflozin propanediol (FARXIGA) 10 mg tablet Indications: Diabetes mellitus type 1, controlled, without complications (HCC) take 1 tablet by mouth once daily in the morning 90 tablet 1 02/16/2024 Active Start: 07-08-2023 End: 11-21-2023 take 1 tablet [...] every morning. ezetimibe 10 mg oral tablet (8 sources) Dietary Cholesterol Absorption Inhibitor Start: 08-07-2024 End: 11-26-2024 take 1 tablet by mouth once daily Ezetimibe (Zetia) 10 mg tablet Active 10 mg PO daily 90 November 26, 2024 7:38am 3 ml insulin glargine 300 unt/ml pen injector (20 sources) Insulin Analog Start: 11-11-2024 Insulin Glargine U-300 Conc (Toujeo Max U-300 Solostar) 300 unit/mL (3 mL) insulin pen Active 50 U SC AT BEDTIME 6 0 November 11, 2024 10:12am Start: 08-24-2024 End: 09-30-2024 Insulin Glargine U-300 Conc (Toujeo Max U-300 Solostar) 300 unit/mL (3 mL) insulin pen Discontinued 50 U SC AT BEDTIME 6 0 August 24, 2024 11:05pm September 30, 2024 [...] 60 Units subc utaneously daily at bedtime. lidocaine 0.05 mg/mg medicated patch (6 sources) Antiarrhythmic, Amide Local Anesthetic Start: 05-03-20 apply 1 dose transdermal route once daily lidocaine (LIDODERM) 5 % Indications: Acute midline low back pain without sciatica Apply 1 Patch as directed once daily. REMOVE AFTER 12 HOURS. 30 Patch 2 05/03/2024 Active metoprolol tartrate 25 mg oral tablet (20 sources) beta-Adrenergic Lolly Start: 07-10-19 End: 08-06-19 take 1 tablet by mouth twice daily Metoprolol Succinate 25 mg tablet extended release 24 hr Discontinued 25 mg PO TWICE A DAY 180 0 July 10, 2024 12:19pm August 05, 2024 12:24pm Start: 07-19-2023 End: 09-02-2024 take 1 tablet by mouth twice daily metoprolol tartrate, short acting, (LOPRESSOR) 25 mg tablet Indications: Atrial fibrillation, unspecified type (HCC) TAKE 1 TABLET BY MOUTH TWICE DAILY *EMERGENCY FILL* 60 tablet 2 09/02/2024 Active Start: 01-09-2023 End: 07-19-2023 take 1 tablet by mouth every twelve hours metoprolol tartrate, short acting, (LOPRESSOR) 25 mg tablet Take 1 tablet by mouth every 12 (twelve) hours. 0 01/09/2023 07/19/2023 Discontinued Comment on above: Take 1 tablet by joelle th every 12 (twelve) hours. Take 1 tablet by joelle th two times a day. Completed/Discontinued Medications Medication Drug Class(es) Dates Sig (Normalized) Sig (Original) colchicine 0.6 mg oral tablet (4 sources) Start: 07-18-2024 End: 08-28-2024 take 1 [...] ARM REMOVE AND REPLACE every 14 days hydroCHLOROthiazide 12.5 mg / lisinopril 20 mg oral tablet (20 sources) Thiazide Diuretic, Angiotensin Converting Enzyme Inhibitor Start: 07-10-2024 End: 09-23-2024 Lisinopril-Hydrochloro thiazide 20-12.5 mg tablet Discontinued 1 {tbl} PO daily 90 0 July 10, 2024 12:18pm September 23, 2024 8:50am Start: 01-09-2023 End: 04-09-2024 take 1 tablet by mouth once lisinopril-hydroCHLOROthiazide (ZESTORET IC) 20-12.5 mg per tablet Indications: Hypertension, essential Take 1 tablet by mouth every afternoon. 30 tablet 5 04/09/2024 Active Comment on above: Take 1 tablet by joelle th every afternoon. 3 ml insulin aspart, human 100 unt/ml [...] Solostar) 300 unit/mL (3 mL) insulin pen (15 sources) Start: 09-30-2024 End: 11-11-2024 Insulin Glargine [...] 10, 2024 1:00am July 10, 2024 12:17pm 3 ml insulin lispro 100 unt/ml pen injector (20 sources) Insulin Analog Start: 07-10-2024 End: 11-22-2024 Insulin Lispro 100 unit/mL insulin pen Discontinued 20 U SC THREE TIMES A DAY 15 0 October 22, 2024 2:16pm November 22, 2024 1:11pm Start: 02-14-2024 End: 05-09-2024 insulin lispro (HUMALOG [...] 30 units; maximum per day: 90 units ofloxacin 3 mg/ml ophthalmic solution (1 source) Quinolone Antimicrobial Start: 10-08-19 End: 01-27-20 take 1 drop(s) into the eye(s) four times daily ofloxacin (OCUFLOX) 0.3 % ophthalmic solution instill 1 drop INTO SURGICAL EYE four times a day 0 10/07/2022 01/26/2023 Discontinued (Course of therapy completed) Comment on above: instill 1 drop INTO SURGICAL EYE four times a day polyethylene glycol [id number] [id number] mg / potassium chloride 2970 mg / sodium bicarbonate 6740 mg / sodium chloride 5860 mg / sodium sulfate 47332 mg powder for oral solution (5 sources) [...] Onset: 05-29-2023 02-06-2023 Episodic Other circulatory disease (3 sources) H/O: atrial fibrillation; Translations: [Personal history of other diseases of the circulatory system] Episodic Other connective tissue disease (1 source) Foot pain; Translations: [Pain in right foot] 07-10-2024 Episodic Other screening for suspected conditions (not mental disorders or infectious disease) (13 sources) Patient encounter status; Translations: [Encounter for screening for malignant neoplasm of colon] Onset: 05-29-2023 01-26-2023 Episodic Other skin disorders (1 source) Skin tag; Translations: [Other hypertrophic disorders of the skin] 01-26-2023 Episodic Residual codes; unclassified (20 sources) Obstructive sleep apnea of adult; Translations: [Obstructive sleep apnea (adult) (pediatric)] Onset: 08-13-2021 07-19-2023 Chronic Residual codes; unclassified (4 sources) Sleep apnea; Translations: [Sleep apnea, unspecified] 07-10-2024 Chronic Residual codes; unclassified (2 sources) Obstructive sleep apnea syndrome; Translations: [Obstructive sleep apnea (adult) (pediatric)] 07-10-2024 Chronic Residual codes; unclassified (1 source) Obstructive sleep apnea (adult) (pediatric); Translations: [Obstructive sleep apnea (adult) (pediatric)] Onset: 07-29-2024 Chronic Residual codes; unclassified (1 source) Other specified health status; Translations: [Other drug allergy] 07-19-2023 Episodic Residual codes; unclassified (1 source) FH: Autoimmune disease; Translations: [Family history of malignant neoplasm of digestive organs] 07-21-2023 Episodic Spondylosis; intervertebral disc disorders; other back problems (1 source) Acute low back pain; Translations: [Acute midline low back pain without sciatica] 05-03-2024 Episodic Unclassified (1 source) Z86.79 - Personal history of other diseases of the circulatory system Unclassified (1 source) E11.9 - Type 2 diabetes mellitus without complications Unclassified (1 source) Acute midline low back pain without sciatica; Translations: [Acute midline low back pain without sciatica] Onset: 05-03-2024 Unclassified (1 source) Chronic atrial fibrillation, unspecified; Translations: [Chronic atrial fibrillation (HCC)] Onset: 07-19-2023 Past or Other Problems Problem Classification Problem Date Documented Da te Episodic/Chronic Administrative/social admission (2 sources) First encounter by subject; Translations: [Persons encountering health services in other specified circumstances] Onset: 07-29-2024 07-10-2024 Episodic Immunizations and screening for infectious [...] Onset: 05-29-2023 02-06-2023 Episodic Residual codes; unclassified (3 sources) Family history of malignant neoplasm of digestive organs; Translations: [Family hx of colon cancer] Onset: 05-29-2023 Episodic Results Test Name Value Interpretation Reference Range Facility [facility] 11-29-2024 CNPN Telephone ([facility]) BABATUNDE STEWART ([id number]) 1955 M Date Time Provider Department 11/29/24 TETE LOPEZ [facility] During your visit today, we recorded the following information about you: Wanda Resendiz LPN 11/29/2024 11:54 AM Signed Pharmacy requesting generic order for pen needles for patients insulin. Please advise. Wanda Resendiz LPN Allergies As of Date: 11/29/2024 Noted Allergy Reaction ATORVASTATIN 01/26/2023 17 - Myalgia HAY FEVER (SEASONAL ALLERGIES) 01/26/2023 9 - Itching LOSARTAN 06/20/2023 17 - Myalgia METFORMIN 06/20/2023 6 - Diarrhea Date Reviewed: 05/03/2024 Reviewed by: Girish Murcia LPN - Fully Assessed Reason for Visit: Medication Problem [65] Cmt: New order for pen needles Visit Diagnosis:Diabetes mellitus type 1, controlled, without complications (HCC) [E10.9] Order(s):BD INSULIN PEN NEEDLE UF 31 gauge x 09/27USE DIRECTED FIVE TIMES PER DAYDisp: 100 eachRfl: 5 Prescriptions as of 11/29/2024 - BD INSULIN PEN NEEDLE UF 31 gauge x 16 USE DIRECTED FIVE TIMES PER DAY - metoprolol tartrate, short acting, (LOPRESSOR) 25 mg tablet TAKE 1 TABLET BY MOUTH TWICE DAILY *EMERGENCY FILL* - insulin lispro (HUMALOG KWIKPEN) 100 unit/mL Inject 20 Units subcutaneously three times a day before meals. - lidocaine (LIDODERM) 5 % Apply 1 Patch as directed once daily. REMOVE AFTER 12 HOURS. - TOUJEO SOLOSTAR U-300 INSULIN 300 unit/mL (1.5 mL) Inject 60 Units subcutaneously daily at bedtime. - lisinopril-hydroCHLOR Othiazide (ZESTORETIC) 20-12.5 mg per tablet Take 1 tablet by mouth every afternoon. - dapagliflozin propanediol (FARXIGA) 10 mg tablet take 1 tablet by mouth once daily in the morning - ELIQUIS 5 mg tab(s) take 1 tablet by mouth two times a day. - Blood-Glucose Sensor (FREESTYLE BERTIN 3 SENSOR PLUS) jose g 1 Each once daily. Problem List As Of Date 11/29/2024 Noted Resolved Family hx of colon cancer [Z80.0] 05/29/2023 Hypercholesterolemia [E78.00] 10/26/2012 Diagnosed: 07/19/2023 Obstructive sleep apnea of adult [G47.33] 08/13/2021 Diagnosed: 07/19/2023 Atrial fibrillation (HCC) [I48.91] 05/22/2020 Diagnosed: 07/19/2023 Benign hypertension [I10] 05/22/2020 Diagnosed: 07/19/2023 Diabetic retinopathy (HCC) [E11.319] 08/22/2016 Diagnosed: 07/19/2023 Stage 2 chronic kidney disease [N18.2] 02/06/2019 Diagnosed: 07/19/2023 Prescriptions ordered this encounter Disp Refills Start End BD ULTRA-FINE SHORT PEN NEEDLE 31 GA* 100 * 5 11/29/2024 Cmt: OK to substitute for those that are compatible with patient's glucometer and covered by patient's insurance. Thank you! Sig: USE DIRECTED FIVE TIMES PER DAY Medications Discontinued During This Encounter Prescriptions - BD INSULIN PEN NEEDLE UF 31 gauge x 09/27 (Discontinued) USE DIRECTED FIVE TIMES PER DAY Encounter Status:Closed by TETE LOPEZ on 11/29/24 [facility] Internal Medicine Office Vis melvin 11-26-2024 Internal Medicine Office Visit [facility] [address] [place] [address] [place] [address] OFFICE VISIT Date of Service: 11/27/24 MR#: [id number] Acct: [id number] Name: BABATUNDE STEWART Rep #: [id number] : 1955 Provider: Dr. Amy edwards MD Age/Sex: 69/M Location: [facility] [place].[facility] Status: Signed Intake Vital Signs 07/10/24 10:47 08/28/24 10:31 11/25/24 07:19 11/27/24 08:36 Height 6 ft 3 in 6 ft 3 in 6 ft 3 in 6 ft 3 in Weight: 251 lb BMI 31.4 BP 115/58 L Blood Pressure Location Lt brachial Position Sitting Respiration 16 Pulse 64 Pulse Source Monitor Temp 98.7 F Temp Source Temporal Pulse Oximetry (%) 95 Intake Visit Reasons: 3 M FU Chief Complaint: F/U Interim Controller Required: No Accompanied by: Self Is patient in pain?: No Allergies cat dander Allergy (Intermediate, Verified 11/27/24 08:43) Itching losartan Allergy (Intermediate, Verified 11/27/24 08:43) PT UNSURE OF REACTION metformin Allergy (Intermediate, Verified 11/27/24 08:43) PT UNSURE OF REACTION Gbzzvpb-VHX-CzL Reductase Inhibitor Allergy (Intermediate, Verified 11/27/24 08:43) Myalgias Environmental Allergies: Uncoded (hay fever) Allergy (Mild, Verified 11/27/24 08:43) Itching Medications ???Medication ???Instructions ???Recorded ???Confirmed ???Type pen needle, diabetic 31 gauge x 07/10/24 11/27/24 History 09/27 (Droplet Pen Needle) blood-glucose sensor (FreeStyle #6 ea 07/18/24 11/27/24 Rx Bertin 3 Plus Sensor device) metoprolol tartrate 25 mg tablet 25 mg PO BID #180 tabs 08/05/24 Rx lisinopril 20 1 tab PO QDAY #90 tabs 09/23/24 Rx mg-hydrochlorothiazid e 12.5 mg tablet dapagliflozin propanediol 10 mg 10 mg PO QAM #90 tabs 11/05/24 Rx tablet (Farxiga) insulin glargine U-300 conc 300 50 unit (0.1667 mL) subcut QHS #6 11/11/24 11/27/24 Rx unit/mL (3 mL) subcutaneous pen mL (Toujeo Max U-300 SoloStar) apixaban 5 mg tablet (Eliquis) 5 mg PO BID #180 tabs 11/20/24 Rx insulin lispro 100 unit/mL 20 unit (0.2 mL) subcut TID #15 mL 11/22/24 11/27/24 Rx subcutaneous pen ezetimibe 10 mg tablet (Zetia) 10 mg PO QDAY #90 tabs 11/26/24 Rx Have you fallen in the past year?: No Nurse's Note: F/U for diabetes PFSH Medical History Sleep apnea Hyperlipidemia A-fib [...] at home: Yes HPI HPI Chief Complaint: F/U Details: BABATUNDE STEWART, is a 69 M who presents to the office today for a follow up. He is up to date on his routine blood work and screening. He isn't due for any immunizations. He doesn't smoke and doesn't need any refills. He reports he is eating healthy and staying active. He does check his sugars at home and reports they have been a bit higher with some recent travel. He uses a bertin. He reports his 90 day average has been 162. He is taking his medication as prescribed without problems. He reports his reading will occasionally get low, for which he will have a glucose tablet or snack. He does try to monitor his carbohydrate and sugar intake. He is not up to date on his diabetic eye exam and doesn't see podiatry. He wears his CPAP every night and benefits from its use. He did get his new supplies, except a small disc he uses for his travel machine. He does check (more content not included)... Normal [facility] Absolute lymphocyte countOrd ered By: Srikanth Chappell on 11-20-2024 Lymphocytes Auto (Unsp spec) [#/Vol] 2.10 10*3/uL 0.83-4.51 [facility] Absolute neutrophil countOrd ered By: Srikanth Chappell on 11-20-2024 Neutrophils (Bld) [#/Vol] 5.7 10*3/uL 2.0-7.7 [facility] Activated partial thrombopla stin time (aPTT) in platelet poor plasma by coagulation aOrdered By: Srikanth Chappell on 11-20-2024 aPTT Coag (PPP) [Time] 29.2 s 24.1-36.2 [facility] Anion gap in Serum or Plasma Ordered By: Srikanth Chappell on 11-20-2024 Anion gap [Moles/Vol] 12 mmol/L 5-15 [facility] Automated lymphocyte count a s percentage of total leukocytesOrdered By: Srikanth Chappell on 11-20-2024 Lymphocytes/100 WBC Auto (Unsp spec) 23.6 % 19-41 [facility] BUN/creatinine ratioOrdered By: Srikanth Chappell on 11-20-2024 Urea nitrogen/Creatinine [Mass ratio] 24.8 mg/mg High 10- [facility] Basic Metabolic Profile (BMP )on 11-20-2024 BUN/CRE 24.8 RATIO High - [facility] Comment on above: Performed By: #### L 100.0100, L300.3900, L300.4310, L500.2500 ####[facility] [address] [place], [address] Calcium [Mass/Vol] 9.4 mg/dL Normal 7.6-11.0 [facility] Comment on above: Performed By: #### L 100.0100, L300.3900, L300.4310, L500.2500 ####[facility] [address] [place], [address] Chloride [Moles/Vol] 103 mmol/L Normal 98-108 [facility] Comment on above: Performed By: #### L 100.0100, L300.3900, L300.4310, L500.2500 ####[facility] [address] [place], [address] CO2 [Moles/Vol] 26.2 mmol/L Normal 21.0-32.0 [facility] Comment on above: Performed By: #### L 100.0100, L300.3900, L300.4310, L500.2500 ####[facility] [address] [place], [address] Creatinine [Mass/Vol] 1.27 mg/dL High 0.70-1.20 [facility] Comment on above: Performed By: #### L 100.0100, L300.3900, L300.4310, L500.2500 ####[facility] [address] [place], [address] GAP 12 Normal 5-15 [facility] Comment on above: Performed By: #### L 100.0100, L300.3900, L300.4310, L500.2500 ####[facility] [address] [place], [address] GFR/1.73 sq M.predicted among non-blacks MDRD (S/P/Bld) [Vol rate/Area] 61 mL/min/{1.73_m2} Normal >60 [facility] Comment on above: Result Comment: mL/m in/1.73m2 CKD-EPI Creatinine Equation (2020) Performed By: #### L 100.0100, L300.3900, L300.4310, L500.2500 ####[facility] [address] [place], [address] Glucose [Mass/Vol] 82 mg/dL Normal 70-99 [facility] Comment on above: Performed By: #### L 100.0100, L300.3900, L300.4310, L500.2500 ####[facility] [address] [place], [address] Potassium [Moles/Vol] 4.6 mmol/L Normal 3.3-5.1 [facility] Comment on above: Performed By: #### L 100.0100, L300.3900, L300.4310, L500.2500 ####[facility] [address] [place], [address] Sodium [Moles/Vol] 141 mmol/L Normal 133-145 [facility] Comment on above: Performed By: #### L 100.0100, L300.3900, L300.4310, L500.2500 ####[facility] [address] [place], [address] Urea nitrogen [Mass/Vol] 32 mg/dL High 4-19 [facility] Comment on above: Performed By: #### L 100.0100, L300.3900, L300.4310, L500.2500 ####[facility] [address] [place], [address] Basophil percentageOrdered B y: Srikanth Chappell on 11-20-2024 Basophils/100 WBC (Bld) 0.6 % 0-1 [facility] CBC W/Diff, Automatedon 07-0 9-2024 Absolute Lymph 2.10 X10 3/uL Normal 0.83-4.51 [facility] Comment on above: Performed By: #### L 100.0100, L300.3900, L300.4310, L500.2500 #### [facility] [address] [place], [address] Absolute Neut 5.7 X10 3/uL Normal 2.0-7.7 [facility] Comment on above: Performed By: #### L 100.0100, L300.3900, L300.4310, L500.2500 #### [facility] [address] [place], [address] Basophils/100 WBC (Bld) 0.6 % Normal 0-1 [facility] Comment on above: Performed By: #### L 100.0100, L300.3900, L300.4310, L500.2500 #### [facility] [address] [place], [address] Eosinophils/100 WBC (Bld) 2.7 % Normal 0-5 [facility] Comment on above: Performed By: #### L 100.0100, L300.3900, L300.4310, L500.2500 #### [facility] [address] [place], [address] Erythrocyte distribution width (RBC) [Ratio] 12.8 % Normal 11.6-14.6 [facility] Comment on above: Performed By: #### L 100.0100, L300.3900, L300.4310, L500.2500 #### [facility] [address] [place], [address] Hematocrit (Bld) [Volume fraction] 48.2 % Normal 40-54 [facility] Comment on above: Performed By: #### L 100.0100, L300.3900, L300.4310, L500.2500 #### [facility] [address] [place], [address] Hemoglobin (Bld) [Mass/Vol] 16.3 g/dL Normal 13.0-16.5 [facility] Comment on above: Performed By: #### L 100.0100, L300.3900, L300.4310, L500.2500 #### [facility] [address] [place], [address] IG% 0.600 Normal 0.0-0.9 [facility] Comment on above: Result Comment: IG% - Immature Granulocytes (promyelocytes, myelocytes and metamyelocytes) > 1% indicates that a LEFT SHIFT is Present. Performed By: #### L 100.0100, L300.3900, L300.4310, L500.2500 #### [facility] [address] [place], [address] Lymphocytes/100 WBC (Bld) 23.6 % Normal 19-41 [facility] Comment on above: Performed By: #### L 100.0100, L300.3900, L300.4310, L500.2500 #### [facility] [address] [place], [address] MCH (RBC) [Entitic mass] 32.5 pg High 27.0-32.0 [facility] Comment on above: Performed By: #### L 100.0100, L300.3900, L300.4310, L500.2500 #### [facility] [address] [place], [address] MCHC (RBC) [Mass/Vol] 33.8 g/dL Normal 32-36 [facility] Comment on above: Performed By: #### L 100.0100, L300.3900, L300.4310, L500.2500 #### [facility] [address] [place], [address] MCV (RBC) [Entitic vol] 96.2 fL High 80-94 [facility] Comment on above: Performed By: #### L 100.0100, L300.3900, L300.4310, L500.2500 #### [facility] [address] [place], [address] Monocytes/100 WBC (Bld) 8.5 % Normal 0-10 [facility] Comment on above: Performed By: #### L 100.0100, L300.3900, L300.4310, L500.2500 #### [facility] [address] [place], [address] Neutrophils/100 WBC (Bld) 64.0 % Normal 47-70 [facility] Comment on above: Performed By: #### L 100.0100, L300.3900, L300.4310, L500.2500 #### [facility] [address] [place], [address] Nucleated RBC (Bld) [#/Vol] 0 10*3/uL Normal 0-5 [facility] Comment on above: Performed By: #### L 100.0100, L300.3900, L300.4310, L500.2500 #### [facility] [address] [place], [address] Platelet mean volume (Bld) [Entitic vol] 10.7 fL Normal 6.2-12.0 [facility] Comment on above: Performed By: #### L 100.0100, L300.3900, L300.4310, L500.2500 #### [facility] [address] [place], [address] Platelets (Bld) [#/Vol] 224 10*3/uL Normal 150-450 [facility] Comment on above: Performed By: #### L 100.0100, L300.3900, L300.4310, L500.2500 #### [facility] [address] [place], [address] RBC (Bld) [#/Vol] 5.01 10*6/uL Normal 4.6-6.2 [facility] Comment on above: Performed By: #### L 100.0100, L300.3900, L300.4310, L500.2500 #### [facility] [address] [place], [address] RDW SD 44.7 fl High 35.1-43.9 [facility] Comment on above: Performed By: #### L 100.0100, L300.3900, L300.4310, L500.2500 #### [facility] [address] [place], [address] WBC (Bld) [#/Vol] 8.9 10*3/uL Normal 4.4-11.0 [facility] Comment on above: Performed By: #### L 100.0100, L300.3900, L300.4310, L500.2500 #### [facility] [address] [place], [address] Carbon dioxide, total [Moles /volume] in Central venous bloodOrdered By: Srikanth Chappell on 11-20-2024 CO2 [Moles/Vol] 26.2 mmol/L 21.0-32.0 [facility] Cardiology Visit Reporton Cardiology Visit Report [facility] [address] [place] [address] OFFICE VISIT Date of Service: 11/20/24 MR#: [id number] Acct: [id number] Name: BABATUNDE STEWART Rep #: [id number] : 1955 Provider: ERIC Cramer Age/Sex: 69/M Location: [facility] Status: Signed HPI HPI History of Present Illness Details: Babatunde Stewart is a 69-year-old male who presents to office today for preprocedural evaluation. Patient established with our office 08/28/2024. He has a history of hypertension, hyperlipidemia, diabetes mellitus, history of atrial fibrillation in which he underwent cardioversion as well as A-fib ablation in December 2021 in [place]. At that time, an echocardiogram was ordered [...] Visit Reasons: H P PER [facility] NOTE(SD) Interim Controller Required: No Accompanied by: Self Is patient in pain?: No Allergies cat dander Allergy (Intermediate, Verified 11/20/24 08:39) Itching losartan Allergy (Intermediate, Verified 11/20/24 08:39) PT UNSURE OF REACTION metformin Allergy (Intermediate, Verified 11/20/24 08:39) PT UNSURE OF REACTION Ytqlmca-RLV-UaK Reductase Inhibitor Allergy (Intermediate, Verified 11/20/24 08:39) [...] smokin year (more content not included)... Normal [facility] Chest PA and Lateralon 11-20 Chest PA and Lateral [facility] Imaging Services [address] [place] [address] Chest PA and Lateral MR#: [id number] Acct: [id number] Name: BABATUNDE STEWART Rep #: [id number] : 1955 M 69 From: Mateo Canseco MD PCP: Dr. Amy Sutton MD Status: PRE ARC Study: Chest PA and Lateral Date of Exam: 11/20/24 Exam# [id number] Ordering Dr: Srikanth Chappell EXAM: XR Chest, [...] IMPRESSION: No acute cardiopulmonary process. Reading Location: [facility] CC: Dr. Amy Sutton MD; ERIC Cramer Medical Legal Investigator: Signed Normal [facility] Chloride assayOrdered By: Grazyna Chappell on 11-20-2024 Chloride [Moles/Vol] 103 mmol/L 98-108 [facility] Eosinophil percentageOrdered By: Srikanth Chappell on 11-20-2024 Eosinophils/100 WBC (Bld) 2.7 % 0-5 [facility] Erythrocyte distribution wid th ratioOrdered By: Srikanth Chappell on 11-20-2024 Erythrocyte distribution width (RBC) [Ratio] 12.8 % 11.6-14.6 [facility] Erythrocyte distribution wid th standard deviationOrdered By: Srikanth Chappell on 11-20-2024 Erythrocyte distribution width (RBC) [Ratio] 44.7 fl High 35.1-43.9 [facility] Glomerular filtration rate ( GFR) estimation/1.73 sq m using serum, plasma, or whole bOrdered By: Srikanth Chappell on 11-20-2024 GFR/1.73 sq M.predicted among non-blacks MDRD (S/P/Bld) [Vol rate/Area] 61 mL/min/{1.73_m2} >60 [facility] Comment on above: mL/min/1.73m2 CKD-EP I Creatinine Equation (2020) Hematocrit Auto (Bld) [Volum e fraction]Ordered By: Srikanth Chappell on 11-20-2024 Hematocrit (Bld) [Volume fraction] 48.2 % 40-54 [facility] Hemoglobin measurementOrdere d By: Srikanth Chappell on 11-20-2024 Hemoglobin (Bld) [Mass/Vol] 16.3 g/dL 13.0-16.5 [facility] Immature granulocytes/100 WB C Auto (Bld)Ordered By: Srikanth Chappell on 11-20-2024 Immature granulocytes/100 WBC (Bld) 0.600 % 0.0-0.9 [facility] Comment on above: IG% - Immature Granu locytes (promyelocytes, myelocytes and metamyelocytes) > 1% indicates that a LEFT SHIFT is Present. International normalized rat io (INR) calculationOrdered By: Srikanth Chappell on 11-20-2024 INR Coag (Bld) [Relative time] 1.0 {INR} [facility] MCV (mean corpuscular volume ) determinationOrdered By: Srikanth Chappell on 11-20-2024 MCV (RBC) [Entitic vol] 96.2 fL High 80-94 [facility] Mean corpuscular hemoglobin (MCH) determinationOrdered By: Srikanth Chappell on 11-20-2024 MCH (RBC) [Entitic mass] 32.5 pg High 27.0-32.0 [facility] Mean corpuscular hemoglobin concentration (MCHC) determinationOrdered By: Srikanth Chappell on 11-20-2024 MCHC (RBC) [Mass/Vol] 33.8 g/dL 32-36 [facility] Mean platelet volume determi nationOrdered By: Srikanth Chappell on 11-20-2024 Platelet mean volume (Bld) [Entitic vol] 10.7 fL 6.2-12.0 [facility] Monocyte percentageOrdered B y: Srikanth Chappell on 11-20-2024 Monocytes/100 WBC (Bld) 8.5 % 0-10 [facility] Neutrophil percentageOrdered By: Srikanth Chappell on 11-20-2024 Neutrophils/100 WBC (Bld) 64.0 % 47-70 [facility] Nucleated red blood cell per centageOrdered By: [facility] Misti on 11-20-2024 Nucleated RBC/100 WBC (Bld) [Ratio] 0 % 0-5 [facility] Partial Thromboplast Timeon 11-20-2024 aPTT Coag (Bld) [Time] 29.2 s Normal 24.1-36.2 [facility] Comment on above: Performed By: #### L 100.0100, L300.3900, L300.4310, L500.2500 ####[facility] [address] [place], [place], [id number] Platelet countOrdered By: Grazyna Chappell on 11-20-2024 Platelets (Bld) [#/Vol] 224 10*3/uL 150-450 [facility] Potassium measurement (mass/ volume)Ordered By: Srikanth Chappell on 11-20-2024 Potassium (Unsp spec) [Mass/Vol] 4.6 mmol/L 3.3-5.1 [facility] Prothrombin Time w/INRon INR Coag (PPP) [Relative time] 1.0 {INR} Normal [facility] Comment on above: Performed By: #### L 100.0100, L300.3900, L300.4310, L500.2500 ####[facility] [address] [place], [address] PT Coag (PPP) [Time] 13.5 s Normal 11.7-14.9 [facility] Comment on above: Performed By: #### L 100.0100, L300.3900, L300.4310, L500.2500 ####[facility] [address] [place], [address] Prothrombin timeOrdered By: Srikanth Chappell on 11-20-2024 PT Coag (PPP) [Time] 13.5 s 11.7-14.9 [facility] RBC Auto (Bld) [#/Vol]Ordere d By: Srikanth Chappell on 11-20-2024 RBC (Bld) [#/Vol] 5.01 10*6/uL 4.6-6.2 [facility] Serum creatinine measurement (mass/volume)Ordered By: Srikanth Chappell on 11-20-2024 Creatinine [Mass/Vol] 1.27 mg/dL High 0.70-1.20 [facility] Serum glucose measurement (m ass/volume)Ordered By: [facility] Misti on 11-20-2024 Glucose [Mass/Vol] 82 mg/dL 70-99 [facility] Serum or plasma calcium chicho urement (mass/volume)Ordered By: [facility] Misti on 11-20-2024 Calcium [Mass/Vol] 9.4 mg/dL 7.6-11.0 [facility] Serum or plasma urea nitroge n measurement (mass/volume)Ordered By: Srikanth Misti on 11-20-2024 Urea nitrogen [Mass/Vol] 32 mg/dL High 4-19 [facility] Sodium levelOrdered By: [facility] Misti on 11-20-2024 Sodium [Moles/Vol] 141 mmol/L 133-145 [facility] White blood cell (WBC) count Ordered By: Srikanth Chappell on 11-20-2024 WBC (Bld) [#/Vol] 8.9 10*3/uL 4.4-11.0 [facility] Coronary Angiography CTon Coronary Angiography CT [facility] Imaging Services [address] [place] [address] 10/05/24 1108 MR#: [id number] Acct: [id number] Name: BABATUNDE STEWART Rep #: [id number] : 1955 69 From: Barry Cui MD [...] MD; Dr. Barry Cui MD Signed Normal [facility] Limited Chest CT Cardiac Onl yon 10-04-[address] Cardiac Only [facility] Imaging Services [address] [place] [id number] Cardiac Only MR#: [id number] Acct: [id number] Name: BABATUNDE STEWART Rep #: [id number] : 1955 M 69 From: Raffy henry MD PCP: Dr. Amy Sutton MD Status: REG REF Study: Limited Chest CT Cardiac Only Date of Exam: Exam# [id number] Ordering Dr: Barry Cui MD PROCEDURE: LIMITED [...] calcification (CAC) is is present Reading Location: [place] [address] CC: Dr. Amy Sutton MD; Dr. Barry Cui MD Medical Legal Investigator: Signed Normal [facility] Echo Completeon 09-27-2024 Echo Complete [facility] Cardiovascular Services [address] [place] [address] Echo Complete 09/27/24 0834 MR#: [id number] Acct: [id number] Name: BABATUNDE STEWART Rep #: [id number] : 1955 69 From: Barry Cui MD Attending Dr: Dr. Barry Cui MD Status: REG C LI Ordering Dr: Barry Cui MD Date: 09/27/24 Location: [facility] Sex: M C Admitted: Reason For Study [...] Referring Physician: Amy Sutton Performed By: Soraida Puga, RDCS 09/27/24 1305 Date Barry Cui MD CC: Dr. Amy Sutton MD; Dr. Barry Cui MD Date Dictated: 09/27/2434 Date Transcribed: 09/27/241304 Medical Legal Investigator: Signed Normal [facility] 12 Lead EKG performed by [facility] on 08-28-2024 12 Lead EKG performed by [address] [address] 12 Lead EKG performed by [facility] 08/28/241030 MR#: [id number] Acct: [id number] Name: BABATUNDE STEWART Rep #: [id number] : 1955 69 From: Barry Cui MD Attending Dr: Dr. Barry Cui MD Status: DEP A MB Ordering Dr: Barry Cui MD Date: 08/28/24 Location: [facility] Sex: M C Admitted: BMS/12 Lead EKG performed by 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 -Anterolateral ST-elevation -repolarization variant. ABNORMAL Electronically signed on 08/29/2024 at 07:36 by Barry Cui Software Version 8610 08/29/24 0742 Date Barry Cui MD CC: Dr. Amy Sutton MD Date Dictated: 08/28/241030 Date Transcribed: 08/28/24 103 Medical Legal Investigator: [place] Signed Normal [facility] Cardiology Visit Reporton Cardiology Visit Report [facility] [address] [place] [address] OFFICE VISIT Date of Service: 08/28/24 MR#: [id number] Acct: [id number] Name: BABATUNDE STEWART Rep #: [id number] : 1955 Provider: Dr. Barry Cui MD Age/Sex: 69/M Location: [facility] Status: Signed HPI HPI History of Present Illness Details: Pleasant 69-year-old gentleman with a history of hypertension, hyperlipidemia, diabetes mellitus, history of atrial fibrillation for which he underwent cardioversion as well as A-fib ablation in December 2021 in [facility] in [facility]. Since then he tells me that he [...] Delivery Method room air Intake Visit Reasons: [facility] Interim Controller Required: No Accompanied by: Self Is patient in pain?: No Allergies cat dander Allergy (Intermediate, Verified 08/28/24 10:43) Itching losartan Allergy (Intermediate, Verified 08/28/24 10:43) PT UNSURE OF REACTION metformin Allergy (Intermediate, Verified 08/28/24 10:43) PT UNSURE OF REACTION Mzygisf-TBU-LkM Reductase Inhibitor Allergy (Intermediate, Verified 08/28/24 10:43) [...] seatbelt use: (more content not included)... Normal [facility] Absolute lymphocyte countOrd ered By: Amy Sutton on 08-05-2024 Lymphocytes Auto (Unsp spec) [#/Vol] 1.67 10*3/uL 0.83-4.51 [facility] Absolute neutrophil countOrd ered By: Amy Sutton on 08-05-2024 Neutrophils (Bld) [#/Vol] 3.7 10*3/uL 2.0-7.7 [facility] Anion gap in Serum or Plasma Ordered By: Amy Sutton on 08-05-2024 Anion gap [Moles/Vol] 10 mmol/L 5-15 [facility] Automated lymphocyte count a s percentage of total leukocytesOrdered By: Amy Sutton on 08-05-2024 Lymphocytes/100 WBC Auto (Unsp spec) 27.3 % 19-41 [facility] BUN/creatinine ratioOrdered By: Amy Sutton on 08-05-2024 Urea nitrogen/Creatinine [Mass ratio] 16.8 mg/mg 10-20 [facility] Basophil percentageOrdered B y: Amy Sutton on 08-05-2024 Basophils/100 WBC (Bld) 0.7 % 0-1 [facility] Bilirubin, totalOrdered By: Amy Sutton on 08-05-2024 Bilirubin [Mass/Vol] 0.48 mg/dL 0.00-1.30 [facility] CBC W/Diff, Automatedon 03-2 Absolute Lymph 1.67 X10 3/uL Normal 0.83-4.51 [facility] Comment on above: Performed By: #### L 100.0100, L500.4100, L500.4050 #### [facility] [address] [place], [address] Absolute Neut 3.7 X10 3/uL Normal 2.0-7.7 [facility] Comment on above: Performed By: #### L 100.0100, L500.4100, L500.4050 #### [facility] [address] [place], [address] Basophils/100 WBC (Bld) 0.7 % Normal 0-1 [facility] Comment on above: Performed By: #### L 100.0100, L500.4100, L500.4050 #### [facility] [address] [place], [address] Eosinophils/100 WBC (Bld) 2.3 % Normal 0-5 [facility] Comment on above: Performed By: #### L 100.0100, L500.4100, L500.4050 #### [facility] [address] [place], [address] Erythrocyte distribution width (RBC) [Ratio] 11.8 % Normal 11.6-14.6 [facility] Comment on above: Performed By: #### L 100.0100, L500.4100, L500.4050 #### [facility] [address] [place], [address] Hematocrit (Bld) [Volume fraction] 46.2 % Normal 40-54 [facility] Comment on above: Performed By: #### L 100.0100, L500.4100, L500.4050 #### [facility] [address] [place], [address] Hemoglobin (Bld) [Mass/Vol] 15.8 g/dL Normal 13.0-16.5 [facility] Comment on above: Performed By: #### L 100.0100, L500.4100, L500.4050 #### [facility] [address] [place], [address] IG% 0.300 Normal 0.0-0.9 [facility] Comment on above: Result Comment: IG% - Immature Granulocytes (promyelocytes, myelocytes and metamyelocytes) > 1% indicates that a LEFT SHIFT is Present. Performed By: #### L 100.0100, L500.4100, L500.4050 #### [facility] [address] [place], [address] Lymphocytes/100 WBC (Bld) 27.3 % Normal 19-41 [facility] Comment on above: Performed By: #### L 100.0100, L500.4100, L500.4050 #### [facility] [address] [place], [address] MCH (RBC) [Entitic mass] 33.3 pg High 27.0-32.0 [facility] Comment on above: Performed By: #### L 100.0100, L500.4100, L500.4050 #### [facility] [address] [place], [address] MCHC (RBC) [Mass/Vol] 34.2 g/dL Normal 32-36 [facility] Comment on above: Performed By: #### L 100.0100, L500.4100, L500.4050 #### [facility] [address] [place], [address] MCV (RBC) [Entitic vol] 97.5 fL High 80-94 [facility] Comment on above: Performed By: #### L 100.0100, L500.4100, L500.4050 #### [facility] [address] [place], [address] Monocytes/100 WBC (Bld) 9.3 % Normal 0-10 [facility] Comment on above: Performed By: #### L 100.0100, L500.4100, L500.4050 #### [facility] [address] [place], [address] Neutrophils/100 WBC (Bld) 60.1 % Normal 47-70 [facility] Comment on above: Performed By: #### L 100.0100, L500.4100, L500.4050 #### [facility] [address] [place], [address] Nucleated RBC (Bld) [#/Vol] 0 10*3/uL Normal 0-5 [facility] Comment on above: Performed By: #### L 100.0100, L500.4100, L500.4050 #### [facility] [address] [place], [address] Platelet mean volume (Bld) [Entitic vol] 11.0 fL Normal 6.2-12.0 [facility] Comment on above: Performed By: #### L 100.0100, L500.4100, L500.4050 #### [facility] [address] [place], [address] Platelets (Bld) [#/Vol] 231 10*3/uL Normal 150-450 [facility] Comment on above: Performed By: #### L 100.0100, L500.4100, L500.4050 #### [facility] [address] [place], [address] RBC (Bld) [#/Vol] 4.74 10*6/uL Normal 4.6-6.2 [facility] Comment on above: Performed By: #### L 100.0100, L500.4100, L500.4050 #### [facility] [address] [place], [address] RDW SD 42.2 fl Normal 35.1-43.9 [facility] Comment on above: Performed By: #### L 100.0100, L500.4100, L500.4050 #### [facility] [address] [place], [address] WBC (Bld) [#/Vol] 6.1 10*3/uL Normal 4.4-11.0 [facility] Comment on above: Performed By: #### L 100.0100, L500.4100, L500.4050 #### [facility] [address] [place], [address] Calculated very low density lipoprotein (VLDL) cholesterol measurementOrdered By: Amy Sutton on 08-05-2024 Calculated very low density lipoprotein (VLDL) cholesterol measurement 21 mg/dL 5-40 [facility] VLDL Cholesterol 21 mg/dL 5-40 [facility] Carbon dioxide, total [Moles /volume] in Central venous bloodOrdered By: Amy Sutton on 08-05-2024 CO2 [Moles/Vol] 24.3 mmol/L 21.0-32.0 [facility] Chloride assayOrdered By: Bhupendra Sutton on 08-05-2024 Chloride [Moles/Vol] 102 mmol/L 98-108 [facility] Comprehensive Metabolic Prof ilon 08-05-2024 Albumin [Mass/Vol] 4.0 g/dL Normal 3.4-4.8 [facility] Comment on above: Performed By: #### L 100.0100, L500.4100, L500.4050 #### [facility] [address] [place], [address] Albumin/Globulin [Mass ratio] 1.5 {ratio} Normal 0.9-2.4 [facility] Comment on above: Performed By: #### L 100.0100, L500.4100, L500.4050 #### [facility] [address] [place], [address] ALK PHOS 58 U/L Normal 40-129 [facility] Comment on above: Performed By: #### L 100.0100, L500.4100, L500.4050 #### [facility] [address] [place], [address] ALT [Catalytic activity/Vol] 23 U/L Normal <=46 [facility] Comment on above: Performed By: #### L 100.0100, L500.4100, L500.4050 #### [facility] [address] [place], [address] AST [Catalytic activity/Vol] 20 U/L Normal <=37 [facility] Comment on above: Performed By: #### L 100.0100, L500.4100, L500.4050 #### [facility] [address] [place], [address] Bilirubin [Mass/Vol] 0.48 mg/dL Normal 0.00-1.30 [facility] Comment on above: Performed By: #### L 100.0100, L500.4100, L500.4050 #### [facility] [address] [place], [address] BUN/CRE 16.8 RATIO Normal 10-20 [facility] Comment on above: Performed By: #### L 100.0100, L500.4100, L500.4050 #### [facility] [address] [place], [address] Calcium [Mass/Vol] 9.1 mg/dL Normal 7.6-11.0 [facility] Comment on above: Performed By: #### L 100.0100, L500.4100, L500.4050 #### [facility] [address] [place], [address] Chloride [Moles/Vol] 102 mmol/L Normal 98-108 [facility] Comment on above: Performed By: #### L 100.0100, L500.4100, L500.4050 #### [facility] [facility] [address] [place], [address] CO2 [Moles/Vol] 24.3 mmol/L Normal 21.0-32.0 [facility] Comment on above: Performed By: #### L 100.0100, L500.4100, L500.4050 #### [facility] [address] [place], [address] Creatinine [Mass/Vol] 0.92 mg/dL Normal 0.70-1.20 [facility] Comment on above: Performed By: #### L 100.0100, L500.4100, L500.4050 #### [facility] [address] [place], [address] GAP 10 Normal 5-15 [facility] Comment on above: Performed By: #### L 100.0100, L500.4100, L500.4050 #### [facility] [address] [place], [address] GFR/1.73 sq M.predicted among non-blacks MDRD (S/P/Bld) [Vol rate/Area] 90 mL/min/{1.73_m2} Normal >60 [facility] Comment on above: Result Comment: mL/m in/1.73m2 CKD-EPI Creatinine Equation (2020) Performed By: #### L 100.0100, L500.4100, L500.4050 #### [facility] [address] [place], [address] Globulin (S) [Mass/Vol] 2.8 g/dL Normal 2.2-4.2 [facility] Comment on above: Performed By: #### L 100.0100, L500.4100, L500.4050 #### [facility] [address] [place], [address] Glucose [Mass/Vol] 166 mg/dL High 70-99 [facility] Comment on above: Performed By: #### L 100.0100, L500.4100, L500.4050 #### [facility] [address] [place], [address] Potassium [Moles/Vol] 4.4 mmol/L Normal 3.3-5.1 [facility] Comment on above: Performed By: #### L 100.0100, L500.4100, L500.4050 #### [facility] [address] [place], [address] Sodium [Moles/Vol] 136 mmol/L Normal 133-145 [facility] Comment on above: Performed By: #### L 100.0100, L500.4100, L500.4050 #### [facility] [address] [place], [address] T PROT 6.8 g/dL Normal 5.9-8.4 [facility] Comment on above: Performed By: #### L 100.0100, L500.4100, L500.4050 #### [facility] [address] [place], [address] Urea nitrogen [Mass/Vol] 15 mg/dL Normal 4-19 [facility] Comment on above: Performed By: #### L 100.0100, L500.4100, L500.4050 #### [facility] [address] [place], [address] Eosinophil percentageOrdered By: Amy Sutton on 08-05-2024 Eosinophils/100 WBC (Bld) 2.3 % 0-5 [facility] Erythrocyte distribution wid th ratioOrdered By: Amy Sutton on 08-05-2024 Erythrocyte distribution width (RBC) [Ratio] 11.8 % 11.6-14.6 [facility] Erythrocyte distribution wid th standard deviationOrdered By: Amy Sutton on 08-05-2024 Erythrocyte distribution width (RBC) [Entitic vol] 42.2 fL 35.1-43.9 [facility] Erythrocyte distribution width (RBC) [Ratio] 42.2 fl 35.1-43.9 [facility] GFR/1.73 sq M.predicted jc g non-blacks MDRD (S/P/Bld) [Vol rate/Area]Ordered By: Amy Sutton on 08-05-2024 Estimated GFR (MDRD) Non-Af Amer 90 >60 [facility] Comment on above: mL/min/1.73m2 CKD-EP I Creatinine Equation (2020) Glomerular filtration rate ( GFR) estimation/1.73 sq m using serum, plasma, or whole bOrdered By: Amy Sutton on 08-05-2024 GFR/1.73 sq M.predicted among non-blacks MDRD (S/P/Bld) [Vol rate/Area] 90 mL/min/{1.73_m2} >60 [facility] Comment on above: mL/min/1.73m2 CKD-EP I Creatinine Equation (2020) Hematocrit Auto (Bld) [Volum e fraction]Ordered By: Amy Sutton on 08-05-2024 Hematocrit (Bld) [Volume fraction] 46.2 % 40-54 [facility] Hemoglobin measurementOrdere d By: Amy Sutton on 08-05-2024 Hemoglobin (Bld) [Mass/Vol] 15.8 g/dL 13.0-16.5 [facility] Immature granulocytes/100 WB C Auto (Bld)Ordered By: Amy Sutton on 08-05-2024 Immature granulocytes/100 WBC (Bld) 0.300 % 0.0-0.9 [facility] Comment on above: IG% - Immature Granu locytes (promyelocytes, myelocytes and metamyelocytes) > 1% indicates that a LEFT SHIFT is Present. LDL calc ser/plasOrdered By: Amy Sutton on 08-05-2024 Cholesterol in LDL [Mass/Vol] 174 mg/dL [facility] Comment on above: Yazhfcrayb=889-027 m g/dL & Higher Vtua=095 mg/dL or greater LDL Cholesterol, Calculated 174 mg/dL [facility] Comment on above: Sgkvfolhvq=085-266 m g/dL & Higher Zfla=922 mg/dL or greater Laboratory - Chemistry and C hemistry - challengeOrdered By: Amy Sutton on 08-05-2024 AST [Catalytic activity/Vol] 20 U/L <38 [facility] Lipid Profileon 08-05-2024 CHOL:HDL 3.51 Normal [facility] Comment on above: Performed By: #### L 100.0100, L500.4100, L500.4050 #### [facility] [address] [place], [address] Cholesterol [Mass/Vol] 273 mg/dL High <=200 [facility] Comment on above: Result Comment: Chol esterol level, Desirable <200 mg/dL Borderline high cholesterol 200-239 mg/dL High cholesterol >=240 mg/dL Recommendations of the NCEP Adult Treatment Panel for the following risk-cutoff thresholds for the [place] population. Performed By: #### L 100.0100, L500.4100, L500.4050 #### [facility] [address] [place], [address] Cholesterol in HDL [Mass/Vol] 78 mg/dL Normal [facility] Comment on above: Result Comment: Molly onal Cholesterol Education Program (NCEP) guidelines: <40 mg/dL: Low HDL-cholesterol (major risk factor for CHD) >= 60 mg/dL: High HDL-cholesterol (negative risk factor for CHD) HDL-cholesterol is affected by a number of factors, e.g. smoking, exercise, hormones, sex and age. Performed By: #### L 100.0100, L500.4100, L500.4050 #### [facility] [address] [place], [address] Cholesterol in LDL [Mass/Vol] 174 mg/dL Normal [facility] Comment on above: Result Comment: Bord xvlnrk=466-695 mg/dL Higher Sbvu=340 mg/dL or greater Performed By: #### L 100.0100, L500.4100, L500.4050 #### [facility] [address] [place], [address] Cholesterol in VLDL [Mass/Vol] 21 mg/dL Normal 5-40 [facility] Comment on above: Performed By: #### L 100.0100, L500.4100, L500.4050 #### [facility] [address] [place], [address] Triglyceride [Mass/Vol] 107 mg/dL Normal [facility] Comment on above: Result Comment: The drugs N-Acetylcysteine and Metamizole may falsely depress this assay. Normal range: <150 mg/dL Borderline High: 150-199 mg/dL High: 200-499 mg/dL Very High: >500 mg/dL Performed By: #### L 100.0100, L500.4100, L500.4050 #### [facility] [address] [place], [address] Lymphocytes Auto (Unsp spec) [#/Vol]Ordered By: Amy Sutton on 08-05-2024 Lymphocytes (Bld) [#/Vol] 1.67 10*3/uL 0.83-4.51 [facility] Lymphocytes/100 WBC Auto (Un sp spec)Ordered By: Amy Sutton on 08-05-2024 Lymphocytes/100 WBC (Bld) 27.3 % 19-41 [facility] MCV (mean corpuscular volume ) determinationOrdered By: Amy Sutton on 08-05-2024 MCV (RBC) [Entitic vol] 97.5 fL High 80-94 [facility] Mean corpuscular hemoglobin (MCH) determinationOrdered By: Amy Sutton on 08-05-2024 MCH (RBC) [Entitic mass] 33.3 pg High 27.0-32.0 [facility] Mean corpuscular hemoglobin concentration (MCHC) determinationOrdered By: Amy Sutton on 08-05-2024 MCHC (RBC) [Mass/Vol] 34.2 g/dL 32-36 [facility] Mean platelet volume determi nationOrdered By: Amy Sutton on 08-05-2024 Platelet mean volume (Bld) [Entitic vol] 11.0 fL 6.2-12.0 [facility] Monocyte percentageOrdered B y: Amy Sutton on 08-05-2024 Monocytes/100 WBC (Bld) 9.3 % 0-10 [facility] Neutrophil percentageOrdered By: Amy Sutton on 08-05-2024 Neutrophils/100 WBC (Bld) 60.1 % 47-70 [facility] Nucleated red blood cell per centageOrdered By: Amy Sutton on 08-05-2024 Nucleated RBC/100 WBC (Bld) [Ratio] 0 % 0-5 [facility] Platelet countOrdered By: Bhupendra Sutton on 08-05-2024 Platelets (Bld) [#/Vol] 231 10*3/uL 150-450 [facility] Potassium (Unsp spec) [Mass/ Vol]Ordered By: Amy Sutton on 08-05-2024 Potassium [Moles/Vol] 4.4 mmol/L 3.3-5.1 [facility] Potassium measurement (mass/ volume)Ordered By: Amy Sutton on 08-05-2024 Potassium (Unsp spec) [Mass/Vol] 4.4 mmol/L 3.3-5.1 [facility] RBC Auto (Bld) [#/Vol]Ordere d By: Amy Sutton on 08-05-2024 RBC (Bld) [#/Vol] 4.74 10*6/uL 4.6-6.2 [facility] Screening total cholesterol/ high density lipoprotein (HDL) cholesterol ratioOrdered By: Amy Sutton on 08-05-2024 Cholesterol.total/Choles terol in HDL [Mass ratio] 3.51 {ratio} [facility] Serum creatinine measurement (mass/volume)Ordered By: Amy Sutton on 08-05-2024 Creatinine [Mass/Vol] 0.92 mg/dL 0.70-1.20 [facility] Serum globulin measurementOr dered By: Amy Sutton on 08-05-2024 Globulin (S) [Mass/Vol] 2.8 g/dL 2.2-4.2 [facility] Serum glucose measurement (m ass/volume)Ordered By: Amy Sutton on 08-05-2024 Glucose [Mass/Vol] 166 mg/dL High 70-99 [facility] Serum or plasma alanine rausch otransferase (ALT) measurementOrdered By: Amy Sutton on 08-05-2024 ALT [Catalytic activity/Vol] 23 U/L <47 [facility] Serum or plasma albumin chicho urement (mass/volume)Ordered By: Amy Sutton on 08-05-2024 Albumin [Mass/Vol] 4.0 g/dL 3.4-4.8 [facility] Serum or plasma albumin/glob ulin mass ratioOrdered By: Amy Sutton on 08-05-2024 Albumin/Globulin [Mass ratio] 1.5 {ratio} 0.9-2.4 [facility] Serum or plasma alkaline martin sphatase measurementOrdered By: Amy Sutton on 08-05-2024 ALP [Catalytic activity/Vol] 58 U/L 40-129 [facility] Serum or plasma calcium chicho urement (mass/volume)Ordered By: Amy Sutton on 08-05-2024 Calcium [Mass/Vol] 9.1 mg/dL 7.6-11.0 [facility] Serum or plasma cholesterol in HDL measurement (mass/volume)Ordered By: Amy Sutton on 08-05-2024 Cholesterol in HDL [Mass/Vol] 78 mg/dL >40 [facility] Comment on above: National Cholesterol Education Program (NCEP) guidelines:<40 mg/dL: Low HDL-cholesterol (major risk factor for CHD)>= 60 mg/dL: High HDL-cholesterol (negative risk factor for CHD)HDL-cholesterol is affected by a number of factors, e.g. smoking, exercise, hormones, sex and age. Serum or plasma cholesterol measurement (mass/volume)Ordered By: Amy Sutton on 08-05-2024 Cholesterol [Mass/Vol] 273 mg/dL High <201 [facility] Comment on above: Cholesterol level, D esirable <200 mg/dLBorderline high cholesterol 200-239 mg/dLHigh cholesterol >=240 mg/dLRecommendations of the NCEP Adult Treatment Panel for the following risk-cutoff thresholds for the [place] population. Serum or plasma urea nitroge n measurement (mass/volume)Ordered By: Amy Sutton on 08-05-2024 Urea nitrogen [Mass/Vol] 15 mg/dL 4-19 [facility] Sodium levelOrdered By: Vannesa Sutton on 08-05-2024 Sodium [Moles/Vol] 136 mmol/L 133-145 [facility] Total proteinOrdered By: Jose Sutton on 08-05-2024 Protein [Mass/Vol] 6.8 g/dL 5.9-8.4 [facility] Triglycerides measurementOrd ered By: Amy Sutton on 08-05-2024 Triglyceride [Mass/Vol] 107 mg/dL <199 [facility] Comment on above: The drugs N-Acetylcy steine and Metamizole may falsely depress this assay. Normal range: <150 mg/dLBorderline High: 150-199 mg/dLHigh: 200-499 mg/dLVery High: >500 mg/dL White blood cell (WBC) count Ordered By: Amy Sutton on 08-05-2024 WBC (Bld) [#/Vol] 6.1 10*3/uL 4.4-11.0 [facility] Internal Medicine Office Vis iton 07-10-2024 Internal Medicine Office Visit [facility] [address] [place], [place] [address] OFFICE VISIT Date of Service: 07/10/24 MR#: [id number] Acct: [id number] Name: BABATUNDE STEWART Rep #: [id number] : 1955 Provider: Dr. Amy edwards MD Age/Sex: 68/M Location: [facility] Status: Signed Intake Vital Signs 07/10/24 10:47 Height 6 ft 3 in Weight: 255 lb 6 oz BMI 31.9 BP 122/60 H Blood Pressure Location Lt brachial Position Sitting Respiration 12 Pulse 66 Pulse Source Monitor Pulse Oximetry (%) 95 Oxygen Delivery Method room air Intake Visit Reasons: [facility] PPW SENT Chief Complaint: ESTABLISHING Interim Controller Required: No Accompanied by: Self Is patient [...] diabetic 31 gauge x 07/10/24 07/10/24 History 16 (Droplet Pen Needle) Have you fallen in [...] to establish care. He was seeing the [facility] residency program and last saw them about [...] new supplies. His supplier is located in [place] and he needs a new s (more content not included)... Normal [facility] - Hematology and Cell countsOrdered By: Amy Sutton on 07-10-2024 HbA1c (Bld) [Mass fraction] 7.1 % High 4.2-6.3 [facility] CNOVon 05-03-2024 CNOV Office Visit ([facility]) BABATUNDE STEWART ([id number]) 1955 M Date Time Provider Department 05/03/24 1:40 PM ANGEL BURNETTE [facility] During your visit today, we recorded the following information about you: Temperature Pulse Respiration Blood pressure 98.1 degrees 81/minute 18/minute 128/53 Weight Height 116.6 kg 1.905 m Angel Burnette DO 05/03/2024 3:51 PM Signed [facility] [address] [place] [address] [facility] [address] [place] [address] Visit Date: May 02, 2024 Name: Babatunde Stewart Date of : 1955 MRN/E #: [id number] Chief Complaint: Patient presents with: Diabetes Right Flank Pain: UA negative at [facility] Subjective Babatunde Stewart is a 68 year old male here with the following complaint(s): Flank pain -2/10 today -was exercising and felt a cringe [...] 5.6 % The ASCVD Risk score (Breezy DK, et al., 2019) failed to calculate for the following reasons: The valid HDL cholesterol range is 20 to 100 mg/dL PHQ-9 01/26/2023 07/19/2023 PHQ-9 Scores Little interest or pleasure in doing things: Not at all Not at all Feeling down, depressed, or hopeless: Not at all Not at all Trouble f (more content not included)... Normal [facility] HEMOGLOBIN A1C (POC)on 05-03 HbA1c (Bld) [Mass fraction] 7.6 % Abnormal 4.3 - 5.6 % [facility] Comment on above: Location:[facility], [address] [place] [address], [address] Point of care (POC) Hemoglobin A1c (HGBA1C) [...] specific diabetes management situations: The POC device metal spinner provides a normal range of 4.2% to 6.5% for the HGBA1C POC test. However, the [place] Diabetes Association guidelines indicate that patients with [...] Interpretation and review of laboratory results Abnormal [facility] CNOVon 04-25-2024 CNOV Office Visit ([facility] ) BABATUNDE STEWART ([id number]) 1955 M Date Time Provider Department 04/25/24 8:30 AM MARGARITA CALDERON [facility] During your visit today, we recorded the following information about you: Temperature Pulse Respiration Blood pressure 97.4 degrees 71/minute 22/minute 136/76 Weight 116 kg Margarita Calderon APRN.CNP 04/25/2024 9:21 AM Signed This note was created using GetMyRxriter. Subjective Babatunde Stewart is a 68 year [...] - UA DIP, URINE (POC) Margarita Calderon APRN.ON LINE CSR Allergies As of Date: 04/25/2024 Noted Allergy [...] Diagnosis:Flank pain [R10.9] Order(s):UA DIP, URINE (POC) [1257583] Order #: [id number]. #:[id number] Prescriptions as of 04/25/2024 - lisinopril-hydroCHLOR Othiazide (ZESTORETIC) 20-12.5 mg per tablet Take 1 tablet by mouth every afternoon. - insulin lispro (HUMALOG KWIKPEN) 100 unit/mL Inject 20 Units subcutaneously three times a day before meals. - dapagliflozin propanediol (FARXIGA) 10 mg tablet take 1 tablet by mouth once daily in the morning - TOUGARETHO SOLOSTAR U-300 INSULIN 300 unit/mL (1.5 mL) [...] [N18.2] 02/06/2019 Diagnosed: 07/19/2023 Encounter Status:Closed by MARGARITA CALDERON on 04/25/24 [facility] Rob[facility] BABATUNDE STEWART ([id number]) 1955 M Date Time Provider Department 04/25/24 GRACIE ZHAO [facility] During your visit today, we recorded [...] mouth once daily in the morning - TOUGARETHO SOLOSTAR U-300 INSULIN 300 unit/mL (1.5 mL) [...] Status:Closed by CHANTELL NOLAN on 04/25/24 Normal [facility] UA DIP, URINE (POC)on 2023 BILIRUBIN UA (POCT) Negative Negative [facility] CLARITY UA (POCT) Cloudy [facility] COLOR UA (POCT) Dark yellow [facility] GLUCOSE UA (POCT) >=1000 Abnormal Negative mg/dL [facility] Hemoglobin Ql (U) Negative Negative [facility] Interpretation and review of laboratory results Abnormal [facility] KETONE UA (POCT) Negative Negative mg/dL [facility] LEUKOCYTES UA (POCT) Negative Negative [facility] NITRITE UA (POCT) Negative Negative [facility] PH UA (POCT) 5.0 4.5 - 8.0 [facility] Protein Ql (U) Trace Abnormal Negative mg/dL [facility] SPECIFIC GRAVITY UA (POCT) 1.025 1.005 - 1.030 [facility] UROBILINOGEN UA (POCT) 0.2 Tiffanie l E.U./dL [facility] Location: [place], [address] [facility] POINT OF CARE [facility] Robyn 04-24-2024 CNPN Telephone ([facility]) BABATUNDE STEWART ([id number]) 1955 M Date Time Provider Department 04/24/24 GRACIE ZHAO [facility] During your visit today, we recorded [...] Encounter Status:Closed by CHANTELL NOLAN on 04/24/24 [facility] CNPN Telephone ([facility]) BABATUNDE STEWART ([id number]) 1955 M Date Time Provider Department 04/24/24 [facility] During your visit today, we recorded [...] Encounter Status:Closed by CHANTELL NOLAN on 04/24/24 [facility] 02-19-2024 [facility] BABATUNDE STEWART ([id number]) 1955 M Date Time Provider Department 02/19/24 GRACIE ZHAO [facility] During your visit today, we recorded [...] mouth once daily in the morning - DVA SOLFRANCKAR U-300 INSULIN 300 unit/mL (1.5 mL) Inject [...] Encounter Status:Closed by AMBER BOWMAN on 03/11/24 [facility] ([facility]) BABATUNDE STEWART ([id number]) 1955 M Date Time Provider Department 02/15/24 8:40 AM GRACIE ZHAO [facility] During your visit today, we recorded the following information about you: Temperature Pulse Respiration Blood pressure 97 degrees 66/minute 16/minute 126/55 Weight Height 113.8 kg 1.905 m Sarah Amaya LPN 02/15/2024 8:17 AM Signed Influenza Vaccine given as ordered. Immunization History - influenza (HD-IIV3) vaccine, age 65+ yr, high dose, trivalent, PF (FLUZONE HIGH-DOSE) (Given) - Date: 02/15/2024 - Lot #: [id number] - Dose: 0.5 mL - Site: Left deltoid - Accounting Software Specialist: [employer] - Given By: SARAH AMAYA - Expiration Date: 11/11/2024 Pt tolerated well. ISABELLE Zendejas Jacob, MD 02/16/2024 10:50 AM Signed [facility] [address] [place] [address] [facility] [address] [place] [address] Visit Date: February 15, 2024 Name: Babatunde Stewart Date of : 1955 MRN/E #: [id number] Chief Complaint: No chief complaint on file. [...] A1C (POC) (more content not included)... Normal [facility] CNPNon 01-17-2024 [facility] Telephone ([facility]) BABATUNDE STEWART ([id number]) 1955 M Date Time Provider Department 01/17/24 GRACIE ZHAO [facility] During your visit today, we recorded [...] Diarrhea Date Reviewed: 07/19/2023 Reviewed by: Arianna Talley LPN - Fully Assessed Reason for Visit: [...] this encounter Disp Refills Start End FREESTYLE BERTIN 3 SENSOR PLUS DEVICE 2 Ea* 5 01/19/2024 Route: Misc Si Each once daily. Medications Discontinued During This Encounter Prescriptions - Blood-Glucose Sensor (FREESTYLE BERTIN 3 SENSOR) jose g (Discontinued) Use to check sugars 3-4 times per day Encounter Status:Closed by WANDA RESENDIZ on 01/17/24 Normal [facility] CNOVon 12-04-2023 CNOV Office Visit ([facility]) BABATUNDE STEWART ([id number]) 1955 M Date Time Provider Department 12/04/23 3:00 PM MELVIN HOOPER [facility] During your visit today, we recorded the following information about you: Temperature Blood pressure Weight Height 97.1 degrees 124/78 113.4 kg 1.905 m Melvin Hooper DO 12/04/2023 5:43 PM Signed Melvin Hooper DO [facility] [address] [place] [address] [facility] [address] [place] [address] Visit Date: December 04, 2023 Name: Babatunde Stewart Date of : 1955 MRN/E #: [id number] Chief Complaint: Diabetes Subjective Babatunde Stewart is [...] Result Valu (more content not included)... Normal [facility] HEMOGLOBIN A1C (POC)on 12-03 HbA1c (Bld) [Mass fraction] 7.2 % Abnormal 4.3 - 5.6 % [facility] Comment on above: Location:[facility], [address], [address] Point of care (POC) Hemoglobin A1c (HGBA1C) [...] specific diabetes management situations: The POC device metal spinner provides a normal range of 4.2% to 6.5% for the HGBA1C POC test. However, the [place] Diabetes Association guidelines indicate that patients with [...] Interpretation and review of laboratory results Abnormal [facility] CNPNon 08-02-2023 CNPN Telephone ([facility]) BABATUNDE STEWART ([id number]) 1955 Date Time Provider Department 08/02/23 YARITZA JOYCE During your visit today, we recorded the following information about you: Yaritza Joyce LGC 08/02/2023 8:48 AM Signed Results left on patient voicemail. Babatunde Stewart's Multi-Cancer panel through [facility] was negative for a pathogenic variant. Please see [employer]Book[employer] message for further discussion. BEVERLY Pena Licensed, Certified Genetic Counselor Allergies As of Date: 08/02/2023 Noted Allergy Reaction ATORVASTATIN 01/26/2023 17 - Myalgia HAY FEVER (SEASONAL ALLERGIES) 01/26/2023 9 - Itching LOSARTAN 06/20/2023 17 - Myalgia METFORMIN 06/20/2023 6 - Diarrhea Date Reviewed: 07/19/2023 Reviewed by: Arianna Talley LPN - Fully Assessed Reason for Visit: [...] Encounter Status:Closed by YARITZA JOYCE on 08/02/23 Normal [facility] SEND OUT TST 1on 2023 REFERRAL LAB 1 [facility] Normal [facility] Comment on above: Order Comment: Speci men Type: BLOOD SPECIMEN Ordering Facility: [facility] Address: [address] [place] [address] Performed By: #### M ISC1 #### NON-INTERFACED REF LABS CLIA SEE SCANNED RESULTS TEST 1 Multi-Cancer Panel Normal [facility] Comment on above: Order Comment: Speci men Type: BLOOD SPECIMEN Ordering Facility: [facility] Address: [address] [place] [address] Performed By: #### M ISC1 #### NON-INTERFACED REF LABS CLIA SEE SCANNED RESULTS TEST RESULTS 1 View results in Scanned Documents link when available. Normal [facility] Comment on above: Order Comment: Speci men Type: BLOOD SPECIMEN Ordering Facility: [facility] Address: [address] [place] [address] Performed By: #### M ISC1 #### NON-INTERFACED REF LABS CLIA SEE SCANNED RESULTS ALBUMIN/CREAT RATIO RND URon 2023 Albumin DL <= 20 mg/L (U) [Mass/Vol] 27.3 mg/L Normal [facility] Comment on above: Order Comment: Speci men Type: URINE SPECIMEN Ordering Facility: [facility] Address: [address] [place] [address] Performed By: #### U ACR #### [facility] CLIA [id number] [address] [place] [address] [place] Albumin/Creatinine (U) [Mass ratio] 33 mg/g High <30 [facility] Comment on above: Order Comment: Speci men Type: URINE SPECIMEN Ordering Facility: [facility] Address: [address] [place] [address] Result Comment: Adul t Male and Female Nephrotic Criteria: <30 mg/g is considered normal to mildly increased 30-300 mg/g is considered moderately increased >300 mg/g is considered severely increased KDIGO. (2013). KDIGO 2012 Clinical Practice Guideline for the Evaluation and Management of Chronic Kidney Disease. Official Journal of the International Society of Nephrology, 3(1), 1-150. Performed By: #### U ACR #### [facility] CLIA [id number] [address] [place] [address] [place] Creatinine (U) [Mass/Vol] 83.0 mg/dL Normal 20.0-300.0 [facility] Comment on above: Order Comment: Speci men Type: URINE SPECIMEN Ordering Facility: [facility] Address: [address] [place] [address] Performed By: #### U ACR #### [facility] CLIA [id number] [address] [address] [place] ANES POSTPROC EVALon 024 ANES POSTPROC EVAL HNO ID: [id number] Author: JESUS AQUINO MD Service: Anesthesiology Author Type: Anesthesiologist Type: Anesthesia Postprocedure Evaluation Filed: 05/29/2023 12:10 Note Text: POST ANESTHESIA EVALUATION NOTE : 1955 Procedure Summary Date: 05/29/23 Room / Location: [facility] Endoscopy Anesthesia Start: 1009 Anesthesia Stop: 1041 Procedure: COLONOSCOPY SCREENING Diagnosis: Encounter for screening colonoscopy Family hx of colon cancer Hemorrhoids, unspecified hemorrhoid type (High risk colon cancer surveillance: Personal history of colonic polyps) Scheduled Providers: Ana Villalpando MD; Jesus Aquino MD; Lavern Garzon APRN.SALARY AND WAGE ADMINISTRATOR Responsible Provider: Jesus Aquino MD Anesthesia Type: [...] May 29, 2023 TIME: 12:10 PM CSN: [id number] Normal [facility] ANES PRE-OPon 05-29-2023 ANES PRE-OP HNO ID: [id number] Author: JESUS AQUINO MD Service: Anesthesiology Author Type: Anesthesiologist Type: Anesthesia Preprocedure Evaluation Filed: 05/29/2023 08:04 Note Text: ANESTHESIOLOGY DAY OF SURGERY NOTE : 1955 Procedure Information Date/Time: 05/29/23 1100 Scheduled providers: Ana Villalpando MD; Jesus Aquino MD; Lavern Garzon APRN.SALARY AND WAGE ADMINISTRATOR Procedure: COLONOSCOPY SCREENING Location: [facility] Endoscopy Estimated body mass index is [...] May 29, 2023 TIME: 8:04 AM CSN: [id number] Normal [facility] Colonoscopyon 05-29-2023 Colonoscopy [facility] Gastrointestinal Endoscopy Patient Name: Babatunde Stewart Procedure Date: 05/29/2023 10:01 AM Date of : 1955 Admit Type: Outpatient Age: 67 Room: [facility] Gender: Male Note Status: Finalized Attending MD: Ana Villalpando MD, [id number] Procedure: Colonoscopy Indications: High risk colon cancer [...] anesthesia care under the supervision of a SALARY AND WAGE ADMINISTRATOR was determined to be medically necessary for [...] previous diet. Procedure Code(s): --- Professional --- 74405, Colonoscopy, flexible; with biopsy, single or multiple Diagnosis Code(s): --- Professional --- Z80.0, Family history of malignant neoplasm of digestive organs D12.8, Benign neoplasm of rectum K64.8, Other hemorrhoids Z86.010, Personal history of colonic polyps Z12.11, Encounter for screening for malignant neoplasm of colon CPT copyright 2020 [employer]. All rights reserved. The codes documented in this report are preliminary and upon transmission and protection engineer review may be revised to meet current compliance requirements. Attending Participation: I personally performed the entire procedure. Scope In: 10:16:37 AM Scope Out: 10:31:28 AM MD Ana Cain MD 05/29/2023 10:35:31 AM This report has been signed electronically by Ana Villalpando MD Number of Addenda: 0 Note Initiated On: 05/29/2023 10:01 AM Estimated Blood Loss: Estimated blood loss was minimal. Normal [facility] HISTORY PHYSICALon HISTORY PHYSICAL HNO ID: [id number] Author: ANA VILLALPANDO MD Service: General Surgery [...] Take 10 mg by mouth every morning. KydaemosSTYLE BERTIN 2 SENSOR kit apply 1 SENSOR [...] no further questions. . Ana Villalpando MD [facility] SURGICAL PATHOLOGYon 024 CASE REPORT [facility] Comment on above: Order Comment: Speci roman Type: TISSUE SPECIMEN Ordering Facility: [facility] Address: [address] [place] [address] Result Comment: Surg [facility] Pathology Report Case: [id number] Authorizing Provider: Ana Villalpando MD Collected: 05/29/2023 10:30 AM Ordering Location: [facility] Endoscopy Received: 05/29/2023 11:19 AM Pathologist: Gracie Obregon MD Specimen: RECTAL POLYP Performed By: #### S #### [facility] CLIA [id number] [address] [place] [address] [place] FINAL DIAGNOSIS Normal [facility] Comment on above: Order Comment: Speci men Type: TISSUE SPECIMEN Ordering Facility: [facility] Address: [address] [place] [address] Result Comment: A. R ectum, polyp, polypectomy: -Fragments of tubular adenoma. Performed By: #### S #### [facility] CLIA [id number] [address] [place] [address] [place] FINAL PERFORMING LAB Normal [facility] Comment on above: Order Comment: Speci men Type: TISSUE SPECIMEN Ordering Facility: [facility] Address: [address] [place] [address] Result Comment: Diag nostic interpretation performed at [facility], [address] [place] [address] CLIA# [id number] Mottler Operator: Dante Trevino M.D. Performed By: #### S #### [facility] CLIA [id number] [address] [place] [address] [place] GROSS DESCRIPTION A. RECTAL POLYP Normal [facility] Comment on above: Order Comment: Speci men Type: TISSUE SPECIMEN Ordering Facility: [facility] Address: [address] [place] [address] Result Comment: Rece ived in formalin are two pieces of garvey, soft tissue aggregating to 0.4 x 0.2 x 0.1 cm. Totally submitted in one cassette. JTS May 29, 2023 3:21 PM Gross examination performed at [facility], [address] [place] [address] Performed By: #### S #### [facility] CLIA [id number] [address] [place] [address] [place] CBC panel Auto (Bld)on 05-23 Erythrocyte distribution width (RBC) [Ratio] 12.2 % Normal 11.5-15.0 [facility] Comment on above: Order Comment: Speci men Type: BLOOD SPECIMEN Ordering Facility: [facility] Address: [address] [place] [address] Performed By: #### 5 8410-2 #### [facility] CLIA [id number] [address] [place], [place] [address] [place] Hematocrit (Bld) [Volume fraction] 48.4 % Normal 39.0-51.0 [facility] Comment on above: Order Comment: Speci men Type: BLOOD SPECIMEN Ordering Facility: [facility] Address: [address] [place] [address] Performed By: #### 5 8410-2 #### [facility] CLIA [id number] [address] [place] [address] [place] Hemoglobin (Bld) [Mass/Vol] 16.3 g/dL Normal 13.0-17.0 [facility] Comment on above: Order Comment: Speci men Type: BLOOD SPECIMEN Ordering Facility: [facility] Address: [address] [place] [address] Performed By: #### 5 8410-2 #### [facility] CLIA [id number] [address] [place] [address] [place] MCH (RBC) [Entitic mass] 34.8 pg High 26.0-34.0 [facility] Comment on above: Order Comment: Speci men Type: BLOOD SPECIMEN Ordering Facility: [facility] Address: [address] [place] [address] Performed By: #### 5 8410-2 #### [facility] CLIA [id number] [address] [place] [address] [place] MCHC (RBC) [Mass/Vol] 33.7 g/dL Normal 30.5-36.0 [facility] Comment on above: Order Comment: Speci men Type: BLOOD SPECIMEN Ordering Facility: [facility] Address: [address] [place] [address] Performed By: #### 5 8410-2 #### [facility] CLIA [id number] [address] [place] [address] [place] MCV (RBC) [Entitic vol] 103.2 fL High 80.0-100.0 [facility] Comment on above: Order Comment: Speci men Type: BLOOD SPECIMEN Ordering Facility: [facility] Address: [address] [place] [address] Performed By: #### 5 8410-2 #### [facility] CLIA [id number] [address] [place] [address] [place] Nucleated RBC (Bld) [#/Vol] 10*3/uL Normal <0.01 [facility] Comment on above: Order Comment: Speci men Type: BLOOD SPECIMEN Ordering Facility: [facility] Address: [address] [place] [address] Performed By: #### 5 8410-2 #### [facility] CLIA [id number] [address] [place] [address] [place] Platelet mean volume (Bld) [Entitic vol] 10.9 fL Normal 9.0-12.7 [facility] Comment on above: Order Comment: Speci men Type: BLOOD SPECIMEN Ordering Facility: [facility] Address: [address] [place] [address] Performed By: #### 5 8410-2 #### [facility] CLIA [id number] [address] [place] [address] [place] Platelets (Bld) [#/Vol] 227 10*3/uL Normal 150-400 [facility] Comment on above: Order Comment: Speci men Type: BLOOD SPECIMEN Ordering Facility: [facility] Address: [address] [place] [address] Performed By: #### 5 8410-2 #### [facility] CLIA [id number] [address] [place] [address] [place] RBC (Bld) [#/Vol] 4.69 10*6/uL Normal 4.20-6.00 [facility] Comment on above: Order Comment: Speci men Type: BLOOD SPECIMEN Ordering Facility: [facility] Address: [address] [place] [address] Performed By: #### 5 8410-2 #### [facility] CLIA [id number] [address] [address] [place] WBC (Bld) [#/Vol] 6.11 10*3/uL Normal 3.70-11.00 [facility] Comment on above: Order Comment: Speci men Type: BLOOD SPECIMEN Ordering Facility: [facility] Address: [address] [place] [address] Performed By: #### 5 8410-2 #### [facility] CLIA [id number] [address] [place] [address] [place] Comprehensive metabolic 2000 panelon 05-23-2023 Albumin [Mass/Vol] 4.2 g/dL Normal 3.9-4.9 [facility] Comment on above: Order Comment: Speci men Type: BLOOD SPECIMEN Ordering Facility: [facility] Address: [address] [place] [address] Performed By: #### 2 4331-1, 58122-6 #### [facility] CLIA [id number] [address] [address] [place] ALP [Catalytic activity/Vol] 68 U/L Normal 38-113 [facility] Comment on above: Order Comment: Speci men Type: BLOOD SPECIMEN Ordering Facility: [facility] Address: [address] [place] [address] Performed By: #### 2 4331-1, 92280-1 #### [facility] CLIA [id number] [address] [address] [place] ALT [Catalytic activity/Vol] 35 U/L Normal 10-54 [facility] Comment on above: Order Comment: Speci men Type: BLOOD SPECIMEN Ordering Facility: [facility] Address: [address] [place] [address] Performed By: #### 2 4331-1, 21037-7 #### [facility] CLIA [id number] [address] [id number] [address] [place] Anion gap [Moles/Vol] 12 mmol/L Normal 9-18 [facility] Comment on above: Order Comment: Speci men Type: BLOOD SPECIMEN Ordering Facility: [facility] Address: [address] [place] [address] Performed By: #### 2 4331-1, #### [facility] CLIA [id number] [address] [place] [address] [place] AST [Catalytic activity/Vol] 31 U/L Normal 14-40 [facility] Comment on above: Order Comment: Speci men Type: BLOOD SPECIMEN Ordering Facility: [facility] Address: [address] [place] [address] Performed By: #### 2 4331-1, #### [facility] CLIA [id number] [address] [place] [address] [place] Bilirubin [Mass/Vol] 0.5 mg/dL Normal 0.2-1.3 [facility] Comment on above: Order Comment: Speci men Type: BLOOD SPECIMEN Ordering Facility: [facility] Address: [address] [place] [address] Performed By: #### 2 4331-, #### [facility] CLIA [id number] [address] [place] [address] [place] Calcium [Mass/Vol] 9.3 mg/dL Normal 8.5-10.2 [facility] Comment on above: Order Comment: Speci men Type: BLOOD SPECIMEN Ordering Facility: [facility] Address: [address] [id number] Performed By: #### 2 4331-1, #### [facility] CLIA [id number] [address] [address] [place] Chloride [Moles/Vol] 98 mmol/L Normal 97-105 [facility] Comment on above: Order Comment: Speci men Type: BLOOD SPECIMEN Ordering Facility: [facility] Address: [address] [place] [address] Performed By: #### 2 4331-1, 04866-0 #### [facility] CLIA [id number] [address] [place] [address] [place] CO2 [Moles/Vol] 28 mmol/L Normal 22-30 [facility] Comment on above: Order Comment: Speci men Type: BLOOD SPECIMEN Ordering Facility: [facility] Address: [address] [place] [address] Performed By: #### 2 4331-1, 97248-5 #### [facility] CLIA [id number] [address] [place] [address] [place] Creatinine [Mass/Vol] 0.84 mg/dL Normal 0.73-1.22 [facility] Comment on above: Order Comment: Speci men Type: BLOOD SPECIMEN Ordering Facility: [facility] Address: [address] [place] [address] Performed By: #### 2 4331-1, 89993-6 #### [facility] CLIA [id number] [address] [place] [address] [place] Creatinine and Glomerular filtration rate.predicted panel (S/P/Bld) 96 mL/min/1.73m??? Normal >=60 [facility] Comment on above: Order Comment: Speci men Type: BLOOD SPECIMEN Ordering Facility: [facility] Address: [address] [place] [address] Result Comment: Lea mated Glomerular Filtration Rate [...] actual GFR. Performed By: #### 2 4331-1, 67500-8 #### [facility] CLIA [id number] [address] [place] [address] [place] Glucose [Mass/Vol] 152 mg/dL High 74-99 [facility] Comment on above: Order Comment: Speci men Type: BLOOD SPECIMEN Ordering Facility: [facility] Address: [address] [place] [address] Result Comment: The [place] [employer] (ADA) provides guidance for cutoff [...] Standards of Medical Care in Diabetes 2016, [employer] [employer]. Diabetes Care. 2016.39(Suppl 1). Performed By: #### 2 4331-1, 54950-3 #### [facility] CLIA [id number] [address] [place] [address] [place] Potassium [Moles/Vol] 4.4 mmol/L Normal 3.7-5.1 [facility] Comment on above: Order Comment: Speci men Type: BLOOD SPECIMEN Ordering Facility: [facility] Address: [address] [place] [address] Performed By: #### 2 4331-1, 21878-4 #### [facility] CLIA [id number] [facility] [place] [address] [place] Protein [Mass/Vol] 6.7 g/dL Normal 6.3-8.0 [facility] Comment on above: Order Comment: Speci men Type: BLOOD SPECIMEN Ordering Facility: [facility] Address: [address] [place] [address] Performed By: #### 2 4331-1, 44055-4 #### [facility] CLIA [id number] [address] [place] [address] [place] Sodium [Moles/Vol] 138 mmol/L Normal 136-144 [facility] Comment on above: Order Comment: Speci men Type: BLOOD SPECIMEN Ordering Facility: [facility] Address: [address] [place] [address] Performed By: #### 2 4331-1, 52722-5 #### [facility] CLIA [id number] [address] [place] [address] [place] Urea nitrogen [Mass/Vol] 21 mg/dL Normal 9-24 [facility] Comment on above: Order Comment: Laviniai men Type: BLOOD SPECIMEN Ordering Facility: [facility] Address: [address] [place] [address] Performed By: #### 2 4331-1, 19455-7 #### [facility] CLIA [id number] [address] [place] [address] [place] HCV Ab Ser Qlon 05-23-2023 HCV Ab Ql (S) Negative Normal Negative [facility] Comment on above: Order Comment: Laviniai men Type: BLOOD SPECIMEN Ordering Facility: [facility] Address: [address] [place] [address] Result Comment: The result suggests no evidence of active infection with Hepatitis C virus. Should recent infection be suspected, repeat testing may be considered 4-6 weeks after this draw. Performed By: #### 1 6128-1 #### [facility] CLIA [id number] [address] [place] [address] [place] HbA1c (Bld)on 05-23-2023 Average glucose Estimated from glycated hemoglobin (Bld) [Mass/Vol] 183 mg/dL Normal [facility] Comment on above: Order Comment: Edgar men Type: BLOOD SPECIMEN Ordering Facility: [facility] Address: [address] [place] [address] Result Comment: eAG: (Estimated average glucose) is a calculated value from HgbA1c and is help desk representative of the average blood glucose level in the last 2-3 month period. Performed By: #### 5 5454-3 #### [facility] CLIA [id number] [address] [place] [address] [place] HbA1c (Bld) [Mass fraction] 8.0 % High 4.3-5.6 [facility] Comment on above: Order Comment: Edgar owens Type: BLOOD SPECIMEN Ordering Facility: [facility] Address: [address] [place] [address] Result Comment: Amer [place] Diabetes Association guidelines indicate that patients with HgbA1c in the range 5.7-6.4% are at increased risk for development of diabetes, and intervention by lifestyle modification may be beneficial. HgbA1c greater or equal to 6.5% is considered diagnostic of diabetes. Performed By: #### 5 5454-3 #### [facility] CLIA [id number] [address] [place] [address] [place] Lipid 1996 panelon 4 Cholesterol [Mass/Vol] 288 mg/dL High <200 [facility] Comment on above: Order Comment: Edgar owens Type: BLOOD SPECIMEN Ordering Facility: [facility] Address: [address] [place] [address] Result Comment: <200 mg/dL, Desirable 200-239 mg/dL, Borderline high >239 mg/dL, High Performed By: #### 2 4331-1, 83027-7 #### [facility] CLIA [id number] [address] [place] [address] [place] Cholesterol in HDL [Mass/Vol] 102 mg/dL Normal >39 [facility] Comment on above: Order Comment: Edgar [facility] Type: BLOOD SPECIMEN Ordering Facility: [facility] Address: [address] [place] [address] Result Comment: 40-5 9 mg/dL, Acceptable >59 mg/dL, High: Negative risk factor for coronary heart disease <40 mg/dL, Low: Positive risk factor for coronary heart disease Performed By: #### 2 4331-1, 63288-6 #### [facility] CLIA [id number] [address] [facility] [place] [address] [place] Cholesterol in LDL [Mass/Vol] 159 mg/dL High <100 [facility] Comment on above: Order Comment: Edgar owens Type: BLOOD SPECIMEN Ordering Facility: [facility] Address: [address] [place] [address] Result Comment: <100 mg/dL, Optimal 100-129 mg/dL, Near optimal/above optimal 130-159 mg/dL, Borderline high 160-189 mg/dL, High >189 mg/dL, Very high Secondary prevention optimal LDL Cholesterol levels are recommended to be < 70 mg/dL Performed By: #### 2 4331-1, 53285-2 #### [facility] CLIA [id number] [facility] [address] [place] [facility] Cholesterol in LDL/Cholesterol in HDL [Mass ratio] 1.56 {ratio} Normal <2.54 [facility] Comment on above: Order Comment: Edgar owens Type: BLOOD SPECIMEN Ordering Facility: [facility] Address: [address] [place] [address] Result Comment: Saleem lomas: 1. National Cholesterol Education Program ATP III Guideline At-A-Glance Quick Desk Reference: National Heart, Lung, and Blood [place]. National Institutes of Health. 2001: NIH Publication No. 01-3305. 2. An International Atherosclerosis Society position paper: global recommendations for the management of dyslipidemia: executive summary, Atherosclerosis. 2014: 232(2):410-413. Performed By: #### 2 4331-1, 01164-8 #### [facility] CLIA [id number] [address] [place] [address] [place] Cholesterol in VLDL [Mass/Vol] 27 mg/dL Normal <30 [facility] Comment on above: Order Comment: Edgar owens Type: BLOOD SPECIMEN Ordering Facility: [facility] Address: [address] [place] [address] Performed By: #### 2 4331-1, 90796-6 #### [facility] CLIA [id number] [address] [facility] [place] [address] [place] Cholesterol non HDL [Mass/Vol] 186 mg/dL High <130 [facility] Comment on above: Order Comment: Speci men Type: BLOOD SPECIMEN Ordering Facility: [facility] Address: [address] [place] [address] Result Comment: <130 mg/dL, Optimal 130-159 mg/dL, Near optimal/above optimal 160-189 mg/dL, Borderline high 190-219 mg/dL, High >219 mg/dL, Very high Secondary prevention optimal non HDL Cholesterol levels are recommended to be <100 mg/dL Performed By: #### 2 4331-1, #### [facility] CLIA [id number] [facility] [place] [address] [place] Cholesterol.total/Choles terol in HDL [Mass ratio] 2.82 {ratio} Normal <5.10 [facility] Comment on above: Order Comment: Speci men Type: BLOOD SPECIMEN Ordering Facility: [facility] Address: [address] [place] [address] Performed By: #### 2 4331-1, #### [facility] CLIA [id number] [address] [place] [address] [place] FASTING TIME 12 hrs Normal [facility] Comment on above: Order Comment: Speci men Type: BLOOD SPECIMEN Ordering Facility: [facility] Address: [address] [place] [address] Performed By: #### 2 4331-1, 96191-5 #### [facility] CLIA [id number] [address] [place] [address] [place] Triglyceride [Mass/Vol] 134 mg/dL Normal <150 [facility] Comment on above: Order Comment: Speci men Type: BLOOD SPECIMEN Ordering Facility: [facility] Address: [address] [place] [address] Result Comment: <150 mg/dL, Normal 150-199 mg/dL, Borderline high 200-499 mg/dL, High >499 mg/dL, Very high Performed By: #### 2 [id number], [id number] #### [facility] CLIA [id number] [address] [place] [address] [place] Vital Signs Date Time Vital Sign Value Performing Clinician Facility 11-27-2024 08:36-0400 Body height 190.[address] Amy Sutton MD Work Phone: [facility] 11-27-2024 08:36-0400 Body mass index (BMI) [Ratio] 31.4 kg/m2 Dr. Amy Sutton MD Work Phone: [facility] 11-27-2024 08:36-0400 Body temperature 98.7 [degF] Dr. Amy Sutton MD Work Phone: [facility] 11-27-2024 08:36-0400 Body weight 113.[address] Amy Sutton MD Work Phone: [facility] 11-27-2024 08:36-0400 Diastolic blood pressure 58 mm[Hg] Dr. Amy Sutton MD Work Phone: [facility] 11-27-2024 08:36-0400 Heart rate 64 /min Dr. Amy Sutton MD Work Phone: [facility] 11-27-2024 08:36-0400 Respiratory rate 16 /min Dr. Amy Sutton MD Work Phone: [facility] 11-27-2024 08:36-0400 SaO2% (BldA) [Mass fraction] 95 % Dr. Amy Sutton MD Work Phone: [facility] 11-27-2024 08:36-0400 Systolic blood pressure 115 mm[Hg] Dr. Amy Sutton MD Work Phone: [facility] 11-25-2024 07:19-0400 Body height 190.[address] Amy Sutton MD Work Phone: [facility] 11-25-2024 07:19-0400 Body weight 113.[address] Amy Sutton MD Work Phone: [facility] 11-22-2024 09:54-0400 Body mass index (BMI) [Ratio] 31.2 kg/m2 Dr. Amy Sutton MD Work Phone: [facility] 11-20-2024 08:38-0400 Body height 190.[address] Amy Sutton MD Work Phone: [facility] 11-20-2024 08:38-0400 Body mass index (BMI) [Ratio] 31.2 kg/m2 Dr. Amy Sutton MD Work Phone: [facility] 11-20-2024 08:38-0400 Body weight 113.[address] Amy Sutton MD Work Phone: [facility] 11-20-2024 08:38-0400 Diastolic blood pressure 65 mm[Hg] Dr. Amy Sutton MD Work Phone: [facility] 11-20-2024 08:38-0400 Heart rate 70 /min Dr. Amy Sutton MD Work Phone: [facility] 11-20-2024 08:38-0400 Respiratory rate 18 /min Dr. Amy Sutton MD Work Phone: [facility] 11-20-2024 08:38-0400 Systolic blood pressure 109 mm[Hg] Dr. Amy Sutton MD Work Phone: [facility] 08-28-2024 10:31-0400 Body mass index (BMI) [Ratio] 32.1 kg/m2 Dr. Amy Sutton MD Work Phone: [facility] 08-28-2024 10:31-0400 Body weight 116.[address] Amy Sutton MD Work Phone: [facility] 08-28-2024 10:31-0400 Diastolic blood pressure 67 mm[Hg] Dr. Amy Sutton MD Work Phone: [facility] 08-28-2024 10:31-0400 Heart rate 66 /min Dr. Amy Sutton MD Work Phone: [facility] 08-28-2024 10:31-0400 Respiratory rate 16 /min Dr. Amy Sutton MD Work Phone: [facility] 08-28-2024 10:31-0400 Systolic blood pressure 128 mm[Hg] Dr. Amy Sutton MD Work Phone: [facility] 07-10-2024 10:47-0500 Body height 190.[address] Amy Sutton MD Work Phone: [facility] 07-10-2024 10:47-0500 Body mass index (BMI) [Ratio] 31.9 kg/m2 Dr. Amy Sutton MD Work Phone: [facility] 07-10-2024 10:47-0500 Body weight 115.[address] Amy Sutton MD Work Phone: [facility] 07-10-2024 10:47-0500 Diastolic blood pressure 60 mm[Hg] Dr. Amy Sutton MD Work Phone: [facility] 07-10-2024 10:47-0500 Heart rate 66 /min Dr. Amy Sutton MD Work Phone: [facility] 07-10-2024 10:47-0500 Respiratory rate 12 /min Dr. Amy Sutton MD Work Phone: [facility] 07-10-2024 10:47-0500 SaO2% (BldA) [Mass fraction] 95 % Dr. Amy Sutton MD Work Phone: [facility] 07-10-2024 10:47-0500 Systolic blood pressure 122 mm[Hg] Dr. Amy Sutton MD Work Phone: [facility] 05-03-2024 13:39-0500 Body height 190.5 cm Angel Vasile DO Work Phone: [facility] 05-03-2024 13:39-0500 Body mass index (BMI) [Ratio] 32.12 kg/m2 Angel Vasile DO Work Phone: [facility] 05-03-2024 13:39-0500 Body temperature 98.1 [degF] Angel Vasile DO Work Phone: [facility] 05-03-2024 13:39-0500 Body weight 116.57 kg Angel Vasile DO Work Phone: [facility] 05-03-2024 13:39-0500 Diastolic blood pressure 53 mm[Hg] Angel Vasile DO Work Phone: [facility] 05-03-2024 13:39-0500 Heart rate 81 /min Angel Vasile DO Work Phone: [facility] 05-03-2024 13:39-0500 Respiratory rate 18 /min Angel Vasile DO Work Phone: [facility] 05-03-2024 13:39-0500 SaO2% (BldA) [Mass fraction] 95 % Angel Vasile DO Work Phone: [facility] 05-03-2024 13:39-0500 Systolic blood pressure 128 mm[Hg] Angel Vasile DO Work Phone: [facility] 04-25-2024 08:37-0500 Body mass index (BMI) [Ratio] 31.96 kg/m2 Margarita Moomaw [employer] Work Phone: [facility] 04-25-2024 08:37-0500 Body temperature 97.39 [degF] Margarita Moomaw [employer] Work Phone: [facility] 04-25-2024 08:37-0500 Body weight 116 kg Margarita Moomaw [employer] Work Phone: [facility] 04-25-2024 08:37-0500 Diastolic blood pressure 76 mm[Hg] Margarita Moomaw [employer] Work Phone: [facility] 04-25-2024 08:37-0500 Heart rate 71 /min Margarita Moomaw [employer] Work Phone: [facility] 04-25-2024 08:37-0500 Respiratory rate 22 /min Margarita Moomaw [employer] Work Phone: [facility] 04-25-2024 08:37-0500 SaO2% (BldA) [Mass fraction] 96 % Amrgarita Moomaw [employer] Work Phone: [facility] 04-25-2024 08:37-0500 Systolic blood pressure 136 mm[Hg] Margarita Moomaw [employer] Work Phone: [facility] 02-15-2024 08:11-0400 Body height 190.5 cm Gracie Zhao MD Work Phone: [facility] 02-15-2024 08:11-0400 Body mass index (BMI) [Ratio] 31.35 kg/m2 Gracie Zhao MD Work Phone: [facility] 02-15-2024 08:11-0400 Body temperature 97 [degF] Gracie Zhao MD Work Phone: [facility] 02-15-2024 08:11-0400 Body weight 113.76 kg Gracie Zhao MD Work Phone: [facility] 02-15-2024 08:11-0400 Diastolic blood pressure 55 mm[Hg] Gracie Zhao MD Work Phone: [facility] 02-15-2024 08:11-0400 Heart rate 66 /min Gracie Zhao MD Work Phone: [facility] 02-15-2024 08:11-0400 Respiratory rate 16 /min Gracie Zhao MD Work Phone: [facility] 02-15-2024 08:11-0400 SaO2% (BldA) [Mass fraction] 97 % Gracie Zhao MD Work Phone: [facility] 02-15-2024 08:11-0400 Systolic blood pressure 126 mm[Hg] Gracie Zhao MD Work Phone: [facility] 12-04-2023 15:33-0400 Diastolic blood pressure 78 mm[Hg] Salam Sandie DO Work Phone: [facility] 12-04-2023 15:33-0400 Systolic blood pressure 124 mm[Hg] Salam Sandie DO Work Phone: [facility] 12-04-2023 14:34-0400 Body height 190.5 cm Salam Sandie DO Work Phone: [facility] 12-04-2023 14:34-0400 Body mass index (BMI) [Ratio] 31.25 kg/m2 Salam Sandie DO Work Phone: [facility] 12-04-2023 14:34-0400 Body temperature 97.11 [degF] Salam Sandie DO Work Phone: [facility] 12-04-2023 14:34-0400 Body weight 113.4 kg Salam Sandie DO Work Phone: [facility] 07-19-2023 09:42-0500 Diastolic blood pressure 72 mm[Hg] [facility] 07-19-2023 09:42-0500 Systolic blood pressure 161 mm[Hg] Pharm [facility] 07-19-2023 08:47-0500 Body height 190.5 cm Pharm [facility] 07-19-2023 08:47-0500 Body temperature 97 [degF] [facility] 07-19-2023 08:47-0500 Body weight 114.31 kg Pharm [facility] 06-20-2023 09:04-0500 Body height 190.5 cm Gracie Zhao MD Work Phone: [facility] 06-20-2023 09:04-0500 Body temperature 97 [degF] Gracie Zhao MD Work Phone: [facility] 06-20-2023 09:04-0500 Body weight 111.58 kg Gracie Zhao MD Work Phone: [facility] 06-20-2023 09:04-0500 Diastolic blood pressure 66 mm[Hg] Gracie Zhao MD Work Phone: [facility] 06-20-2023 09:04-0500 Heart rate 66 /min Gracie Zhao MD Work Phone: [facility] 06-20-2023 09:04-0500 Respiratory rate 18 /min Gracie Zhao MD Work Phone: [facility] 06-20-2023 09:04-0500 SaO2% (BldA) [Mass fraction] 96 % Gracie Zhao MD Work Phone: [facility] 06-20-2023 09:04-0500 Systolic blood pressure 118 mm[Hg] Garcie Zhao MD Work Phone: [facility] 01-26-2023 10:24-0400 Body height 190.5 cm Angel Vasile DO Work Phone: [facility] 01-26-2023 10:24-0400 Body temperature 96.01 [degF] Angel Vasile DO Work Phone: [facility] 01-26-2023 10:24-0400 Body weight 112.95 kg Angel Vasile DO Work Phone: [facility] 01-26-2023 10:24-0400 Diastolic blood pressure 68 mm[Hg] Angel Vasile DO Work Phone: [facility] 01-26-2023 10:24-0400 Heart rate 84 /min Angel Vasile DO Work Phone: [facility] 01-26-2023 10:24-0400 Respiratory rate 12 /min Angel Vasile DO Work Phone: [facility] 01-26-2023 10:24-0400 SaO2% (BldA) [Mass fraction] 96 % Angel Vasile DO Work Phone: [facility] 01-26-2023 10:24-0400 Systolic blood pressure 133 mm[Hg] Angel Vasile DO Work Phone: [facility] Encounters Encounter Date Encounter Type Care Provider Facility Start: 11-29-2024 End: 11-29-2024 Telephone encounter Tete Lopez MD Work Phone: [facility] Comment on above: Medication Problem ( New order for pen needles ) Start: 11-27-2024 End: 11-27-[address] Amy Sutton MD -[facility] Work Phone: Start: 11-27-2024 End: 11-27-[address] Amy Sutton MD Work Phone: -[facility] Start: 11-25-2024 End: 11-25-2024 Admission to same day surgery center Dr. Barry Cui MD -[facility]/Special Procedures Work Phone: Start: 11-25-2024 End: 11-25-[address] Amy Sutton MD Work Phone: -[facility] Start: 11-20-2024 End: 11-20-2024 Patient encounter procedure Srikanth Chappell PA -[facility] Work Phone: Start: 11-20-2024 End: 11-20-[address] Amy Sutton MD Work Phone: -[facility] Start: 10-04-2024 Non-patient / Non-visit Dr. Tomas WEN -[facility] Work Phone: Start: 10-04-[address] Barry Cui MD -[facility] Work Phone: Start: 10-04-2024 ambulatory Amy Sutton Facility :[facility] Start: 09-27-2024 Non-patient / Non-visit Suzan vargas NP-Jennifer -[facility] Work Phone: Start: 09-27-2024 ambulatory Amy Sutton Facility :[facility] Start: 09-27-2024 ambulatory Barry Cui Facility:[facility] Start: 09-27-2024 Non-patient / Non-visit Dr. Tomas WEN -[facility] Start: 09-27-2024 End: 09-27-[address] Barry Cui MD [facility] Work Phone: Start: 09-27-2024 End: 09-27-2024 ambulatory Amy Sutton Facility:[facility] Start: 08-31-2024 End: 09-02-2024 Refill Gracie Zhao MD Work Phone: [facility] Comment on above: Refill Request Start: 08-28-2024 End: 08-28-[address] Barry Cui MD -[facility] Work Phone: Start: 08-28-2024 End: 08-28-2024 ambulatory Amy Sutton Facility:[facility] Start: 08-05-2024 End: 08-05-[address] Amy Sutton MD Work Phone: [facility] Work Phone: Start: 08-05-2024 End: 08-05-[address] Amy Sutton MD -Laboratory, [place] Start: 08-05-2024 End: 08-05-2024 ambulatory Amy Willardlay Facility:[facility] Start: 08-02-2024 End: 08-06-2024 Refill Gracie Zhao MD Work Phone: [facility] Comment on above: Refill Request Start: 07-26-2024 End: 07-28-2024 Refill Laci Richardson DO Work Phone: [facility] Comment on above: Refill Request Start: 07-10-2024 End: 07-10-[address] Amy Sutton MD -[facility] Work Phone: Start: 07-10-2024 End: 07-10-2024 ambulatory Amy Sutton Facility:[facility] Start: 05-08-2024 End: 05-09-2024 Refill Gracie Zhao MD Work Phone: [facility] Comment on above: Refill Request Start: 05-03-2024 End: 05-03-2024 Patient encounter procedure Angel Burnette DO Work Phone: [facility] Comment on above: Acute midline low ba ck pain without sciatica (Primary Dx); Diabetes mellitus type 1, controlled, without complications (HCC) Start: 05-03-2024 End: 05-03-2024 ambulatory ANGEL BURNETTE Facility:[facility] Start: 04-25-2024 End: 04-25-2024 Telephone encounter Gracie Zhao MD Work Phone: [facility] Start: 04-25-2024 End: 04-25-2024 ambulatory TENNILLE THAKUR Facility:[facility] Start: 04-25-2024 End: 04-25-2024 Patient encounter procedure Margarita Calderon [employer] Work Phone: [facility] Comment on above: Flank pain (Primary Dx) Start: 04-24-2024 End: 04-24-2024 Telephone encounter Angel Burnette DO Work Phone: [facility] Start: 04-09-2024 End: 04-09-2024 Refill Laci Richardson DO Work Phone: [facility] Comment on above: Refill Request Start: 03-15-2024 ambulatory ANGEL BURNETTE Facility:[facility] Start: 03-09-2024 End: 03-11-2024 Refill Gracie Zhao MD Work Phone: [facility] Comment on above: Refill Request Start: 02-19-2024 End: 03-11-2024 Telephone encounter Gracie Zhao MD Work Phone: [facility] Start: 02-16-2024 End: 02-16-2024 Refill Gracie Zhao MD Work Phone: [facility] Comment on above: Refill Request Start: 02-15-2024 End: 02-15-2024 Patient encounter procedure Gracie Zhao MD Work Phone: [facility] Comment on above: Diabetes mellitus ty pe 1, controlled, without complications (HCC) (Primary Dx); Need for influenza vaccination; Screening for abdominal aortic aneurysm Start: 02-15-2024 End: 02-15-2024 ambulatory GRACIE ZHAO [facility] Start: 02-14-2024 End: 02-14-2024 Refill Laci Richardson DO Work Phone: [facility] Comment on above: Refill Request Start: 02-05-2024 End: 02-05-2024 Refill Laci Richardson DO Work Phone: [facility] Comment on above: Refill Request Start: 01-25-2024 End: 01-26-2024 Refill Gracie Zhao MD Work Phone: [facility] Comment on above: Refill Request Start: 01-24-2024 End: 01-24-2024 Refill Laci Richardson DO Work Phone: [facility] Comment on above: Refill Request Start: 01-17-2024 End: 01-17-2024 Telephone encounter Gracie Zhao MD Work Phone: [facility] Comment on above: Orders Start: 12-04-2023 End: 12-04-2023 Patient encounter procedure Melvin Hooper DO Work Phone: [facility] Comment on above: Diabetic retinopathy associated with type 1 diabetes mellitus, macular edema presence unspecified, unspecified laterality, unspecified retinopathy severity (HCC) (Primary Dx); Benign hypertension; Stage 2 chronic kidney disease; Chronic atrial fibrillation (HCC) Start: 12-04-2023 End: 12-04-2023 ambulatory SALAM SANDIE Facility:[facility] Start: 11-30-2023 Refill Gracie Zhao MD Work Phone: [facility] Comment on above: Refill Request (Farx iga ) Start: 11-18-2023 Refill Gracie Zhao MD Work Phone: [facility] Comment on above: Refill Request Start: 10-19-2023 Refill Laci Schumachermaria del carmen Richardson DO Work Phone: [facility] Comment on above: Refill Request Start: 08-02-2023 Telephone encounter Yaritza og [facility] Work Phone: [facility] Comment on above: Results (Genetic juju ting negative ) Start: 07-22-2023 End: 07-22-2023 ambulatory CHARMAINE HARTLEY Facility:[facility] Start: 07-21-2023 End: 07-21-2023 ambulatory Yaritza Joyce [facility] Work Phone: [facility] Comment on above: Family history of Ly nch syndrome (Primary Dx); Family history of colon cancer Start: 07-21-2023 End: 07-21-2023 Telemedicine consultation with patient Yaritza Joyce [facility] Work Phone: [facility] Start: 2023 End: 2023 ambulatory TENNILLE THAKUR Facility:[facility] Start: 07-19-2023 End: 07-19-2023 Patient encounter procedure [facility] Comment on above: Diabetes mellitus ty pe 1, controlled, without complications (HCC) (Primary Dx); Hypertension, essential; Encounter for medication counseling; Preventative health care; Statin intolerance; Atrial fibrillation, unspecified type (HCC); Pure hypercholesterolemia Start: 07-19-2023 End: 07-19-2023 Patient encounter status [facility] Work Phone: Start: 07-07-2023 MC Get Medical Advice Nargis Thakur MD Work Phone: [facility] Comment on above: Refill prescriptions Start: 06-27-2023 Telephone encounter Gracie thomas MD Work Phone: [facility] Comment on above: Medication Problem Start: 06-20-2023 End: 06-20-2023 Patient encounter procedure Gracie Zhao MD Work Phone: [facility] Comment on above: Diabetes mellitus ty pe 1, controlled, without complications (HCC) (Primary Dx); Pure hypercholesterolemia; Hypertension, essential Start: 06-15-2023 Telephone encounter Yaritza roe PA-C Work Phone: [facility] Comment on above: Appointment Start: 05-29-2023 ambulatory YARITZA Bhat ty:[facility] Start: 05-23-2023 End: 05-23-2023 ambulatory TENNILLE THAKUR Facility:[facility] Start: 02-06-2023 End: 02-06-2023 ambulatory Yaritza Robles PA-C Work Phone: [facility] Comment on above: Encounter for screen ing colonoscopy (Primary Dx); Family hx of colon cancer; Hemorrhoids, unspecified hemorrhoid type Start: 02-06-2023 End: 02-06-2023 Telemedicine consultation with patient Yaritza REYES-Jennifer Work Phone: [facility] Start: 01-31-2023 Telephone encounter [facility] Provider [facility] Comment on above: Patient Update Start: 01-26-2023 End: 01-26-2023 Patient encounter procedure Angelpaty Brunertre PRESCOTT Work Phone: [facility] Comment on above: Skin tag (Primary Dx ); Diabetes mellitus type 1, controlled, without complications (HCC); Chronic atrial fibrillation (HCC); Screening for colon cancer Procedures Date Procedure Procedure Detail Performing Clinician Start: 11-20-2024 X-ray of chest, PA a nd lateral views Dr. Amy Sutton MD Work Phone: Start: 10-04-2024 CT angiography of co ronary arteries Dr. Amy Sutton MD Work Phone: Start: 08-28-2024 Evaluation of diagno stic study results Dr. Amy Sutton MD Work Phone: Start: 05-03-2024 Hemoglobin A1c/Hemoglobin.total in Blood Angel Burnette DO Work Phone: Start: 04-25-2024 Urnls dip stick/tabl et rgnt auto w/o microscopy William Orr [employer] IN[employer]EL[employer] Work Phone: Start: 12-04-2023 Hemoglobin A1c/Hemoglobin.total in Blood Melvin Hooper DO Work Phone: Start: 05-29-2023 Colonoscopy Yaritza roe PA-C Work Phone: Start: 05-23-2023 Lipid 1996 panel - S ian or Plasma Yaritza Robles PA-C Work Phone: Plan of Treatment Date Care Activity Detail Author Start: 05-29-2028 Screening for malign ant neoplasm of colon [facility] Start: 05-23-2028 Lipid panel Lipid Screening [facility] Start: 05-23-2026 Diabetes Screening Diabetes Screenin g [facility] Start: 05-03-2025 Annual PCP Team Marketing Project Manager deshawn Disease Visit Annual PCP Team Chronic Disease Visit [facility] Start: 05-03-2025 BP Controlled (<130/80) BP Controlle d (<130/80) [facility] Start: 02-14-2025 Annual PCP Team Marketing Project Manager deshawn Disease Visit Annual PCP Team Chronic Disease Visit [facility] Start: 02-14-2025 BP Controlled (<130/80) BP Controlle d (<130/80) [facility] Start: 01-13-2025 Influenza vaccination Influenza Vacc ine (#1) [facility] Start: 12-03-2024 Annual PCP Team Marketing Project Manager deshawn Disease Visit Annual PCP Team Chronic Disease Visit [facility] Start: 12-03-2024 BP Controlled (<130/80) BP Controlle d (<130/80) [facility] Start: 11-25-2024 Patient discharge [facility] Start: 11-20-2024 Evaluation of diagno stic study results [facility] Start: 11-01-2024 Hemoglobin A1c measurement HbA1C [facility] Start: 07-29-2024 End: 07-29-2024 Patient encounter procedure 07/29/2024 1:40 PM EDT Office Visit [facility] [address] [place], [place] [phone] Tete Lopez MD [address] [place], [place] [id number] Return in about 2 months (around 07/04/2024) for follow up diabetes [facility] Comment on above: Return in about 2 mo nths (around 07/04/2024) for follow up diabetes Start: 07-19-2024 Hepatitis B screening Urine Albumin:Creatinine Ratio [facility] Start: 07-18-2024 Diabetic foot examination Diabetic Foot Exam [facility] Start: 07-10-2024 Patient referral [facility] Work Phone: Start: 06-20-2024 Annual PCP Team Marketing Project Manager deshawn Disease Visit Annual PCP Team Chronic Disease Visit [facility] Start: 06-05-2024 Hemoglobin A1c measurement HbA1C [facility] Start: 05-23-2024 Creatinine measurement Serum Creatin ine [facility] Start: 05-23-2024 Hepatitis B surface antibody level LDL Cholesterol [facility] Start: 05-15-2024 Advance Directive Discussion Advance Directive Discussion [facility] Start: 05-15-2024 Glaucoma screening Dilated Retinal E xam [facility] Start: 05-03-2024 End: 05-03-2024 Patient encounter procedure 05/03/2024 1:40 PM EST Office Visit [facility] [address] [place], [place] [id number] Angel Burnette DO 1 [facility] [address] [place], [place] [id number] Diabetes followup [facility] Comment on above: Diabetes followup Start: 03-15-2024 End: 03-15-2024 Follow-up encounter 03/15/2024 1:20 PM EDT [facility] [address] [place], [place] [id number] Angel Burnette DO 1 [facility] [address] [place] [address] 4 week follow up for DM2 [facility] Comment on above: 4 week follow up for DM2 Start: 02-15-2024 End: 02-15-2024 Patient encounter procedure 02/15/2024 8:40 AM EDT Office Visit [facility] [address] [place], [place] [id number] Gracie Zhao MD 1 [facility] [address] [place] [id number] Follow up [facility] Comment on above: Follow up Start: 01-29-2024 End: 01-29-2024 Patient encounter procedure 01/29/2024 3:00 PM EDT Office Visit [facility] [address] [place], [place] [id number] Gracie Zhao MD 1 [facility] [address] [id number] follow up [facility] Comment on above: follow up Start: 01-14-2024 Covid-19 Vaccine ( season) Covid-19 Vaccine ( season) [facility] Start: 01-14-2024 Covid-19 Vaccine ( season) Covid-19 Vaccine ( season) [facility] Start: 01-14-2024 Influenza vaccination Influenza Vacc ine (#1) [facility] Start: 12-04-2023 End: 12-04-2023 Patient encounter procedure 12/04/2023 3:00 PM EDT Office Visit [facility] [address] [place] [address] Sandie LopezDO shawanda [address] [place] [phone] Follow up - medication refill [facility] [place] [facility] Comment on above: Follow up - medicati on refill Start: 10-14-2023 Glaucoma screening Dilated Retinal E xam [facility] Comment on above: Postponed from 07/19 (Postponed To Appropriate Date) Start: 08-22-2023 Hemoglobin A1c measurement HbA1C [facility] Start: 07-21-2023 End: 10-20-2023 MISC SEND OUT TST 1 MISC SEND OUT TST 1 Lab Routine Family history of Smith syndrome Family history of colon cancer Expected: 07/21/2023, Expires: 10/20/2023 [facility] Work Phone: Comment on above: Expected: 07/21/2023 , Expires: 10/20/2023 Start: 07-19-2023 End: 10-18-2023 ALBUMIN/CREAT RATIO RND UR ALBUMIN/CREAT RATIO RND UR Lab Routine Diabetes mellitus type 1, controlled, without complications (HCC) Expected: 07/19/2023, Expires: 10/18/2023 [facility] Work Phone: Comment on above: Expected: 07/19/2023 , Expires: 10/18/2023 Start: 07-12-2023 Covid-19 Vaccine () Covid-19 Vaccine () [facility] Start: 05-15-2023 Advance Directive Discussion Advance Directive Discussion [facility] Start: 05-15-2023 Behavioral Health Screening Behavioral Health Screening [facility] Start: 05-15-2023 Depression Assessment Depression Ass essment [facility] Start: 03-10-2023 Covid-19 Vaccine () Covid-19 Vaccine () [facility] Start: 02-25-2023 End: 04-27-2023 Hemoglobin A1c in Blood HGB A1C Lab Routine Diabetes mellitus type 1, controlled, without complications (HCC) Expected: 02/25/2023, Expires: 04/27/2023 [facility] Work Phone: Comment on above: Expected: 02/25/2023 , Expires: 04/27/2023 Start: 02-25-2023 End: 04-27-2023 Lipid 1996 panel - Serum or Plasma LIPID PANEL BASIC Lab Routine Diabetes mellitus type 1, controlled, without complications (HCC) Expected: 02/25/2023, Expires: 04/27/2023 [facility] Work Phone: Comment on above: Expected: 02/25/2023 , Expires: 04/27/2023 Start: 01-13-2023 Covid-19 Vaccine () Covid-19 Vaccine () [facility] Start: 01-13-2023 Influenza vaccination Influenza Vacc ine (#1) [facility] Start: 05-15-2022 Advance Directive Discussion Advance Directive Discussion [facility] Start: 05-15-2022 Depression Assessment Depression Ass essment [facility] Start: 07-19-2020 Pneumococcal Vaccine : 65+ (1 - PCV) Pneumococcal Vaccine: 65+ (1 - PCV) [facility] Start: 07-19-2020 Pneumococcal Vaccine : 65+ (1 of 1 - PCV) Pneumococcal Vaccine: 65+ (1 of 1 - PCV) [facility] Start: 07-19-2010 Prostate Cancer Screening Discussion Prostate Cancer Screening Discussion [facility] Start: 07-19-2010 Prostate specific antigen measurement Prostate Cancer Screening Discussion [facility] Start: 07-19-2005 Shingrix Vaccine (1 of 2) Shingrix Vaccine (1 of 2) [facility] Start: 07-19-2000 Cologuard (FIT-DNA) Cologuard (FIT-D NA) [facility] Start: 07-19-2000 Colonoscopy Colonoscopy [facility] Start: 07-19-2000 Colorectal Cancer Screening Colorectal Cancer Screening [facility] Start: 07-19-[address] COLONOGRAPHY [facility] Start: 07-19-2000 Diabetes Screening Diabetes Screenin g [facility] Start: 07-19-2000 Fecal Occult Blood Fecal Occult Bloo d [facility] Start: 07-19-2000 Screening for malign ant neoplasm of colon [facility] Start: 07-19-2000 SIGMOIDOSCOPY SIGMOIDOSCOPY [facility] Start: 07-19-1990 Lipid 1996 panel - S ian or Plasma Lipid Screening [facility] Start: 07-19-1974 Urine microalbumin profile DTaP,Tdap,Td Vaccine (1 - Tdap) [facility] Start: 07-19-1973 Anxiety Screening Anxiety Screening [facility] Start: 07-19-1973 BP Controlled (<130/80) BP Controlle d (<130/80) [facility] Start: 07-19-1973 Depression Screening Depression Scre ening [facility] Start: 07-19-1973 Hepatitis C Screening Hepatitis C Sc reening [facility] Start: 07-19-1965 Diabetic foot examination Diabetic Foot Exam [facility] Start: 07-19-1965 Glaucoma screening Dilated Retinal E xam [facility] Start: 07-19-1965 Hepatitis B screening Urine Albumin:Creatinine Ratio [facility] Start: 07-19-1961 Pneumococcal Vaccine : 65+ (1 of 2 - PCV) Pneumococcal Vaccine: 65+ (1 of 2 - PCV) [facility] Start: 01-20-1956 Covid-19 Vaccine (#1) Covid-19 Vacci ne (#1) [facility] Start: 1955 Abdominal Aortic Aneurysm Screening Abdominal Aortic Aneurysm Screening [facility] Start: 1955 Abdominal aortic aneurysm screening Abdominal Aortic Aneurysm Screening [facility] ALBUMIN/CREAT RATIO RND UR ALBUMIN/CREAT RATIO RND UR Lab Routine Diabetes mellitus type 1, controlled, without complications (HCC) 2023 9:39 AM EST [facility] Work Phone: Basic metabolic 2008 panel with ionized calcium - Serum or Plasma [facility] CBC W Auto Different ial panel - Blood [facility] Comprehensive metabo lic 2000 panel - Serum or Plasma [facility] Lipid 1996 panel - S ian or Plasma [facility] Partial thromboplast in time, activated [facility] Patient referral [facility] Work Phone: Prothrombin time [facility] End: 01-27-2024 Screening colonoscopy COLONOSCOPY SCREENING Endoscopy Routine Screening for colon cancer 1 Occurrences starting 01/26/2023 until 01/27/2024 [facility] Work Phone: Comment on above: 1 Occurrences starti ng 01/26/2023 until 01/27/2024 End: 02-07-2024 Screening colonoscopy COLONOSCOPY SCREENING Endoscopy Routine Encounter for screening colonoscopy Family hx of colon cancer Hemorrhoids, unspecified hemorrhoid type 1 Occurrences starting 02/06/2023 until 02/07/2024 [facility] Work Phone: Comment on above: 1 Occurrences starti ng 02/06/2023 until 02/07/2024 Urine microalbumin/creatinine ratio measurement [facility] End: 03-16-2025 US Abdominal Aorta for screening US SCREENING FOR AAA Radiology Routine Screening for abdominal aortic aneurysm 1 Occurrences starting 02/15/2024 until 03/16/2025 [facility] Work Phone: Comment on above: 1 Occurrences starti ng 02/15/2024 until 03/16/2025 XR Chest PA and Lateral [facility] Immunizations Immunization Date Immunization Notes Care Provider [facility] 08-24-2024 tetanus toxoid, redu vladimir diphtheria toxoid, and acellular pertussis vaccine, adsorbed Dr. Amy Sutton MD Work Phone: [facility] 08-20-2024 Covid (Spikevax) Dr. Amy Sutton MD Work Phone: [facility] 08-19-2024 Covid (Spikevax) Dr. Amy Sutton MD Work Phone: [facility] 02-15-2024 influenza, high dose seasonal, preservative-free Gracie Zhao MD Work Phone: [facility] 02-15-2024 influenza virus vaccine, unspecified formulation Tete Lopez MD Work Phone: [facility] 07-19-2023 pneumococcal conjuga te (PCV20) vaccine, 20 valent (PREVNAR 20) [facility] 07-19-2023 pneumococcal Conjuga te, unspecified formulation Pharm [facility] Work Phone: 05-30-2023 respiratory syncytia l virus (RSV) vaccine, adjuvanted (AREXVY) [facility] Work Phone: 03-11-2023 Pfizer Covid-19 (Comirnaty) Dr. Amy Sutton MD Work Phone: [facility] 02-18-2023 influenza (aIIV4) vaccine, age 65+ yr, quadrivalent, PF (FLUAD QUAD) [facility] Work Phone: 02-18-2023 influenza, injectabl e, quadrivalent, preservative free Dr. Amy Sutton MD Work Phone: [facility] 02-18-2023 influenza virus vaccine, unspecified formulation Gracie Zhao MD Work Phone: [facility] 01-13-2023 COVID-19 original vaccine, age 12+ yr, monovalent (PFIZER-BIONTECH - PURPLE TOP) Pharm [facility] Work Phone: 02-15-2022 Covid Pfizer Bivalen t Booster Dr. Amy Sutton MD Work Phone: [facility] 01-28-2020 influenza, injectabl e, quadrivalent, preservative free [facility] Work Phone: Payers Date Payer Category Payer Unknown [id number] 2024 Unknown [id number] 2024 Self-pay 2022 [employer] BLUE CARD PPO OOS Member Subscriber Plan / Payer (Effective 2022-Present) Name: Babatunde Stewart Relation to Subscriber: Self Name: Babatunde Stewart Payer ID: [id number] (NAIC) Type: PPO Address: [facility] [address] [place] [id number] 2022 Unknown [facility] BLUE CARD PPO OOS [id number] 2022-Present [phone] [address] [place] [address] PPO [id number] 2022 Unknown [id number] Unknown [id number] Unknown [id number] Unknown [id number] Unknown [id number] Unknown [id number] Unknown [id number] Unknown [id number] Unknown [id number] Unknown [id number] Unknown [id number] Unknown [id number] Unknown [id number] Social History Date Type Detail Facility Start: 01-26-2023 End: 02-15-2024 Tobacco smoking status NHIS Ex-smoker [facility] Work Phone: History of tobacco use Current smoker [facility] Work Phone: History of tobacco use Cigarette Smoker [facility] Work Phone: Start: 01-26-2023 End: 03-15-2024 Cigarettes smoked current (pack per day) - Reported 1 [facility] Start: 01-26-2023 End: 02-15-2024 Tobacco use and exposure Smokeless tobacco non-user [facility] Work Phone: Start: 01-26-2023 End: 05-03-2024 Alcohol intake Current drinker of alcohol (finding) [facility] Start: 01-26-2023 End: 03-15-2024 Tobacco use panel [facility] Adult Depression Screening Assessment 0 [facility] Start: 01-26-2023 Tobacco Comment [facility]: 1955 Sex Assigned At Not on file C [facility] Start: 1955 Sex Assigned At Male C [facility] Start: 02-04-2023 Gender identity Identifies as male gender (finding) [facility] Start: 02-04-2023 Sexual orientation Heterosexual (fin ding) [facility] Start: 08-10-2024 Sex Male (finding) [facility] Medical Equipment Procedure Code Equipment Code Equipment Origin al Text Equipment Identifier Dates [id number], [id number], [id number] Start: 01-09-2023 End: 11-29-2024 Comment on above: USE DIRECTED with INSULIN [...] needle Start: 07-10-2024 Clinical Notes 01-26-2023 to 11-29-2024 Telephone Encounter - Wanda Resendiz LPN - 11/29/2024 11:50 AM EDTTelephone Encounter - Wanda Resendiz LPN - 11/29/2024 11:50 AM EDT Note Date & Type Note Facility 11-29-2024 Telephone encounter Note Pharmacy requesting generic order for pen needles for patients insulin. Please advise. Wanda Resendiz LPN [facility] 11-29-2024 Miscellaneous Notes Pharmacy requesting generic order for pen needles for patients insulin. Please advise. Wanda Resendiz LPN documented in this encounter [facility] 11-20-2024 Radiology Diagnostic study note [facility] Imaging Services [address] [place] [address] Chest PA and Lateral MR#: [id number] Acct: [id number] Name: BABATUNDE STEWART Rep #: [id number] : 1955 M 69 From: Lana Canseco MD PCP: Dr. Amy Sutton MD Status: PRE ARC Study:Chest PA and Lateral Date of Exam: 11/20/24 Exam# [id number] Ordering Dr: Srikanth Chappell EXAM: XR Chest, [...] process. Reading [facility] CC: Dr. Amy Sutton MD; ERIC Cramer ~ Medical Legal Investigator: Signed [facility] 08-28-2024 Evaluation note Diagnosis Onset Date Resolution A-fib acute August 28 10:16am Hyperlipidemia acute August 10:16am Hypertension chronic August 28, 2024 10:16am [employer] Work Phone: 1(279) 847-601704-16-2025 Evaluation note* Diagnosis Onset Date Resolution Status Admit Date A-fib acute August 28 10:16am Hyperlipidemia chronic August 10:16am Hypertension chronic August 28, 2024 10:16am A-fib acute November 20, 2024 8:25am Abnormal CT scan of heart acute November 20, 2024 8:25am Hyperlipidemia chronic November 20, 2024 8:25am Hypertension chronic November 20 8:25am [facility] Work Phone: 1(800) 372-131104-16-2025 Evaluation note* Diagnosis Onset Date Resolution Status Admit Date A-fib acute August 28 10:16am Hyperlipidemia chronic August 10:16am Hypertension chronic August 28, 2024 10:16am A-fib acute November 20, 2024 8:25am Abnormal CT scan of heart acute November 20, 2024 8:25am Hyperlipidemia chronic November 20, 2024 8:25am Hypertension chronic November 20 8:25am Diabetes mellitus acute November 272024 8:16am ALLI (obstructive sleep apnea) noneac tive November 27, 2024 8:16am Mixed hyperlipidemia noneactive November 27, 2024 8:16am Essential hypertension noneactive Ju 2024 8:16am History of atrial fibrillation nonea ctive November 27, 2024 8:16am [facility] Work Phone: 1(582) 567-412402-26-2025 Evaluation note* Diagnosis Onset Date Resolution Status Admit Date Diabetes mellitus acute 2024 10:33am Establishing care with new doctor, encounter for noneactive June 162024 10:33am ALLI (obstructive sleep apnea) noneac tive July 10, 2024 10:33am Immunization due noneactive July 10, 2024 10:33am Mixed hyperlipidemia noneactive ua2024 10:33am Essential hypertension noneactive Fe bruary 2024 10:33am Foot pain, right noneactive July 10, 2024 10:33am History of atrial fibrillation noneactive July 10 10:33am [facility] Work Phone: 1(532) 863-717612-20-2024 NoteHNO ID: [id number] Author: TENNILLE THAKUR MD Service: ? Author Type: Physician Type: Progress Notes Filed: 05/06/2024 16:16 Note Text: LATE ENTRY 05/06/24 4:16 PM Attending Note I discussed patient's history, exam, assessment, and plan with the resident on 05/03/24 but did not examine the patient myself. I reviewed the resident's note. I agree with the resident's assessment and plan unless otherwise noted. Tennille Thakur, [facility]12-20-2024 History of Present illness Narrative* Vasile Angel, - 05/03/2024 1:40 PM EST Images from the original note were not included. [facility] 1 [facility] / [address] [place] [phone] Visit Date: May 02, 2024 Name: Babatunde Stewart Date of : 1955 MRN/E #: [id number] Chief Complaint: Patient presents with: Diabetes Right Flank Pain: UA negative at [facility] Subjective Babatunde Stewart is a 68 year old male here with the following complaint(s): Flank pain -2/10 today -was exercising and felt a cringe [...] directed once daily. REMOVE AFTER 12 HOURS. TOUJEO SOLOSTAR U-300 INSULIN 300 unit/mL (1.5 [...] 5.6 % The ASCVD Risk score (Breezy DK, et al., 2019) failed to calculate [...] with CGM - HEMOGLOBIN A1C (POC) - TOUJEO SOLOSTAR U-300 INSULIN 300 UNIT/ML (1.5 ML) SUBCUTANEOUS PEN, patient increased this to 60U Discussed the above with the patient using shared decision-making. The patient is in agreement with the diagnostic and treatment plans. Return in about 2 months (around 07/04/2024) for follow up diabetes. Provider: Angel Burnette DO Date: May 02, 2024 Time: 12:35 PM [facility]24 NoteHNO ID: [id number] Author: ANGEL BURNETTE DO Service: ? Author Type: Resident Type: Progress Notes Filed: 05/03/2024 15:51 Note Text: [facility] [address] [place] [address] [facility] / [address] [place], [place] [address] Visit Date: May 02, 2024 Name: Babatunde Stewart Date of : 1955 MRN/E #: [id number] Chief Complaint: Patient presents with: Diabetes Right Flank Pain: UA negative at [facility] Subjective Babatunde Stewart is a 68 year old male here with the following complaint(s): Flank pain -2/10 today -was exercising and felt a cringe [...] mouth two times a day. Blood-Glucose Sensor (KydaemosSTYLE BERTIN 3 SENSOR PLUS) jose g 1 Each once daily. DROPLET PEN NEEDLE 31 gauge x 5/16 Use to inject insulin up to 5 times per day lidocaine (LIDODERM) 5 % Apply 1 Patch as directed once daily. REMOVE AFTER 12 HOURS. TOUJEOrlando SOLOSTAR U-300 INSULIN 300 unit/mL (1.5 [...] 5.6 % The ASCVD Risk score (Breezy DK, et al., 2019) failed to calculate [...] such as read (more content not included)... [facility]12-12-2024 Telephone encounter Note* Telephone Encounter - Chantell Nolan - 04/25/2024 8:40 AM EST Patient is scheduled on 05/03/[address] Burnette. Chantell Nolan [facility]12-12-2024 NoteHNO ID: [id number] Author: MARGARITA CALDERON APRN.ANNIE Service: ? Author Type: Nurse Practitioner Type: Progress Notes Filed: 04/25/2024 09:21 Note Text: This note was created using NoteWriter. Subjective Babatunde Stewart is a 68 year [...] - UA DIP, URINE (POC) [facility] History of Present illness Narrative* Margarita Calderon APRN.ANNIE - 04/25/2024 8:40 AM EST This note was created using [employer]. Subjective Babatunde Stewart is a 68 year [...] - UA DIP, URINE (POC) Margarita Calderon APRN.ON LINE CSR documented in [facility]Western [facility]12-[facility]-2024 Miscellaneous Notes* Telephone Encounter - Chantell Nolan - 04/25/2024 8:40 AM EST Patient is scheduled on 05/03/[address] Burnette. Chantell Nolan documented [facility]12-[facility]-2024 Telephone encounter Note * Telephone Encounter - Chantell Nolan - 04/24/2024 2:25 PM EST Patient re-scheduled with Dr. Burnette on 05/03/24. Chantell Nolan [facility]12-11-2024 Miscellaneous Notes* Telephone Encounter - Chantell Nolan - 04/24/2024 2:25 PM EST Patient re-scheduled with Dr. Burnette on 05/03/24. Chantell Nolan documented [facility]12-[facility]-2024 Telephone encounter Note * Telephone Encounter - Chantell Nolan - 04/24/2024 2:19 PM EST Patient has an appt scheduled with Dr. Burnette on 05/03/24. Chantell Nolan [facility]12-11-2024 Miscellaneous Notes* Telephone Encounter - Chantell Nolan - 04/24/2024 2:19 PM EST Patient has an appt scheduled with Dr. Burnette on 05/03/24. Chantell Nolan documented in [facility] encounterWestern [facility]10-15-2024 NoteHNO ID: [id number] Author: SEAN JEONG MD Service: ? Author [...] resident's note for further details. Sean Jeong [facility]10-04-2024 NoteHNO ID: [id number] Author: ?, ?, ? Service: ? Author Type: ? Type: Progress Notes Filed: 02/16/2024 12:05 Note Text: Re-scheduled patient for 03/15/[address] Burnette. Chantell [facility]10-04-2024 History of Present illness Narrative* Chantell Nolan - 02/16/2024 12:04 PM EDT Re-scheduled patient for 03/15/[address] Burnette. Chantell Nolan * Gracie Zhao MD - 02/15/2024 8:40 AM EDT Images from the original note were not included. [facility] [place] [facility] [address] [place] [address] [facility] [place] / [address] [place] [phone] Visit Date: February 15, 2024 Name: Babatunde Stewart Date of : 1955 MRN/E #: [id number] Chief Complaint: No chief complaint on file. [...] 2024 Time: 6:12 AM documented in this encounterWestern [facility]10-03-2024 NoteHNO ID: [id number] Author: GRACIE ZHAO MD Service: ? Author Type: Resident Type: Progress Notes Filed: 02/16/2024 10:50 Note Text: [facility] [place] [facility] 1 [facility] / [address] [place], [place] [address] Visit Date: February 15, 2024 Name: Babatunde Stewart Date of : 1955 MRN/E #: [id number] Chief Complaint: No chief complaint on file. [...] decrease to 2 be (more content not included)...[facility]10-03-2024 Nurse Note * Sarah Amaya LPN - 02/15/2024 8:16 AM EDT Influenza Vaccine given as ordered. Immunization History - influenza (HD-IIV3) vaccine, age 65+ yr, high dose, trivalent, PF (FLUZONE HIGH-DOSE) (Given) - Date: 02/15/2024 - Lot #: [id number] - Dose: 0.5 mL - Site: Left deltoid - Accounting Software Specialist: [employer] Pasteur - Given By: SARAH AMAYA - Expiration Date: 11/11/2024 Pt tolerated well. Sarah Amaya LPN [facility]10-03-2024 Nurse Note* Sarah Amaya LPN - 02/15/2024 8:16 AM EDT Influenza Vaccine given as ordered. Immunization History - influenza (HD-IIV3) vaccine, age 65+ yr, high dose, trivalent, PF (FLUZONE HIGH-DOSE) (Given) - Date: 02/15/2024 - Lot #: [id number] - Dose: 0.5 mL - Site: Left deltoid - Accounting Software Specialist: Apptimizecasie Pasteur - Given By: SARAH AMAYA - Expiration Date: 11/11/2024 Pt tolerated well. Sarah Amaya LPN documented in [facility]09-[facility]-2024 Telephone encounter Note * Telephone Encounter - Wanda Resendiz LPN - 01/17/2024 10:20 AM EDT Patient called stated Free Style 3 is unavailable at pharmacy. Pharmacy told patient to have provider order Free Style Bertin 3 Plus. Please advise. Wanda Resendiz LPN [facility]09-04-2024 Miscellaneous Notes* Telephone Encounter - Wanda Resendiz LPN - 01/17/2024 10:20 AM EDT Patient called stated Free Style 3 is unavailable at pharmacy. Pharmacy told patient to have provider order Free Style Bertin 3 Plus. Please advise. Wanda Resendiz LPN documented in this encounterWestern [facility] Hospital07-30-2024 NoteHNO ID: [id number] Author: JD BYNUM, DO Service: ? Author Type: Physician Type: [...] details. Signature: Jd Bynum DO Faculty Physician, [facility] Family Medicine Residency Date: December 12, 2023 Time: 9:38 [facility]07-22-2024 NoteHNO ID: [id number] Author: MELVIN HOOPER DO Service: ? Author Type: Resident Type: Progress Notes Filed: 12/04/2023 17:43 Note Text: Melvin Hooper DO [facility] Medicine [address] [place] [address] [facility] [place] / [address] [place] [address] Visit Date: December 04, 2023 Name: Babatunde Stewart Date of : 1955 MRN/E #: [id number] Chief Complaint: Diabetes Subjective Babatunde Stewart is [...] severity (HCC) - ICD9 (more content not included)...[facility] 12-04-2023 History of Present illness Narrative* Melvin Hooper DO - 12/04/2023 3:15 PM EDT Images from the original note were not included. Melvin Hooper DO [facility] [place] [facility] 1 [facility] / [address] [place] [address] Visit Date: December 04, 2023 Name: Babatunde Stewart Date of : 1955 MRN/E #: [id number] Chief Complaint: Diabetes Subjective Babatunde Stewart is [...] on low sodium diet - SGLT2i prescribed: CANDYXIGA Tab 4. Chronic atrial fibrillation (HCC) - [...] Portions of this note was created using [employer] dictation software. Every attempt was made to proofread, however you may find errors regardless of how insignificant they may be. They are purely unintentional and if there are any concerns regarding this dictation, please do not hesitate to call the dictating provider for clarification. documented in this encounterWestern [facility]07-18-[facility]24 Note* Addendum Note - Angel Snow LPN - 11/30/2023 1:24 PM EDTAddended by: ANGEL SNOW on: 11/30/2023 01:24 PM Modules accepted: Orders [facility]07-18-[facility] Miscellaneous Notes* Addendum Note - Angel [...] [Seasonal* Itching Losartan Myalgia Metformin Diarrhea (home) [phone] (cell) Last Office Visit Date: 07/19/2023 Last Distance Health Visit: Visit date not found Future Appointment: 12/04/2023 The patients preferred pharmacy has been captured for this encounter? yes Request is for script(s) to be escript to pharmacy. Angel Snow LPN * Telephone Encounter - Joon Guaman - 11/30/2023 12:39 PM EDT The patient/caregiver contacted the office, requesting refills of FARXIGA 10 mg tablet . Patient prefers prescriptions to be e prescribed to [facility] [address] [place] [address] - [address] [facility] - [phone] Last Office Visit Date: 07/19/2023 Last Distance Health Visit: Visit date not found Future Appointment: 12/04/2023 Joon Guaman documented in this encounterWestern Reserve Hospital07-18-2024 Telephone encounter Note * Telephone Encounter - Angel Snow LPN - 11/30/2023 1:23 PM EDT Patient called requesting the following refill Refill(s) Requested: Requested Prescriptions Pending Prescriptions Disp Refills FARXIGA 10 mg tablet 30 tablet 0 Sig: Take 1 tablet by mouth every morning. ALLERGIES Allergen Reactions Atorvastatin Myalgia Hay Fever [Seasonal* Itching Losartan Myalgia Metformin Diarrhea (home) [phone] (cell) Last Office Visit Date: 07/19/2023 Last Distance Health Visit: Visit date not found Future Appointment: 12/04/2023 The patients preferred pharmacy has been captured for this encounter? yes Request is for script(s) to be escript to pharmacy. Angel Snow LPN [facility] Telephone encounter Note* Telephone Encounter - Joon Guaman - 11/30/2023 12:39 PM EDT The patient/caregiver contacted the office, requesting refills of FARXIGA 10 mg tablet . Patient prefers prescriptions to be e prescribed to [facility] [address] [place] [address] - [address] [facility] - [phone] Last Office Visit Date: 07/19/2023 Last Distance Health Visit: Visit date not found Future Appointment: 12/04/2023 Joon Guaman [facility] Telephone encounter Note* Telephone Encounter - Joon Guaman - 11/21/2023 1:17 PM EDT Called LVM for patient to call back and get scheduled for diabetes follow up Joon Guaman [facility]07-[facility] Miscellaneous Notes* Telephone Encounter - Joon Guaman - 11/21/2023 1:17 PM EDT Called LVM for patient to call back and get scheduled for diabetes follow up Joon Guaman * Telephone Encounter - Gracie Zhao MD - 11/21/2023 9:49 AM EDT Medications refilled. Patient needs appt in office for diabetes follow up. Will forward to front window cashier to call for appt in next month. documented in this encounterWestern Reserve Hospital07-09-2024 Telephone encounter Note * Telephone Encounter - Gracie Zhao MD - 11/21/2023 9:49 AM EDT Medications refilled. Patient needs appt in office for diabetes follow up. Will forward to front window cashier to call for appt in next month. [facility] Telephone encounter Note* Telephone Encounter - Joon Guaman - 10/23/2023 10:48 AM EDT Called patient and LVM to call back and get scheduled for follow up for hypertension and diabetes Joon Guaman [facility]06-10-[facility] Miscellaneous Notes* Telephone Encounter - Joon Guaman - 10/23/2023 10:48 AM EDT Called patient and LVM to call back and get scheduled for follow up for hypertension and diabetes Joon Guaman * Telephone Encounter - Gracie Zhao MD - 10/21/2023 8:27 PM EDT Medication refilled. Patient should be seen in office within the next couple months regarding diabetes and hypertension. Will forward to front window cashier to call regarding scheduling appointment. documented in this encounterWestern Reserve Hospital06-08-2024 Telephone encounter Note * Telephone Encounter - Gracie Zhao MD - 10/21/2023 8:27 PM EDT Medication refilled. Patient should be seen in office within the next couple months regarding diabetes and hypertension. Will forward to front window cashier to call regarding scheduling appointment. [facility] Miscellaneous Notes* Telephone Encounter - Yaritza Joyce LGC - 08/02/2023 8:46 AM EDT Results left on patient voicemail. Babatunde Stewart's Multi-Cancer panel through [employer] was negative for a pathogenic variant. Please see [employer] message for further discussion. BEVERLY Pena Licensed, Certified Genetic Counselor documented in this encounterWestern Reserve Hospital03-08-2024 Miscellaneous Notes* Telephone Encounter - Arianna Talley LPN - 07/21/2023 4:07 PM EST [facility] approved. Arianna Talley LPN * Telephone Encounter - Amber Bowman LPN - 06/27/2023 3:11 PM EST Fax from [employer] received that the Bertin needs a PA. Phone call to the patient to see if this is a pharmacy benefit or a DME benefit. Where has he been getting this in the past? documented in this encounterWestern Reserve Hospital03-08-2024 History of Present illness Narrative* Yaritza Joyce LGC - 07/21/2023 9:24 AM EST Images from the original note were not included. [facility] Consultation Note Genetic Counselor: Yaritza Joyce, MS, [facility] Patient: Babatunde Stewart Patient Name and confirmed at initiation of visit. This visit was conducted via [employer]. Wilfred communicated my name and active licensure. The patient's identity and physical location were verified at the time of this visit. Either the patient or their legal help desk representative has been informed of the risks [...] is detected, the National Comprehensive Cancer Network and/the rehabilitation institute opinion recommendations could include increased cancer surveillance [...] appropriate standard National Comprehensive Cancer Network and [place] Cancer Society guidelines, with consideration of their [...] NTHL1, PALB2, PDGFRA, PMS2, POLD1, POLE, POT1, YPPLS7G, PTCH1, PTEN, RAD51C, RAD51D, RB1, RET, SDHA, SDHAF2, SDHB, SDHC, SDHD, SMAD4, SMARCA4, SMARCB1, SMARCE1, STK11, SUFU, FJIF626, TP53, TSC1, TSC2, and VHL The Multi-Cancer [...] to the presenting phenotype. We discussed that [employer] may contact the patient by text or email regarding billing. The patient should watch for this communication and respond promptly. The patient should contact [employer] directlywith any billing questions (ph. [phone]). Per the patient's request, we will contact him by telephone to discuss these results. A follow up genetic counseling visit will be scheduled if requested. The patient was seen for a total of 20 minutes, greater than 50% of which was spent dljw-ic-cnrx counseling. This plan is being carried out under the oversight of Dr. Charmaine Hartley. This note will also be sent to the referring provider via the electronic medical record. Yaritza Joyce MS, [facility], Licensed, Certified Genetic Counselor [facility] CC: Dr. Yaritza Negron documented in this encounterWestern Reserve Hospital03-07-2024 History of Present illness Narrative* Laci Richardson, - 2023 2:59 PM EST PharmD & [...] for furthur details. Laci Richardson DO * SoloTangela, [facility] - 07/19/2023 9:14 AM EST REASON FOR [...] on traveling ~Jan received COVID booster through [employer] ~5 years ago, does not remember location [...] encouraged ongoing activity, small carb portions - [employer] BERTIN 3 SENSOR DEVICE - DROPLET PEN [...] pharmacy to participate in this patient's care Tangela Banda RPh The majority of the pharmacy visit (> 50%) was spent counseling and/or coordinating care for thepatient. Tcgn-yi-npke time was 40 minutes. documented in this encounterWestern Reserve Hospital03-06-2024 Instructions* Patient Instructions* Tangela Banda RPh - 07/19/2023 9:30 AM EST Thank you for letting us care for you today! Below is a brief summary of our appointment. Medication changes: - consider ezetimibe (zetia) for cholesterol Other recommendations: - If issues with sensors staying on, consider purchasing SKIN TAC at any local pharmacy or getting tegaderm patches. Both can also be found on [employer]. This can help with keeping sensors on. - urine from any [facility] lab documented in this encounterWestern Reserve Hospital02-06-2024 History of Present illness Narrative* Gracie Zhao MD - 06/20/2023 9:00 AM EST Images from the original note were not included. [facility] [address] [place] [address] [facility] [address] [place] [phone] Visit Date: June 19, 2023 Name: Babatunde Stewart Date of : 1955 MRN/E #: [id number] Chief Complaint: No chief complaint on file. 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 work - diagnosed in 1991 - did not get on insulin until 5 years ago - was previously on metformin for years, diagnosed as type 2 - found antibodies at study at [facility] - A1C 8 on 05/23/23 - has [...] Range Case Report Surgical Pathology Report Case: [id number] Authorizing Provider: Ana Villalpando MD Collected: 05/29/2023 10:30 AM Ordering Location: [facility] Endoscopy Received: 05/29/2023 11:19 AM Pathologist: Gracie Obregon MD Specimen: RECTAL POLYP FINAL DIAGNOSIS A. Rectum, polyp, polypectomy: -Fragments of tubular adenoma. Gross Description A. RECTAL POLYP Received in formalin are two pieces of garvey, soft tissue aggregating to 0.4 x 0.2 x 0.1 cm. Totally submitted in one cassette. J May 29, 2023 3:21 PM Gross examination performed at [facility], [address] [place] [address] Performing Lab Diagnostic interpretation performed at [facility], [address] [place] [address]# [id number] Mottler Operator: Dante Trevino M.D. GLUCOSE, BLOOD (POC) Result [...] a day before meals. - CONSULT TO [facility] ([facility] ONLY) - FREESTYLE BERTIN [...] will monitor, may increase now that stopped Farnilo Discussed the above with the patient using shared decision-making. The patient is in agreement with the diagnostic and treatment plans. Return in about 2 months (around 08/19/2023) for follow up of chronic problem with PCP. Provider: Gracie Zhao MD Date: June 19, 2023 Time: 7:44 PM documented in this encounterWestern Reserve Hospital02-01-2024 Miscellaneous Notes* Telephone Encounter - Sarah Slaughter - 06/15/2023 2:31 PM EST Placed Genetics consult Your form has been successfully submitted and your request is being processed. Confirmation number: [id number] documented in this encounterWestern Reserve Hospital09-25-2023 History of Present illness Narrative* Yaritza [...] visit. Either the patient or their legal help desk representative has been informed of the risks and benefits of -- and alternatives to -- treatment through a remote evaluation andconsents to proceed with the evaluation remotely. This is a virtual visit using [facility] Zoom Video Visit. It required patient- provider [...] Take 10 mg by mouth every morning. [employer] BERTIN 2 SENSOR kit apply 1 SENSOR [...] 67 [facility]. The patient has [...] medications, tests, or procedures. documented in this encounterCleveland [id number] Miscellaneous Notes* Telephone Encounter - Ana Covarrubias - 01/31/2023 10:01 AM EDT Pt.update 01.31.23- gastro call left message Note: Z12.11 screening for colon cancer documented in this encounterWestern Reserve Hospital09-14-2023 Instructions* Patient Instructions* Angel Burnette DO - 01/26/2023 11:14 AM EDT Thank you for letting me take care of you today! Patient Instructions: -Get labs done when able -set up appointment to establish with cardiology -follow up in 3 months documented in this encounterWestern Reserve Hospital09-14-2023 History of Present illness Narrative* Angel Burnette DO - 01/26/2023 10:14 AM EDT Images from the original note were not included. [facility] [place] [facility] [address] [place] [address] [facility] [address] [place], [place] [address] Visit Date: January 26, 2023 Name: Babatunde Stewart Date of : 1955 MRN/E #: [id number] Chief Complaint: No chief complaint on file. [...] any symptoms since the ablation -on Eliquis alf -used to follow up with cardiology in [place] before moving here last month and needs to establishwith a new drum sander SKIN TAG PROCEDURE NOTE Date: January 26, [...] any previous visit. 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 Screening for [...] 2023 Time: 10:15 AM [facility] Diagnosis Skin tag- Primary Unspecified hypertrophic and atrophic condition of skin Diabetes mellitus type 1, controlled, without complications (HCC) Type I (juvenile type) diabetes mellitus without mention of complication, not stated as uncontrolled Chronic atrial fibrillation (HCC) Atrial fibrillation Screening for colon cancer Special screening for malignant neoplasms, colon documented in this encounter [facility]* Diagnosis Encounter for screening colonoscopy- Primary Special screening for malignant neoplasms, colon Family hx of colon cancer Family history of malignant neoplasm of gastrointestinal tract Hemorrhoids, unspecified hemorrhoid type documented in this encounter [facility]* Diagnosis Diabetes mellitus type 1, controlled, without complications (HCC)- Primary Type I (juvenile type) diabetes mellitus without mention of complication, not stated as uncontrolled Pure hypercholesterolemia Hypertension, essential Unspecified essential hypertension documented in this encounter [facility]* Diagnosis Diabetes mellitus type 1, controlled, without complications (HCC)- Primary Type I (juvenile type) diabetes mellitus without mention of complication, not stated as uncontrolled Hypertension, essential Unspecified essential hypertension documented in this encounter [facility]* Diagnosis Diabetes mellitus type 1, [...] (HCC) Pure hypercholesterolemia [facility] Diagnosis Family history of Smith syndrome- Primary Family history of malignant neoplasm of gastrointestinal tract Family history of colon cancer Family history of malignant neoplasm of gastrointestinal tract [facility]* Diagnosis Diabetes mellitus type 1, controlled, without complications (HCC) Type I (juvenile type) diabetes mellitus without mention of complication, not stated as uncontrolled Hypertension, essential Unspecified essential hypertension [facility]* Diagnosis Diabetes mellitus type 1, controlled, without complications (HCC) Type I (juvenile type) diabetes mellitus without mention of complication, not stated as uncontrolled [facility]* Diagnosis Diabetic retinopathy associated with type 1 diabetes mellitus, macular edema presence unspecified, unspecified laterality, unspecified retinopathy severity (HCC)- Primary Benign hypertension Essential hypertension, benign Stage 2 chronic kidney disease Chronic atrial fibrillation (HCC) Atrial fibrillation [facility]* Diagnosis Atrial fibrillation, unspecified type (HCC) [facility]* Diagnosis Diabetes mellitus type 1, controlled, without complications (HCC)- Primary Type I (juvenile type) diabetes mellitus without mention of complication, not stated as uncontrolled Need for influenza vaccination Need for prophylactic vaccination and inoculation against influenza Screening for abdominal aortic aneurysm Screening for other and unspecified cardiovascular conditions [facility]* Diagnosis Diabetes mellitus type 1, controlled, without complications (HCC) Type I (juvenile type) diabetes mellitus without mention of complication, not stated as uncontrolled [facility]* Diagnosis Hypertension, essential Unspecified essential hypertension [facility]* Diagnosis Flank pain- Primary Abdominal pain, unspecified site [facility]* Diagnosis Acute midline low back pain without sciatica- Primary Diabetes mellitus type 1, controlled, without complications (HCC) Type I (juvenile type) diabetes mellitus without mention of complication, not stated as uncontrolled [facility]* Diagnosis Diabetes mellitus type 1, controlled, without complications (HCC) Type I (juvenile type) diabetes mellitus without mention of complication, not stated as uncontrolled documented [facility] encounter [facility] Diagnosis Diabetes mellitus type 1, controlled, without complications (HCC) Type I (juvenile type) diabetes mellitus without mention of complication, not stated as uncontrolled documented in this encounter [facility]* Diagnosis Atrial fibrillation, unspecified type (HCC) documented in this encounter [facility]* Diagnosis Diabetes mellitus type 1, controlled, without complications (HCC) Type I (juvenile type) diabetes mellitus without mention of complication, not stated as uncontrolled documented in this encounter [facility] for referral (narrative)* Outpatient Procedure (Routine) - Pending Review Specialty Diagnoses / Procedures Referred By Contac t Referred To Contact [facility] Diagnoses Screening for colon cancer Procedures COLONOSCOPY SCREENING COLONOSCOPY FLX DX W/COLLJ SPEC WHEN PFRMSean Harden MD [address] [place] [place] [id number] [facility] [address] [place] [address] Referral ID Status Reason Start Date Expiration Date Visits Requested Visits Authorized [id number] Pending Review Auto-Generat ed Referral 01/26/2023 01/27/2024 1 1 * Consult, Test, Treat (Routine) - Authorized Specialty Diagnoses / Procedures Referred By Contac t Referred To Contact Cardiology Diagnoses Chronic atrial fibrillation (HCC) Procedures CONSULT TO CARDIOLOGY OFFICE/OUTPATIENT [facility] MDM 60-74 MINUTES Sean Jeong MD [address] [place] [address] Referral ID Status Reason Start Date Expiration Date Visits Requested Visits Authorized [id number] Authorized PCP Requested Referral 01/26/2023 01/26/2024 1 1 [facility] for referral (narrative)* Outpatient Procedure (Routine) - Pending Review Specialty Diagnoses / Procedures Referred By Contac t Referred To Contact [facility] Diagnoses Encounter for screening colonoscopy Family hx of colon cancer Hemorrhoids, unspecified hemorrhoid type Procedures COLONOSCOPY SCREENING COLONOSCOPY FLX DX W/COLLJ SPEC WHEN PFRMYaritza Whittington PA-C [address] [address] [facility] [place] [address] [place] [address] Referral ID Status Reason Start Date Expiration Date Visits Requested Visits Authorized [id number] Pending Review Auto-Generat ed Referral 02/06/2023 02/07/2024 1 1 [facility] for referral (narrative)* Diagnostic Procedure Only (Routine) - New Request Specialty Diagnoses / Procedures Referred By Contac t Referred To Contact [facility] Diagnoses Screening for abdominal aortic aneurysm Procedures US SCREENING FOR AAA US ABDOMINAL AORTA REAL TIME SCREEN STUDY AAA Jean Paul Evans MD [address] [facility] [address] [place] [address] [place] [address] Referral ID Status Reason Start Date Expiration Date Visits Requested Visits Authorized [id number] New Request Auto-Generat ed Referral 02/15/2024 03/16/2025 1 1 [facility] for referral (narrative)No reason for referral information availableSidney & Lois [facility]sken[facility] Work Phone: Summary Purpose Family History No [...] Unknown Advance Directives No Advanced Directives Records Found Advance Directive Response Recorded Date/ Time Advance Directives on File No November 25, 2024 7:19am Living Will Yes November 25, 2024 7:19am Do you have a Healthcare Power of Alarm Service Technician? Yes November 25, 2024 7:19am Name of Medical Power of Alarm Service Technician luther November 25, 2024 7:19am Advance Directives Yes November 25 7:19am Reason for Referral Specialty Diagnoses / Procedures Referred By Contac t Referred To Contact Diagnoses Acute midline low back pain without sciatica [facility] [address] [place] [address] Referral ID Status Reason Start Date Expiration Date V isits Requested Visits Authorized [id number] Pending Review 1 1 Chief Complaint and [...] 10:33am Chief Complaint Admit Date EST CARE ([place]) August 28, 2024 10: 16am ATRIAL FIB [...] 16am Hypertension August 28, 2024 10: 16am Chief Complaint Admit Date EST CARE ([place]) August 28, 2024 10: 16am ATRIAL FIB FLUTTER September 27, 2024 8:18a m Amb Documentation September 27, 2024 2:52p m HYPERLIPIDEMIA October 04, 2024 2:30p m CALCIUM SCORING October 04, 2024 2:31p m H&P PER [facility] NOTE(SD) November 20, 2024 8:25a m Abnormal findings on diagnostic imaging of other s November 25, 2024 6:43am Reason for Visit Admit Date A-fib August 28, 2024 10: 16am Hyperlipidemia August 28, 2024 10: 16am Hypertension August 28, 2024 10: 16am A-fib November 20, 2024 8:25a m Abnormal CT scan of heart November 20, 2024 8:25am Hyperlipidemia November 20, 2024 8:25a m Hypertension November 20, 2024 8:25a m Chief Complaint Admit Date EST CARE ([place]) August 28, 2024 10: 16am ATRIAL FIB FLUTTER September 27, 2024 8:18a m Amb Documentation September 27, 2024 2:52p m HYPERLIPIDEMIA October 04, 2024 2:30p m CALCIUM SCORING October 04, 2024 2:31p m H&P PER [facility] NOTE(SD) November 20, 2024 8:25a m Abnormal findings on diagnostic imaging of other s November 25, 2024 6:43am 3 M FU November 27, 2024 8:16 am Reason for Visit Admit Date A-fib August 28, 2024 10: 16am Hyperlipidemia August 28, 2024 10: 16am Hypertension August 28, 2024 10: 16am A-fib November 20, 2024 8:25a m Abnormal CT scan of heart November 20, 2024 8:25am Hyperlipidemia November 20, 2024 8:25a m Hypertension November 20, 2024 8:25a m Diabetes mellitus November 27, 2024 8:16 am ALLI (obstructive sleep apnea) November 27, 2024 8:16am Mixed hyperlipidemia November 27, 2024 8:1 6am Essential hypertension November 27, 2024 8 :16am History of atrial fibrillation November 8:16am Additional Source Comments Source Comments (unrecognize d section and content) In the event this informatio n is protected by the Federal Confidentiality of Alcohol and Drug Abuse Patient Records regulations: The Federal rules restrict any use of the information to criminally investigate or prosecute any alcohol or drug abuse patient.[facility] [facility] HospitalIn the event this information is protected by the Federal Confidentiality of Alcohol and Drug Abuse Patient Records regulations: The Federal rules restrict any use of the information to criminally investigate or prosecute any alcohol or drug abuse patient.[facility] HospitalIn the event this information is protected by the Federal Confidentiality of Alcohol and Drug Abuse Patient Records regulations: The Federal rules restrict any use of the information to criminally investigate or prosecute any alcohol or drug abuse patient.[facility] HospitalIn the event this information is protected by the Federal Confidentiality of Alcohol and Drug Abuse Patient Records regulations: The Federal rules restrict any use of the information to criminally investigate or prosecute any alcohol or drug abuse patient.[facility] HospitalIn the event this information is protected by the Federal Confidentiality of Alcohol and Drug Abuse Patient Records regulations: The Federal rules restrict any use of the information to criminally investigate or prosecute any alcohol or drug abuse patient.[facility] HospitalIn the event this information is protected by the Federal Confidentiality of Alcohol and Drug Abuse Patient Records regulations: The Federal rules restrict any use of the information to criminally investigate or prosecute any alcohol or drug abuse patient.[facility] HospitalIn the event this information is protected by the Federal Confidentiality of Alcohol and Drug Abuse Patient Records regulations: The Federal rules restrict any use of the information to criminally investigate or prosecute any alcohol or drug abuse patient.[facility] HospitalIn the event this information is protected by the Federal Confidentiality of Alcohol and Drug Abuse Patient Records regulations: The Federal rules restrict any use of the information to criminally investigate or prosecute any alcohol or drug abuse patient.[facility] HospitalIn the event this information is protected by the Federal Confidentiality of Alcohol and Drug Abuse Patient Records regulations: The Federal rules restrict any use of the information to criminally investigate or prosecute any alcohol or drug abuse patient.[facility] HospitalIn the event this information is protected by the Federal Confidentiality of Alcohol and Drug Abuse Patient Records regulations: The Federal rules restrict any use of the information to criminally investigate or prosecute any alcohol or drug abuse patient.[facility] HospitalIn the event this information is protected by the Federal Confidentiality of Alcohol and Drug Abuse Patient Records regulations: The Federal rules restrict any use of the information to criminally investigate or prosecute any alcohol or drug abuse patient.[facility] HospitalIn the event this information is protected by the Federal Confidentiality of Alcohol and Drug Abuse Patient Records regulations: The Federal rules restrict any use of the information to criminally investigate or prosecute any alcohol or drug abuse patient.[facility] HospitalIn the event this information is protected by the Federal Confidentiality of Alcohol and Drug Abuse Patient Records regulations: The Federal rules restrict any use of the information to criminally investigate or prosecute any alcohol or drug abuse patient.[facility] HospitalIn the event this information is protected by the Federal Confidentiality of Alcohol and Drug Abuse Patient Records regulations: The Federal rules restrict any use of the information to criminally investigate or prosecute any alcohol or drug abuse patient.[facility] HospitalIn the event this information is protected by the Federal Confidentiality of Alcohol and Drug Abuse Patient Records regulations: The Federal rules restrict any use of the information to criminally investigate or prosecute any alcohol or drug abuse patient.[facility] HospitalIn the event this information is protected by the Federal Confidentiality of Alcohol and Drug Abuse Patient Records regulations: The Federal rules restrict any use of the information to criminally investigate or prosecute any alcohol or drug abuse patient.[facility] HospitalIn the event this information is protected by the Federal Confidentiality of Alcohol and Drug Abuse Patient Records regulations: The Federal rules restrict any use of the information to criminally investigate or prosecute any alcohol or drug abuse patient.[facility] HospitalIn the event this information is protected by the Federal Confidentiality of Alcohol and Drug Abuse Patient Records regulations: The Federal rules restrict any use of the information to criminally investigate or prosecute any alcohol or drug abuse patient.[facility] HospitalIn the event this information is protected by the Federal Confidentiality of Alcohol and Drug Abuse Patient Records regulations: The Federal rules restrict any use of the information to criminally investigate or prosecute any alcohol or drug abuse patient.[facility] HospitalIn the event this information is protected by the Federal Confidentiality of Alcohol and Drug Abuse Patient Records regulations: The Federal rules restrict any use of the information to criminally investigate or prosecute any alcohol or drug abuse patient.[facility] HospitalIn the event this information is protected by the Federal Confidentiality of Alcohol and Drug Abuse Patient Records regulations: The Federal rules restrict any use of the information to criminally investigate or prosecute any alcohol or drug abuse patient.[facility] HospitalIn the event this information is protected by the Federal Confidentiality of Alcohol and Drug Abuse Patient Records regulations: The Federal rules restrict any use of the information to criminally investigate or prosecute any alcohol or drug abuse patient.[facility] HospitalIn the event this information is protected by the Federal Confidentiality of Alcohol and Drug Abuse Patient Records regulations: The Federal rules restrict any use of the information to criminally investigate or prosecute any alcohol or drug abuse patient.[facility] HospitalIn the event this information is protected by the Federal Confidentiality of Alcohol and Drug Abuse Patient Records regulations: The Federal rules restrict any use of the information to criminally investigate or prosecute any alcohol or drug abuse patient.[facility] HospitalIn the event this information is protected by the Federal Confidentiality of Alcohol and Drug Abuse Patient Records regulations: The Federal rules restrict any use of the information to criminally investigate or prosecute any alcohol or drug abuse patient.[facility] HospitalIn the event this information is protected by the Federal Confidentiality of Alcohol and Drug Abuse Patient Records regulations: The Federal rules restrict any use of the information to criminally investigate or prosecute any alcohol or drug abuse patient.[facility] HospitalIn the event this information is protected by the Federal Confidentiality of Alcohol and Drug Abuse Patient Records regulations: The Federal rules restrict any use of the information to criminally investigate or prosecute any alcohol or drug abuse patient.[facility] HospitalIn the event this information is protected by the Federal Confidentiality of Alcohol and Drug Abuse Patient Records regulations: The Federal rules restrict any use of the information to criminally investigate or prosecute any alcohol or drug abuse patient.[facility] HospitalIn the event this information is protected by the Federal Confidentiality of Alcohol and Drug Abuse Patient Records regulations: The Federal rules restrict any use of the information to criminally investigate or prosecute any alcohol or drug abuse patient.[facility] HospitalIn the event this information is protected by the Federal Confidentiality of Alcohol and Drug Abuse Patient Records regulations: The Federal rules restrict any use of the information to criminally investigate or prosecute any alcohol or drug abuse patient.[facility] HospitalIn the event this information is protected by the Federal Confidentiality of Alcohol and Drug Abuse Patient Records regulations: The Federal rules restrict any use of the information to criminally investigate or prosecute any alcohol or drug abuse patient.[facility] HospitalIn the event this information is protected by the Federal Confidentiality of Alcohol and Drug Abuse Patient Records regulations: The Federal rules restrict any use of the information to criminally investigate or prosecute any alcohol or drug abuse patient.[facility] HospitalIn the event this information is protected by the Federal Confidentiality of Alcohol and Drug Abuse Patient Records regulations: The Federal rules restrict any use of the information to criminally investigate or prosecute any alcohol or drug abuse patient.[facility] HospitalIn the event this information is protected by the Federal Confidentiality of Alcohol and Drug Abuse Patient Records regulations: The Federal rules restrict any use of the information to criminally investigate or prosecute any alcohol or drug abuse patient.[facility] Reason for Visit (unrecogniz ed section and content) Reason Comments Establish Care Pt is a diabetic Reason Comments Patient Update Reason Comments Consult Reason Comments Appointment Reason Comments Diabetes Reason Comments Family History Of Cancer Specialty Diagnoses / Procedures Referred By Arleen fontana Referred To Contact Diagnoses Family history of Smith syndrome Procedures CONSULT TO MEDICAL GENETICS - GENERAL OFFICE/OUTPATIENT [facility] 60 MINUTES MEDICAL GENETICS COUNSELING EACH 30 MINUTES Yaritza Robles PA-C [address] [address] [address] Referral ID Status Reason Start Date Expiration Date Visits Requested Visits Authorized [id number] Pending Review PCP Requested Referral Auto-Generate d [...] [facility] Reason Onset Date Comments Medication Problem 11/29/2024 New order for pen needles (unrecognized sect ion and content) No Status Records FoundNo Status Records FoundNo Status Records FoundNo Status Records Found INFORMATION SOURCE (unrecogn ized section and content) DATE CREATED AUTHOR 05/31/2023 [facility] DATE CREATED AUTHOR AUTHOR'S ORGANIZ ATION 04/28/2024 [facility] DATE CREATED AUTHOR AUTHOR'S ORGANIZ ATION 12/02/2024 [facility] DATE CREATED AUTHOR AUTHOR'S ORGANIZ ATION 12/06/2024 [facility] Care Teams (unrecognized sec tion and content) Food And Nutrition Services Assistant Relationship Specialty Start Date End Date Tennille Thakur MD [address] [place], [place] [phone] PCP - General Family Medicine 06/01/23 Gracie Zhao MD [address] [place], [place] [id number] PCP Resident 05/15/23 Food And Nutrition Services Assistant Relationship Specialty Start Date End Date Tennille Thakur MD [address] [place], [place] [phone] PCP - General Family Medicine 06/01/23 Gracie Zhao MD [address] [place], [place] [id number] PCP Resident 05/15/23 Food And Nutrition Services Assistant Relationship Specialty Start Date End Date Tennille Thakur MD [address] [place], [place] [id number] PCP - General Family Medicine 06/01/23 Gracie Zhao MD [address] [place], [place] [id number] PCP Resident 05/15/23 Food And Nutrition Services Assistant Relationship Specialty Start Date End Date Tennille Thakur MD [address] [place], [place] [phone] PCP - General Family Medicine 06/01/23 Gracie Zhao MD [address] [place], [place] [id number] PCP Resident 05/15/23 Food And Nutrition Services Assistant Relationship Specialty Start Date End Date Tennille Thakur MD [address] [place], [place] [id number] PCP - General Family Medicine 06/01/23 Gracie Zhao MD [address] [place], [place] [id number] PCP Resident 05/15/23 Food And Nutrition Services Assistant Relationship Specialty Start Date End Date Tennille Thakur MD [address] [place], [place] [id number] PCP - General Family Medicine 06/01/23 Gracie Zhao MD [address] [place], [place] [id number] PCP Resident 05/15/23 Food And Nutrition Services Assistant Relationship Specialty Start Date End Date Tennille Thakur MD [address] [place], [place] [id number] PCP - General Family Medicine 06/01/23 Gracie Zhao MD [address] [place], [place] [id number] PCP Resident Family Medicine 05/15/23 Food And Nutrition Services Assistant Relationship Specialty Start Date End Date Tennille Thakur MD [address] [place], [place] [id number] PCP - General Family Medicine 06/01/23 Gracie Zhao MD [address] [place], [place] [id number] PCP Resident Family Medicine 05/15/23 Food And Nutrition Services Assistant Relationship Specialty Start Date End Date Tennille Thakur MD [address] [place], [place] [phone] PCP - General Family Medicine 06/01/23 Gracie Zhao MD [address] [place], [place] [phone] PCP Resident Family Medicine 05/15/23 Food And Nutrition Services Assistant Relationship Specialty Start Date End Date Tennille Thakur MD [address] [place], [place] [phone] PCP - General Family Medicine 06/01/23 Gracie Zhao MD [address] [place], [place] [id number] PCP Resident Family Medicine 05/15/23 Food And Nutrition Services Assistant Relationship Specialty Start Date End Date Tennille Thakur MD [address] [place], [place] [phone] PCP - General Family Medicine 06/01/23 Gracie Zhao MD [address] [place], [place] [phone] PCP Resident Family Medicine 05/15/23 Food And Nutrition Services Assistant Relationship Specialty Start Date End Date Tennille Thakur MD [address] [place], [place] [phone] PCP - General Family Medicine 06/01/23 Gracie Zhao MD [address] [place], [place] [phone] PCP Resident Family Medicine 05/15/23 Food And Nutrition Services Assistant Relationship Specialty Start Date End Date Tennille Thakur MD [address] [place], [place] [phone] PCP - General Family Medicine 06/01/23 Gracie Zhao MD [address] [place], [place] [id number] PCP Resident Family Medicine 05/15/23 Food And Nutrition Services Assistant Relationship Specialty Start Date End Date Tennille Thakur MD [address] [place], [place] [phone] PCP - General Family Medicine 06/01/23 Gracie Zhao MD [address] [place], [place] [phone] PCP Resident Family Medicine 05/15/23 Food And Nutrition Services Assistant Relationship Specialty Start Date End Date Tennille Thakur MD [address] [place], [place] [phone] PCP - General Family Medicine 06/01/23 Gracie Zhao MD [address] [place], [place] [phone] PCP Resident Family Medicine 05/15/23 Food And Nutrition Services Assistant Relationship Specialty Start Date End Date Tennille Thakur MD [address] [place] [address] PCP - General Family Medicine 06/01/23 Gracie Zhao MD [address] [place], [place] [phone] PCP Resident Family Medicine 05/15/23 Team Status: [...] Active Start: September 27, 2024 Suzan Prieto CASING BLOWER, CASING BLOWER-C Attending Provider Active Start: September 27, 2024 Team Status: Active Member Role/Relationship Status Dates Dr. Amy Sutton MD Primary Care Provider Active Start: October 04, 2024 Dr. Barry Cui MD Attending Provider Active S tart: October 04, 2024 Dr. Barry Cui MD Referring Provider Active S tart: October 04, 2024 Team Status: Active Member Role/Relationship Status [...] November 20, 2024 End: November 20, 2024 Team Status: Inactive Member Role/Relationship Status Dates Dr. Amy Sutton MD Primary Care Provider Active Start: November 25, 2024 End: November 25, 2024 Dr. Barry Cui MD Attending Provider Active S tart: November 25, 2024 End: November 25, 2024 Dr. Barry Cui MD Referring Provider Active S tart: November 25, 2024 End: November 25, 2024 Team Status: Inactive Member Role/Relationship Status Dates Dr. Amy Sutton MD Primary Care Provider Active Start: November 27, 2024 End: November 27, 2024 Dr. Amy Sutton MD Attending Provider Active Start: November 27, 2024 End: November 27, 2024 Dr. Amy Sutton MD Referring Provider Active Start: November 27, 2024 End: November 27, 2024 Food And Nutrition Services Assistant Relationship Specialty Start Date End Date Tennille Thakur MD [address] [place], [place] [id number] PCP - General Family Medicine 11/01/24 Tete Lopez MD [address] [place], [place] [phone] PCP Resident Family Medicine 11/01/24 Goals (unrecognized section and content) Goals may be documented in a n alternate sectionGoals may be documented in an alternate sectionGoals may be documented in an alternate sectionGoals may be documented in an [...] BE BASED ON THE PRIMARY CLINICAL RECORDS. [employer] provides no warranty or guarantee of the accuracy or completeness of information in this document.
[2024-12-13 07:59] LABS: Creatinine, Urine (random) 88.80 mg/dL (39.00-259.00); Microalbumin,Random Urine < 12.0 mg/L (<20 mg/L)
[2024-12-13 08:03] LABS: Albumin, Serum 4.0 g/dL (3.4-4.8); BUN 21 mg/dL (4-19); BUN/Creat Ratio 19.9 RATIO (10-20); Glucose 200 mg/dL (70-99)
[2024-12-13 08:04] LABS: AST(SGOT) 17 U/L (<=37); Alanine Aminotransfer ALT/SGPT 8 U/L (<=46); Alkaline Phosphatase 70 U/L (40-129); Anion Gap 10 (5-15); Calcium,Total 9.0 mg/dL (7.6-11.0); Carbon Dioxide 26.8 mmol/L (21.0-32.0); Chloride 100 mmol/L (98-108); Globulin 2.6 g/dL (2.2-4.2); Potassium 4.5 mmol/L (3.3-5.1)
[2024-12-13 08:32] LABS: Cholesterol 230 mg/dL (<=200); Low Density Lipoprotein Calc. 114 mg/dL; Triglycerides 136 mg/dL; Very Low Density Lipoprotein 27 mg/dL (5-40); cholesterol:hdl ratio screen 2.58
== END | disposition home or self-care (01) ==
LOC: LAB 06:56
PROVIDERS: PCP Internal Medicine; Referring Provider Internal Medicine; Visit Provider Internal Medicine
DX: E10.9 Type 1 diabetes mellitus without complications (principal); E78.2 Mixed hyperlipidemia
CPT/HCPCS: 36415; 80053; 80061; 82043; 82570